=== PATIENT | female | born 1955 | race Caucasian/White ===

== ENCOUNTER → 2016-11-21 | Outpatient (CLI) | payer BC ==
--- NOTE | 2016-11-21 09:23 | BD ---
EXAMINATION TYPE: MG DEXA axial skeleton. DATE OF EXAM: 11/21/2016 7:44 AM COMPARISON: NONE CLINICAL HISTORY: 0.n95, m89.9 post menopausal and disorder of bone Height: 63 Weight: 181 FRAX RISK QUESTIONS: Alcohol (3 or more units per day): no Family History (Parent hip fracture): no Glucocorticoids (More than 3mos): no (Ex: prednisone, prednisolone, methylprednisolone, dexamethasone, and hydrocortisone). History of Fracture in Adulthood: no Secondary Osteoporosis: 1. Type 1 Diabetes: no 2. Hyperthyroidism: no 3. Menopause before 45: no 4. Malnutrition: no 5. Chronic liver disease: no Rheumatoid Arthritis: no Current Tobacco Use: no RISK FACTORS HISTORY OF: Family History of Osteoporosis: no Smoke tobacco: no Drink Alcohol: social Active: yes Diet low in dairy products/other sources of calcium: no Postmenopausal woman: 51 yrs old Lost more than 2 inches in height since high school: no Adrenal Insufficiency: no MEDICATIONS: Additional Medications: multi vitamin, bp meds, Additional History: total knee replacements, bilaterally, rt shoulder replacement, osteoarthritis EXAM MEASUREMENTS: Bone mineral densitometry was performed using the Actimagine System. Bone mineral density as measured about the Lumbar spine is: ----- L1-L4(G/cm2): 1.109 T Score Values are as follows: ----- L1: -0.5 ----- L2: -0.3 ----- L3: -0.9 ----- L4: -0.7 ----- L1-L4: -0.6 Bone mineral density has: IS THE FIRST BONE DENSITY SCAN AT [facility] Bone mineral density about the R hip (g/cm2): 0.928 Bone mineral density about the L hip (g/cm2): 0.996 T Score values are as follows: -----R Neck: -0.8 -----L Neck: -0.3 -----R Intertrochanter: -1.0 -----L Intertrochanter: -1.1 Bone mineral density has: BASELINE STUDY FOR HER AT [facility] FRAX%'S: FOR MAJOR OSTEOPOROTIC FX: 6.9%.......FOR HIP FX: 0.3% PROBABILITY OF FX IN 10 Y RS TIME IMPRESSION: Osteopenia (T Score between -2.5 and -1 as noted by T score values There is slightly increased risk of fracture and the patient may be considered for treatment. Re-Screen 1-2 years. JUST SLIGHTLY FOR LT HIP AT INTERTROCHANTER...ONLY....OTHER [place] NORMAL BONE DENSITY NOTE: T-SCORE=SD OF THE YOUNG ADULT MEAN.
== END | disposition home or self-care (01) ==
LOC: RADBDWWP 07:15
PROVIDERS: ATTEND Family Medicine
DX: M85.80 Other specified disorders of bone density and structure, unspecified site (principal); Z78.0 Asymptomatic menopausal state
CPT/HCPCS: 77080

== ENCOUNTER 2018-01-11 06:57 | Day surgery (SDC) | payer BC ==
[2018-01-08 09:41] VITALS: BMI 32.9
[~2018-01-11 06:57] MED LIST: LACTATED RINGERS 1,000 ML IV SCH
[2018-01-11 07:14] VITALS: RESP 18; TEMP 97.8
[2018-01-11] MEDS ORDERED: LACTATED RINGERS 1,000 ML IV ONE ×2 (07:17)
[2018-01-11] MEDS ORDERED: PROPOFOL 10 MG/ML 20 ML VIAL IV ONE (07:30)
--- NOTE | 2018-01-11 07:37 | P.GSHP ---
History of Present Illness H&P Date: 01/11/18 Chief Complaint: Colon cancer screening Patient here today for screening colonoscopy. Last colonoscopy 4 years ago. No bowel related complaints. Previous history of diverticulosis. Past Medical History Past Medical History: Diabetes Mellitus, Deep Vein Thrombosis (DVT), Hypertension, Renal Disease Additional Past Medical History / Comment(s): diet controlled-used to make medication for, stage 3 kidney disease-new dx-will being specialist soon, frequent headaches stephanie. @[facility], hx. DVT in leg after knee replacement several yrs. ago History of Any Multi-Drug Resistant Organisms: None Reported Past Surgical History: Cholecystectomy, Hernia Repair, Joint Replacement, Tubal Ligation Additional Past Surgical History / Comment(s): harry knees replaced, right shoulder replaced, left shoulder surg., cataract surg., colonoscopy Past Anesthesia/Blood Transfusion Reactions: No Reported Reaction Smoking Status: Never smoker - Past Family History Father Family Medical History: Cancer Medications and Allergies Home Medications Medication Instructions Recorded Confirmed Type Cholecalciferol [Vitamin D3] 1,000 unit PO DAILY 01/08/18 01/08/18 History Citalopram Hydrobromide [CeleXA] 40 mg PO DAILY 01/08/18 01/08/18 History Cyanocobalamin [Vitamin B-12] 500 mcg PO DAILY 01/08/18 01/08/18 History Enalapril [Vasotec] 5 mg PO DAILY 01/08/18 01/08/18 History Ferrous Sulfate [Feosol] 325 mg PO DAILY 01/08/18 01/08/18 History Multivit with Calcium,Iron,Min 1 each PO DAILY 01/08/18 01/08/18 History [Women's Multivitamin] Cidra-3 Fatty Acids [Cidra-3] 1,000 mg PO DAILY 01/08/18 01/08/18 History Topiramate [Topamax] 50 mg PO HS 01/08/18 01/08/18 History buPROPion HCL [Wellbutrin SR] 150 mg PO BID 01/08/18 01/08/18 History cloNIDine HCL [Catapres] 0.1 mg PO HS 01/08/18 01/08/18 History Allergies Allergy/AdvReac Type Severity Reaction Status Date / Time nickel AdvReac Rash/Hives Verified 01/08/18 09:34 Surgical - Exam Vital Signs Temp Pulse Resp BP Pulse Ox 97.8 F 64 18 142/78 96 01/11/18 07:12 01/11/18 07:12 01/11/18 07:12 01/11/18 07:12 01/11/18 07:12 Physical exam: General: Well-developed, well-nourished HEENT: Normocephalic, sclerae nonicteric Abdomen: Nontender, nondistended Extremities: No edema Neuro: Alert and oriented Assessment and Plan (1) Colon cancer screening Narrative/Plan: Will proceed with colonoscopy at this time. Current Visit: Yes Status: Acute Code(s): Z12.11 - ENCOUNTER FOR SCREENING FOR MALIGNANT NEOPLASM OF COLON SNOMED Code(s): 002904274
--- NOTE | 2018-01-11 07:49 | P.PCN ---
Date of Procedure: 01/11/18 Procedure(s) Performed: PREOPERATIVE DIAGNOSIS: Screening POSTOPERATIVE DIAGNOSIS: Diverticulosis PROCEDURE: Colonoscopy ANESTHESIA: MAC SURGEON: Erik Fowler M.D. SPECIMENS: None ENDOSCOPIC PROCEDURE: The patient was placed on the endoscopy table in the left decubitus position. The Olympus colonoscope was inserted into the anus and passed under direct visualization to the base of the cecum. The appendiceal orifice was visualized. From that point the scope was slowly withdrawn inspecting all surfaces carefully. There were no neoplastic inflammatory or polypoid lesions throughout the cecum, ascending, transverse, descending, sigmoid and rectum. There was moderate diverticulosis noted in the left colon. Digital rectal examination was normal. The patient was taken to the recovery room in stable condition per anesthesia guidelines. RECOMMENDATIONS: Increase fiber. Follow-up colonoscopy 10 years.
[2018-01-11 08:26] VITALS: BP 147/85; PULSE 53
== END 2018-01-11 08:38 | disposition home or self-care (01) ==
LOC: ORWHC2ENDO 06:57
PROVIDERS: ATTEND Surgery
DX: Z12.11 Encounter for screening for malignant neoplasm of colon (principal); K57.30 Diverticulosis of large intestine without perforation or abscess without bleeding; I12.9 Hypertensive chronic kidney disease with stage 1 through stage 4 chronic kidney disease, or unspecified chronic kidney disease; E11.22 Type 2 diabetes mellitus with diabetic chronic kidney disease; N18.3 Chronic kidney disease, stage 3 (moderate); M26.629 Arthralgia of temporomandibular joint, unspecified side; R51 Headache; H25.0 Age-related incipient cataract; K21.9 Gastro-esophageal reflux disease without esophagitis; F32.9 Major depressive disorder, single episode, unspecified; Z78.0 Asymptomatic menopausal state; Z86.718 Personal history of other venous thrombosis and embolism; Z98.51 Tubal ligation status; Z96.653 Presence of artificial knee joint, bilateral; Z79.2 Long term (current) use of antibiotics; Z79.82 Long term (current) use of aspirin; Z79.899 Other long term (current) drug therapy; Z88.5 Allergy status to narcotic agent; Z88.8 Allergy status to other drugs, medicaments and biological substances; Z91.048 Other nonmedicinal substance allergy status
CPT/HCPCS: J2704; G0121

== ENCOUNTER → 2018-01-29 | Outpatient (CLI) | payer BC ==
--- NOTE | 2018-02-01 14:30 | MM ---
Reason for exam: screening (asymptomatic). Last mammogram was performed 1 year and 3 months ago. History: Patient is postmenopausal. Physical Findings: A clinical breast exam by your physician is recommended on an annual basis and results should be correlated with mammographic findings. MG Screening Mammo w CAD Bilateral CC and MLO view(s) were taken. Prior study comparison: October 29, 2016, bilateral MG screening mammo w CAD. June 15, 2015, bilateral MG screening mammo w CAD. There are scattered fibroglandular densities. No suspicious abnormality. No significant changes when compared with prior studies. ASSESSMENT: Negative, BI-RAD 1 RECOMMENDATION: Routine screening mammogram of both breasts in 1 year.
== END | disposition home or self-care (01) ==
LOC: RADMAMWWP 08:28
PROVIDERS: ATTEND Family Medicine
DX: Z12.31 Encounter for screening mammogram for malignant neoplasm of breast (principal)
CPT/HCPCS: 77067

== ENCOUNTER → 2020-12-05 | Outpatient (CLI) | payer OTHER ==
--- NOTE | 2020-12-05 15:16 | BD ---
EXAMINATION TYPE: Axial Bone Density DATE OF EXAM: 12/05/2020 COMPARISON: 11.21.2016 CLINICAL HISTORY: 65 YR OLD FEMALE.....ICD-10 CODE: Z78.0 POST MENOPAUSAL Height: 63 Weight: 171 FRAX RISK QUESTIONS: NOTHING TO NOTE HERE RISK FACTORS HISTORY OF: Postmenopausal woman: YES, AT ABOUT 49 YRS OLD Hyperparathyroidism: NO Adrenal Insufficiency: NO MEDICATIONS: Additional Medications: BP MEDS, REFLUX MEDS, MULTIVITAMIN Additional History: BILAT TOTAL SHOULDER REPLACEMENTS, BILAT TOTAL KNEE REPLACEMENTS, EXAM MEASUREMENTS: Bone mineral densitometry was performed using the [employer] System. Bone mineral density as measured about the Lumbar spine is: ----- L1-L4(G/cm2): 1.201 T Score Values are as follows: ----- L1: 0.2 ----- L2: 0.0 ----- L3: 0.2 ----- L4: 0.1 ----- L1-L4: 0.2 Bone mineral density has: Increased 8.3% since study of: 11.21.2016 Bone mineral density about the R hip (g/cm2): 0.915 Bone mineral density about the L hip (g/cm2): 0.876 T Score values are as follows: -----R Neck: -1.4 -----L Neck: -1.1 -----R Total: -0.7 -----L Total: -1.0 Bone mineral density has: Decreased -4.9% since study of: 11.21.2016 FRAX%s: THERE IS A 8.6% CHANCE FOR A MAJOR OSTEOPOROTIC FX AND A 0.9% FOR HIP.....PROBABILITY F OR FX IN 10 YRS TIME IMPRESSION: Osteopenia (T Score between -2.5 and -1). There is slightly increased risk of fracture and the patient may be considered for treatment. Re-Screen 2-5 years. NOTE: T-SCORE=SD OF THE YOUNG ADULT MEAN.
--- NOTE | 2020-12-10 08:49 | MM ---
Reason for exam: screening (asymptomatic). Last mammogram was performed 2 years and 10 months ago. History: Patient is postmenopausal. Physical Findings: A clinical breast exam by your physician is recommended on an annual basis and results should be correlated with mammographic findings. MG Screening Mammo w CAD Bilateral CC and MLO view(s) were taken. Prior study comparison: January 29, 2018, bilateral MG screening mammo w CAD. October 29, 2016, bilateral MG screening mammo w CAD. There are scattered fibroglandular densities. No significant changes when compared with prior studies. ASSESSMENT: Benign, BI-RAD 2 RECOMMENDATION: Routine screening mammogram of both breasts in 1 year.
== END | disposition home or self-care (01) ==
LOC: RADMAMWWP 07:12
PROVIDERS: ATTEND Family Medicine
DX: Z12.31 Encounter for screening mammogram for malignant neoplasm of breast (principal); M85.80 Other specified disorders of bone density and structure, unspecified site; Z78.0 Asymptomatic menopausal state
CPT/HCPCS: 77067; 77080

== ENCOUNTER → 2021-09-16 | Outpatient (CLI) | payer OTHER | END | disposition home or self-care (01) | LOC: PAT 13:02 | PROVIDERS: ATTEND Urology | DX: Z01.812 Encounter for preprocedural laboratory examination (principal); M43.12 Spondylolisthesis, cervical region | CPT/HCPCS: 86850; 86900; 86901; 87070 ==

== ENCOUNTER 2021-09-24 06:49 | Inpatient (IN) | payer OTHER ==
[2021-09-23 09:33] VITALS: BMI 26.6
--- NOTE | 2021-09-23 15:45 | P.HPOR ---
History of Present Illness H&P Date: 09/16/21 Chief Complaint: neck pain, gait instability Date of :[birth year] R14 Allergies: Age: 65 year Height: 5'5" Weight: 167 lbs BMI: 27.79 kg/m2 Occupation: Retired VAS: 5 CHIEF COMPLAINT: Cervical pain HISTORY: Xrays brought xrays from outside facility which were reviewed Trauma or injury No Work-Related No Pain description dull, aching, sharp. Location posterior Activity Modification yes Hand Dominance right TREATMENTS COMPLETED: 6 weeks of PT completed? Yes How many sessions? >10 Did it help? No Physician directed home exercise completed? yes Medications yes List: Medrol, motrin, mikayla, flexeril Alternative interventions Chiropractic?: No Brace: No Injections Yes How many? 2 Did they help? No RFA: No SUBJECTIVE: Today Ms. Marcelino presents to the office for follow up on her cervical spine. She comes in for her pre-operative appointment. At this time she states that her symptoms have not changed since the time of the last appointment and she is ready to proceed with surgery. HPI: The patient last presented to the office on 09/05/2021 for her cervical pain. At that time we had several conversations in the recent past about her neck and her cervical spondylotic myelopathy. She has decided on surgical intervention. Her symptoms have not gotten better with any conservative treatments over the past year and she continues to have UE weakness, difficulty with holding things, fine motor skills and states that she is noting she is off balance quite a bit more as of late. She stated no injury or recent trauma. She stated she was ready for surgery. The patients' past social, medical, family, surgical history, as well as review of systems, have been reviewed. Please refer to the Neurosurgery History and Physical form that has been scanned in to our electronic medical record system. Review of Systems 14 points review of systems completed and as stated in HPI, all other systems reviewed are negative. Past Medical History Past Medical History: Diabetes Mellitus, Deep Vein Thrombosis (DVT), Hypertension, Renal Disease Additional Past Medical History / Comment(s): diet controlled diabetes. stage 3 kidney disease. frequent headaches stephanie. @[facility]. tardive dyskinesia History of Any Multi-Drug Resistant Organisms: None Reported Past Surgical History: Cholecystectomy, Hernia Repair, Joint Replacement, Tubal Ligation Additional Past Surgical History / Comment(s): harry knees replaced. right shoulder replaced. left shoulder surg. harry. cataract removal Past Anesthesia/Blood Transfusion Reactions: Previous Problems w/ Anesthesia Additional Past Anesthesia/Blood Transfusion Reaction / Comment(s): AFTER PT'S KNEE REPLACEMENT AT [facility], SHE HAD POST OP BRONCHOSPASMS AND STRIDOR Past Psychological History: ADD/ADHD, Anxiety, Depression Smoking Status: Never smoker Past Alcohol Use History: Occasional Past Drug Use History: None Reported - Past Family History Father Family Medical History: Cancer Brother(s) Additional Family Medical History / Comment(s): ANEURYSM Medications and Allergies Home Medications Medication Instructions Recorded Confirmed Type Citalopram Hydrobromide [CeleXA] 40 mg PO DAILY 01/08/18 09/23/21 History Ferrous Sulfate [Feosol] 325 mg PO DAILY 01/08/18 09/23/21 History Topiramate [Topamax] 50 mg PO DAILY 01/08/18 09/23/21 History buPROPion HCL [Wellbutrin SR] 150 mg PO BID 01/08/18 09/23/21 History cloNIDine HCL [Catapres] 0.1 mg PO HS 01/08/18 09/23/21 History ALPRAZolam [Xanax] 0.5 mg PO HS PRN 09/23/21 09/23/21 History Aspirin 81 mg PO DAILY 09/23/21 09/23/21 History DULoxetine HCL [Cymbalta] 30 mg PO BID 09/23/21 09/23/21 History Gabapentin [Neurontin] 100 mg PO TID 09/23/21 09/23/21 History Methylphenidate HCl 20 mg PO TID 09/23/21 09/23/21 History Verapamil HCl [Verapamil Sr] 120 mg PO DAILY 09/23/21 09/23/21 History clonazePAM 1 mg PO HS PRN 09/23/21 09/23/21 History tiZANidine HCL 2 mg PO HS PRN 09/23/21 09/23/21 History Allergies Allergy/AdvReac Type Severity Reaction Status Date / Time cobalt Allergy Rash/Hives Verified 09/23/21 08:31 hydromorphone Allergy Unknown Verified 09/23/21 09:08 nickel Allergy Rash/Hives Verified 09/23/21 08:31 Physical Examination Osteopathic Statement: *. No significant issues noted on an osteopathic structural exam other than those noted in the History and Physical/Consult. PHYSICAL EXAMINATION: General: Awake, alert, appropriate for age, in no acute distress. HEENT: No unusual neck masses around region of lateral neck triangle, thyroid, supraclavicular groove Heart: Regular rate and rhythm, normal S1, S2 and no murmur/gallop. Lungs: Clear to auscultation bilaterally with no use of accessory muscles. Extremities: Skin warm and dry without acute lesions, coloration, temperature, skin intact, no tenderness or erythema Integument: Hairy patches: Absent Dorsal skin dimples: Absent Cafe au lait spots: Absent Surgical incisions: No Palpation: Please see Pain drawing on Intake sheet for further detail. Midline spinal tenderness: Yes CT junction E6 Paralumbar tenderness: No E6 Parathoracic tenderness: No E6 Buttocks tenderness: No E6 Special findings: No POSTURAL and MUSCULO-SKELETAL EVALUATION: Coronal Balance: NEUTRAL Recumbent testing: Patient is able to lay flat on back Sagittal Balance: POSITIVE Shoulder Profile: LEVEL Pelvic Girdle: LEVEL Neck ROM: PAINFUL Lumbar ROM: UNRESTRICTED Shoulder ROM: Symmetrical Hip ROM: Symmetrical Knee ROM: Symmetrical Hands: Normal appearance, symmetrical Feet: Normal appearance, Symmetrical VASCULAR STATUS : LEFT RIGHT Wrist Pulses INTACT INTACT Pedal Pulses (Dors. pedis & post.tibialis) INTACT INTACT Color NORMAL NORMAL Edema Absent Absent NEUROLOGIC EXAMINATION: Mental Status:Awake and alert, fully oriented, with normal attention, concentration and memory, and fluent, appropriate speech. Cranial Nerves: I: Olfactory not tested. II: Visual acuity normal, no visual field deficit noted with confrontation. III,IV: Normal pupillary reflexes & intact extraocular movements without nystagmus. V,: Intact symmetrical facial sensation. VII: Intact symmetrical facial motor movement VIII: Hearing intact. IX,X: Intact gag, swallow, & normal voice. XI: Sternocleidomastoid, trapezius function intact. XII: Tongue midline with normal movements. L'hermitte's Sign: Negative / absent Spurling'Sign: POS BL Suri-Tinel sign - Carpal region: Absent bilaterally. Straight Leg Raising: Absent bilaterally. Crossed straight leg raise: negative O8 MOTOR EXAM (0-5/5, N/T) STRENGTH RIGHT LEFT Shoulder Abd (not part of the DONATO score) 5 5 Elbow Flexors 4+ 4+ Elbow Extensor 4+ 5 Wrist Dorsiflexors 5 4+ Finger Abductor 4+ 4+ Outreach Worker 4+ 4+ Hip Flexor (Not part of DONATO Motor score) 5 5 Knee Flexor 5 5 Knee Extensor 5 5 Ankle dorsiflexor 5 5 Ankle plantarflexion 5 5 Extensor hallucis 5 5 REFLEXES(0-4/2, NT) RIGHT LEFT Upper Extremities 3 3 Lower Extremities 1 1 Pathological Reflexes RIGHT LEFT Doss's Present Present Clonus Absent # of beats: 2 Babinski Absent Absent # Indicates mechanical impairment Muscle appearance: Symmetrical, some intrinsic atrophy b/l hands Sensory system (0-4, N/T) Test type RU PHO[place] RL LL Joint-Position 2 2 2 2 Vibration 2 2 2 2 Pain & LT sense 2 2 2 2 Dermatomal Deficit: C4-5 C5-6 None None Gait and Functional Evaluation: Ambulatory aids: Cane Romberg's test: Intact bilaterally Toe heel walk / heel-toe walk intact while maintaining satisfactory balance? No Squatting/straightening w/o assistance to a min of 60 degree knee flexion? No Single leg stance: Trendelenburg sign negative bilaterally Hand and finger dexterity intact bilaterally? No Disdiadochokinesis examination negative bilaterally? No Results XRay taken on 08/12/21 of Cervical Spine: this demonstrates spondylosis from C3 to C6 which is moderate to severe in nature. There is facet arthrosis as well as disc degeneration and disc desiccation. There is a spondylolisthesis grade 1 at C3-C4 which is unstable on flexion-extension films. Occipital cervical C1 2 joints appear stable. No other fracture or dislocation is noted the remainder of the subaxial cervical spine is relatively stable. Outside MRI 05/10/21: Of the cervical spine demonstrates severe cervical spondylosis from C3-7 with Grade I anteriorlisthesis of C3-4 with C4-5 and C5-6 severe stenosis. At these levels there is only 6.4 and 4.6 mm of SAC respectively due to disc herniation, facet hypertrophy, ligamental hypertrophy and disc degeneration. At C4-5 and C5-6 these are pincer type lesions with anterior and posterior components to stenosis. There is grade I spondylolisthesis noted at C7-T1 as well which contributes to the patients somewhat hyperlordotic compensation for the high T1 angle she has. No fracture seen. C0-1 and C1-2 appear stable. - Labs Labs: Microbiology - Last 24 Hours (Table) 09/16/21 13:52 Nasal Screen MRSA/MSSA - Final Nasal Swab Assessment and Plan Assessment: 1. Cervical Spondylotic Myelopathy 2.C3-7 spondylosis 3. 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 B/L UE weakness 5. Gait instability 6. Mechanical Neck pain Plan: 1. Two part same day procedure Part I: C3-C7 ACDF and Part II: C2-T2 decompression and fusion Spine Surgery Risk Review Leidy Marcelino is a patient presenting for evaluation of cervical pain. It was my pleasure to have seen and examined Ms. Marcelino. In our visit today we have had a chance to go over subjective complaints, physical examination findings and treatments including the natural course history without intervention and various interventional options. The patients i maging demonstrates severe cervical spondylosis from C3-7 with Grade I anterolisthesis of C3-4 with C4-5 and C5-6 severe stenosis. On physical exam, Ms. Marcelino demonstrates cervical spondylotic myelopathy. I have explained to the patient that as their condition progresses it will cause further neurological deficits and eventual paralysis. Based on the patients imaging, physical exam, and the rapid progression and disabling nature of their symptoms, at this time I recommend surgery in the form or a: Two part same day procedure Part I: C3-C7 ACDF and Part II: C2-T2 decompression and fusion . I discussed the risk and benefits of this procedure at length with Ms. Marcelino. The patient agreed to considered pursuing the procedure abovementioned. Prior to surgery, she should follow up with her PCP (Cardio, ID, IM etc) for clearance. Questions were invited and answered, and the patient wishes to proceed as outlined below. Currently, I am recommendin.Two part same day procedure Part I: C3-C7 ACDF and Part II: C2-T2 decompression and fusion. 2.Review of surgical risks and benefits as well as an educational packet on the proposed surgical procedure. Risks: All surgical procedures come with inherent risks, including those related to positioning, anesthesia, intraoperative findings, and postoperative complicati ons. It is important to understand that surgery does not come with any guarantee of a successful outcome as complications and adverse events are always possible. The patient was given a handout in office today discussing the surgical procedure and risks associated with the intervention, both of which were discussed with the patient. These risks include but are not limited to the following: * Experiencing same, different or even worse symptoms in back, neck, arms, or legs compared to before surgery. Requiring further surgery or other forms of treatment presently or at some time in the future at same or other levels of the intended spine surgery. On an extreme but fortunately relatively rare basis severe complication such as blindness, stroke, heart attack, temporary and/or permanent nerve injury, paralysis, coma, or may occur, sometimes without known explanation. Surgical complications may include but are not limited to risk of infection, fluid accumulation in the surgical dissection site, including a seroma or hematoma, that requires additional surgery, wound drainage, bleeding, new numbness or weakness, vision changes/loss, spinal fluid leakage, non-healing and/or infected incision, headaches, difficulty or inability to swallow, hoarseness, hemopneumothorax, pneumothorax, impotence, retrograde ejaculation, vaginal dryness; injury to nerves, spinal cord, blood vessels, lymphatics or other vital organs (i.e., bowel injury, injury to the great vessels); heterotopic bone formation; complications related to the hardware such as screws, rods, cages including misplaced hardware, device failure, instrumentation at the wrong spine level, hardware fracture/breakage, or hardware loosening; vertebral failure of the spinal column above or below the newly placed hardware; retained surgical instrumentations or devices and the need for further surgery. * Medical risks of the planned spine surgery include but are not limited to generalized Infections to the whole body or local areas outside of the surgical site (sepsis), heart attack, bleeding, anaphylaxis, meningitis, seizure, epilepsy, hearing loss, burn beck, laceration of the head or other areas of the body, bruising, hypersensitivity of the skin, bladder over distension; allergic reaction; shoulder injury related to positioning; fat, blood and air clots to other areas of the body like heart, lungs, brain; failure of internal organs such as lungs, kidneys, liver and excessive bleeding. If blood transfusions are necessary, note that transfusions may cause intolerance reactions such as anaphylaxis or other complex reactions. Despite best efforts, the results of spine surgery might not heal in terms of bone, soft tissues such as skin, fascia, ligaments, and joints. Additionally, in order to achieve best possible results, spine surgery may be carried out beyond the initially planned levels and involve decompression, fusion including insertion of hardware at levels other than the original intended area of surgical interest change some portions of the procedure in order to ensure the best possible outcomes. With spine surgery and spinal fusion, there are different off label uses of instrumentation (devices, implants and hardware) as well as biological substances (bone morphogenic proteins, demineralized bone matrix) as well as using extra bone from allograft sources (i.e. cadaver bone) or autograft (iliac crest bone, ribs, or the spine itself). The patient has been given information about these practices and their inherent risks and benefits. [facility] is an educational center that serves as a training facility for neurosurgical and orthopedic spine residents and fellows. Residents are physicians who are completing their surgical intensive training following medical school. They assist in the operating room with direct supervision of the attending surgeons. [place] are surgeons who have completed their training and eligible for board certification. They have opted for an elective year of more specialized training in their field. They assist in the operating room under the supervision of the attending surgeons. Physician assistants are medically trained surgical providers who function in the outpatient, inpatient, and operating room setting under the direct supervision of the attending surgeon. [facility] has multiple operating rooms with single and overlapping rooms running daily. They currently function under the required guidelines as produced by the [facility] Finance Committee with regards to the overlapping rooms and will continue to comply with changes to this policy as they occur. The requirements include and are complied with as follows: (1) the critical portions of the overlapping rooms will not occur at the same time, (2) the attending physician will be physically present during the critical portions of the procedure and immediately available during the entire case, and (3) a back-up attending is designated should the primary attending not be immediately available. The patient has had a chance to review all the listed information, has been given print outs detailing this information, and has had all his/her questions answered to their satisfaction. It was my pleasure to have seen and examined Ms. Marcelino. In our visit today we have had a chance to go over my understanding of our patient's current condition, the natural course history without intervention and various interventional options. Questions were invited and answered, and the patient wishes to proceed as outlined above. I have seen and examined the patient for 25 minutes and we have spent more than 50% of the time in repeat and detailed counseling about the patient's condition, its natural course history with out and as much as can be predicted with surgery and re-review of various surgical treatment options. In conclusion, Leidy requested we proceed with the above suggested surgery and are willing to accept risks and limitations of the suggested surgery as nature of the disease process and our best attempts at treatment for the condition. Thank you again for allowing us to be part of your patient's care. Please don't hesitate to contact me if you have any further questions. Signed and authenticated by: [employer] P:\\\\ppart\\\\[id number]\\\\[id number].PNG \\d Miguel [facility] [address], [address] [address]
[~2021-09-24 06:49] MED LIST changes: +ACETAMINOPHEN TAB 500 MG TAB PO PRN; +GABAPENTIN 300 MG CAP PO PRN; -LACTATED RINGERS 1,000 ML IV SCH; +MIDAZOLAM 2 MG/2 ML VIAL IV PRN; +ONDANSETRON 4 MG/2 ML VIAL IVP PRN; +TRANEXAMIC ACID 1,000 MG in SODIUM CHLORIDE 0.9% 100 ML IVPB ONE
[2021-09-24] MEDS ORDERED: fentaNYL (PF) 50 MCG/ML 2 ML AMP IV PRN (07:00)
[2021-09-24] MEDS ORDERED: MIDAZOLAM 2 MG/2 ML VIAL IVP ONE (07:13)
[2021-09-24 07:19] LABS: Glucose,Whole Blood 68 mg/dL (75-99)
[2021-09-24] MEDS: LACTATED RINGERS 1,000 ML IV SCH (07:25)
[2021-09-24 07:32] LABS: Basophils # (A) 0.1 k/uL (0-0.2); Basophils % (A) 1 %; Eosinophils # (A) 0.5 k/uL (0-0.7); Eosinophils % (A) 7 %; HCT 40.7 % (34.0-46.0); HGB 13.4 gm/dL (11.4-16.0); Lymphocytes % (A) 27 %; MCH 33.4 pg (25.0-35.0); MCHC 32.9 g/dL (31.0-37.0); MCV 101.5 fL (80.0-100.0); Mean Platelet Volume 7.3; Monocytes # (A) 0.4 k/uL (0-1.0); Monocytes % (A) 6 %; Neutrophils # (A) 4.2 k/uL (1.3-7.7); Neutrophils % (A) 58 %; Platelet Count 182 k/uL (150-450); RBC 4.01 m/uL (3.80-5.40); RDW 12.6 % (11.5-15.5); WBC 7.2 k/uL (3.8-10.6)
--- NOTE | 2021-09-24 07:42 | P.PN ---
Progress Note - Text Progress Note Date: 09/24/21 Pt s/e this am. She is ready for procedure. We discussed risks and benefits again. She understands and is comforable with them. She denies any new sx or changes. We will plan on Two step procedure today. She agreed. Consent is confurme.d PT NPO. Abx ordered. Art line and central line going in per anesthesia.
[2021-09-24 07:51] LABS: Calcium 9.1 mg/dL (8.4-10.2); Potassium 4.1 mmol/L (3.5-5.1); Total Bilirubin 0.5 mg/dL (0.2-1.3); Total Protein 6.5 g/dL (6.3-8.2)
[2021-09-24] MEDS ORDERED: fentaNYL (PF) 50 MCG/ML 2 ML AMP IVP ONE ×2 (07:56→08:05)
[2021-09-24] MEDS ORDERED: NEOSTIGMINE 1 MG/ML 10 ML VIAL ONE (08:15)
[2021-09-24] MEDS ORDERED: SODIUM CHLORIDE 0.9% 100 ML BAG ONE (08:15)
[2021-09-24] MEDS ORDERED: SUCCINYLCHOLINE CHLORIDE 100 MG/5 ML SYR IV ONE (08:15)
[2021-09-24] MEDS ORDERED: HEPARIN SODIUM,PORCINE 10,000 UNIT/ML 1 ML VIAL ONE (08:15)
[2021-09-24] MEDS ORDERED: MIDAZOLAM 2 MG/2 ML VIAL ONE (08:15)
[2021-09-24] MEDS ORDERED: ePHEDrine 50 MG/ML 1 ML AMP ONE (08:15)
[2021-09-24] MEDS ORDERED: ROCURONIUM 10 MG/ML (5 ML VIAL) IV ONE (08:15)
[2021-09-24] MEDS ORDERED: fentaNYL (PF) 50 MCG/ML 2 ML AMP ONE (08:15)
[2021-09-24] MEDS ORDERED: PHENYLEPHRINE-0.9% NACL SYG 1,000 MCG/10 ML SYRINGE ONE (08:15)
[2021-09-24] MEDS ORDERED: WATER FOR INJECTION, STERILE 10 ML VIAL IV ONE (08:15)
[2021-09-24] MEDS ORDERED: SODIUM CHLORIDE 0.9% IRRIG 1,000 ML BTL IRRIGATION ONE (08:15)
[2021-09-24] MEDS ORDERED: PROPOFOL 10 MG/ML 20 ML VIAL IV ONE (08:15)
[2021-09-24] MEDS ORDERED: GLYCOPYRROLATE 0.2 MG/ML 2 ML VIAL ONE (08:15)
[2021-09-24] MEDS ORDERED: KETAMINE 10 MG/ML 20 ML VIAL ONE (08:15)
[2021-09-24] MEDS ORDERED: TRANEXAMIC ACID 1,000 MG/10 ML VIAL ONE (08:15)
[2021-09-24] MEDS ORDERED: LIDOCAINE 1% INJ 10MG/ML (20 ML MDV) ONE (08:15)
[2021-09-24] MEDS ORDERED: LACTATED RINGERS 1,000 ML IV ONE ×3 (08:19→13:06)
--- NOTE | 2021-09-24 08:25 | XR ---
EXAMINATION TYPE: XR chest 1V confirm line [facility] DATE OF EXAM: 09/24/2021 COMPARISON: NONE HISTORY: Status post central venous catheter placement TECHNIQUE: Single frontal view of the chest is obtained. FINDINGS: There is a left jugular central venous catheter, distal tip is overlying the right atrium. Lung volumes are low and the patient is rotated. There is no evident pneumothorax or pleural effusio n. Interstitium is prominent as is the heart size. Aorta is dense. Bone mineralization is reduced. Pa tient is post right shoulder arthroplasty, there are overlying artifacts. IMPRESSION: No evident complication status post central venous catheter placement. Expiratory exam.
[2021-09-24] MEDS ORDERED: LIDOCAINE 0.5%-EPI 1:200,000 50 ML VIAL SQ ONE ×2 (09:03)
[2021-09-24] MEDS ORDERED: TRANEXAMIC ACID 1,000 MG in SODIUM CHLORIDE 0.9% 100 ML IVPB ONE (09:18)
[2021-09-24] MEDS ORDERED: THROMBIN (BOVINE) 5,000 UNIT VIAL TOPICAL ONE ×2 (09:30)
[2021-09-24] MEDS ORDERED: GELATIN SPONGE,ABSORB (SMALL) 1 EACH SPONGE TOPICAL ONE (09:30)
[2021-09-24 11:30] LABS: Glucose,Whole Blood 109 mg/dL (75-99)
[2021-09-24] MEDS ORDERED: ceFAZolin 3,000 MG in SODIUM CHLORIDE 0.9% IRRIGATIO 3,000 ML IRRIGATION ONE ×2 (12:56→13:11)
[2021-09-24 15:26] LABS: Glucose,Whole Blood 132 mg/dL (75-99)
[2021-09-24] MEDS ORDERED: VANCOMYCIN 1,000 MG VIAL MISCELLANE ONE (15:27)
--- NOTE | 2021-09-24 16:07 | FL ---
Fluoroscopy HISTORY: Pain 136 seconds fluoroscopy time supplied to the referring clinician. 20 intraoperative C-arm images doc ument the procedure. See dictated report from orthopedic surgery.
[2021-09-24] MEDS ORDERED: HYDROcodone/APAP 5-325MG 1 EACH TAB PO PRN (16:55)
[2021-09-24] MEDS ORDERED: HYDROmorphone 1 MG/ML 1 ML SYRINGE IVP PRN (16:55)
[2021-09-24] MEDS ORDERED: ONDANSETRON 4 MG/2 ML VIAL IVP PRN (16:55)
[2021-09-24] MEDS ORDERED: SENNOSIDES-DOCUSATE SODIUM 1 EACH TAB PO PRN (16:55)
[2021-09-24] MEDS ORDERED: CYCLOBENZAPRINE 5 MG TAB PO PRN (16:55)
[2021-09-24] MEDS ORDERED: VANCOMYCIN IV PER PHARMACY 1 EACH MISC MISCELLANE PRN (17:00)
[2021-09-24] MEDS ORDERED: DEXAMETHASONE SOD PHOSPHATE 4 MG/ML 1 ML VIAL IVP PRN (17:00)
[2021-09-24] MEDS ORDERED: propofoL 100 ML IV ONE (17:03)
[2021-09-24] MEDS ORDERED: RX INFO: IV CONTRAST WAS GIVEN 1 EACH MISC MISCELLANE PRN (17:07)
[2021-09-24 17:16] LABS: Glucose,Whole Blood 127 mg/dL (75-99)
--- NOTE | 2021-09-24 17:18 | P.PN ---
Progress Note - Text Progress Note Date: 09/24/21 Brief Post op: Pre Op Dx: Cervical spondylotic myelopathy Post Op Dx: Same Procedure: Anterior C3-7 ACDF; Posterior C2-T2 decompression and fusion Surgeon: Yenifer Assist: Savanna Anesthesia: GETA EBL: 500 cc Fluids: 2500 cc Implants: Andrew Complications: None Disposition: Stable to ICU Post op Plan: Admit to ICU Non contrasted CT of CT spine when extubated Maintain and record drains Maintain MAPs 80s Titrate pain to VS GI/DVT ppx Hold anticoag until tomorrow night 24 hrs post op C collar at all times
[2021-09-24 17:33] LABS: ABG Base Excess -6.2 mmol/L; ABG HCO3 20 mmol/L (21-25); ABG PCO2 39 mmHg (35-45); ABG PH 7.32 (7.35-7.45); ABG PO2 263 mmHg (83-108); ABG TCO2 21 mmol/L (19-24)
[2021-09-24] MEDS ORDERED: NOREPINEPHRIN 4 MG-0.9% NS PMX 4 MG/250 ML ML IV ONE (17:59)
--- NOTE | 2021-09-24 18:11 | P.ANPRN ---
Procedure Note - Anesthesia - Invasive Line Left Central Line Time Out Performed: Yes ([id number]) Date of Procedure: 09/24/21 Time of Procedure: 07:31 Location of Patient: PreOp Preparation: Sterile Prep, Sterile Dressing Ultrasound Used: Yes Purpose - Visualization and Identification of Vasculature: Yes Needle Guage: 18g angio Image Stored and Saved: Yes Narrative: Central line placement per sterile protocol utilized. Sterile protocol +local +angio +cvp +jwire +uneventful dilation and introduction left IJ TLC
[2021-09-24 18:25] LABS: Allen Test Performed? no
[2021-09-24] MEDS ORDERED: NOREPINEPHRINE 4 MG in SODIUM CHLORIDE 0.9% 250 ML IV SCH (18:30)
--- NOTE | 2021-09-24 18:32 | XR ---
EXAMINATION TYPE: XR chest 1V confirm line [facility] DATE OF EXAM: 09/24/2021 COMPARISON: Today HISTORY: Check tube placement TECHNIQUE: Single view FINDINGS: There is nasogastric tube in the stomach. There is endotracheal tube 2 cm from the ayesha. There is multilevel cervical spine fusion surgery. There is some blunting of the left costophrenic an gle. There is left jugular catheter with tip in the right atrium. IMPRESSION: Tubing in fairly good position. No heart failure. There is mild pleural reaction and atel ectasis left lung base increased compared to exam this morning.
--- NOTE | 2021-09-24 18:37 | P.CNPUL ---
History of Present Illness Consult date: 09/24/21 Chief complaint: Ventilator management post C-spine surgerysg History of present illness: 65-year-old female patient with known history of cervical spondylitic myelopathy and severe stenosis at level of C3 through C7 in addition to spondylosis and the patient was having upper extremity weakness and gait instability. The patient underwent an extensive neck surgery where the patient underwent a Part I: C3-C7 ACDF and Part II: C2-T2 decompression and fusion. The surgery lasted for a total of 8 hours. Following that, the patient was kept intubated and both into the intensive care unit. She was not extubated due to concern of spasm that has occurred in her vocal cords post extubation with previous surgeries. Currently she is on Decadron. She is on Dilaudid for pain control. She is sedated with propofol which is running at 30 mg/kg per minute. She remains on a mechanical ventilator. She is on assist control mode at the rate of 16, tidal volume of 350, rate of 16, FiO2 of 50% with a PEEP of 5. The blood. This was done on 100% FiO2 showed a pH of 7.32 with a pCO2 of 39 and pO2 of 263. Based on that, the FiO2 was dropped down to 50%. Chest x-ray shows adequate positioning of the ET tube. Some atelectatic changes in lung bases. Heart racing in the cervical spine. The patient is adequately sedated. She is arousable. Motor function cannot be assessed at this point in time. She is hemodynamically stable. Upon the request of the surgeon, the mean arterial pressure will be kept above 80 and for that reason norepinephrine infusion is being utilized to keep a map of above 80. The patient currently is producing adequate amount of urine output. She is hemodynamically stable. No Elvis arrhythmias. Cardiac rhythm is sinus. No other significant events since arrival to the intensive care unit. The patient has 2 ROSE drains anterior and the posterior neck and output is serosanguineous and being monitored. Review of Systems ROS unobtainable: due to endotracheal tube Past Medical History Past Medical History: Diabetes Mellitus, Deep Vein Thrombosis (DVT), Hypertension, Renal Disease Additional Past Medical History / Comment(s): diet controlled diabetes. stage 3 kidney disease. frequent headaches stephanie. @[facility]. tardive dyskinesia History of Any Multi-Drug Resistant Organisms: None Reported Past Surgical History: Cholecystectomy, Hernia Repair, Joint Replacement, Tubal Ligation Additional Past Surgical History / Comment(s): harry knees replaced. right shoulder replaced. left shoulder surg. harry. cataract removal Past Anesthesia/Blood Transfusion Reactions: Previous Problems w/ Anesthesia Additional Past Anesthesia/Blood Transfusion Reaction / Comment(s): AFTER PT'S KNEE REPLACEMENT AT [facility], SHE HAD POST OP BRONCHOSPASMS AND STRIDOR Past Psychological History: ADD/ADHD, Anxiety, Depression Smoking Status: Never smoker Past Alcohol Use History: Occasional Past Drug Use History: None Reported - Past Family History Father Family Medical History: Cancer Brother(s) Additional Family Medical History / Comment(s): ANEURYSM Medications and Allergies Home Medications Medication Instructions Recorded Confirmed Type Citalopram Hydrobromide [CeleXA] 40 mg PO DAILY 01/08/18 09/23/21 History Ferrous Sulfate [Feosol] 325 mg PO DAILY 01/08/18 09/23/21 History Topiramate [Topamax] 50 mg PO DAILY 01/08/18 09/23/21 History buPROPion HCL [Wellbutrin SR] 150 mg PO BID 01/08/18 09/23/21 History cloNIDine HCL [Catapres] 0.1 mg PO HS 01/08/18 09/23/21 History ALPRAZolam [Xanax] 0.5 mg PO HS PRN 09/23/21 09/23/21 History Aspirin 81 mg PO DAILY 09/23/21 09/23/21 History DULoxetine HCL [Cymbalta] 30 mg PO BID 09/23/21 09/23/21 History Gabapentin [Neurontin] 100 mg PO TID 09/23/21 09/23/21 History Methylphenidate HCl 20 mg PO TID 09/23/21 09/23/21 History Verapamil HCl [Verapamil Sr] 120 mg PO DAILY 09/23/21 09/23/21 History clonazePAM 1 mg PO HS PRN 09/23/21 09/23/21 History tiZANidine HCL 2 mg PO HS PRN 09/23/21 09/23/21 History Allergies Allergy/AdvReac Type Severity Reaction Status Date / Time cobalt Allergy Rash/Hives Verified 09/24/21 06:59 hydromorphone Allergy Unknown Verified 09/24/21 06:59 nickel Allergy Rash/Hives Verified 09/24/21 06:59 Physical Exam Vitals: Vital Signs Temp Pulse Pulse Resp BP BP Pulse Ox 09/24/21 17:20 96.2 F L 50 L 13 125/70 100 09/24/21 17:10 100 09/24/21 08:09 51 L 14 94/52 96 09/24/21 07:07 97.6 F 55 L 16 120/63 96 Intake and Output 09/24/21 09/24/21 09/24/21 06:59 14:59 22:59 Intake Total 3201 50 Output Total 800 Balance 3201 -750 Intake: IV 3201 50 Output: Urine 300 Estimated Blood Loss 500 Other: Weight 81.5 kg ABP, PAP, CO, CI - Last 8 Hours Arterial Blood Pressure 107/66 Gen. appearance the patient is calm comfortable likely distress, intubated on a mechanical ventilator. The patient is wearing a hard neck collar Head exam was generally normal. There was no scleral icterus or corneal arcus. Mucous membranes were moist. neck is stabilized by a hard neck collar. The patient ROSE drains placed anteriorly and posteriorly and output this bloody/serosanguineous. Lungs were clear to auscultation and percussion, and with normal diaphragmatic excursion. No wheezes or rales were noted. Cardiac exam revealed the PMI to be normally situated and sized. The rhythm was regular and no extrasystoles were noted during several minutes of auscultation. The first and second heart sounds were normal and physiologic splitting of the second heart sound was noted. There were no murmurs, rubs, clicks, or gallops. Abdominal exam revealed normal bowel sounds. The abdomen was soft, non-tender, and without masses, organomegaly, or appreciable enlargement of the abdominal aorta. Examination of the extremities revealed easily palpable radial, femoral and pedal pulses. There was no cyanosis, clubbing or edema. Examination of the skin revealed no evidence of significant rashes, suspicious appearing nevi or other concerning lesions. neurologically patient is sedated and the motor function cannot be assessed at this point time. Reflexes symmetrical bilaterally. Results - Laboratory Findings CBC and BMP: 09/24/21 07:19 09/24/21 07:19 ABG ABG pH 7.32 (7.35-7.45) L 09/24/21 17:28 ABG pCO2 39 mmHg (35-45) 09/24/21 17:28 ABG pO2 263 mmHg (83-108) H 09/24/21 17:28 ABG O2 Saturation 100.0 % (94-97) H 09/24/21 17:28 Abnormal lab findings: Abnormal Labs 09/24/21 09/24/21 09/24/21 07:18 07:19 07:19 MCV 101.5 H ABG pH ABG pO2 ABG HCO3 ABG O2 Saturation Chloride 109 H Carbon Dioxide 21 L BUN 28 H Creatinine 1.26 H Glucose 70 L POC Glucose (mg/dL) 68 L AST 43 H ALT 43 H Alkaline Phosphatase 161 H 09/24/21 09/24/21 09/24/21 11:29 15:23 17:13 MCV ABG pH ABG pO2 ABG HCO3 ABG O2 Saturation Chloride Carbon Dioxide BUN Creatinine Glucose POC Glucose (mg/dL) 109 H 132 H 127 H AST ALT Alkaline Phosphatase 09/24/21 17:28 MCV ABG pH 7.32 L ABG pO2 263 H ABG HCO3 20 L ABG O2 Saturation 100.0 H Chloride Carbon Dioxide BUN Creatinine Glucose POC Glucose (mg/dL) AST ALT Alkaline Phosphatase - Diagnostic Findings Chest x-ray: image reviewed Assessment and Plan Plan: 1 cervical spondylolisthetic myelopathy in addition to severe cervical spine stenosis and spondylosis and the patient underwent Part I: C3-C7 ACDF and Part II: C2-T2 decompression and fusion and currently the patient is postop day #1. 2 acute hypoxic respiratory failure currently intubated on a mechanical ventilat or. The patient was kept and orotracheal tube because of concerns of swelling and post exhibition bronchospasm or vocal cord spasm. As such, we opted to keep her on a mechanical ventilator for another 12 hours and extubated in the morning and the patient will be receiving Decadron accordingly 3 gait instability secondary to above 4 mechanical neck pain 5 diabetes mellitus, diet-controlled do not take any form of anti-diabetic medications 6 chronic stage III kidney disease 7 previous history of DVT 8 osteoarthritis Plan Continue ventilator support and the necessity ventilator changes were done Chest x-ray was noted Blood gas was noted Continue IV fluids with lactated Ringer increased the rate up to 75 mL's an hour continue Decadron Monitor blood sugars and use insulin per sliding scale coverage Propofol for sedation overnight currently on 30 mics respiratory gram per minute Dilaudid for pain control CAT scan of the C-spine postextubation. States extubation first thing in the morning and this will largely depend on her progress overnight. Monitor the output from the ROSE drains We'll continue to follow
[2021-09-24] MEDS: ACETAMINOPHEN TAB 325 MG TAB PO SCH (18:51)
[2021-09-24] MEDS: DEXAMETHASONE SOD PHOSPHATE 4 MG/ML 1 ML VIAL IVP SCH (18:54)
[2021-09-24] MEDS: SODIUM CHLORIDE 0.9% 1,000 ML IV SCH (18:56)
[2021-09-25 01:06] LABS: Glucose,Whole Blood 131 mg/dL (75-99)
[2021-09-25] MEDS: INSULIN ASPART (NovoLOG) 100 UNIT/ML VIAL SQ SCH ×4 (01:09→20:58)
[2021-09-25] MEDS: DEXAMETHASONE SOD PHOSPHATE 4 MG/ML 1 ML VIAL IVP SCH ×5 (01:11→23:11)
[2021-09-25] MEDS: ACETAMINOPHEN TAB 325 MG TAB PO SCH ×5 (01:12→23:10)
[2021-09-25] MEDS: HYDROmorphone 0.5 MG/0.5 ML SYRINGE IVP PRN ×2 (02:39→10:11)
[2021-09-25] MEDS: SODIUM CHLORIDE 0.9% 1,000 ML IV SCH ×3 (02:41→15:55)
[2021-09-25 05:01] LABS: Basophils % (A) 0 %; Eosinophils % (A) 0 %; HCT 36.2 % (34.0-46.0); HGB 11.6 gm/dL (11.4-16.0); Lymphocytes # (A) 0.5 k/uL (1.0-4.8); Lymphocytes % (A) 4 %; MCH 33.1 pg (25.0-35.0); MCHC 32.2 g/dL (31.0-37.0); MCV 102.7 fL (80.0-100.0); Macrocytosis Slight; Mean Platelet Volume 7.2; Monocytes # (A) 0.3 k/uL (0-1.0); Monocytes % (A) 3 %; Neutrophils # (A) 9.5 k/uL (1.3-7.7); Neutrophils % (A) 92 %; Platelet Count 148 k/uL (150-450); RBC 3.52 m/uL (3.80-5.40); RDW 12.6 % (11.5-15.5); WBC 10.3 k/uL (3.8-10.6)
[2021-09-25 05:10] LABS: African American GFR (CKD) >90 (>60 ml/min/1.73 sqM); Anion Gap 4 mmol/L; Blood Urea Nitrogen 17 mg/dL (7-17); Carbon Dioxide 22 mmol/L (22-30); Chloride 110 mmol/L (98-107); Glucose 163 mg/dL (74-99); Non-African American GFR(CKD) 79 (>60 ml/min/1.73 sqM); Potassium 4.3 mmol/L (3.5-5.1); Sodium 136 mmol/L (137-145)
[2021-09-25] MEDS ORDERED: VANCOMYCIN 1,500 MG in SODIUM CHLORIDE 0.9% 250 ML IVPB SCH (06:00)
[2021-09-25] MEDS: LACTATED RINGERS 1,000 ML IV SCH (07:05)
[2021-09-25 07:08] LABS: Glucose,Whole Blood 151 mg/dL (75-99)
--- NOTE | 2021-09-25 07:50 | P.PN ---
Subjective Progress Note Date: 09/25/21 Pt s/e. She is still vented and sedates. Nsg at bedside. She did well overnight. Moving all 4 ext per their report. She had some increased sedation this AM due to agitation, but respiratory was at bedside and they are going to attempt to wean to extubate today. No other issues. BP and MAPs in 80s. Objective - Vital Signs Vital signs: Vital Signs Temp 96.6 F L 09/25/21 04:00 Pulse 68 09/25/21 07:00 Resp 16 09/25/21 07:00 BP 158/75 09/25/21 07:00 Pulse Ox 99 09/25/21 07:00 Intake & Output 09/24/21 09/25/21 09/25/21 18:59 06:59 18:59 Intake Total 3551 1900.000 150 Output Total 860 790 150 Balance 2691 1110.000 0 Weight 84.6 kg Intake: IV 3551 1800 150 Sodium Chloride 0.9% 1, 300 1800 150 000 ml @ 150 mls/hr IV . Q6H40M YEHUDA Rx#:[id number] Intake, IV Titration 100.000 Amount propofoL 1,000 mg In 100.000 Empty Bag 1 bag @ Titrate IV .Q0M YEHUDA Rx#: [id number] Output: Urine 360 790 150 Estimated Blood Loss 500 Other: Voiding Method Indwelling Catheter ABP, PAP, CO, CI - Last Documented Arterial Blood Pressure 147/76 - Exam Pt vented sedates. No following commands. Spontaneously and purposely moves arms and legs. VSS at this time. - Labs CBC & Chem 7: 09/25/21 04:40 09/25/21 04:40 Labs: Abnormal Lab Results - Last 24 Hours (Table) 09/24/21 09/24/21 09/24/21 Range/Units 07:19 11:29 15:23 RBC (3.80-5.40) m/uL MCV (80.0-100.0) fL Plt Count (150-450) k/uL Neutrophils # (1.3-7.7) k/uL Lymphocytes # (1.0-4.8) k/uL ABG pH (7.35-7.45) ABG pO2 (83-108) mmHg ABG HCO3 (21-25) mmol/L ABG O2 Saturation (94-97) % Sodium (137-145) mmol/L Chloride 109 H (98-107) mmol/L Carbon Dioxide 21 L (22-30) mmol/L BUN 28 H (7-17) mg/dL Creatinine 1.26 H (0.52-1.04) mg/dL Glucose 70 L (74-99) mg/dL POC Glucose (mg/dL) 109 H 132 H (75-99) mg/dL Calcium (8.4-10.2) mg/dL AST 43 H (14-36) U/L ALT 43 H (4-34) U/L Alkaline Phosphatase 161 H (38-126) U/L 09/24/21 09/24/21 09/25/21 Range/Units 17:13 17:28 01:05 RBC (3.80-5.40) m/uL MCV (80.0-100.0) fL Plt Count (150-450) k/uL Neutrophils # (1.3-7.7) k/uL Lymphocytes # (1.0-4.8) k/uL ABG pH 7.32 L (7.35-7.45) ABG pO2 263 H (83-108) mmHg ABG HCO3 20 L (21-25) mmol/L ABG O2 Saturation 100.0 H (94-97) % Sodium (137-145) mmol/L Chloride (98-107) mmol/L Carbon Dioxide (22-30) mmol/L BUN (7-17) mg/dL Creatinine (0.52-1.04) mg/dL Glucose (74-99) mg/dL POC Glucose (mg/dL) 127 H 131 H (75-99) mg/dL Calcium (8.4-10.2) mg/dL AST (14-36) U/L ALT (4-34) U/L Alkaline Phosphatase (38-126) U/L 09/25/21 09/25/21 09/25/21 Range/Units 04:40 04:40 07:06 RBC 3.52 L (3.80-5.40) m/uL MCV 102.7 H (80.0-100.0) fL Plt Count 148 L (150-450) k/uL Neutrophils # 9.5 H (1.3-7.7) k/uL Lymphocytes # 0.5 L (1.0-4.8) k/uL ABG pH (7.35-7.45) ABG pO2 (83-108) mmHg ABG HCO3 (21-25) mmol/L ABG O2 Saturation (94-97) % Sodium 136 L (137-145) mmol/L Chloride 110 H (98-107) mmol/L Carbon Dioxide (22-30) mmol/L BUN (7-17) mg/dL Creatinine (0.52-1.04) mg/dL Glucose 163 H (74-99) mg/dL POC Glucose (mg/dL) 151 H (75-99) mg/dL Calcium 8.0 L (8.4-10.2) mg/dL AST (14-36) U/L ALT (4-34) U/L Alkaline Phosphatase (38-126) U/L Assessment and Plan Assessment: POD 1 C3-7 ACDF with Posterior C2-T2 decompression and fusion 1. Cervical Spondylotic Myelopathy 2.C3-7 spondylosis 3. 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 B/L UE weakness 5. Gait instability 6. Mechanical Neck pain Plan: -Appreciate consultant internship and team management. -Wean today to extubate per ICU mgt -Activity: Ambulate QID, OOB all meals, up and about, limit lifting bending twisting to less than 5 lbs. Use walker or cane if needed for stability. -Daily PT/OT, increase ambulation strength and balance. -Hard Cervical collar at all times -Pain control: Adequate at this time -Meds: reviewed -GI ppx: senna, Miralax -DC tony when up and about, bedside commode if needed -DVT PPX: OK to restart Heparin tonight -Hygiene: Shower today. Maintain dressing clean and dry. Meticulous cleaning after BMs away from incision site -Drains: Maintain for now. Record output -Encourage IS 10x/hr -Dispo: Pending
[2021-09-25 08:08] LABS: ABG HCO3 21 mmol/L (21-25); ABG Oxygen Saturation 99.8 % (94-97); ABG PCO2 41 mmHg (35-45); ABG PH 7.32 (7.35-7.45); ABG PO2 148 mmHg (83-108); ABG TCO2 22 mmol/L (19-24)
[2021-09-25] MEDS: HYDROcodone/APAP 10-325MG 1 EACH TAB PO PRN ×3 (08:10→20:58)
[2021-09-25 08:12] LABS: Allen Test Performed? no
--- NOTE | 2021-09-25 08:45 | P.PN ---
Subjective Progress Note Date: 09/25/21 65-year-old female patient with known history of cervical spondylitic myelopathy and severe stenosis at level of C3 through C7 in addition to spondylosis and the patient was having upper extremity weakness and gait instability. The patient underwent an extensive neck surgery where the patient underwent a Part I: C3-C7 ACDF and Part II: C2-T2 decompression and fusion. The surgery lasted for a total of 8 hours. Following that, the patient was kept intubated and both into the intensive care unit. She was not extubated due to concern of spasm that has occurred in her vocal cords post extubation with previous surgeries. Currently she is on Decadron. She is on Dilaudid for pain control. She is sedated with propofol which is running at 30 mg/kg per minute. She remains on a mechanical ventilator. She is on assist control mode at the rate of 16, tidal volume of 350, rate of 16, FiO2 of 50% with a PEEP of 5. The blood. This was done on 100% FiO2 showed a pH of 7.32 with a pCO2 of 39 and pO2 of 263. Based on that, the FiO2 was dropped down to 50%. Chest x-ray shows adequate positioning of the ET tube. Some atelectatic changes in lung bases. Heart racing in the cervical spine. The patient is adequately sedated. She is arousable. Motor function cannot be assessed at this point in time. She is hemodynamically stable. Upon the request of the surgeon, the mean arterial pressure will be kept above 80 and for that reason norepinephrine infusion is being utilized to keep a map of above 80. The patient currently is producing adequate amount of urine output. She is hemodynamically stable. No Elvis arrhythmias. Cardiac rhythm is sinus. No other significant events since arrival to the intensive care unit. The patient has 2 ROSE drains anterior and the posterior neck and output is serosanguineous and being monitored. On today's evaluation of 09/25/2021, the patient is awake. Propofol was reduced down to 40 mcg/kg per minute and the patient will be weaned off further from propofol. She remains on a mechanical ventilator. Chest x-ray from today shows adequate positioning of the orotracheal tube. Some atelectatic changes in the lung bases especially on the left. Otherwise the lung volumes are small and there is hardware involving the C-spine. The patient is on a mechanical ventilator on assist control mode at the rate of 16 with a tidal volume of 350 FiO2 of 50% with a PEEP of 5. The chest x-ray from today was noted. Blood gas showed a pH of 7.42 with a pCO2 of 41 and pO2 of 148 and this was on FiO2 of 50%. The patient has 2 ROSE drains anterior and posterior cervical wound area and output has been in the order of 25 for the anterior and 0 mL for the posterior. Hemoglobin is stable at 11.6. The patient is withdrawing and lower extremities to painful stimulation. She is adequate. IV fluids running in the form of normal saline at the rate of 150 mL an hour. She is on Dilaudid for pain control. The patient has compression devices to lower extremities for DVT prophylaxis. If okay with the surgeon, the patient will be started on subcu hep kelle for DVT prophylaxis. Objective - Vital Signs Vital signs: Vital Signs Temp 96.6 F L 09/25/21 04:00 Pulse 73 09/25/21 08:00 Resp 20 09/25/21 08:00 BP 162/95 09/25/21 08:00 Pulse Ox 99 09/25/21 08:00 Intake & Output 09/24/21 09/25/21 09/25/21 18:59 06:59 18:59 Intake Total 3551 1900.000 408.458 Output Total 860 790 355 Balance 2691 1110.000 53.458 Weight 84.6 kg Intake: IV 3551 1800 300 Sodium Chloride 0.9% 1, 300 1800 300 000 ml @ 150 mls/hr IV . Q6H40M YEHUDA Rx#:[id number] Intake, IV Titration 100.000 108.458 Amount propofoL 1,000 mg In 100.000 108.458 Empty Bag 1 bag @ Titrate IV .Q0M YEHUDA Rx#: [id number] Output: Drainage 25 Right Anterior Neck 25 Urine 360 790 330 Estimated Blood Loss 500 Other: Voiding Method Indwelling Catheter ABP, PAP, CO, CI - Last Documented Arterial Blood Pressure 175/102 - Exam Gen. appearance the patient is calm comfortable likely distress, intubated on a mechanical ventilator. The patient is wearing a hard neck collar Head exam was generally normal. There was no scleral icterus or corneal arcus. Mucous membranes were moist. neck is stabilized by a hard neck collar. The patient ROSE drains placed anteriorly and posteriorly and output this bloody/serosanguineous. Lungs were clear to auscultation and percussion, and with normal diaphragmatic excursion. No wheezes or rales were noted. Cardiac exam revealed the PMI to be normally situated and sized. The rhythm was regular and no extrasystoles were noted during several minutes of auscultation. The first and second heart sounds were normal and physiologic splitting of the second heart sound was noted. There were no murmurs, rubs, clicks, or gallops. Abdominal exam revealed normal bowel sounds. The abdomen was soft, non-tender, and without masses, organomegaly, or appreciable enlargement of the abdominal aorta. Examination of the extremities revealed easily palpable radial, femoral and pedal pulses. There was no cyanosis, clubbing or edema. Examination of the skin revealed no evidence of significant rashes, suspicious appearing nevi or other concerning lesions. neurologically patient is sedated and the motor function cannot be assessed at this point time. Reflexes symmetrical bilaterally.( - Labs CBC & Chem 7: 09/25/21 04:40 09/25/21 04:40 Labs: Abnormal Lab Results - Last 24 Hours (Table) 09/24/21 09/24/21 09/24/21 Range/Units 11:29 15:23 17:13 RBC (3.80-5.40) m/uL MCV (80.0-100.0) fL Plt Count (150-450) k/uL Neutrophils # (1.3-7.7) k/uL Lymphocytes # (1.0-4.8) k/uL ABG pH (7.35-7.45) ABG pO2 (83-108) mmHg ABG HCO3 (21-25) mmol/L ABG O2 Saturation (94-97) % Sodium (137-145) mmol/L Chloride (98-107) mmol/L Glucose (74-99) mg/dL POC Glucose (mg/dL) 109 H 132 H 127 H (75-99) mg/dL Calcium (8.4-10.2) mg/dL 09/24/21 09/25/21 09/25/21 Range/Units 17:28 01:05 04:40 RBC 3.52 L (3.80-5.40) m/uL MCV 102.7 H (80.0-100.0) fL Plt Count 148 L (150-450) k/uL Neutrophils # 9.5 H (1.3-7.7) k/uL Lymphocytes # 0.5 L (1.0-4.8) k/uL ABG pH 7.32 L (7.35-7.45) ABG pO2 263 H (83-108) mmHg ABG HCO3 20 L (21-25) mmol/L ABG O2 Saturation 100.0 H (94-97) % Sodium (137-145) mmol/L Chloride (98-107) mmol/L Glucose (74-99) mg/dL POC Glucose (mg/dL) 131 H (75-99) mg/dL Calcium (8.4-10.2) mg/dL 09/25/21 09/25/21 09/25/21 Range/Units 04:40 07:06 08:05 RBC (3.80-5.40) m/uL MCV (80.0-100.0) fL Plt Count (150-450) k/uL Neutrophils # (1.3-7.7) k/uL Lymphocytes # (1.0-4.8) k/uL ABG pH 7.32 L (7.35-7.45) ABG pO2 148 H (83-108) mmHg ABG HCO3 (21-25) mmol/L ABG O2 Saturation 99.8 H (94-97) % Sodium 136 L (137-145) mmol/L Chloride 110 H (98-107) mmol/L Glucose 163 H (74-99) mg/dL POC Glucose (mg/dL) 151 H (75-99) mg/dL Calcium 8.0 L (8.4-10.2) mg/dL Assessment and Plan Plan: 1 cervical spondylolisthetic myelopathy in addition to severe cervical spine stenosis and spondylosis and the patient underwent Part I: C3-C7 ACDF and Part II: C2-T2 decompression and fusion and currently the patient is postop day #2. The patient remains intubated on mechanical ventilator. The patient has adequate pain control and the patient is hemodynamically stable at this point in time. She is on Dilaudid for pain control. 2 acute hypoxic respiratory failure currently intubated on a mechanical ventila tor. The patient was kept and orotracheal tube because of concerns of swelling and post exhibition bronchospasm or vocal cord spasm. Patient remains on a mechanical ventilator. Chest x-ray and blood gases were noted. We'll proceed with further weaning. 3 gait instability secondary to above 4 mechanical neck pain 5 diabetes mellitus, diet-controlled do not take any form of anti-diabetic medi cations 6 chronic stage III kidney disease 7 previous history of DVT 8 osteoarthritis Plan Continue ventilator support Stop propofol Check weaning parameters Assessment and is to wean Possible extubation today Provide the patient an incentive spirometer postextubation Chest x-ray was noted Blood gas was noted Continue IV fluids with NSS increased the rate up to 75 mL's an hour continue Decadron Monitor blood sugars and use insulin per sliding scale coverage Dilaudid for pain control CAT scan of the C-spine postextubation. Monitor the output from the ROSE drains We'll continue to follow CC management that was done and more than 30 minutes
--- NOTE | 2021-09-25 09:29 | XR ---
EXAMINATION TYPE: XR chest 1V portable DATE OF EXAM: 09/25/2021 COMPARISON: 09/24/2021 HISTORY: Tube placement TECHNIQUE: Single frontal view of the chest is obtained. FINDINGS: Tracheostomy tube and NG tube stable. Bilateral lower lobe infiltrate and small effusion g reater on the left. Heart is enlarged and there is no pneumothorax. Postsurgical change left shoulder and cervical spine. Stable suggestive. Surgical clips in the right upper quadrant. Hypertrophic and degenerative change of the spine. IMPRESSION: 1. ET and tracheostomy tube stable. 2. Bilateral infiltrate and small effusion greater on the left. Mild venous congestion not excluded.
[2021-09-25 11:31] LABS: Glucose,Whole Blood 134 mg/dL (75-99)
--- NOTE | 2021-09-25 12:38 | CT ---
EXAMINATION TYPE: CT CervThoracic spine wo con DATE OF EXAM: 09/25/2021 COMPARISON: MRI cervical spine 05/10/2021 HISTORY: post-op CT DLP: 1357.6 mGycm Automated exposure control for dose reduction was used. Helical imaging through the cervical thoracic spine. FINDINGS: Lack of contrast could compromise sensitivity of the exam. Posterior cervical fusion change noted C2-T2, right-sided screw at T2 breaches the anterior cortex mi nimally as does the screw right greater than left at T1. There is metallic artifact due to patient's hardware. Intervertebral spacing blocks are present at C3-4, C4-5, C5-6 and C6-7. There is near-anato iván alignment, minimal anterolisthesis grade 1 C7-T1. Posterior screw at C2 on the right breaches the cortex medially into the spinal canal. Posterior bilateral laminectomies at C3, C4, C5. There is an anterior drain in place coursing across the midline. Lucency is present posterior to the spinal canal at the site of the laminectomies likely due to postop state. Posterior screw at C5 on the right encr oaches towards the neural foramen thought likely to breach the cortex, axial image 39, sagittal image 27, posterior screw at C5 on the left, in close proximity to the foramen on the right posteriorly, a xial image 36. Posterior screw and C6 encroaches medially at the level of the facet on the left, axia l image #[address] breach the cortex. Multilevel facet arthropathy change, foraminal encroachment. Ivette cency within the soft tissues anterior neck also likely postoperative. Basilar atelectatic changes are present bilaterally. There are bronchograms on the right, correlate t o exclude pneumonia. Hiatal hernia present, postop change present at the gastroesophageal junction. S urgical clips present consistent with postcholecystectomy change. Inflammatory change present in the maxillary sinuses, sphenoid sinus, significant arthropathy noted in the temporal mandibular joint on the left with remodeling. IMPRESSION: ORTHOPEDIC FOLLOW-UP DESCRIBED. ADDITIONAL FINDINGS ABOVE.
--- NOTE | 2021-09-25 13:00 | P.PN ---
Progress Note - Text Progress Note Date: 09/25/21 Pt s/e. She has been extubated. Nsg at bedside states she is moving everything appropriately. ROSE and Hemovac putting out well. She just received 0.5 of dilaudid for pain and has been somwhat sedated after so we will change her pain meds to reflect her tolerances. We will continue to monitor her in ICU and when she is stable for transfer per the ICU she is OK to go per Ortho. Would prefer a stepdown or med surg floor. No other issues. VSS at this time. CT reviewed. Hardware in position. Anterior grafts in position. Minor medial breach of R C2 screw noted, no significant encroachment identified. This kept C2 away from VA which was high riding in this area. Other VF encroachments felt to be insignificant at subaxial levels due to large decompression anteriorly, placement of screws and minor breaches. T1-2 screws safe. Alignment restored. Pts bone was extremely soft and osteoporotic and screw placements were a result of this in order to get adequate fixation for fusion. We will continue to monitor and follow. She is doing well otherwise.
--- NOTE | 2021-09-25 14:48 | P.CONS ---
History of Present Illness - Reason for Consult Consult date: 09/25/21 Medical management - History of Present Illness HISTORY OF PRESENT ILLNESS This is a 65-year-old female patient of Dr. Penaloza with past medical history of diabetes mellitus type 2, DVT, hypertension, chronic kidney disease stage III. Patient has been brought into Hospital under care of Dr. 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 The patient underwent an extensive neck surgery with anterior C3- C7 ACDF and posterior C2-T2 decompression and fusion. The surgery lasted for a total of 8 hours. Patient was kept intubated and transferred into the intensive care unit following procedure. She was not extubated due to concern of spasm that has occurred in her vocal cords post extubation with previous surgeries. She was successfully extubated this morning just prior to our arrival. Patient was also medicated prior to extubation and is seen today sitting up in the ICU bed with hard c-collar in place. She is minimally able to answer questions. Patient is scheduled for CAT scan of the cervical spine today. She does have [address], what appears to be in the anterior one of the posterior. Patient denies any significant neck pain, denies abdominal pain. Goodson catheter is in place. Goodson catheter draining clear melanie urine. Chest x-ray reveals to be in fairly good position. No heart failure. Mild pleural reaction and a telectasis left lung base increased compared to exam this morning. Blood work reveals WBC 10.3, hemoglobin 11.6, platelet 148. Sodium 136, potassium 4.3, chloride 110, CO2 22, BUN 17 creatinine 0.79. Blood sugars are running between 131-151. REVIEW OF SYSTEMS Constitutional: No fever, no chills, no night sweats. No weight change. Noted weakness, noted fatigue noted lethargy. Noted No daytime sleepiness. EENT: No headache. No blurred vision or double vision, no loss of vision. No loss of Hearing, no ringing in the ears, no dizziness. No nasal drainage or con gestion. No epistaxis. No sore throat. Lungs: No shortness of breath, cough, no sputum production. No wheezing. Cardiovascular: No chest pain, no lower extremity edema. No palpitations. No paroxysmal nocturnal dyspnea. No orthopnea. No lightheadedness or dizziness. No syncopal episodes. Abdominal: No abdominal pain. No nausea, vomiting. No diarrhea. No constipation. No bloody or tarry stools. No loss of appetite. Genitourinary: No dysuria, increased frequency, urgency. No urinary retention. Musculoskeletal: No myalgias. No muscle weakness, no gait dysfunction, no frequent falls. No back pain. No neck pain. Integumentary: No wounds, no lesions. No rash or pruritus. No unusual bruising. No change in hair or nails. Neurologic: No aphasia. No facial droop. No change in mentation. No head injury. No headache. No paralysis. No paresthesia. Psychiatric: No depression. No anxiety. No mood swings. Endocrine: No abnormal blood sugars. No weight change. SOCIAL HISTORY Patient is a lifelong nonsmoker, rare alcohol use, no marijuana or illicit drug use. PHYSICAL EXAMINATION Gen: This is a 65-year-old female. She is resting in the ICU bed, sitting upright and appears to be in no acute distress. She is slow to respond and answering only with yes and no. HEENT: Head is atraumatic, normocephalic. Pupils equal, round. Sclerae is anicteric. Oral mucous membranes are somewhat dry. NECK: Supple. No JVD. No lymphadenopathy. No thyromegaly. Hard c-collar in place. ROSE drain in place to the anterior and one to the posterior surgical sites both with serosanguineous drainage. LUNGS: Clear to auscultation. No wheezes or rhonchi. No intercostal retractions. HEART: Regular rate and rhythm. No murmur. ABDOMEN: Soft. Bowel sounds are present. No masses. No tenderness. Goodson catheter draining clear melanie urine. EXTREMITIES: No pedal edema. No calf tenderness. Dorsalis pedis +2 bilaterally. NEUROLOGICAL: Patient is awake, alert and oriented x3. Cranial nerves 2 through 12 are grossly intact. ASSESSMENT AND PLAN 1. Cervical spondylitic myelopathy and severe stenosis and spondylosis C3 through C7 with upper extremity weakness and gait instability s/p anterior C3-C7 ACDF and posterior C2-T2 decompression and fusion. Patient is postop day #1. Continue pain management per orthopedics, DVT prophylaxis to be started, patient is scheduled for CAT scan of the cervical spine today. Incentive spirometry treatment reduce incidence of atelectasis and hospital-acquired pneumonia 2. Acute hypoxic respiratory failure requiring extended intubation. A mechanical ventilation due to concerns for swelling in bronchospasm her vocal cord spasm. Patient has been successfully extubated. Continue oxygen therapy, management per pulmonary medicine director sales training.. 3. Chronic upper extremity weakness and gait instability secondary to cervical stenosis and spondylosis. Patient will require PT and OT and possible subacute rehab. 4. Diabetes mellitus type 2. 5. History of DVT. 6. Hypertension. 7. Chronic kidney disease stage III. 8. Thrombocytopenia of unclear etiology. Monitor. 9. Generalized osteoarthritis. 10. DVT prophylaxis. Patient started on heparin subcu. 11. GI prophylaxis. Protonix. DISCHARGE PLAN To be determined. Consults with PT and OT. Impression and plan of care have been directed as dictated by the signing physician. Lizzy Sands nurse practitioner acting as scribe for signing physician. Past Medical History Past Medical History: Diabetes Mellitus, Deep Vein Thrombosis (DVT), Hypertension, Renal Disease Additional Past Medical History / Comment(s): diet controlled diabetes. stage 3 kidney disease. frequent headaches stephanie. @[facility]. tardive dyskinesia History of Any Multi-Drug Resistant Organisms: None Reported Past Surgical History: Cholecystectomy, Hernia Repair, Joint Replacement, Tubal Ligation Additional Past Surgical History / Comment(s): harry knees replaced. right shoulder replaced. left shoulder surg. harry. cataract removal Past Anesthesia/Blood Transfusion Reactions: Previous Problems w/ Anesthesia Additional Past Anesthesia/Blood Transfusion Reaction / Comm: AFTER PT'S KNEE REPLACEMENT AT [facility], SHE HAD POST OP BRONCHOSPASMS AND STRIDOR Past Psychological History: ADD/ADHD, Anxiety, Depression Smoking Status: Never smoker Past Alcohol Use History: Occasional Past Drug Use History: None Reported - Past Family History Father Family Medical History: Cancer Brother(s) Additional Family Medical History / Comment(s): ANEURYSM Medications and Allergies Home Medications Medication Instructions Recorded Confirmed Type Citalopram Hydrobromide [CeleXA] 40 mg PO DAILY 01/08/18 09/23/21 History Ferrous Sulfate [Feosol] 325 mg PO DAILY 01/08/18 09/23/21 History Topiramate [Topamax] 50 mg PO DAILY 01/08/18 09/23/21 History buPROPion HCL [Wellbutrin SR] 150 mg PO BID 01/08/18 09/23/21 History cloNIDine HCL [Catapres] 0.1 mg PO HS 01/08/18 09/23/21 History ALPRAZolam [Xanax] 0.5 mg PO HS PRN 09/23/21 09/23/21 History Aspirin 81 mg PO DAILY 09/23/21 09/23/21 History DULoxetine HCL [Cymbalta] 30 mg PO BID 09/23/21 09/23/21 History Gabapentin [Neurontin] 100 mg PO TID 09/23/21 09/23/21 History Methylphenidate HCl 20 mg PO TID 09/23/21 09/23/21 History Verapamil HCl [Verapamil Sr] 120 mg PO DAILY 09/23/21 09/23/21 History clonazePAM 1 mg PO HS PRN 09/23/21 09/23/21 History tiZANidine HCL 2 mg PO HS PRN 09/23/21 09/23/21 History Allergies Allergy/AdvReac Type Severity Reaction Status Date / Time cobalt Allergy Rash/Hives Verified 09/24/21 06:59 hydromorphone Allergy Unknown Verified 09/24/21 06:59 nickel Allergy Rash/Hives Verified 09/24/21 06:59 Physical Exam Vitals: Vital Signs Temp Pulse Pulse Resp BP Pulse Ox 09/25/21 10:00 80 21 173/92 98 09/25/21 09:00 73 15 176/100 94 L 09/25/21 08:00 73 20 162/95 99 09/25/21 07:00 68 16 158/75 99 09/25/21 06:30 69 18 153/80 09/25/21 06:00 69 16 155/86 99 09/25/21 05:30 70 16 169/87 09/25/21 05:00 69 16 155/84 98 09/25/21 04:30 68 16 161/85 09/25/21 04:00 96.6 F L 69 51 L 15 166/84 09/25/21 03:30 69 16 164/85 09/25/21 03:00 73 16 170/91 09/25/21 02:30 68 16 170/86 99 09/25/21 02:00 69 21 169/88 09/25/21 01:30 70 17 167/88 09/25/21 01:00 70 21 164/90 100 09/25/21 00:30 67 19 166/88 09/25/21 00:00 96.6 F L 66 51 L 10 L 161/86 09/24/21 23:30 62 15 157/82 09/24/21 23:00 62 16 161/86 09/24/21 22:30 61 19 152/89 98 09/24/21 22:18 60 17 152/89 98 09/24/21 22:00 60 18 150/78 100 09/24/21 21:30 58 L 16 137/72 100 09/24/21 21:00 57 L 15 149/86 99 09/24/21 20:30 56 L 22 142/80 100 09/24/21 20:00 97.8 F 55 L 10 L 135/79 09/24/21 19:30 52 L 15 127/64 09/24/21 19:00 52 L 20 115/66 97 09/24/21 18:30 51 L 21 125/66 99 09/24/21 18:00 48 L 10 L 101/57 97 09/24/21 17:30 50 L 16 126/65 100 09/24/21 17:20 96.2 F L 50 L 13 125/70 100 09/24/21 17:10 100 Intake and Output 09/24/21 09/25/21 09/25/21 22:59 06:59 14:59 Intake Total 833.754 7688.36 558.458 Output Total 960 690 495 Balance 35.640 564.36 63.458 Intake: IV 950 1200 450 Sodium Chloride 0.9% 1, 900 1200 450 000 ml @ 75 mls/hr IV . [id number] YEHUDA Rx#:[id number] Intake, IV Titration 45.640 54.36 108.458 Amount propofoL 1,000 mg In 45.640 54.36 108.458 Empty Bag 1 bag @ Titrate IV .Q0M YEHUDA Rx#: [id number] Output: Drainage 25 Right Anterior Neck 25 Urine 460 690 470 Estimated Blood Loss 500 Other: Voiding Method Indwelling Catheter Indwelling Catheter Indwelling Catheter Weight 84.6 kg ABP, PAP, CO, CI - Last 8 Hours Arterial Blood Pressure 175/102 Arterial Blood Pressure 147/76 Arterial Blood Pressure 148/81 Arterial Blood Pressure 143/82 Arterial Blood Pressure 139/89 Arterial Blood Pressure 154/84 Arterial Blood Pressure 72/66 Arterial Blood Pressure 74/67 Arterial Blood Pressure 76/69 Results CBC & Chem 7: 09/25/21 04:40 09/25/21 04:40 Labs: Abnormal Lab Results - Last 24 Hours (Table) 09/24/21 09/24/21 09/24/21 Range/Units 11:29 15:23 17:13 RBC (3.80-5.40) m/uL MCV (80.0-100.0) fL Plt Count (150-450) k/uL Neutrophils # (1.3-7.7) k/uL Lymphocytes # (1.0-4.8) k/uL ABG pH (7.35-7.45) ABG pO2 (83-108) mmHg ABG HCO3 (21-25) mmol/L ABG O2 Saturation (94-97) % Sodium (137-145) mmol/L Chloride (98-107) mmol/L Glucose (74-99) mg/dL POC Glucose (mg/dL) 109 H 132 H 127 H (75-99) mg/dL Calcium (8.4-10.2) mg/dL 09/24/21 09/25/21 09/25/21 Range/Units 17:28 01:05 04:40 RBC 3.52 L (3.80-5.40) m/uL MCV 102.7 H (80.0-100.0) fL Plt Count 148 L (150-450) k/uL Neutrophils # 9.5 H (1.3-7.7) k/uL Lymphocytes # 0.5 L (1.0-4.8) k/uL ABG pH 7.32 L (7.35-7.45) ABG pO2 263 H (83-108) mmHg ABG HCO3 20 L (21-25) mmol/L ABG O2 Saturation 100.0 H (94-97) % Sodium (137-145) mmol/L Chloride (98-107) mmol/L Glucose (74-99) mg/dL POC Glucose (mg/dL) 131 H (75-99) mg/dL Calcium (8.4-10.2) mg/dL 09/25/21 09/25/21 09/25/21 Range/Units 04:40 07:06 08:05 RBC (3.80-5.40) m/uL MCV (80.0-100.0) fL Plt Count (150-450) k/uL Neutrophils # (1.3-7.7) k/uL Lymphocytes # (1.0-4.8) k/uL ABG pH 7.32 L (7.35-7.45) ABG pO2 148 H (83-108) mmHg ABG HCO3 (21-25) mmol/L ABG O2 Saturation 99.8 H (94-97) % Sodium 136 L (137-145) mmol/L Chloride 110 H (98-107) mmol/L Glucose 163 H (74-99) mg/dL POC Glucose (mg/dL) 151 H (75-99) mg/dL Calcium 8.0 L (8.4-10.2) mg/dL
[2021-09-25 16:52] LABS: Glucose,Whole Blood 139 mg/dL (75-99)
[2021-09-25 20:47] LABS: Glucose,Whole Blood 134 mg/dL (75-99)
[2021-09-25] MEDS: HEPARIN SODIUM,PORCINE/PF 5,000 UNIT/0.5 ML SYRINGE SQ SCH (23:10)
[2021-09-26] MEDS: MORPHINE SULFATE 4 MG/ML SYRINGE IVP PRN ×3 (02:04→21:03)
[2021-09-26] MEDS: HYDROcodone/APAP 10-325MG 1 EACH TAB PO PRN ×2 (04:39→17:45)
[2021-09-26] MEDS: DEXAMETHASONE SOD PHOSPHATE 4 MG/ML 1 ML VIAL IVP SCH ×3 (05:57→17:46)
[2021-09-26 07:17] LABS: Glucose,Whole Blood 118 mg/dL (75-99)
--- NOTE | 2021-09-26 07:49 | P.PN ---
Subjective Progress Note Date: 09/26/21 Principal diagnosis: Cervical spondylotic Myelopathy Pt s/e this AM on med surg. She was able to TF out of the ICU yesterday w/o issues. She c/o pain today in her neck and that yesterday was "rough". She is otherwise doing OK. She has been up to the bathroom only and has a bedside commode. She sat in chair briefly yesterday. She denies any f/c/sob/cp/n/v/d/GONZALES/vision changes at this time. Objective - Vital Signs Vital signs: Vital Signs Temp 98.4 F 09/26/21 03:50 Pulse 79 09/26/21 03:50 Resp 16 09/25/21 19:20 BP 172/95 09/26/21 03:50 Pulse Ox 99 09/26/21 03:50 Intake & Output 09/25/21 09/26/21 09/26/21 18:59 06:59 18:59 Intake Total 933.458 Output Total 780 1516 Balance 153.458 -1516 Intake: IV 825 Sodium Chloride 0.9% 1, 825 000 ml @ 75 mls/hr IV . [id number] [facility] Rx#:[id number] Intake, IV Titration 108.458 Amount propofoL 1,000 mg In 108.458 Empty Bag 1 bag @ Titrate IV .Q0M YEHUDA Rx#: [id number] Output: Drainage 25 166 Right Anterior Neck 25 10 Right Posterior Neck 156 Urine 755 1250 Post Void Residual 100 Other: Voiding Method Indwelling Catheter # Voids 1 ABP, PAP, CO, CI - Last Documented Arterial Blood Pressure 175/102 - Exam AOX3 NAD VSS 4+/5 b/l UE all major muscle groups. Still somewhat weak from surgery but no focal deficits. 4+/5 b/l LE all major muscle groups. Again, still somewhat weak from procedure but no new or focal deficits. 2/4 DTR all b/l hoffmans still present, although minimally improved SILT C5-T1 and L2-S1 b/l Neg babinski b/l No clonus 2/4 distal pulses all 4 ext CN I-XII grossly intact Incisions CDI. Drains in place. Anterior drain has 20 cc in. Post drain has 45 cc in currently. Mild TTP around the incisions. No flucctuence or fluid collections. Swallowing OK with liquids. Voice still soft and slightly hoarse, but seems to be more from intubation - EENT Eyes: Present: PERRLA - Labs CBC & Chem 7: 09/25/21 04:40 09/25/21 04:40 Labs: Abnormal Lab Results - Last 24 Hours (Table) 09/25/21 09/25/21 09/25/21 Range/Units 08:05 11:30 16:50 ABG pH 7.32 L (7.35-7.45) ABG pO2 148 H (83-108) mmHg ABG O2 Saturation 99.8 H (94-97) % POC Glucose (mg/dL) 134 H 139 H (75-99) mg/dL 09/25/21 09/26/21 Range/Units 20:46 07:16 ABG pH (7.35-7.45) ABG pO2 (83-108) mmHg ABG O2 Saturation (94-97) % POC Glucose (mg/dL) 134 H 118 H (75-99) mg/dL Assessment and Plan Assessment: POD 2 C3-7 ACDF with Posterior C2-T2 decompression and fusion 1. Cervical Spondylotic Myelopathy 2.C3-7 spondylosis 3. 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 B/L UE weakness 5. Gait instability 6. Mechanical Neck pain Plan: -Appreciate quality improvement consultant and team management. -Up and about today -Activity: Ambulate QID, OOB all meals, up and about, limit lifting bending twisting to less than 5 lbs. Use walker or cane if needed for stability. -Daily PT/OT, increase ambulation strength and balance. -Hard Cervical collar at all times -HOB 45 deg -Pain control: Adequate at this time -Meds: reviewed -GI ppx: senna, Miralax -DC tony when up and about, bedside commode if needed -DVT PPX: OK to restart Heparin tonight -Hygiene: Shower today. Maintain dressing clean and dry. Meticulous cleaning after BMs away from incision site -Drains: Maintain for now. Record output -Encourage IS 10x/hr -Consult to home health - Swallow eval today -Dispo: Pending
[2021-09-26] MEDS: GABAPENTIN 100 MG CAP PO SCH ×3 (08:40→21:52)
[2021-09-26] MEDS: ACETAMINOPHEN TAB 325 MG TAB PO SCH ×3 (08:41→17:46)
[2021-09-26] MEDS: PANTOPRAZOLE 40 MG TABLET PO SCH (08:41)
[2021-09-26] MEDS: FERROUS SULFATE 325 MG TAB PO SCH (08:41)
[2021-09-26] MEDS: HEPARIN SODIUM,PORCINE/PF 5,000 UNIT/0.5 ML SYRINGE SQ SCH ×3 (08:42→23:24)
[2021-09-26] MEDS: INSULIN ASPART (NovoLOG) 100 UNIT/ML VIAL SQ SCH ×4 (08:43→21:25)
--- NOTE | 2021-09-26 08:49 | XR ---
EXAMINATION TYPE: XR chest 1V portable DATE OF EXAM: 09/26/2021 COMPARISON: 09/25/2021 HISTORY: Tube placement TECHNIQUE: Single frontal view of the chest is obtained. FINDINGS: Tracheostomy tube and NG tube have been removed. Bilateral lower lobe infiltrate and small effusion greater on the left. Heart is enlarged and there is no pneumothorax. Postsurgical change le ft shoulder and cervical spine. Stable suggestive. Surgical clips in the right upper quadrant. Hypert rophic and degenerative change of the spine. IMPRESSION: 1. Bilateral infiltrate and small effusion have progressed on the right side relative to the prior ex am.
[2021-09-26] MEDS ORDERED: CITALOPRAM HYDROBROMIDE 20 MG TAB PO SCH (09:00)
[2021-09-26] MEDS: buPROPion SR 150 MG TABLET.ER PO SCH ×2 (10:10→21:52)
[2021-09-26] MEDS: DULoxetine HCL 30 MG CAPSULE.DR PO SCH ×2 (10:10→21:52)
[2021-09-26] MEDS: VERAPAMIL SR 120 MG TABLET.ER PO SCH (10:10)
[2021-09-26] MEDS: TOPIRAMATE 25 MG TAB PO SCH (10:10)
[2021-09-26] MEDS: LACTATED RINGERS 1,000 ML IV SCH (10:24)
[2021-09-26] MEDS: SODIUM CHLORIDE 0.9% 1,000 ML IV SCH ×2 (10:24→19:22)
[2021-09-26 11:30] LABS: Glucose,Whole Blood 126 mg/dL (75-99)
--- NOTE | 2021-09-26 12:07 | P.PN ---
Subjective Progress Note Date: 09/26/21 [facility] is covering [facility] (Dr. Burdick, Dr. Penaloza, and Dr. Clark) on 09/26 and 09/27 please contact us on perfect serve with any questions, needs, or concerns. Patient is a 65-year-old female with diet-controlled diabetes mellitus type 2, hypertension, and chronic kidney disease age 2 who presented to the hospital of her cervical C-spine pain and underwent elective anterior cervical spine decompression and fusion of C3 through C7 with posterior decompression and fusion of C2 to T2. She remained intubated after the procedure but was able to be exudative on postoperative day one. Patient seen and examined at bedside. She states that she is having severe neck pain, but the medications to help. She denies any difficulty swallowing or painful swallowing. She denies any nausea, vomiting, diarrhea, or constipation. No bowel movement since this hospital stay. She states she is worried about chewing her food but states that her swallowing is fine. General: non toxic, no distress, appears at stated age Derm: warm, dry Head: atraumatic, normocephalic, symmetric, c-collar in place with drainage tubes in place Eyes: EOMI, no lid lag, anicteric sclera Mouth: no lip lesion, mucus membranes moist Cardiovascular: S1S2 reg, no murmur, positive posterior tibial pulse bilateral, Lungs: CTA bilateral, no rhonchi, no rales , no accessory muscle use Abdominal: soft, nontender to palpation, no guarding, no appreciable organomegaly Ext: no gross muscle atrophy, no edema, no contractures Neuro: CN II-XI grossly intact, no focal neuro deficits Psych: Alert, oriented, appears upset and tearful (her mother recently) Patient is a 65-year-old female status post C3- C7 ACDF and C2-T2 DF - being managed by ortho spine, on decadron DM 2 - diet controlled at home, does not check BS on a regular basis - SSI HTN, elevated - resume verapamil - follow BP CKD III, suspect component of LAYNE - likely due to fluid shift - appears to be back to baseline - follow Cr - Avoid additional nephrotoxic agents. Thrombocytopenia - suspect reactive - follow CBC Osteoarthtisits Hx of DVT Acute post op respiratory failure, resolved. Thank you for allowing us to participate in the care of this pleasant patient. Do not hesitate to contact us with questions. Someone can be reached from the [facility] hospitalist group all hours of the day at [phone] or via perfect serve. Objective - Vital Signs Vital signs: Vital Signs Temp 98.5 F 09/26/21 08:00 Pulse 78 09/26/21 08:00 Resp 16 09/26/21 08:00 BP 160/88 09/26/21 08:00 Pulse Ox 94 L 09/26/21 08:38 Intake & Output 09/25/21 09/26/21 09/26/21 18:59 06:59 18:59 Intake Total 933.458 Output Total 780 1516 40 Balance 153.458 -1516 -40 Intake: IV 825 Sodium Chloride 0.9% 1, 825 000 ml @ 75 mls/hr IV . [id number] [facility] Rx#:[id number] Intake, IV Titration 108.458 Amount propofoL 1,000 mg In 108.458 Empty Bag 1 bag @ Titrate IV .Q0M [facility] Rx#: [id number] Output: Drainage 25 166 40 Right Anterior Neck 25 10 Right Posterior Neck 156 40 Urine 755 1250 Post Void Residual 100 Other: Voiding Method Indwelling Catheter # Voids 1 ABP, PAP, CO, CI - Last Documented Arterial Blood Pressure 175/102 - Labs CBC & Chem 7: 09/25/21 04:40 09/25/21 04:40 Labs: Abnormal Lab Results - Last 24 Hours (Table) 09/25/21 09/25/21 09/26/21 Range/Units 16:50 20:46 07:16 POC Glucose (mg/dL) 139 H 134 H 118 H (75-99) mg/dL 09/26/21 Range/Units 11:29 POC Glucose (mg/dL) 126 H (75-99) mg/dL
--- NOTE | 2021-09-26 14:00 | P.OP ---
Date of Procedure: 09/24/21 Preoperative Diagnosis: 1. Cervical Spondylotic Myelopathy 2.C3-7 spondylosis 3. 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 B/L UE weakness 5. Gait instability 6. Mechanical Neck pain Postoperative Diagnosis: 1. Cervical Spondylotic Myelopathy 2.C3-7 spondylosis 3. 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 B/L UE weakness 5. Gait instability 6. Mechanical Neck pain Procedure(s) Performed: Part I: 1. Right sided Coffman-Leija exposure 2. C3-4 anterior interbody arthrodesis 3. C4-C5 anterior interbody arthrodesis. 4. C5-C6 anterior interbody arthrodesis. 5. C6-C7 anterior interbody arthrodesis. 6. C3-4 application of intervertebral biomechanical device 7. C4-C5 application of intervertebral biomechanical device 8. C5-C6 application of intervertebral biomechanical device. 9. C6-C7 application of intervertebral biomechanical device. 10. Use of intraoperative microscope. 11. Use of neurophysiologic somatosensory and motor evoked potential monitoring, upper and lower extremities. Part II: 1. C2-T2 posterolateral instrumented fusion 2. C3-7 decompressive laminectomy 3. Segmental instrumentation C2-T2 4. Use of neurophysiologic somatosensory and motor evoked potential monitoring, upper and lower extremities. Implants: [place] Anterior vikos bone cages Styker posterior cervical system Allograft for spine surgery Local bone autograft Anesthesia: ANDRES Surgeon: Miguel Street Sewage Reticulation Drafting Officer #1: Rikki Corrales (Was present and necessary for the entire case) Estimated Blood Loss (ml): 500 IV fluids (ml): 3,000 Urine output (ml): 1,000 Pathology: none sent Condition: stable Disposition: ICU Indications for Procedure: Leidy is a very pleasant 65-year-old female followed by myself in the Orthopa[facility] Spine clinic for symptomatic cervical spine disease. The patient's clinical exam has been consistent with significant cervical neck pain, cervical myelopathy and upper extremity radiculopathy. The patient's neuroradiographic imaging has been consistent with cervical spinal stenosis and degeneration at the above-stated levels She has failed appropriate nonoperative care for significant arm-related symptoms with [id number] upper extremity hand paresthesias and weakness, loss of dexterity, and bilateral shoulder pain. The patient also had some signs of myelopathy both on neuroradiographic imaging and clinical exam. MRI and CT scan have shown significant cord compression C3 through C7 with loss of physiologic lordosis. Unfortunately, at this point in time, the patient's clinical symptoms have fa iled to improve with conservative management including prolonged activity modification, oral anti-inflammatories, oral pain medications, exercise-based therapy, as well as interventional pain measures. I therefore suggested an anterior decompression and fusion C3-C7 followed by a posterior C2-T2 decompression and fusion. Risks and limitations of surgery including swallowing difficulties in about one-third of patients, more rare risk of hoarseness, C5 palsy, and nonunion risk were discussed. Given her persistent smoking status and multilevel surgery, she is at a slightly elevated risk of nonunion, however given her worsening balance issues, dexterity issues and cord compression, a more urgent procedure was indicated to prevent worsening of her symptoms. Medically the patient was cleared for the procedure. Based on the findings above, the patient has elected to proceed with surgery as outlined above and has obtained preoperative medical clearance. Description of Procedure: The patient was seen and examined in the preoperative area. All preoperative protocols were followed. Informed consent was obtained risks and benefits of the procedure were discussed at length. Risks including bleeding infection damage to the surrounding tissue and risk of reoperation were discussed with the patient. Risk of anesthesia up to and including was a discussed with the patient. These are outlined in the risk review. They were willing to accept these risks and all of the risks of surgery. The patient was given a weight- based dose of antibiotics in the form of 2 g Ancef IVPB. The patient was seen and evaluated by the anesthesia team who deemed them fit for surgery. The site was marked, the patient was willing to proceed with the procedure. The patient was transferred to the operative suite by the Department of anesthesia. They were then drifted off to sleep by the department anesthesia and GETA was performed. The patient tolerated this well. [Goodson catheter was placed by nursing staff, atraumatically]. Once confirmation of lines and ventilation the patient was transferred to a supine flat top reena table. All bony prominences including wrists, elbows, axilla, chest, hips, and thighs, and feet were padded very well. Special attention was paid to the genitalia and these were padded accordingly. SCDs were placed on bilateral lower extremities and were connected. Arms were well padded and placed Tucked at her side. GW tongs were placed 1 cm superior to EAM. Shoulder roll and neck rolls placed. 10 lbs of traction applied to the GW system. Once in position, again we confirmed good ventilation capabilities and that lines were running appropriately. The patient's Anterior cervical spine was then exposed. 1010s were placed outlining the incision site. Standard alcohol was used to clean the incision site and allowed to dry. C-arm was used to biomark the patient and confirm level for incision which was marked with a skin marker. Operative briefing was performed with all teams and everyone in agreement to proceed. The patient was then prepped and draped in a normal sterile fashion. Timeout was then performed and all parties were in agreement with the procedure to be performed. I then performed, as discussed with the patient, a left sided anterior exposure along the anterior margin of the sternocleidomastoid muscle. This was about a 4 fingerbreadth-long incision. I identified the platysma and split it longitudinally. The superficial layer of the middle cervical fascia was identified and carefully dissected and then the deep layer of it. The omohyoid was mobilized and could be retracted. The deep cervical fascia was then released over the palpable osteophytes at C4-5, C5-6 and C6-7 and reflected left and right with wiggins elevators off the uncovertebral joints. Nice exposure left and right with release of the anterior soft tissues of the longus colli was achieved. A radiopaque marker was placed to confirm the appropriate surgical level. Under C-arm guidance, I verified levels. At this point, a self-retaining cervical retractor was placed, the endotracheal cuff pressure was lowered to reduce compression on the RLN and the intraoperative microscope was brought in for anterior decompression. I then removed the anterior osteophytes at C3-4, C4-5 and C5-6 and C6-7. I also used a smaller ENT rongeur to open the disc spaces, including the uncovertebral joints left and right. Bone from the anterior decompression was saved for use as autograft bone fusion material. Under lateral C-arm guidance and then placed 12 mm traction pins of the [place] type into C3 and C4. Gentle distraction of the upper vertebrae was carried out until levels were held in restored lordosis. I then spread out the C4-5 disc after releasing the disc further with straight small curets. With the soft tissue retractors having been replaced and without any undue tension, I performed an anterior discectomy completion to the posterior inferior vertebral body wall using a combination of the high-speed bur, Kerrison punches, spinal curettes, and the microscopic instruments. The discectomy was performed to the level of the posterior longitudinal ligament. Bilateral foraminotomies and resection of the PLL was performed with the Kerrison punches to decompress the spinal cord and the exiting nerve roots. I also performed roshan dissection of the C3 endplate and the posterior superior endplate of C4, as well as the medial edge of the superior uncovertebral joints left and right of C4. I released the posterior longitudinal ligament and had full deering dural sac as a reference for dorsal decompression of left through right. I then turned my attention toward the application of the intervertebral biomechanical device at C3-C4. The trial cages were inserted to identify the best fit. The appropriate-sized intervertebral cage was then selected, in this case a 8mm lordotic interbody implant, packed with autograft and allograft and then inserted into the interspace using gentle impaction. A set of motor evoked potentials was run showing no change from baseline. Excess bone graft was then gently impacted into the anterior exposed gutters at C3-C4 to complete the anterior interbody arthrodesis at this level. Next, I turned my attention to the C4-5 Level. [place] pin was removed from C3 and bone wax placed in its void. Meticulous hemostasis performed with floseal as well at C3-4. Under lateral C-arm guidance, I then placed 12 mm traction pins of the [place] type into C5. Gentle distraction of the vertebrae was carried out until we had restored lordosis. I then spread out the C4-5 disc after releasing the disc further with straight small curets. With the soft tissue retractors having been replaced and without any undue tension, I performed an anterior discectomy completion to the posterior inferior vertebral body wall using a combination of the high-speed b ur, Kerrison punches, spinal curettes, and the microscopic instruments. The discectomy was performed to the level of the posterior longitudinal ligament. Bilateral foraminotomies and resection of the PLL was performed with the Kerrison punches to decompress the spinal cord and the exiting nerve roots. I also performed roshan dissection of the C4 endplate and the posterior superior endplate of C5, as well as the medial edge of the superior uncovertebral joints left and right of C5. I released the posterior longitudinal ligament and had full deering dural sac as a reference for dorsal decompression of left through right. I then turned my attention toward the application of the intervertebral biomechanical device at C4-C5. The trial cages were inserted to identify the best fit. The appropriate-sized intervertebral cage was then selected, in this case a 7mm lordotic interbody implant, packed with autograft and allograft and then inserted into the interspace using gentle impaction. A set of motor evoked potentials was run showing no change from baseline. Excess bone graft was then gently impacted into the anterior exposed gutters at C4-C5 to complete the anterior interbody arthrodesis at this level. Next, I performed the anterior discectomy at C5-C6. Under lateral C-arm guidance, I removed self-retaining [place] distractor followed by the [place] pin from the C4 body, sealed the pin site with bone wax and then placed 12 mm traction pin of the [place] type into the C6 body. Gentle distraction of the vertebrae was carried out until we had restored lordosis. Then using a combination of the high-speed bur, Kerrison punches, spinal curettes, and the microscopic instruments, an anterior discectomy was performed to the level of the posterior longitudinal ligament. Bilateral foraminotomies and resection of the PLL was performed with the Kerrison punches to decompress the spinal cord and the exiting nerve roots. I then turned my attention toward the application of the intervertebral biomechanical device at C5-C6. The trial cages were inserted to identify the best fit. The appropriate-sized intervertebral cage was then selected, in this case a 8 mm lordotic interbody implant, packed with autograft and allograft and then inserted into the interspace using gentle impaction. A set of motor evoked potentials was run showing no change from baseline. Excess bone graft was then gently impacted into the anterior exposed gutters at C5-C6 to complete the anterior interbody arthrodesis at this level. Next, I performed the anterior discectomy at C6-C7. Under lateral C-arm guidance, I removed self-retaining [place] distractor followed by the [place] pin from the C5 body, sealed the pin site with bone wax and then placed 12 mm traction pin of the [place] type into the C7 body. Gentle distraction of the vertebrae was carried out until we had restored lordosis. Then using a combination of the high-speed bur, Kerrison punches, spinal curettes, and the microscopic instruments, an anterior discectomy was performed to the level of the posterior longitudinal ligament. Bilateral foraminotomies and resection of the PLL was performed with the Kerrison punches to decompress the spinal cord and the exiting nerve roots. I then turned my attention toward the application of the intervertebral biomechanical device at C6-C7. The trial cages were inserted to identify the best fit. The appropriate-sized intervertebral cage was then selected, in this case a 8 mm lordotic interbody implant, packed with autograft and allograft and then inserted into the interspace using gentle impaction. A set of motor evoked potentials was run showing no change from baseline. Excess bone graft was then gently impacted into the anterior exposed gutters at C6-C7 to complete the anterior interbody arthrodesis at this level. Nice purchase was obtained. All traction was removed, including pin traction of [place] and external traction weight. A very nice stable fixation was obtained. Biplanar imaging revealed satisfactory alignment and implant placement. There were no electrodiagnostic changes. A final set of motor evoked potentials were run and no change from baseline was noted. The wound was then copiously irrigated and final hemostasis was achieved using FloSeal hemostatic agent and the bipolar device. At this point, the anterior cervical retractor was removed and the wound was found to have good hemostasis present. I then performed final thorough irrigation and review of the surgical site and found no internal organ injuries. I then closed the incision in layers with a deep drain. I used 2-0 Vicryl for platysma, 3-0 Vicryl for subcutaneous, and 4-0 Monocryl for skin. The skin was then dressed with Exofin and a sterile bandage. Suction canister was applied to the drain. The drain was sewn in to avoid accidental translocation. Drain dressing was applied. One final set of motor evoked potentials were run and no change from baseline was noted. A hard cervical collar was then applied. At the conclusion of this stage of the operation, all sponge, needle, and instrument counts were deemed to be correct. The patient was then transferred to her hospital bed for bed exchange consultant. A nance head control clerk was placed on her and her GWs removed. Pin sites were clear. The spine top was placed on the Trios table. We then carefully transferred her prone to the [employer] spine table and secured her head to the milian and it was locked inplace and was tested and stable. We then confirmed lines were running, pressures were good and that she could be ventilated appropriately. We then again tucked her arms at her side with padding and secured her to the table with tape and a safety strap. Her head was then positioned using lateral C arm to a position for good correction and lordosis. This was locked in place. We then taped the shoulders down to the table to allow for visualization. We then performed hair removal posteriorly for field preparation. We then cleaned with alcohol the area and outlined surgical field with 1000 drapes. We then used Yuko to bio saad our incision and the levels. A set of motor evoked potentials was obtained and there was no change on the flip. Once in position and confirmed, we prepped and draped her posterior CT spine in the normal sterile fashion. Time out was again performed and all parties in agreement for the second stage of the procedure. She was redosed with abx and TXA infusion started. Using a posterior midline approach, we now performed a diligent posterior exposure of C2-T2 with sharp dissection, electrocautery dissections, periosteal elevators and self-retaining retractors and bipolar cauterizations. Level verification was carried out. We decorticated all facet joints. We released the atlantoaxial membrane Under lateral coaxial C-arm guidance, we now placed C2 pedicle screws in the technique of Magerl using a medial goalpost along the pedicle wall and drilling upwards and inwards in 2 mm intervals. Interval probing was carried out and we were able to place on the left a 20 mm x 3.5 mm screws with excellent purchase. Carried out on the right we were able to place a 16 mm x 3.5 mm screw due to pt anatomy and proximity of the [place] in this area. We obtained good purchace here as well and MEP ran after showed no changes. C3, C4, C5, C6 were filled with 10 and 12 mm lateral mass screws in the technique of Magerl. Again, interval probing was carried out. We then turned our attention to T1 and 2. We resected the transverse processes and AP and lateral C-arm guidance drilling inwards and slightly downwards. We were able to cannulate with blunt probing and Lenke probe into the vertebral bodies. Screws in sizes of 5.0 x 30 mm were placed. The patient had no electrodiagnostic changes throughout this. We now resected the spinous processes, lower half of C2, all the way through T1. We also resected the interspinous ligaments down to the ligamentum flavum. The facet joints had been aggressively decorticated. Under maintenance of traction we elevated the head into a physiologic cervicothoracic position to restore lordosis. This was well tolerated by the patient and confirmed on C-arm and electrodiagnostically with no deterioration. We now proceeded with molding 2 cervicothoracic rods of appropriate size, anterior cervical lordosis and gentle thoracic kyphosis. These were molded into the cervical spine first, secured there with top loading nuts and then secured under avoidance of any form of undue manipulation or compression or distraction, all the way down to the thoracic 2. Again, there were no electrodiagnostic changes. We were very pleased with the realignment achieved. Torque wrench lockdown was carried out. Under continuous irrigation, with a size matched bone catching a sucker filter system, we now proceeded with hollowing out the lower end of C2 and cutting along the trough of the lamina to lateral mass junction, C3, C4, C5, C6, C7 and T1, and doing a transverse cut through T1. We then carefully released level by level, the ligamentum flavum at each level and then under avoidance of any traction gently lifted off the lamina. There was no dural tear. There was no CSF leak. We witnessed the reexpansion of the dural sac very nicely. Local hemostatic agents were applied. Cold saline was applied. MEP were run and were stable. We were very pleased with the decompression. One crosslinks were placed, to protect the dural sac posteriorly from any ingrowth, overgrowth of scar and to provide mechanical construct stiffness. Final decortication was carried out. Local morselized bone graft had been collected throughout the case and had been morcellized and was now packed in the posterolateral gutter of C2 down to T2 along with allograft. Two grams of vancomycin powder were placed. Local hemostatic agents were placed. There was no undue bleeding. Deep drain placed. With final hemostasis verified, we now closed in layers with #1 vicryl for muscle and facia, 0 vicryl for deep subq tissu We then closed the subcutaneous in layers with 2-0 Vicryl and we closed the skin with kerline. Suction canisters applied to the drain. The drains were sewn in to avoid accidental translocation. Suction canisters were applied and drain patches were applied. Silver impregnated dressing was applied to the skin. The patient was transferred back to their hospital bed atraumatically. [Drain continued to hold suction and were in good position]. Patient was then awakened and extubated by the department of anesthesia having tolerated the procedure very well with no complications. They were transferred to the postoperative care unit in stable condition.
[2021-09-26] MEDS ORDERED: ALBUTEROL NEBULIZED 2.5 MG/3 ML INHALATION PRN (14:30)
[2021-09-26] MEDS ORDERED: DEXAMETHASONE SOD PHOSPHATE 4 MG/ML 1 ML VIAL IVP STA (14:31)
--- NOTE | 2021-09-26 15:17 | P.PN ---
Subjective Progress Note Date: 09/26/21 65-year-old female patient with known history of cervical spondylitic myelopathy and severe stenosis at level of C3 through C7 in addition to spondylosis and the patient was having upper extremity weakness and gait instability. The patient underwent an extensive neck surgery where the patient underwent a Part I: C3-C7 ACDF and Part II: C2-T2 decompression and fusion. The surgery lasted for a total of 8 hours. Following that, the patient was kept intubated and both into the intensive care unit. She was not extubated due to concern of spasm that has occurred in her vocal cords post extubation with previous surgeries. Currently she is on Decadron. She is on Dilaudid for pain control. She is sedated with propofol which is running at 30 mg/kg per minute. She remains on a mechanical ventilator. She is on assist control mode at the rate of 16, tidal volume of 350, rate of 16, FiO2 of 50% with a PEEP of 5. The blood. This was done on 100% FiO2 showed a pH of 7.32 with a pCO2 of 39 and pO2 of 263. Based on that, the FiO2 was dropped down to 50%. Chest x-ray shows adequate positioning of the ET tube. Some atelectatic changes in lung bases. Heart racing in the cervical spine. The patient is adequately sedated. She is arousable. Motor function cannot be assessed at this point in time. She is hemodynamically stable. Upon the request of the surgeon, the mean arterial pressure will be kept above 80 and for that reason norepinephrine infusion is being utilized to keep a map of above 80. The patient currently is producing adequate amount of urine output. She is hemodynamically stable. No Elvis arrhythmias. Cardiac rhythm is sinus. No other significant events since arrival to the intensive care unit. The patient has 2 ROSE drains anterior and the posterior neck and output is serosanguineous and being monitored. On today's evaluation of 09/25/2021, the patient is awake. Propofol was reduced down to 40 mcg/kg per minute and the patient will be weaned off further from propofol. She remains on a mechanical ventilator. Chest x-ray from today shows adequate positioning of the orotracheal tube. Some atelectatic changes in the lung bases especially on the left. Otherwise the lung volumes are small and there is hardware involving the C-spine. The patient is on a mechanical ventilator on assist control mode at the rate of 16 with a tidal volume of 350 FiO2 of 50% with a PEEP of 5. The chest x-ray from today was noted. Blood gas showed a pH of 7.42 with a pCO2 of 41 and pO2 of 148 and this was on FiO2 of 50%. The patient has 2 ROSE drains anterior and posterior cervical wound area and output has been in the order of 25 for the anterior and 0 mL for the posterior. Hemoglobin is stable at 11.6. The patient is withdrawing and lower extremities to painful stimulation. She is adequate. IV fluids running in the form of normal saline at the rate of 150 mL an hour. She is on Dilaudid for pain control. The patient has compression devices to lower extremities for DVT prophylaxis. If okay with the surgeon, the patient will be started on subcu hep kelle for DVT prophylaxis. On today's evaluation of 09/26/2021, the patient is being seen for a follow-up. She is still having some neck pain at the surgical site. ROSE drains are in place. No issues with breathing. No stridor. No difficulties with swallowing. No reported nausea vomiting or abdominal pain. She is doing well for the most part. She was transferred out of the intensive care unit. She had encountered and episodes of increased wheeze which is probably related to bronchospasm r ather than laryngospasm. She was given additional dose of Decadron 2 mg IV and she. She is also on albuterol nebulized treatments 4 times a day and when necessary. The patient continues to wear the hard collar. No reported aspiration. She is still having some limited congested cough. She is using incentive spirometer. Monitor blood work today, the sugars of 126 and no new labs are available. Chest x-ray from this morning was completed at 8:45 AM and the patient has some bibasilar bilateral infiltrates and small effusions that has progressed slightly more on the right compared to the prior examination. The CAT scan of the cervical and thoracic spine was also completed and it showed postsurgical changes. Her cardiac rhythm remains sinus. She was started on anticoagulation with heparin subcu for DVT prophylaxis 5000 units every 8 hours. She is also taking morphine for pain control and she is on Flexeril. Objective - Vital Signs Vital signs: Vital Signs Temp 98 F 09/26/21 14:00 Pulse 88 09/26/21 14:44 Resp 18 09/26/21 14:44 BP 154/85 09/26/21 14:00 Pulse Ox 99 09/26/21 14:00 Intake & Output 09/25/21 09/26/21 09/26/21 18:59 06:59 18:59 Intake Total 933.458 110 Output Total 780 1516 40 Balance 153.458 -1516 70 Intake: IV 825 Sodium Chloride 0.9% 1, 825 000 ml @ 75 mls/hr IV . [id number] [facility] Rx#:[id number] Intake, IV Titration 108.458 Amount propofoL 1,000 mg In 108.458 Empty Bag 1 bag @ Titrate IV .Q0M [facility] Rx#: [id number] Oral 110 Output: Drainage 25 166 40 Right Anterior Neck 25 10 Right Posterior Neck 156 40 Urine 755 1250 Post Void Residual 100 Other: Voiding Method Indwelling Catheter # Voids 1 ABP, PAP, CO, CI - Last Documented Arterial Blood Pressure 175/102 - Exam Gen. appearance the patient is calm comfortable likely distress, intubated on a mechanical ventilator. The patient is wearing a hard neck collar Head exam was generally normal. There was no scleral icterus or corneal arcus. Mucous membranes were moist. neck is stabilized by a hard neck collar. The patient ROSE drains placed anteriorly and posteriorly and output this bloody/serosanguineous. Lungs were clear to auscultation and percussion, and with normal diaphragmatic excursion. No wheezes or rales were noted. Cardiac exam revealed the PMI to be normally situated and sized. The rhythm was regular and no extrasystoles were noted during several minutes of auscultation. The first and second heart sounds were normal and physiologic splitting of the second heart sound was noted. There were no murmurs, rubs, clicks, or gallops. Abdominal exam revealed normal bowel sounds. The abdomen was soft, non-tender, and without masses, organomegaly, or appreciable enlargement of the abdominal aorta. Examination of the extremities revealed easily palpable radial, femoral and pedal pulses. There was no cyanosis, clubbing or edema. Examination of the skin revealed no evidence of significant rashes, suspicious appearing nevi or other concerning lesions. neurologically patient is sedated and the motor function cannot be assessed at this point time. Reflexes symmetrical bilaterally.( - Labs CBC & Chem 7: 09/25/21 04:40 09/25/21 04:40 Labs: Abnormal Lab Results - Last 24 Hours (Table) 09/25/21 09/25/21 09/26/21 Range/Units 16:50 20:46 07:16 POC Glucose (mg/dL) 139 H 134 H 118 H (75-99) mg/dL 09/26/21 Range/Units 11:29 POC Glucose (mg/dL) 126 H (75-99) mg/dL Assessment and Plan Plan: 1 cervical spondylolisthetic myelopathy in addition to severe cervical spine stenosis and spondylosis and the patient underwent Part I: C3-C7 ACDF and Part II: C2-T2 decompression and fusion and currently the patient is postop day #3. The patient remains intubated on mechanical ventilator. The patient has adequate pain control and the patient is hemodynamically stable at this point in time. She is on Dilaudid for pain control. 2 acute hypoxic respiratory failure and the patient has been extubated. The patient did well post extubation. No stridor. Nevertheless, today she did have a bout of bronchospasm for which was given breathing treatments and she was also given a dose of Decadron additional dose. She is currently at Decadron 2 mg IV every 8 hours. She is stable. Chest x-ray showing some small effusions and atelectatic changes in lung bases bilaterally. The patient continues using incentive spirometer. She remains on IV fluids at 75 mL's an hour. 3 gait instability secondary to above 4 mechanical neck pain 5 diabetes mellitus, diet-controlled do not take any form of anti-diabetic medications 6 chronic stage III kidney disease 7 previous history of DVT 8 osteoarthritis Plan Encouraged use of incentive spirometer Change albuterol to scheduled 4 times a day [id number] Continue IV fluids with NSS increased the rate up to 75 mL's an hour continue Decadron Monitor blood sugars and use insulin per sliding scale coverage Dilaudid for pain control CAT scan of the C-spine was noted and shows post surgical changes Monitor the output from the ROSE drains We'll continue to follow
[2021-09-26] MEDS: ALBUTEROL NEBULIZED 2.5 MG/3 ML INHALATION SCH ×2 (15:25→20:44)
[2021-09-26 16:56] LABS: Glucose,Whole Blood 117 mg/dL (75-99)
[2021-09-26] MEDS: CYCLOBENZAPRINE 10 MG TAB PO PRN (19:19)
[2021-09-26 21:18] LABS: Glucose,Whole Blood 129 mg/dL (75-99)
[2021-09-27] MEDS: ACETAMINOPHEN TAB 325 MG TAB PO SCH ×4 (00:55→15:14)
[2021-09-27] MEDS: DEXAMETHASONE SOD PHOSPHATE 4 MG/ML 1 ML VIAL IVP SCH ×4 (00:56→21:22)
[2021-09-27] MEDS: HYDROcodone/APAP 10-325MG 1 EACH TAB PO PRN ×3 (03:52→18:15)
[2021-09-27] MEDS: LACTATED RINGERS 1,000 ML IV SCH (05:11)
[2021-09-27] MEDS: MORPHINE SULFATE 4 MG/ML SYRINGE IVP PRN ×2 (07:11→11:58)
[2021-09-27 07:27] LABS: Glucose,Whole Blood 117 mg/dL (75-99)
[2021-09-27] MEDS: INSULIN ASPART (NovoLOG) 100 UNIT/ML VIAL SQ SCH ×4 (07:30→21:26)
[2021-09-27] MEDS: SODIUM CHLORIDE 0.9% 1,000 ML IV SCH ×2 (08:22→21:29)
[2021-09-27] MEDS: PANTOPRAZOLE 40 MG TABLET PO SCH (08:32)
[2021-09-27] MEDS: VERAPAMIL SR 120 MG TABLET.ER PO SCH (08:32)
[2021-09-27] MEDS: DULoxetine HCL 30 MG CAPSULE.DR PO SCH ×2 (08:32→21:22)
[2021-09-27] MEDS: buPROPion SR 150 MG TABLET.ER PO SCH ×2 (08:32→21:22)
[2021-09-27] MEDS: HEPARIN SODIUM,PORCINE/PF 5,000 UNIT/0.5 ML SYRINGE SQ SCH ×2 (08:32→14:11)
[2021-09-27] MEDS: GABAPENTIN 100 MG CAP PO SCH ×3 (08:32→21:22)
[2021-09-27] MEDS: FERROUS SULFATE 325 MG TAB PO SCH (08:32)
[2021-09-27] MEDS: TOPIRAMATE 25 MG TAB PO SCH (08:33)
[2021-09-27] MEDS ORDERED: polyethylene glycoL 3350 17 GM POWD.PACK PO STA (09:01)
[2021-09-27] MEDS: ALBUTEROL NEBULIZED 2.5 MG/3 ML INHALATION SCH ×4 (09:28→20:34)
--- NOTE | 2021-09-27 09:43 | P.PN ---
Subjective Progress Note Date: 09/27/21 Principal diagnosis: 1. Cervical Spondylotic Myelopathy 2.C3-7 spondylosis 3. 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 B/L UE weakness 5. Gait instability 6. Mechanical Neck pain Patient seen at bedside this morning resting comfortably lying semirecumbent in bed with hard c-collar on. Patient says she did get up yesterday the collodion chair at bedside. She says she has felt a little wobbly when she has gotten up. Patient also mentions she has not had a bowel movement yet and is concerned about that. She says she has had a little bit to eat. Patient still has generalized neck pain. Patient denies chest pain, fever, shortness of breath, nausea, vomiting, change in vision, loss of bowel/bladder control. Objective - Vital Signs Vital signs: Vital Signs Temp 98.3 F 09/27/21 08:00 Pulse 74 09/27/21 08:00 Resp 20 09/27/21 08:00 BP 168/90 09/27/21 08:00 Pulse Ox 97 09/27/21 08:00 Intake & Output 09/26/21 09/27/21 09/27/21 18:59 06:59 18:59 Intake Total 346 335 Output Total 40 2000 125 Balance 306 -1665 -125 Intake: IV 75 Sodium Chloride 0.9% 1, 75 000 ml @ 75 mls/hr IV . [id number] [facility] Rx#:[id number] Oral 346 240 Blood Product 20 Output: Drainage 40 125 Right Anterior Neck 20 Right Posterior Neck 40 105 Urine 2000 Other: Voiding Method Bedside Commode # Voids 1 1 ABP, PAP, CO, CI - Last Documented Arterial Blood Pressure 175/102 - Exam Mild tenderness to palpation around the incision. No fluctuance/purulence. Anterior cervical drain was removed with minimal serosanguineous drainage. Anterior cervical dressing was changed. Incision is clean, dry, intact and healing well. Posterior cervical dressing and drain have been left in place at this time. 4+/5 bilateral upper and lower extremities in all major motor groups. Patient is still weak and bilateral upper extremities. Negative negative Homans bilaterally; negative clonus bilaterally; Pulses are intact, bilaterally, 2+ bilateral upper extremities. Sensation is symmetric, intact bilaterally in upper and lower extremities - Labs CBC & Chem 7: 09/25/21 04:40 09/25/21 04:40 Labs: Abnormal Lab Results - Last 24 Hours (Table) 09/26/21 09/26/21 09/26/21 Range/Units 11:29 16:55 21:16 POC Glucose (mg/dL) 126 H 117 H 129 H (75-99) mg/dL 09/27/21 Range/Units 07:25 POC Glucose (mg/dL) 117 H (75-99) mg/dL Assessment and Plan Assessment: POD 3 C3-7 ACDF with Posterior C2-T2 decompression and fusion 1. Cervical Spondylotic Myelopathy 2.C3-7 spondylosis 3. 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 B/L UE weakness 5. Gait instability 6. Mechanical Neck pain Plan: 1. Cervical Spondylotic Myelopathy; C3-7 spondylosis; Severe stenosis C3-7; B/L UE weakness; Gait instability; Mechanical Neck pain - surgery performed 09/24/2021 - C3-7 ACDF with Posterior C2-T2 decompression and fusion. Patient stable at bedside this morning. Anterior cervical drain was removed. There is minimal serosanguineous drainage. Incision is clean, dry, intact. Negative for any fluctuance, purulence. We will keep posterior cervical drain in place at this time. I did talk with Dr. Morrison about patient medications and she has adjusted GI meds to Senna BID and Polyethylene glycol. We will continue to follow patient while in hospital. 2. Appreciate medical management; appreciate pulmonary management 3. DVT ppx - Heparin 4. GI ppx - Senna; Polyethylene glycol 5. Encourage incentive spirometer use 6. Pain management - Bryan, Tess, flexeril 7. Discharge planning - pending Time with Patient: Less than 30
--- NOTE | 2021-09-27 10:04 | P.PN ---
Subjective Progress Note Date: 09/27/21 Principal diagnosis: neck pain [facility] is covering [facility] (Dr. Burdick, Dr. Penaloza, and Dr. Clark) on 09/26 and 09/27 please contact us on perfect serve with any questions, needs, or concerns. Patient is a 65-year-old female with diet-controlled diabetes mellitus type 2, hypertension, and chronic kidney disease age 2 who presented to the hospital of her cervical C-spine pain and underwent elective anterior cervical spine decompression and fusion of C3 through C7 with posterior decompression and fusion of C2 to T2. She remained intubated after the procedure but was able to be exudative on postoperative day one. She developed some stridor on 09/26 and was given an extradose of decadron and started on bronchodilators. Patient seen and examined at bedside. Pain is the same as yesterday. Still no bowel movement. Still with a low appetite. No chest pain or shortness of breath. No more wheezing. Feels as though her vocal cord spasm has resolved. General: non toxic, no distress, appears at stated age Derm: warm, dry Head: atraumatic, normocephalic, symmetric, c-collar in place with drainage tubes in place Eyes: EOMI, no lid lag, anicteric sclera Mouth: no lip lesion, mucus membranes dry Cardiovascular: S1S2 reg, no murmur, positive posterior tibial pulse bilateral, Lungs: Decreased breath sounds bilateral bilateral, no rhonchi, no rales , no accessory muscle use Abdominal: soft, nontender to palpation, no guarding, no appreciable organomegaly Ext: no gross muscle atrophy, no edema, no contractures Neuro: CN II-XI grossly intact, no focal neuro deficits Psych: Alert, oriented, affect Patient is a 65-year-old female status post C3- C7 ACDF and C2-T2 DF - being managed by ortho spine, on decadron DM 2 - diet controlled at home, does not check BS on a regular basis -Blood sugars well controlled - SSI HTN, elevated -Anticipate component of pain. -Continue with verapamil. Initiate additional blood pressure medication if BP remains elevated throughout the day. - follow BP Constipation -Changed Senna and is scheduled -MiraLAX 1 now CKD III, suspect component of LAYNE - likely due to fluid shift - appears to be back to baseline - follow Cr - Avoid additional nephrotoxic agents. Thrombocytopenia - suspect reactive - follow CBC Osteoarthtisits Hx of DVT Acute post op respiratory failure, resolved. A.m. labs pending at the time of this note will be reviewed. Thank you for allowing us to participate in the care of this pleasant patient. Do not hesitate to contact us with questions. Someone can be reached from the [facility] hospitalist group all hours of the day at [phone] or via perfect serve. Objective - Vital Signs Vital signs: Vital Signs Temp 98.3 F 09/27/21 08:00 Pulse 95 09/27/21 09:41 Resp 20 09/27/21 08:00 BP 168/90 09/27/21 08:00 Pulse Ox 94 L 09/27/21 09:30 Intake & Output 09/26/21 09/27/21 09/27/21 18:59 06:59 18:59 Intake Total 346 335 Output Total 40 2000 125 Balance 306 -1665 -125 Intake: IV 75 Sodium Chloride 0.9% 1, 75 000 ml @ 75 mls/hr IV . [id number] [facility] Rx#:[id number] Oral 346 240 Blood Product 20 Output: Drainage 40 125 Right Anterior Neck 20 Right Posterior Neck 40 105 Urine 2000 Other: Voiding Method Bedside Commode # Voids 1 1 ABP, PAP, CO, CI - Last Documented Arterial Blood Pressure 175/102 - Labs CBC & Chem 7: 09/25/21 04:40 09/25/21 04:40 Labs: Abnormal Lab Results - Last 24 Hours (Table) 09/26/21 09/26/21 09/26/21 Range/Units 11:29 16:55 21:16 POC Glucose (mg/dL) 126 H 117 H 129 H (75-99) mg/dL 09/27/21 Range/Units 07:25 POC Glucose (mg/dL) 117 H (75-99) mg/dL
[2021-09-27 10:42] LABS: Basophils # (A) 0 X 10*3/uL (0.00-0.10); Basophils % (A) 0 %; Eosinophils # (A) 0 X 10*3/uL (0.04-0.35); Eosinophils % (A) 0 %; HCT 31.9 % (37.2-46.3); HGB 10.3 g/dL (12.0-15.0); Lymphocytes # (A) 0.93 X 10*3/uL (0.90-5.00); Lymphocytes % (A) 8.7 %; MCH 32.1 pg (27.0-32.0); MCHC 32.3 g/dL (32.0-37.0); MCV 99.4 fL (80.0-97.0); Mean Platelet Volume 9.9 fL (9.5-12.2); Monocytes # (A) 0.78 X 10*3/uL (0.20-1.00); Monocytes % (A) 7.3 %; Neutrophils # (A) 8.91 X 10*3/uL (1.80-7.70); Neutrophils % (A) 83.5 %; Platelet Count 157 X 10*3/uL (140-440); RBC 3.21 X 10*6/uL (4.10-5.20); RDW 13.3 % (11.5-14.5); WBC 10.67 X 10*3/uL (4.50-10.00)
[2021-09-27] MEDS: SENNOSIDES-DOCUSATE SODIUM 1 EACH TAB PO SCH (10:46)
[2021-09-27] MEDS: CYCLOBENZAPRINE 10 MG TAB PO PRN (10:48)
[2021-09-27 11:18] LABS: African American GFR (CKD) 97.8 (60.0-200.0); Anion Gap 9.5 mmol/L (4.00-12.00); BUN/Creat Ratio 23.24 Ratio (12.00-20.00); Blood Urea Nitrogen 17.2 mg/dL (9.0-27.0); Calcium 8.1 mg/dL (8.7-10.3); Carbon Dioxide 22.5 mmol/L (21.6-31.8); Non-African American GFR(CKD) 84.4 (60.0-200.0)
[2021-09-27 11:21] LABS: Glucose,Whole Blood 120 mg/dL (75-99)
--- NOTE | 2021-09-27 12:03 | CDI ---
Documentation Clarification Form Date: 09/27/2021 10:53:14 AM From: Keesha King RN, CCDS Admit Date: 09/24/2021 06:49:00 AM Patient Name: Leidy Marcelino Visit Number: [id number] Discharge Date: ATTENTION: The Clinical Documentation Specialists (CDI) and [facility] Coding Staff appreciate your assistance in clarifying documentation. Please respond to the clarification below the line at the bottom and electronically sign. The CDI & [facility] Coding staff will review the response and follow-up if needed. Please note: Queries are made part of the Legal Health Record. If you have any questions, please contact the author of this message via ITS. Dr. Claudine George Acute hypoxic respiratory failure intubated on a mechanical ventilator.is documented 09/24/21 and subsequent progress notes, and patient had C3-C7 ACDF and Part II C2-T1 Decompress ion and fusion on . Additional clarification is requested regarding the relationship, if any, that exists between the diagnosis and the procedure. Patients Admitting Diagnosis: Cervical Spondylotic Myelopathy Post-Operative Diagnosis: Same Procedure performed: C3-7 ACDF with Posterior C2-T2 decompression and fusion History/Risk Factors: Neck pain Gait instability, cervical spondiylotic myelopathy, Diabetes Mellitus, Hypertension, Clinical Indicators: 65-year-old present on 09/24/21 for elective procedure for cervical pain. She had C3-C7 ACDF and Part II C2-T1 Decompress ion and fusion. Post procedure she was mechanical ventilation. 09/24 Pulmonary consult: Acute hypoxic respiratory. The patient was kept on orotracheal tube because of concerns of swelling and post exhibition bronchospasm or vocal cord spasm. keep on mechanical ventilator for another 12 hours. She was extubated 09/25 at 09:41 (vent time: 09/24 17:20 extubate 09/25 @ 09:41 <24 hrs) Treatment: ICU Monitoring Mechanical ventilation monitoring per pulmonary Monitor O2 Sat's, blood gas per protocol/orders Decadron 2 MG IVP Q 6 HRS ( 09/24-09/27) 09/27 2MG Q 8 HRS What relationship, if any, exists between the diagnosis of acute hypoxic respiratory failure and the procedure? [ ] Acute hypoxic respiratory failure is a complication of surgical procedure [ ] Acute hypoxic respiratory failure is an expected outcome of the surgical procedure [ ] Acute hypoxic respiratory failure is related to patients co-morbid condition(s) of [insert co-morbid ds] & not a complication of the procedure [ ] Acute hypoxic respiratory failure has been ruled out [ x ] Other please specify drug induced [ ] Unable to determine (Template Last Revised: January 2021) MTDD
--- NOTE | 2021-09-27 14:09 | P.PN ---
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 The patient underwent an extensive neck surgery where the patient underwent a Part I: C3-C7 ACDF and Part II: C2-T2 decompression and fusion. The surgery lasted for a total of 8 hours. Following that, the patient was kept intubated and both into the intensive care unit. She was not extubated due to concern of spasm that has occurred in her vocal cords post extubation with previous surgeries. Currently she is on Decadron. She is on Dilaudid for pain control. She is sedated with propofol which is running at 30 mg/kg per minute. She remains on a mechanical ventilator. She is on assist control mode at the rate of 16, tidal volume of 350, rate of 16, FiO2 of 50% with a PEEP of 5. The blood. This was done on 100% FiO2 showed a pH of 7.32 with a pCO2 of 39 and pO2 of 263. Based on that, the FiO2 was dropped down to 50%. Chest x-ray shows adequate positioning of the ET tube. Some atelectatic changes in lung bases. Heart racing in the cervical spine. The patient is adequately sedated. She is arousable. Motor function cannot be assessed at this point in time. She is hemodynamically stable. Upon the request of the surgeon, the mean arterial pressure will be kept above 80 and for that reason norepinephrine infusion is being utilized to keep a map of above 80. The patient currently is producing adequate amount of urine output. She is hemodynamically stable. No Elvis arrhythmias. Cardiac rhythm is sinus. No other significant events since arrival to the intensive care unit. The patient has 2 ROSE drains anterior and the posterior neck and output is serosanguineous and being monitored. On today's evaluation of 09/25/2021, the patient is awake. Propofol was reduced down to 40 mcg/kg per minute and the patient will be weaned off further from propofol. She remains on a mechanical ventilator. Chest x-ray from today shows adequate positioning of the orotracheal tube. Some atelectatic changes in the lung bases especially on the left. Otherwise the lung volumes are small and there is hardware involving the C-spine. The patient is on a mechanical ventilator on assist control mode at the rate of 16 with a tidal volume of 350 FiO2 of 50% with a PEEP of 5. The chest x-ray from today was noted. Blood gas showed a pH of 7.42 with a pCO2 of 41 and pO2 of 148 and this was on FiO2 of 50%. The patient has 2 ROSE drains anterior and posterior cervical wound area and output has been in the order of 25 for the anterior and 0 mL for the posterior. Hemoglobin is stable at 11.6. The patient is withdrawing and lower extremities to painful stimulation. She is adequate. IV fluids running in the form of normal saline at the rate of 150 mL an hour. She is on Dilaudid for pain control. The patient has compression devices to lower extremities for DVT prophylaxis. If okay with the surgeon, the patient will be started on subcu hep kelle for DVT prophylaxis. On today's evaluation of 09/26/2021, the patient is being seen for a follow-up. She is still having some neck pain at the surgical site. ROSE drains are in place. No issues with breathing. No stridor. No difficulties with swallowing. No reported nausea vomiting or abdominal pain. She is doing well for the most part. She was transferred out of the intensive care unit. She had encountered and episodes of increased wheeze which is probably related to bronchospasm r ather than laryngospasm. She was given additional dose of Decadron 2 mg IV and she. She is also on albuterol nebulized treatments 4 times a day and when necessary. The patient continues to wear the hard collar. No reported aspiration. She is still having some limited congested cough. She is using incentive spirometer. Monitor blood work today, the sugars of 126 and no new labs are available. Chest x-ray from this morning was completed at 8:45 AM and the patient has some bibasilar bilateral infiltrates and small effusions that has progressed slightly more on the right compared to the prior examination. The CAT scan of the cervical and thoracic spine was also completed and it showed postsurgical changes. Her cardiac rhythm remains sinus. She was started on anticoagulation with heparin subcu for DVT prophylaxis 5000 units every 8 hours. She is also taking morphine for pain control and she is on Flexeril. 09/27/2021, the patient is doing well. The patient will specific complaints. Pain is under good control for now. She is still awaiting the hard collar. Drains are still in place. She is currently on 2 L of oxygen by nasal cannula. I found the bronchospastic and wheezy yesterday and I put her on prednisone about treatments around the clock and today she is getting better. No stridor. No wheezing. She is able to swallow appropriately. Her pain is under good co ntrol. Blood sugars are well controlled for now. Her appetite is improving. She was able to sit up on a chair today. She is taking MiraLAX for chronic constipation. She has chronic stasis the and surprisingly her renal function improved and the creatinine is down to 0.7. Hemoglobin is at 10.3 with a white cell count of 10.6. Flexeril the patient is taking for muscle relaxation. She is also on Decadron 2 mg IV every 8 hours. She is on NovoLog for sliding scale coverage. [place] for pain control. She is also on heparin subcu for daily prophylaxis. Objective - Vital Signs Vital signs: Vital Signs Temp 98.3 F 09/27/21 08:00 Pulse 96 09/27/21 12:44 Resp 20 09/27/21 08:00 BP 168/90 09/27/21 08:00 Pulse Ox 94 L 09/27/21 09:30 Intake & Output 09/26/21 09/27/21 09/27/21 18:59 06:59 18:59 Intake Total 346 335 Output Total 40 2000 125 Balance 306 1665 -125 Intake: IV 75 Sodium Chloride 0.9% 1, 75 000 ml @ 75 mls/hr IV . [id number] [facility] Rx#:[id number] Oral 346 240 Blood Product 20 Output: Drainage 40 125 Right Anterior Neck 20 Right Posterior Neck 40 105 Urine 2000 Other: Voiding Method Bedside Commode # Voids 1 1 ABP, PAP, CO, CI - Last Documented Arterial Blood Pressure 175/102 - Exam Gen. appearance the patient is calm comfortable likely distress, intubated on a mechanical ventilator. The patient is wearing a hard neck collar Head exam was generally normal. There was no scleral icterus or corneal arcus. Mucous membranes were moist. neck is stabilized by a hard neck collar. The patient ROSE drains placed anteriorly and posteriorly and output this bloody/serosanguineous. Lungs were clear to auscultation and percussion, and with normal diaphragmatic excursion. No wheezes or rales were noted. Cardiac exam revealed the PMI to be normally situated and sized. The rhythm was regular and no extrasystoles were noted during several minutes of auscultation. The first and second heart sounds were normal and physiologic splitting of the second heart sound was noted. There were no murmurs, rubs, clicks, or gallops. Abdominal exam revealed normal bowel sounds. The abdomen was soft, non-tender, and without masses, organomegaly, or appreciable enlargement of the abdominal aorta. Examination of the extremities revealed easily palpable radial, femoral and pedal pulses. There was no cyanosis, clubbing or edema. Examination of the skin revealed no evidence of significant rashes, suspicious appearing nevi or other concerning lesions. neurologically patient is sedated and the motor function cannot be assessed at this point time. Reflexes symmetrical bilaterally.( - Labs CBC & Chem 7: 09/27/21 07:36 09/27/21 07:36 Labs: Abnormal Lab Results - Last 24 Hours (Table) 09/26/21 09/26/21 09/27/21 Range/Units 16:55 21:16 07:25 WBC (4.50-10.00) X 10*3/uL RBC (4.10-5.20) X 10*6/uL Hgb (12.0-15.0) g/dL Hct (37.2-46.3) % MCV (80.0-97.0) fL MCH (27.0-32.0) pg Immature Gran # (0.00-0.04) X 10*3/uL Neutrophils # (1.80-7.70) X 10*3/uL Eosinophils # (0.04-0.35) X 10*3/uL BUN/Creatinine Ratio (12.00-20.00) Ratio Glucose (70-110) mg/dL POC Glucose (mg/dL) 117 H 129 H 117 H (75-99) mg/dL Calcium (8.7-10.3) mg/dL 09/27/21 09/27/21 09/27/21 Range/Units 07:36 07:36 11:20 WBC 10.67 H (4.50-10.00) X 10*3/uL RBC 3.21 L (4.10-5.20) X 10*6/uL Hgb 10.3 L (12.0-15.0) g/dL Hct 31.9 L (37.2-46.3) % MCV 99.4 H (80.0-97.0) fL MCH 32.1 H (27.0-32.0) pg Immature Gran # 0.05 H (0.00-0.04) X 10*3/uL Neutrophils # 8.91 H (1.80-7.70) X 10*3/uL Eosinophils # 0 L (0.04-0.35) X 10*3/uL BUN/Creatinine Ratio 23.24 H (12.00-20.00) Ratio Glucose 122 H (70-110) mg/dL POC Glucose (mg/dL) 120 H (75-99) mg/dL Calcium 8.1 L (8.7-10.3) mg/dL Assessment and Plan Plan: 1 cervical spondylolisthetic myelopathy in addition to severe cervical spine stenosis and spondylosis and the patient underwent Part I: C3-C7 ACDF and Part II: C2-T2 decompression and fusion and currently the patient is postop day #4. The patient remains intubated on mechanical ventilator. The patient has adequate pain control and the patient is hemodynamically stable at this point in time. She is on Dilaudid for pain control. ROSE drains are in place. Patient is wearing a hard neck collar. Nevertheless, she is calm and comfortable and her pain is under good control and she was able to sit up on a chair today. 2 acute hypoxic respiratory failure and the patient has been extubated. The patient did well post extubation. No stridor. Nevertheless, today she did have a bout of bronchospasm for which was given breathing treatments and she was also given a dose of Decadron additional dose. She is currently at Decadron 2 mg IV every 8 hours. She is stable. Chest x-ray showing some small effusions and atelectatic changes in lung bases bilaterally. on today's evaluation, her lungs are clear the patient is not showing any signs of bronchospasm or wheezing 3 gait instability secondary to above 4 mechanical neck pain 5 diabetes mellitus, diet-controlled do not take any form of anti-diabetic medications 6 chronic stage III kidney disease 7 previous history of DVT 8 osteoarthritis Plan Encouraged use of incentive spirometer Change albuterol to scheduled 4 times a day [id number], This will be continued over the next 24-48 hours Continue IV fluids with NSS increased the rate up to 75 mL's an hour continue Decadron Monitor blood sugars and use insulin per sliding scale coverage Dilaudid for pain control CAT scan of the C-spine was noted and shows post surgical changes Monitor the output from the ROSE drains overall pulmonary status is stable. The patient was transferred out of the intensive care unit. Pain is under adequate control. Continue physical therapy. Discharge planning is in progress. Management of the ROSE drain per surgery. Pulmonary critical care services we'll sign off
[2021-09-27 16:34] LABS: Glucose,Whole Blood 109 mg/dL (75-99)
[2021-09-27 20:40] LABS: Glucose,Whole Blood 134 mg/dL (75-99)
[2021-09-28] MEDS: HEPARIN SODIUM,PORCINE/PF 5,000 UNIT/0.5 ML SYRINGE SQ SCH ×4 (00:14→23:27)
[2021-09-28] MEDS: HYDROcodone/APAP 10-325MG 1 EACH TAB PO PRN ×4 (00:21→21:37)
[2021-09-28] MEDS: CYCLOBENZAPRINE 10 MG TAB PO PRN ×2 (00:21→18:12)
[2021-09-28] MEDS: ACETAMINOPHEN TAB 325 MG TAB PO SCH ×5 (01:01→23:26)
[2021-09-28] MEDS: DEXAMETHASONE SOD PHOSPHATE 4 MG/ML 1 ML VIAL IVP SCH ×3 (05:13→21:37)
[2021-09-28 07:01] LABS: Glucose,Whole Blood 109 mg/dL (75-99)
--- NOTE | 2021-09-28 08:29 | P.PN ---
Subjective Progress Note Date: 09/28/21 Principal diagnosis: 1. Cervical Spondylotic Myelopathy 2.C3-7 spondylosis 3. 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 B/L UE weakness 5. Gait instability 6. Mechanical Neck pain Patient seen at bedside this morning resting comfortably lying semirecumbent in bed with hard c-collar on. Patient says she did get up yesterday with physical therapy and walked around the room using her walker and to the bathroom. Patient says she is doing better this morning and feels that she is trending in the right direction. Patient states she is still having a burning sensation in the back of her neck. Patient still has not had a bowel movement yet. However, patient says she has been passing gas since yesterday. Patient still has generalized neck pain. Patient denies chest pain, fever, shortness of breath, nausea, vomiting, change in vision, loss of bowel/bladder control. Objective - Vital Signs Vital signs: Vital Signs Temp 98 F 09/28/21 07:52 Pulse 77 09/28/21 07:52 Resp 16 09/28/21 07:52 BP 186/101 09/28/21 07:52 Pulse Ox 94 L 09/28/21 07:52 Intake & Output 09/27/21 09/28/21 09/28/21 18:59 06:59 18:59 Output Total 1075 70 Balance -1075 -70 Output: Drainage 175 70 Right Anterior Neck 20 Right Posterior Neck 155 70 Urine 900 Other: # Voids 2 ABP, PAP, CO, CI - Last Documented Arterial Blood Pressure 175/102 - Exam Mild tenderness to palpation around the incision. No fluctuance/purulence. Incision is clean, dry, intact and healing well. Posterior cervical dressing and drain have been left in place at this time. 70 ml output in posterior drain from midnight to 7 am this morning. Plan to remove posterior drain tomorrow. 4+/5 bilateral upper and lower extremities in all major motor groups. Patient is still weak in bilateral upper extremities. Negative negative Homans bilaterally; negative clonus bilaterally; Pulses are intact, bilaterally, 2+ bilateral upper extremities. Sensation is symmetric, intact bilaterally in upper and lower extremities - Labs CBC & Chem 7: 09/27/21 07:36 09/27/21 07:36 Labs: Abnormal Lab Results - Last 24 Hours (Table) 09/27/21 09/27/21 09/27/21 Range/Units 07:36 07:36 11:20 WBC 10.67 H (4.50-10.00) X 10*3/uL RBC 3.21 L (4.10-5.20) X 10*6/uL Hgb 10.3 L (12.0-15.0) g/dL Hct 31.9 L (37.2-46.3) % MCV 99.4 H (80.0-97.0) fL MCH 32.1 H (27.0-32.0) pg Immature Gran # 0.05 H (0.00-0.04) X 10*3/uL Neutrophils # 8.91 H (1.80-7.70) X 10*3/uL Eosinophils # 0 L (0.04-0.35) X 10*3/uL BUN/Creatinine Ratio 23.24 H (12.00-20.00) Ratio Glucose 122 H (70-110) mg/dL POC Glucose (mg/dL) 120 H (75-99) mg/dL Calcium 8.1 L (8.7-10.3) mg/dL 09/27/21 09/27/21 09/28/21 Range/Units 16:33 20:39 07:00 WBC (4.50-10.00) X 10*3/uL RBC (4.10-5.20) X 10*6/uL Hgb (12.0-15.0) g/dL Hct (37.2-46.3) % MCV (80.0-97.0) fL MCH (27.0-32.0) pg Immature Gran # (0.00-0.04) X 10*3/uL Neutrophils # (1.80-7.70) X 10*3/uL Eosinophils # (0.04-0.35) X 10*3/uL BUN/Creatinine Ratio (12.00-20.00) Ratio Glucose (70-110) mg/dL POC Glucose (mg/dL) 109 H 134 H 109 H (75-99) mg/dL Calcium (8.7-10.3) mg/dL Assessment and Plan Assessment: POD 4 C3-7 ACDF with Posterior C2-T2 decompression and fusion 1. Cervical Spondylotic Myelopathy 2.C3-7 spondylosis 3. 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 B/L UE weakness 5. Gait instability 6. Mechanical Neck pain Plan: 1. Cervical Spondylotic Myelopathy; C3-7 spondylosis; Severe stenosis C3-7; B/L UE weakness; Gait instability; Mechanical Neck pain - surgery performed 09/24/2021 - C3-7 ACDF with Posterior C2-T2 decompression and fusion. Patient stable at bedside this morning. Posterior drain output 70 ml from midnight to 7 am this morning. We will keep posterior cervical drain in place at this time. Plan to remove tomorrow. We will continue to follow patient while in hospital. 2. Appreciate medical management; appreciate pulmonary management 3. DVT ppx - Heparin 4. GI ppx - Senna; Polyethylene glycol 5. Encourage incentive spirometer use 6. Pain management - Marion, Tess, flexeril 7. Discharge planning - plan discharge home on Thursday. Time with Patient: Less than 30
[2021-09-28] MEDS: INSULIN ASPART (NovoLOG) 100 UNIT/ML VIAL SQ SCH ×4 (08:32→23:25)
[2021-09-28] MEDS: ALBUTEROL NEBULIZED 2.5 MG/3 ML INHALATION SCH ×4 (08:36→19:52)
[2021-09-28] MEDS: buPROPion SR 150 MG TABLET.ER PO SCH ×2 (09:18→21:37)
[2021-09-28] MEDS: GABAPENTIN 100 MG CAP PO SCH ×3 (09:18→21:37)
[2021-09-28] MEDS: DULoxetine HCL 30 MG CAPSULE.DR PO SCH ×2 (09:18→21:37)
[2021-09-28] MEDS: SENNOSIDES-DOCUSATE SODIUM 1 EACH TAB PO SCH (09:18)
[2021-09-28] MEDS: PANTOPRAZOLE 40 MG TABLET PO SCH (09:18)
[2021-09-28] MEDS: VERAPAMIL SR 120 MG TABLET.ER PO SCH (09:18)
[2021-09-28] MEDS: FERROUS SULFATE 325 MG TAB PO SCH (09:18)
[2021-09-28] MEDS: TOPIRAMATE 25 MG TAB PO SCH (09:19)
[2021-09-28 09:54] LABS: HCT 33.3 % (34.0-46.0); HGB 10.9 gm/dL (11.4-16.0); MCH 33.4 pg (25.0-35.0); MCHC 32.6 g/dL (31.0-37.0); MCV 102.6 fL (80.0-100.0); Macrocytosis Slight; Mean Platelet Volume 7.2; Platelet Count 171 k/uL (150-450); RBC 3.25 m/uL (3.80-5.40); RDW 12.8 % (11.5-15.5); WBC 8.1 k/uL (3.8-10.6)
[2021-09-28 10:01] LABS: African American GFR (CKD) >90 (>60 ml/min/1.73 sqM); Anion Gap 4 mmol/L; Blood Urea Nitrogen 17 mg/dL (7-17); Calcium 8.2 mg/dL (8.4-10.2); Carbon Dioxide 24 mmol/L (22-30); Chloride 108 mmol/L (98-107); Glucose 111 mg/dL (74-99); Non-African American GFR(CKD) 89 (>60 ml/min/1.73 sqM); Sodium 136 mmol/L (137-145)
[2021-09-28] MEDS: LACTATED RINGERS 1,000 ML IV SCH (11:08)
--- NOTE | 2021-09-28 12:38 | P.PN ---
Subjective Progress Note Date: 09/28/21 HISTORY OF PRESENT ILLNESS This is a 65-year-old female patient of Dr. Penaloza with past medical history of diabetes mellitus type 2, DVT, hypertension, chronic kidney disease stage III. Patient has been brought into Hospital under care of Dr. 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 The patient underwent an extensive neck surgery with anterior C3- C7 ACDF and posterior C2-T2 decompression and fusion. The surgery lasted for a total of 8 hours. Patient was kept intubated and transferred into the intensive care unit following procedure. She was not extubated due to concern of spasm that has occurred in her vocal cords post extubation with previous surgeries. She was successfully extubated this morning just prior to our arrival. Patient was also medicated prior to extubation and is seen today sitting up in the ICU bed with hard c-collar in place. She is minimally able to answer questions. Patient is scheduled for CAT scan of the cervical spine today. She does have [address], what appears to be in the anterior one of the posterior. Patient denies any significant neck pain, denies abdominal pain. Goodson catheter is in place. Goodson catheter draining clear melanie urine. Chest x-ray reveals to be in fairly good position. No heart failure. Mild pleural reaction and atelectasis left lung base increased compared to exam this morning. Blood work reveals WBC 10.3, hemoglobin 11.6, platelet 148. Sodium 136, potassium 4.3, chloride 110, CO2 22, BUN 17 creatinine 0.79. Blood sugars are running between 131-151. 09/28: Patient was up to the bathroom and his drain removed without any difficulties utilizing walker. Patient was examined in the room lying in bed. She states that her pain is well managed. No complaints of chest pain difficulty breathing nausea or vomiting. REVIEW OF SYSTEMS Constitutional: No fever, no chills, no night sweats. No weight change. Noted weakness, noted fatigue noted lethargy. Noted No daytime sleepiness. EENT: No headache. No blurred vision or double vision, no loss of vision. No loss of Hearing, no ringing in the ears, no dizziness. No nasal drainage or congestion. No epistaxis. No sore throat. Lungs: No shortness of breath, cough, no sputum production. No wheezing. Cardiovascular: No chest pain, no lower extremity edema. No palpitations. No paroxysmal nocturnal dyspnea. No orthopnea. No lightheadedness or dizziness. No syncopal episodes. Abdominal: No abdominal pain. No nausea, vomiting. No diarrhea. No c onstipation. No bloody or tarry stools. No loss of appetite. Genitourinary: No dysuria, increased frequency, urgency. No urinary retention. Musculoskeletal: No myalgias. No muscle weakness, no gait dysfunction, no frequent falls. No back pain. No neck pain. Integumentary: No wounds, no lesions. No rash or pruritus. No unusual bruising. No change in hair or nails. Neurologic: No aphasia. No facial droop. No change in mentation. No head injury. No headache. No paralysis. No paresthesia. Psychiatric: No depression. No anxiety. No mood swings. Endocrine: No abnormal blood sugars. No weight change. PHYSICAL EXAMINATION Gen: This is a 65-year-old female. She is resting in the ICU bed, sitting upright and appears to be in no acute distress. She is slow to respond and answering only with yes and no. HEENT: Head is atraumatic, normocephalic. Pupils equal, round. Sclerae is anicteric. Oral mucous membranes are somewhat dry. NECK: Supple. No JVD. No lymphadenopathy. No thyromegaly. Hard c-collar in place. ROSE drain in place to the anterior and one to the posterior surgical sites both with serosanguineous drainage. LUNGS: Clear to auscultation. No wheezes or rhonchi. No intercostal retractions. HEART: Regular rate and rhythm. No murmur. ABDOMEN: Soft. Bowel sounds are present. No masses. No tenderness. Goodson catheter draining clear melanie urine. EXTREMITIES: No pedal edema. No calf tenderness. Dorsalis pedis +2 bilaterally. NEUROLOGICAL: Patient is awake, alert and oriented x3. Cranial nerves 2 through 12 are grossly intact. ASSESSMENT AND PLAN 1. Cervical spondylitic myelopathy and severe stenosis and spondylosis C3 through C7 with upper extremity weakness and gait instability s/p anterior C3-C7 ACDF and posterior C2-T2 decompression and fusion. Patient is postop day #1. Continue pain management per orthopedics, DVT prophylaxis to be started, patient is scheduled for CAT scan of the cervical spine today. Incentive spirometry treatment reduce incidence of atelectasis and hospital-acquired pneumonia 2. Acute hypoxic respiratory failure requiring extended intubation. A mechanical ventilation due to concerns for swelling in bronchospasm her vocal cord spasm. Patient has been successfully extubated. Continue oxygen therapy, management per pulmonary medicine senior staff psychologist.. 3. Chronic upper extremity weakness and gait instability secondary to cervical stenosis and spondylosis. Patient will require PT and OT and possible subacute rehab. 4. Diabetes mellitus type 2. 5. History of DVT. 6. Hypertension. 7. Chronic kidney disease stage III. 8. Thrombocytopenia of unclear etiology. Monitor. 9. Generalized osteoarthritis. 10. DVT prophylaxis. Patient started on heparin subcu. 11. GI prophylaxis. Protonix. DISCHARGE PLAN To be determined. Consults with PT and OT. Impression and plan of care have been directed as dictated by the signing physician. Flaca Montemayor nurse practitioner acting as scribe for signing physician. Objective - Vital Signs Vital signs: Vital Signs Temp 98 F 09/28/21 07:52 Pulse 75 09/28/21 10:57 Resp 16 09/28/21 07:52 BP 172/81 09/28/21 10:57 Pulse Ox 94 L 09/28/21 07:52 Intake & Output 09/27/21 09/28/21 09/28/21 18:59 06:59 18:59 Output Total 1075 70 30 Balance -1075 -70 -30 Output: Drainage 175 70 30 Right Anterior Neck 20 Right Posterior Neck 155 70 30 Urine 900 Other: Voiding Method Toilet # Voids 2 ABP, PAP, CO, CI - Last Documented Arterial Blood Pressure 175/102 - Labs CBC & Chem 7: 09/28/21 09:25 09/28/21 09:25 Labs: Abnormal Lab Results - Last 24 Hours (Table) 09/27/21 09/27/21 09/28/21 Range/Units 16:33 20:39 07:00 RBC (3.80-5.40) m/uL Hgb (11.4-16.0) gm/dL Hct (34.0-46.0) % MCV (80.0-100.0) fL Sodium (137-145) mmol/L Chloride (98-107) mmol/L Glucose (74-99) mg/dL POC Glucose (mg/dL) 109 H 134 H 109 H (75-99) mg/dL Calcium (8.4-10.2) mg/dL 09/28/21 09/28/21 Range/Units 09:25 09:25 RBC 3.25 L (3.80-5.40) m/uL Hgb 10.9 L (11.4-16.0) gm/dL Hct 33.3 L (34.0-46.0) % MCV 102.6 H (80.0-100.0) fL Sodium 136 L (137-145) mmol/L Chloride 108 H (98-107) mmol/L Glucose 111 H (74-99) mg/dL POC Glucose (mg/dL) (75-99) mg/dL Calcium 8.2 L (8.4-10.2) mg/dL
[2021-09-28] MEDS: SODIUM CHLORIDE 0.9% 1,000 ML IV SCH (16:02)
[2021-09-28 16:54] LABS: Glucose,Whole Blood 138 mg/dL (75-99)
[2021-09-28 21:32] LABS: Glucose,Whole Blood 113 mg/dL (75-99)
[2021-09-29] MEDS: MORPHINE SULFATE 4 MG/ML SYRINGE IVP PRN (01:22)
[2021-09-29] MEDS: SODIUM CHLORIDE 0.9% 1,000 ML IV SCH ×2 (01:23→17:02)
[2021-09-29] MEDS: HYDROcodone/APAP 10-325MG 1 EACH TAB PO PRN ×3 (05:27→17:02)
[2021-09-29] MEDS: ACETAMINOPHEN TAB 325 MG TAB PO SCH ×3 (05:27→16:58)
[2021-09-29] MEDS: DEXAMETHASONE SOD PHOSPHATE 4 MG/ML 1 ML VIAL IVP SCH ×3 (05:28→20:45)
[2021-09-29 06:46] LABS: Glucose,Whole Blood 114 mg/dL (75-99)
[2021-09-29] MEDS: ALBUTEROL NEBULIZED 2.5 MG/3 ML INHALATION SCH (07:16)
[2021-09-29] MEDS: INSULIN ASPART (NovoLOG) 100 UNIT/ML VIAL SQ SCH ×3 (07:27→16:57)
[2021-09-29] MEDS: LACTATED RINGERS 1,000 ML IV SCH (07:27)
[2021-09-29] MEDS: PANTOPRAZOLE 40 MG TABLET PO SCH (07:46)
[2021-09-29] MEDS: FERROUS SULFATE 325 MG TAB PO SCH (07:46)
[2021-09-29] MEDS: HEPARIN SODIUM,PORCINE/PF 5,000 UNIT/0.5 ML SYRINGE SQ SCH ×2 (07:46→14:31)
[2021-09-29] MEDS: VERAPAMIL SR 120 MG TABLET.ER PO SCH (07:47)
[2021-09-29] MEDS: DULoxetine HCL 30 MG CAPSULE.DR PO SCH ×2 (07:47→20:46)
[2021-09-29] MEDS: buPROPion SR 150 MG TABLET.ER PO SCH ×2 (07:47→20:46)
[2021-09-29] MEDS: GABAPENTIN 100 MG CAP PO SCH ×3 (07:47→20:46)
[2021-09-29] MEDS: SENNOSIDES-DOCUSATE SODIUM 1 EACH TAB PO SCH (07:47)
[2021-09-29] MEDS: TOPIRAMATE 25 MG TAB PO SCH (07:47)
--- NOTE | 2021-09-29 09:18 | P.PN ---
Subjective Progress Note Date: 09/29/21 Principal diagnosis: 1. Cervical Spondylotic Myelopathy 2.C3-7 spondylosis 3. 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 B/L UE weakness 5. Gait instability 6. Mechanical Neck pain Patient was seen at bedside this morning resting comfortably sitting up in chair with c-collar in place. Patient says she did get up yesterday with physical therapy and walked around the room using her walker into the bathroom. Patient says her pain is under much better control and she is looking forward to going home. Patient says she is still not had a bowel movement, however, patient says she is passing gas. Patient denies chest pain, fever, shortness of breath, nausea, vomiting, change in vision, loss of bowel/bladder control. Objective - Vital Signs Vital signs: Vital Signs Temp 97.8 F 09/29/21 07:44 Pulse 66 09/29/21 07:44 Resp 20 09/29/21 07:44 BP 178/89 09/29/21 07:44 Pulse Ox 94 L 09/29/21 07:44 Intake & Output 09/28/21 09/29/21 09/29/21 18:59 06:59 18:59 Intake Total 900 Output Total 60 60 Balance 840 -60 Intake: IV 900 Sodium Chloride 0.9% 1, 900 000 ml @ 75 mls/hr IV . [id number] Rx#:[id number] Output: Drainage 60 60 Right Posterior Neck 60 60 Other: Voiding Method Toilet Toilet # Voids 1 3 # Bowel Movements 1 1 ABP, PAP, CO, CI - Last Documented Arterial Blood Pressure 175/102 - Exam Mild tenderness to palpation around the incision. No fluctuance/purulence. Incision is clean, dry, intact and healing well. Posterior cervical dressing and drain have been removed. 4 x 4 and Tegaderm were placed over incision where the drain was placed. opti-Foam dressing was placed over the posterior cervical neck. Incision is clean, dry, intact. Sutures are well in place and kerline are well aligned. 4+/5 bilateral upper and lower extremities in all major motor groups. Patient is still weak in bilateral upper extremities. Negative negative Homans bilaterally; negative clonus bilaterally; Pulses are intact, bilaterally, 2+ bilateral upper extremities. Sensation is symmetric, intact bilaterally in upper and lower extremities - Labs CBC & Chem 7: 09/28/21 09:25 09/28/21 09:25 Labs: Abnormal Lab Results - Last 24 Hours (Table) 09/28/21 09/28/21 09/28/21 Range/Units 09:25 09:25 16:52 RBC 3.25 L (3.80-5.40) m/uL Hgb 10.9 L (11.4-16.0) gm/dL Hct 33.3 L (34.0-46.0) % MCV 102.6 H (80.0-100.0) fL Sodium 136 L (137-145) mmol/L Chloride 108 H (98-107) mmol/L Glucose 111 H (74-99) mg/dL POC Glucose (mg/dL) 138 H (75-99) mg/dL Calcium 8.2 L (8.4-10.2) mg/dL 09/28/21 09/29/21 Range/Units 21:30 06:44 RBC (3.80-5.40) m/uL Hgb (11.4-16.0) gm/dL Hct (34.0-46.0) % MCV (80.0-100.0) fL Sodium (137-145) mmol/L Chloride (98-107) mmol/L Glucose (74-99) mg/dL POC Glucose (mg/dL) 113 H 114 H (75-99) mg/dL Calcium (8.4-10.2) mg/dL Assessment and Plan Assessment: POD 5 C3-7 ACDF with Posterior C2-T2 decompression and fusion 1. Cervical Spondylotic Myelopathy 2.C3-7 spondylosis 3. 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 B/L UE weakness 5. Gait instability 6. Mechanical Neck pain Plan: 1. Cervical Spondylotic Myelopathy; C3-7 spondylosis; Severe stenosis C3-7; B/L UE weakness; Gait instability; Mechanical Neck pain - surgery performed 09/24/2021 - C3-7 ACDF with Posterior C2-T2 decompression and fusion. Patient stable at bedside this morning. Posterior ROSE drain and dressing were removed. New opti-foam dressing was placed over incision. We will continue to follow patient while in hospital. 2. Appreciate medical management; appreciate pulmonary management 3. DVT ppx - Heparin 4. GI ppx - Senna; Polyethylene glycol 5. Encourage incentive spirometer use 6. Pain management - [place], Tess, flexeril 7. PT/OT - weightbearing as tolerated with walker for assistance. C-collar on at all times 8. Discharge planning - plan discharge home tomorrow. Time with Patient: Less than 30
[2021-09-29 11:38] LABS: Basophils # (A) 0.01 X 10*3/uL (0.00-0.10); Basophils % (A) 0.1 %; Eosinophils # (A) 0.01 X 10*3/uL (0.04-0.35); Eosinophils % (A) 0.1 %; HCT 32.1 % (37.2-46.3); HGB 10.5 g/dL (12.0-15.0); Lymphocytes # (A) 1.11 X 10*3/uL (0.90-5.00); Lymphocytes % (A) 13.2 %; MCH 31.7 pg (27.0-32.0); MCHC 32.7 g/dL (32.0-37.0); Mean Platelet Volume 9.7 fL (9.5-12.2); Monocytes # (A) 0.47 X 10*3/uL (0.20-1.00); Monocytes % (A) 5.6 %; Neutrophils # (A) 6.65 X 10*3/uL (1.80-7.70); Neutrophils % (A) 79.1 %; Platelet Count 200 X 10*3/uL (140-440); RBC 3.31 X 10*6/uL (4.10-5.20); RDW 13.1 % (11.5-14.5); WBC 8.41 X 10*3/uL (4.50-10.00)
--- NOTE | 2021-09-29 11:40 | P.PN ---
Subjective Progress Note Date: 09/29/21 HISTORY OF PRESENT ILLNESS This is a 65-year-old female patient of Dr. Penaloza with past medical history of diabetes mellitus type 2, DVT, hypertension, chronic kidney disease stage III. Patient has been brought into Hospital under care of Dr. 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 The patient underwent an extensive neck surgery with anterior C3- C7 ACDF and posterior C2-T2 decompression and fusion. The surgery lasted for a total of 8 hours. Patient was kept intubated and transferred into the intensive care unit following procedure. She was not extubated due to concern of spasm that has occurred in her vocal cords post extubation with previous surgeries. She was successfully extubated this morning just prior to our arrival. Patient was also medicated prior to extubation and is seen today sitting up in the ICU bed with hard c-collar in place. She is minimally able to answer questions. Patient is scheduled for CAT scan of the cervical spine today. She does have [address], what appears to be in the anterior one of the posterior. Patient denies any significant neck pain, denies abdominal pain. Goodson catheter is in place. Goodson catheter draining clear melanie urine. Chest x-ray reveals to be in fairly good position. No heart failure. Mild pleural reaction and atelectasis left lung base increased compared to exam this morning. Blood work reveals WBC 10.3, hemoglobin 11.6, platelet 148. Sodium 136, potassium 4.3, chloride 110, CO2 22, BUN 17 creatinine 0.79. Blood sugars are running between 131-151. 09/28: Patient was up to the bathroom and his drain removed without any difficulties utilizing walker. Patient was examined in the room lying in bed. She states that her pain is well managed. No complaints of chest pain difficulty breathing nausea or vomiting. 09/29: Patient is found sitting up in a chair after ambulating down the rea with physical therapy. Patient states that her pain is much improved since her drains have been removed this morning. Patient denies any nausea or vomiting difficulty breathing or chest pain. She remains afebrile, heart rate 66, respirations 20, blood pressure 178/89, pulse ox 94% on room air. Patient states that she is more likely to go home tomorrow. She does have help at home. REVIEW OF SYSTEMS Constitutional: No fever, no chills, no night sweats. No weight change. Noted weakness, noted fatigue noted lethargy. Noted No daytime sleepiness. EENT: No headache. No blurred vision or double vision, no loss of vision. No loss of Hearing, no ringing in the ears, no dizziness. No nasal drainage or congestion. No epistaxis. No sore throat. Lungs: No shortness of breath, cough, no sputum production. No wheezing. Cardiovascular: No chest pain, no lower extremity edema. No palpitations. No paroxysmal nocturnal dyspnea. No orthopnea. No lightheadedness or dizziness. No syncopal episodes. Abdominal: No abdominal pain. No nausea, vomiting. No diarrhea. No constipation. No bloody or tarry stools. No loss of appetite. Genitourinary: No dysuria, increased frequency, urgency. No urinary retention. Musculoskeletal: No myalgias. No muscle weakness, no gait dysfunction, no frequent falls. No back pain. No neck pain. Integumentary: No wounds, no lesions. No rash or pruritus. No unusual bruising. No change in hair or nails. Neurologic: No aphasia. No facial droop. No change in mentation. No head injury. No headache. No paralysis. No paresthesia. Psychiatric: No depression. No anxiety. No mood swings. Endocrine: No abnormal blood sugars. No weight change. PHYSICAL EXAMINATION Gen: This is a 65-year-old female. She is resting in the ICU bed, sitting upright and appears to be in no acute distress. She is slow to respond and answering only with yes and no. HEENT: Head is atraumatic, normocephalic. Pupils equal, round. Sclerae is anic teric. Oral mucous membranes are somewhat dry. NECK: Supple. No JVD. No lymphadenopathy. No thyromegaly. Hard c-collar in place. ORSE drain in place to the anterior and one to the posterior surgical sites both with serosanguineous drainage. LUNGS: Clear to auscultation. No wheezes or rhonchi. No intercostal retractions. HEART: Regular rate and rhythm. No murmur. ABDOMEN: Soft. Bowel sounds are present. No masses. No tenderness. Goodson catheter draining clear melanie urine. EXTREMITIES: No pedal edema. No calf tenderness. Dorsalis pedis +2 bilaterally. NEUROLOGICAL: Patient is awake, alert and oriented x3. Cranial nerves 2 through 12 are grossly intact. ASSESSMENT AND PLAN 1. Cervical spondylitic myelopathy and severe stenosis and spondylosis C3 through C7 with upper extremity weakness and gait instability s/p anterior C3-C7 ACDF and posterior C2-T2 decompression and fusion. Patient is postop day #5. Continue pain management per orthopedics, DVT prophylaxis to be started, patient is scheduled for CAT scan of the cervical spine today. Incentive spirometry treatment reduce incidence of atelectasis and hospital-acquired pneumonia 2. Acute hypoxic respiratory failure requiring extended intubation. A mechanical ventilation due to concerns for swelling in bronchospasm her vocal cord spasm. Patient has been successfully extubated. 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 3. Chronic upper extremity weakness and gait instability secondary to cervical stenosis and spondylosis. Patient will require PT and OT and possible subacute rehab. 4. Diabetes mellitus type 2. 5. History of DVT. 6. Hypertension. 7. Chronic kidney disease stage III. 8. Thrombocytopenia of unclear etiology. Monitor. 9. Generalized osteoarthritis. 10. DVT prophylaxis. Patient started on heparin subcu. 11. GI prophylaxis. Protonix. DISCHARGE PLAN Home with home care. Consults with PT and OT. Impression and plan of care have been directed as dictated by the signing physician. Flaca Montemayor nurse practitioner acting as scribe for signing physician. Objective - Vital Signs Vital signs: Vital Signs Temp 97.8 F 09/29/21 07:44 Pulse 66 09/29/21 07:44 Resp 20 09/29/21 07:44 BP 178/89 09/29/21 07:44 Pulse Ox 95 09/29/21 10:32 Intake & Output 09/28/21 09/29/21 09/29/21 18:59 06:59 18:59 Intake Total 900 Output Total 60 60 Balance 840 -60 Intake: IV 900 Sodium Chloride 0.9% 1, 900 000 ml @ 75 mls/hr IV . [id number] Rx#:[id number] Output: Drainage 60 60 Right Posterior Neck 60 60 Other: Voiding Method Toilet Toilet # Voids 1 3 1 # Bowel Movements 1 1 ABP, PAP, CO, CI - Last Documented Arterial Blood Pressure 175/102 - Labs CBC & Chem 7: 09/29/21 08:10 09/28/21 09:25 Labs: Abnormal Lab Results - Last 24 Hours (Table) 09/28/21 09/28/21 09/29/21 Range/Units 16:52 21:30 06:44 RBC (4.10-5.20) X 10*6/uL Hgb (12.0-15.0) g/dL Hct (37.2-46.3) % Immature Gran # (0.00-0.04) X 10*3/uL Eosinophils # (0.04-0.35) X 10*3/uL POC Glucose (mg/dL) 138 H 113 H 114 H (75-99) mg/dL 09/29/21 Range/Units 08:10 RBC 3.31 L (4.10-5.20) X 10*6/uL Hgb 10.5 L (12.0-15.0) g/dL Hct 32.1 L (37.2-46.3) % Immature Gran # 0.16 H (0.00-0.04) X 10*3/uL Eosinophils # 0.01 L (0.04-0.35) X 10*3/uL POC Glucose (mg/dL) (75-99) mg/dL
[2021-09-29 11:49] LABS: Glucose,Whole Blood 108 mg/dL (75-99)
[2021-09-29 12:05] LABS: African American GFR (CKD) 104.6 (60.0-200.0); Anion Gap 11.2 mmol/L (4.00-12.00); BUN/Creat Ratio 19.86 Ratio (12.00-20.00); Blood Urea Nitrogen 13.9 mg/dL (9.0-27.0); Calcium 8.3 mg/dL (8.7-10.3); Carbon Dioxide 22.8 mmol/L (21.6-31.8); Non-African American GFR(CKD) 90.3 (60.0-200.0); Potassium 3.8 mmol/L (3.5-5.5)
[2021-09-29 16:47] LABS: Glucose,Whole Blood 95 mg/dL (75-99)
[2021-09-29 21:08] LABS: Glucose,Whole Blood 126 mg/dL (75-99)
[2021-09-30] MEDS ORDERED: HEPARIN SODIUM,PORCINE/PF 5,000 UNIT/0.5 ML SYRINGE SQ ONE (00:16)
[2021-09-30] MEDS ORDERED: HYDROcodone/APAP 10-325MG 1 EACH TAB ONE (00:16)
[2021-09-30] MEDS ORDERED: ACETAMINOPHEN TAB 325 MG TAB ONE (00:16)
[2021-09-30] MEDS: INSULIN ASPART (NovoLOG) 100 UNIT/ML VIAL SQ SCH ×3 (00:44→11:54)
[2021-09-30] MEDS: HEPARIN SODIUM,PORCINE/PF 5,000 UNIT/0.5 ML SYRINGE SQ SCH ×2 (06:01→09:35)
[2021-09-30] MEDS: ACETAMINOPHEN TAB 325 MG TAB PO SCH ×3 (06:02→09:33)
[2021-09-30] MEDS: HYDROcodone/APAP 10-325MG 1 EACH TAB PO PRN ×2 (06:14→11:56)
[2021-09-30] MEDS: DEXAMETHASONE SOD PHOSPHATE 4 MG/ML 1 ML VIAL IVP SCH (06:15)
[2021-09-30] MEDS: SODIUM CHLORIDE 0.9% 1,000 ML IV SCH (07:18)
[2021-09-30] MEDS: LACTATED RINGERS 1,000 ML IV SCH (07:18)
[2021-09-30 07:51] LABS: Glucose,Whole Blood 105 mg/dL (75-99)
[2021-09-30 08:28] VITALS: BP 192/100; PULSE 74; RESP 18; TEMP 98.5
[2021-09-30] MEDS: buPROPion SR 150 MG TABLET.ER PO SCH (09:33)
[2021-09-30] MEDS: PANTOPRAZOLE 40 MG TABLET PO SCH (09:33)
[2021-09-30] MEDS: DULoxetine HCL 30 MG CAPSULE.DR PO SCH (09:33)
[2021-09-30] MEDS: CYCLOBENZAPRINE 10 MG TAB PO PRN (09:33)
[2021-09-30] MEDS: TOPIRAMATE 25 MG TAB PO SCH (09:33)
[2021-09-30] MEDS: VERAPAMIL SR 120 MG TABLET.ER PO SCH (09:34)
[2021-09-30] MEDS: SENNOSIDES-DOCUSATE SODIUM 1 EACH TAB PO SCH (09:40)
[2021-09-30] MEDS: FERROUS SULFATE 325 MG TAB PO SCH (09:41)
[2021-09-30] MEDS: GABAPENTIN 100 MG CAP PO SCH (09:41)
--- NOTE | 2021-09-30 09:51 | P.PN ---
Subjective Progress Note Date: 09/30/21 Principal diagnosis: 1. Cervical Spondylotic Myelopathy 2.C3-7 spondylosis 3. 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 B/L UE weakness 5. Gait instability 6. Mechanical Neck pain Patient was seen at bedside this morning resting comfortably sitting up in chair with c-collar in place. Patient says she did get up yesterday with physical therapy and walked around the room and into the hallway using her walker and into the bathroom. Patient says her pain is under much better control and she is looking forward to going home. Patient says she has still not had a bowel movement, however, patient says she is passing gas. Patient denies chest pain, fever, shortness of breath, nausea, vomiting, change in vision, loss of bowel/bladder control. Objective - Vital Signs Vital signs: Vital Signs Temp 98.5 F 09/30/21 08:00 Pulse 74 09/30/21 08:00 Resp 18 09/30/21 08:00 BP 192/100 09/30/21 08:00 Pulse Ox 95 09/30/21 08:00 Intake & Output 09/29/21 09/30/21 09/30/21 18:59 06:59 18:59 Intake Total 900 Balance 900 Intake: IV 900 Sodium Chloride 0.9% 1, 900 000 ml @ 75 mls/hr IV . [id number] [facility] Rx#:[id number] Other: Voiding Method Toilet # Voids 1 6 # Bowel Movements 1 ABP, PAP, CO, CI - Last Documented Arterial Blood Pressure 175/102 - Exam Mild tenderness to palpation around the incision. No fluctuance/purulence. Incision is clean, dry, intact and healing well. Sutures are well in place and kerline are well aligned. 4+/5 bilateral upper and lower extremities in all major motor groups. Patient is still weak in bilateral upper extremities. Negative negative Homans bilaterally; negative clonus bilaterally; Pulses are intact, bilaterally, 2+ bilateral upper extremities. Sensation is symmetric, intact bilaterally in upper and lower extremities - Labs CBC & Chem 7: 09/29/21 08:10 09/29/21 08:10 Labs: Abnormal Lab Results - Last 24 Hours (Table) 09/29/21 09/29/21 09/29/21 Range/Units 08:10 08:10 11:45 RBC 3.31 L (4.10-5.20) X 10*6/uL Hgb 10.5 L (12.0-15.0) g/dL Hct 32.1 L (37.2-46.3) % Immature Gran # 0.16 H (0.00-0.04) X 10*3/uL Eosinophils # 0.01 L (0.04-0.35) X 10*3/uL Glucose 126 H (70-110) mg/dL POC Glucose (mg/dL) 108 H (75-99) mg/dL Calcium 8.3 L (8.7-10.3) mg/dL 09/29/21 09/30/21 Range/Units 21:06 07:50 RBC (4.10-5.20) X 10*6/uL Hgb (12.0-15.0) g/dL Hct (37.2-46.3) % Immature Gran # (0.00-0.04) X 10*3/uL Eosinophils # (0.04-0.35) X 10*3/uL Glucose (70-110) mg/dL POC Glucose (mg/dL) 126 H 105 H (75-99) mg/dL Calcium (8.7-10.3) mg/dL Assessment and Plan Assessment: POD 6 C3-7 ACDF with Posterior C2-T2 decompression and fusion 1. Cervical Spondylotic Myelopathy 2.C3-7 spondylosis 3. 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 B/L UE weakness 5. Gait instability 6. Mechanical Neck pain Plan: 1. Cervical Spondylotic Myelopathy; C3-7 spondylosis; Severe stenosis C3-7; B/L UE weakness; Gait instability; Mechanical Neck pain - surgery performed 09/24/2021 - C3-7 ACDF with Posterior C2-T2 decompression and fusion. Patient stable at bedside this morning. Discharge home today. 2. Appreciate medical management; appreciate pulmonary management 3. DVT ppx - Heparin 4. GI ppx - Senna 5. Encourage incentive spirometer use 6. Pain management - [place], Tess, flexeril 7. PT/OT - weightbearing as tolerated with walker for assistance. C-collar on at all times 8. Discharge planning - discharge home today Time with Patient: Less than 30
--- NOTE | 2021-09-30 10:03 | P.DS ---
Providers Date of admission: 09/24/21 06:49 Expected date of discharge: 09/30/21 Attending physician: Miguel Street DO Consults: 09/24/21 17:02 Consult Physician Routine Consulting Provider: Tasneem Penaloza Consult Reason/Comments: Medical Management s/p C3-C7 ACDF & C2-T2 Decompression and Fusion Do you want consulting provider notified?: Yes 09/24/21 21:10 Consult Physician Routine Consulting Provider: Claudine George Consult Reason/Comments: Mechanical Ventilator management and ICU Admit Do you want consulting provider notified?: Already Contacted Primary care physician: Tasneem Penaloza [facility] Course: Date of admission: 09/24/2021 Date of discharge: 09/30/2021 Admission diagnosis: 1. Cervical Spondylotic Myelopathy 2.C3-7 spondylosis 3. 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 B/L UE weakness 5. Gait instability 6. Mechanical Neck pain Discharge diagnosis: Same Attending physician: Dr. Street Surgical procedures: Part I: 1. Right sided Coffman-Leija exposure 2. C3-4 anterior interbody arthrodesis 3. C4-C5 anterior interbody arthrodesis. 4. C5-C6 anterior interbody arthrodesis. 5. C6-C7 anterior interbody arthrodesis. 6. C3-4 application of intervertebral biomechanical device 7. C4-C5 application of intervertebral biomechanical device 8. C5-C6 application of intervertebral biomechanical device. 9. C6-C7 application of intervertebral biomechanical device. 10. Use of intraoperative microscope. 11. Use of neurophysiologic somatosensory and motor evoked potential monitoring, upper and lower extremities. Part II: 1. C2-T2 posterolateral instrumented fusion 2. C3-7 decompressive laminectomy 3. Segmental instrumentation C2-T2 4. Use of neurophysiologic somatosensory and motor evoked potential monitoring, upper and lower extremities. Brief history: Patient is a 65-year-old female with a history of cervical spondylotic myelopathy; C3-C7 spondylosis; severe stenosis C3-7; D/L upper extremity weakness; gait instability; mechanical neck pain. At this point patient has failed conservative treatment measures and has opted to proceed with a elective surgical procedure as noted above. Hospital course: Details of patient's surgery can be found in operative report. Patient tolerated the procedure well and was subsequently transported to orthopedic floor. Patient's orthopeidc and medical care was provided daily. Patient had daily laboratory tests performed for evaluation of overall blood counts. Patient had daily physical therapy to include strengthening range of motion as well as education with walker ambulation. Patient was treated with heparin for their postoperative DVT prophylaxis during their inpatient stay. Patient was noted to have a relatively uneventful postoperative course. Patient reported satisfactory pain control with oral pain medications by postoperative day 6. Patient showed satisfactory progress with physical therapy. Patient moved steadily through the program and had no difficulty meeting the goals by postoperative day 6. Given patient's otherwise satisfactory course and having met physical therapy goals, plan is to discharge patient home on postoperative day 6. Discharge condition/disposition: Patient will be discharged home in stable condition. Discharge medications: Instructions are given on resumption of patient's normal daily medications per primary care recommendation, in addition patient will be prescribed [place] 10 mg/325 mg; Duricef; senna; Flexeril; gabapentin. Spine Discharge and Recovery Instructions Medications: See medication list All medication refills should be obtained through your primary care doctor or your clinic spine surgeon. Please discuss prescription refills at your follow up appointment. Do not call the hospital for medication refills. Dressing: Leave your dressing in place for a total of 5 days post operatively. Then you may remove your dressing and leave open to air. Keep the area clean and if not able to keep area clean, then cover with sterile gauze and tape. Showering: You may shower 3 days after your procedure allowing soap and water to run over incision. Do not scrub. Do not soak. Blot dry. Follow up: Please confirm a follow up appointment with your surgeon 3 weeks post operatively. Please make an appointment to follow up with your PCP in 1-2 weeks after surgery for evaluation 3 phase, 3-week plan POST OP WEEKS 1-3 1. Lifting/carrying/pushing/pulling limited to less than 5 pounds. 2. Do not sit for longer than 15 minutes at one time. Get up and walk around. Prolonged sitting is NOT advised. If you lay down, see if you can tolerate laying down on you front (belly side) 3. Walk for periods of 15 minutes = 1 mile but no longer; do it multiple times times each day. 4. Ice your low back after activity. POST OP WEEKS 3-6 1. Lifting limited to less than 20 pounds. 2. Do not sit for longer than 30 minutes at a time. Frequently change positions. Use a sit-to stand workstation or take frequent breaks from sitting if you have returned to work. 3. Walk for 30 minutes each day. If possible, do these three or more times a day POST OP WEEKS 6+ At your 6-week appointment we will give you a physical therapy referral to focus on a core stabilization and strengthening program. You should also work on leg & buttock strengthening, hamstring & quadriceps stretching, and continue a low impact aerobic activity program such as swimming, walking, or riding a stationary bicycle. During the initial 6 weeks after your surgery, you are at the highest risk of re-injuring your spine. You should generally avoid BLTs (bending, lifting and twisting combination motions) and follow the above guidelines to reduce the chance of reinjury. You can anticipate post op appointments in our office at approximately 3 weeks and 6 weeks after your surgery. INCISION CARE: If your incision is not draining you do NOT need to cover it with a dressing. Keep your incision clean, dry and intact. In most cases, we apply skin glue, kerline or sutures to the incision at the time of surgery. This will be like a crust or have the appearance of a scab and will fall off in time on its own. The stitches or kerline need to be removed at 3 weeks post op appointment. You may begin to shower 3 days after surgery (this allows the glue to ferreira well). However, please avoid scrubbing the incision site or peeling off any of the skin glue. This will ensure optimal healing of your incision. Also, during this time avoid soaking the incision area in water - this includes swimming pools, hot tubs or baths. No ointments, lotions or oils on the incision until your surgeon allows. Leave kerline, sutures or glue in place. Neurological dysfunction that comes on suddenly can also be a sign of a stroke. Below some common symptoms of a stroke are listed: B - balance difficulty such as sudden onset walking or leaning to one side - NEW E - eye problem such as sudden double vision or trouble seeing on one side - NEW F - Facial weakness or numbness on one side - NEW A - Arm or leg weakness or numbness on one side - NEW S - Slurred speech or difficulty with word finding - NEW T - Time is BRAIN! Call 911 as soon as you recognize these symptoms Diet: Consume a regular diet rich in vegetables and lean protein such as chicken or fish. You should consume in a ratio of approximately 20% fats|40% carbohydrates|40%protein. Vegetables, sweet potatoes, brown rice or quinoa are examples of good carbohydrates. Chips, white bread, cookies and sweets/sugar are examples of bad carbohydrates. Limit your bad carbs, go wild with good carbs. "Life's Simple 7" Guidelines as per [place] [employer] These will help you reclaim your life after surgery and stranding machine operator helper in your recovery, keeping in mind your restrictions. (1) Get Active. Physical activity can help people lose weight, control high blood pressure and cholesterol, feel emotionally better, and sleep better. (2) Control Cholesterol. Avoid a diet high in saturated fat, trans fat, & cholesterol. Limit whole milk & cream, ice cream, butter, egg yolks, processed meats (like sausage and hot dogs), and fatty meats. Choose healthy foods that are low in saturated fat, trans fat and cholesterol which include: Fruits and vegetables, fiber rich grain products (like whole grain pasta and brown rice), lean meat such as chicken, fish, nuts, seeds, and legumes. (3) Eat Better. Eat small portions. Shop at the grocery with a list and do not stray from it. Tips for a healthy diet include: Limit sodium intake to less than 1500mg daily, avoid prepackaged, processed, and fast foods, choose a diet rich in fruits, vegetables, and whole grain, high fiber foods, and limit saturated & cholesterol in your diet. (4) Manage Blood Pressure. If you have high blood pressure, you should have a cuff at home so that you can check your blood pressure regularly. Be sure you have a good cuff. An arm one is generally better than a wrist one. Bring the cuff to a doctor's appointment to validate that the measurements that your cuff are taking are accurate. Take your blood pressure twice daily when you are sitting down and relaxing. Record the numbers in a log and bring this log with you to your doctors' appointments. (5) Lose Weight if your BMI is above 25. A healthy BMI is between 19-25. To calculate Your BMI, you may use a Standard BMI Calculator on the NIH BMI website: <www.nhlbi.nih.gov/guidelines/obesity/BMI/bmicalc.htm>. Weigh oneself daily. If you are overweight, set a goal to lose weight. A pound a week loss if needed is a good target. (6) Reduce Blood Sugar. Limit foods and liquids with "added sugars." (Added sugars include sucrose, fructose, glucose, maltose, dextrose, high fructose corn syrup, corn syrup, concentrated fruit juice and honey). (7) Stop Smoking. If you smoke, quitting smoking is one of the best things that you can do for your health. Smoking increases your risk of heart attack, stroke, and peripheral vascular disease, which is a build-up of plaque in your arteries. Please discard all the cigarettes and lighters in your house. Have a plan for what you will do when you have the urge to smoke. Direct and second- hand smoke shortens your life as well as the lives of your family, friends and others around you. For your health and the health of those around you, please consider quitting! Proper Bending Body Mechanics: Maintain a wide stance with one foot slightly in front of the other. Keep your back straight. Bend utilizing the strength in your hips and knees. Do not bend at the waist. Maintain the lifted object at your waist-level close to your body. Avoid lifting weight that causes immediately pain or pain anywhere in the body afterwards. Smoking/Nicotine If there was ever one thing that you could do to increase your overall health, decrease your risk of cardiovascular problems by about 39% the second you make the choice, it is to STOP SMOKING. Your body's most instant gratification is the second you stop smoking. We have all heard the studies, read the articles but it is true, smoking is extremely bad for your overall health, and moreover it is detrimental to your bone health. Nicotine, IN ANY FORM, kills bone cells, prevents your body from healing fractures, and significantly prolongs healing after surgery. In spine surgery specifically, it increases your risk of not healing your bones to create a fusion and increases your risk of having a revision surgery due to this up to 60%. I know it is hard. I know it feels impossible. But there are ways. Take control of your life. We are here to help you through it. And when you are ready, ask us and we can direct you to help if you desire. Use the START Plan to Quit Smoking (please visit the HelpguOddcast.org website listed below for more information): S = Set a quit date. Choose a date within the next 2 weeks, so you have enough time to prepare without losing your motivation to quit. If you mainly smoke at work, quit on the weekend, so you have a few days to adjust to the change. T = Tell family, friends, and co-workers that you plan to quit. Let your friends and family in on your plan to quit smoking and tell them you need their support and encouragement to stop. Look for a quit kieran who wants to stop smoking as well. You can help each other get through the rough times. A = Anticipate and plan for the challenges you'll face while quitting. Most people who begin smoking again do so within the first 3 months. You can help yourself make it through by preparing ahead for common challenges, such as nicotine withdrawal and cigarette cravings. R = Remove cigarettes and other tobacco products from your home, car, and work. Throw away all your cigarettes (no emergency pack!), lighters, ashtrays, and matches. Wash your clothes and freshen up anything that smells like smoke. Shampoo your car, clean your drapes and carpet, and steam your furniture. T = Talk to your doctor about getting help to quit. Your doctor can prescribe medication to help with withdrawal and suggest other alternatives. If you can't see a doctor, you can get many products over the counter at your local pharmacy or grocery store, including the nicotine patch, nicotine lozenges, and nicotine gum. Resources for Quitting Smoking: <https:/ /www.[place].gov/documents/[place] [facility]/Quit_Tobacco_Resources_for_patients_313480_7.pd f> Supplementation: Take recommended dosages of Vitamin D and Calcium to help fortify your bones and help them to heal. See your health maintenance packet for dosages and recommended levels. DVT/VTE prophylaxis: You will be given compression stockings from the hospital. Wear these daily for the first two weeks after surgery. You may take them off at night. You may be prescribed a medication to help thin your blood. Take this as directed. If you are not prescribed this medication, early and frequent ambulation has been shown to be the best prophylaxis to deep vein thrombosis and sequelae related to this event. Assessment: 1. Cervical Spondylotic Myelopathy 2.C3-7 spondylosis 3. 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 B/L UE weakness 5. Gait instability 6. Mechanical Neck pain Procedures: Part I: 1. Right sided Coffman-Leija exposure 2. C3-4 anterior interbody arthrodesis 3. C4-C5 anterior interbody arthrodesis. 4. C5-C6 anterior interbody arthrodesis. 5. C6-C7 anterior interbody arthrodesis. 6. C3-4 application of intervertebral biomechanical device 7. C4-C5 application of intervertebral biomechanical device 8. C5-C6 application of intervertebral biomechanical device. 9. C6-C7 application of intervertebral biomechanical device. 10. Use of intraoperative microscope. 11. Use of neurophysiologic somatosensory and motor evoked potential monitoring, upper and lower extremities. Part II: 1. C2-T2 posterolateral instrumented fusion 2. C3-7 decompressive laminectomy 3. Segmental instrumentation C2-T2 4. Use of neurophysiologic somatosensory and motor evoked potential monitoring, upper and lower extremities. Patient Condition at Discharge: Good Plan - Discharge Summary Discharge Rx Participant: Yes New Discharge Prescriptions: New HYDROcodone/APAP 10-325MG [[place] 10-325] 1 tab PO Q6HR PRN #28 tab PRN Reason: Pain Sennosides/Docusate Sodium [Senna Plus 8.6-50 mg Softgel] 1 each PO DAILY #20 capsule cefaDROXiL [Duricef] 1 gm PO DAILY #5 tablet Cyclobenzaprine [Flexeril] 5 mg PO TID #21 tablet Gabapentin 300 mg PO TID #30 cap No Action Topiramate [Topamax] 50 mg PO DAILY Ferrous Sulfate [Feosol] 325 mg PO DAILY cloNIDine HCL [Catapres] 0.1 mg PO HS buPROPion HCL [Wellbutrin SR] 150 mg PO BID Gabapentin [Neurontin] 100 mg PO TID Aspirin 81 mg PO DAILY Methylphenidate HCl 20 mg PO TID DULoxetine HCL [Cymbalta] 30 mg PO BID Verapamil HCl [Verapamil Sr] 120 mg PO DAILY tiZANidine HCL 2 mg PO HS PRN PRN Reason: Muscle Spasm clonazePAM 1 mg PO HS PRN PRN Reason: Insomnia ALPRAZolam [Xanax] 0.5 mg PO HS PRN PRN Reason: Anxiety Discharge Medication List Ferrous Sulfate [Feosol] 325 mg PO DAILY 01/08/18 [History] Topiramate [Topamax] 50 mg PO DAILY 01/08/18 [History] buPROPion HCL [Wellbutrin SR] 150 mg PO BID 01/08/18 [History] cloNIDine HCL [Catapres] 0.1 mg PO HS 01/08/18 [History] ALPRAZolam [Xanax] 0.5 mg PO HS PRN 09/23/21 [History] Aspirin 81 mg PO DAILY 09/23/21 [History] DULoxetine HCL [Cymbalta] 30 mg PO BID 09/23/21 [History] Gabapentin [Neurontin] 100 mg PO TID 09/23/21 [History] Methylphenidate HCl 20 mg PO TID 09/23/21 [History] Verapamil HCl [Verapamil Sr] 120 mg PO DAILY 09/23/21 [History] clonazePAM 1 mg PO HS PRN 09/23/21 [History] tiZANidine HCL 2 mg PO HS PRN 09/23/21 [History] Cyclobenzaprine [Flexeril] 5 mg PO TID #21 tablet 09/30/21 [Rx] Gabapentin 300 mg PO TID #30 cap 09/30/21 [Rx] HYDROcodone/APAP 10-325MG [[place] 10-325] 1 tab PO Q6HR PRN #28 tab 09/30/21 [Rx] Sennosides/Docusate Sodium [Senna Plus 8.6-50 mg Softgel] 1 each PO DAILY #20 capsule 09/30/21 [Rx] cefaDROXiL [Duricef] 1 gm PO DAILY #5 tablet 09/30/21 [Rx] Follow up Appointment(s)/Referral(s): [facility], [NON-STAFF] - ([facility] will call you to schedule your home care nursing and physical therapy visits. ) Miguel Street DO [Doctor of Osteopathic Medicine] - 1 Week Activity/Diet/Wound Care/Special Instructions: Spine Discharge and Recovery Instructions Date of Surgery: 09/24/2021 Diagnosis: 1. Cervical Spondylotic Myelopathy 2.C3-7 spondylosis 3. 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 B/L UE weakness 5. Gait instability 6. Mechanical Neck pain Procedure: Part I: 1. Right sided Coffman-Leija exposure 2. C3-4 anterior interbody arthrodesis 3. C4-C5 anterior interbody arthrodesis. 4. C5-C6 anterior interbody arthrodesis. 5. C6-C7 anterior interbody arthrodesis. 6. C3-4 application of intervertebral biomechanical device 7. C4-C5 application of intervertebral biomechanical device 8. C5-C6 application of intervertebral biomechanical device. 9. C6-C7 application of intervertebral biomechanical device. 10. Use of intraoperative microscope. 11. Use of neurophysiologic somatosensory and motor evoked potential monitoring, upper and lower extremities. Part II: 1. C2-T2 posterolateral instrumented fusion 2. C3-7 decompressive laminectomy 3. Segmental instrumentation C2-T2 4. Use of neurophysiologic somatosensory and motor evoked potential monitoring, upper and lower extremities. Medications: See medication list All medication refills should be obtained through your primary care doctor or your clinic spine surgeon. Please discuss prescription refills at your follow up appointment. Do not call the hospital for medication refills. Dressing: Leave your dressing in place for a total of 5 days post operatively. Then you may remove your dressing and leave open to air. Keep the area clean and if not able to keep area clean, then cover with sterile gauze and tape. Showering: You may shower 3 days after your procedure allowing soap and water to run over incision. Do not scrub. Do not soak. Blot dry. Follow up: Please confirm a follow up appointment with your surgeon 3 weeks post operatively. Please make an appointment to follow up with your PCP in 1-2 weeks after surgery for evaluation 3 phase, 3-week plan POST OP WEEKS 1-3 1. Lifting/carrying/pushing/pulling limited to less than 5 pounds. 2. Do not sit for longer than 15 minutes at one time. Get up and walk around. Prolonged sitting is NOT advised. If you lay down, see if you can tolerate laying down on you front (belly side) 3. Walk for periods of 15 minutes = 1 mile but no longer; do it multiple times times each day. 4. Ice your low back after activity. POST OP WEEKS 3-6 1. Lifting limited to less than 20 pounds. 2. Do not sit for longer than 30 minutes at a time. Frequently change positions. Use a sit-to stand workstation or take frequent breaks from sitting if you have returned to work. 3. Walk for 30 minutes each day. If possible, do these three or more times a day POST OP WEEKS 6+ At your 6-week appointment we will give you a physical therapy referral to focus on a core stabilization and strengthening program. You should also work on leg & buttock strengthening, hamstring & quadriceps stretching, and continue a low impact aerobic activity program such as swimming, walking, or riding a stationary bicycle. During the initial 6 weeks after your surgery, you are at the highest risk of re-injuring your spine. You should generally avoid BLTs (bending, lifting and twisting combination motions) and follow the above guidelines to reduce the chance of reinjury. You can anticipate post op appointments in our office at approximately 3 weeks and 6 weeks after your surgery. INCISION CARE: If your incision is not draining you do NOT need to cover it with a dressing. Keep your incision clean, dry and intact. In most cases, we apply skin glue, kerline or sutures to the incision at the time of surgery. This will be like a crust or have the appearance of a scab and will fall off in time on its own. The stitches or kerline need to be removed at 3 weeks post op appointment. You may begin to shower 3 days after surgery (this allows the glue to ferreira well). However, please avoid scrubbing the incision site or peeling off any of the skin glue. This will ensure optimal healing of your incision. Also, during this time avoid soaking the incision area in water - this includes swimming pools, hot tubs or baths. No ointments, lotions or oils on the incision until your surgeon allows. Leave kerline, sutures or glue in place. Neurological dysfunction that comes on suddenly can also be a sign of a stroke. Below some common symptoms of a stroke are listed: B - balance difficulty such as sudden onset walking or leaning to one side - NEW E - eye problem such as sudden double vision or trouble seeing on one side - NEW F - Facial weakness or numbness on one side - NEW A - Arm or leg weakness or numbness on one side - NEW S - Slurred speech or difficulty with word finding - NEW T - Time is BRAIN! Call 911 as soon as you recognize these symptoms Diet: Consume a regular diet rich in vegetables and lean protein such as chicken or fish. You should consume in a ratio of approximately 20% fats|40% carbohydrates|40%protein. Vegetables, sweet potatoes, brown rice or quinoa are examples of good carbohydrates. Chips, white bread, cookies and sweets/sugar are examples of bad carbohydrates. Limit your bad carbs, go wild with good carbs. "Life's Simple 7" Guidelines as per [place] [employer] These will help you reclaim your life after surgery and stranding machine operator helper in your recovery, keeping in mind your restrictions. (1) Get Active. Physical activity can help people lose weight, control high blood pressure and cholesterol, feel emotionally better, and sleep better. (2) Control Cholesterol. Avoid a diet high in saturated fat, trans fat, & cholesterol. Limit whole milk & cream, ice cream, butter, egg yolks, processed meats (like sausage and hot dogs), and fatty meats. Choose healthy foods that are low in saturated fat, trans fat and cholesterol which include: Fruits and vegetables, fiber rich grain products (like whole grain pasta and brown rice), lean meat such as chicken, fish, nuts, seeds, and legumes. (3) Eat Better. Eat small portions. Shop at the grocery with a list and do not stray from it. Tips for a healthy diet include: Limit sodium intake to less than 1500mg daily, avoid prepackaged, processed, and fast foods, choose a diet rich in fruits, vegetables, and whole grain, high fiber foods, and limit saturated & cholesterol in your diet. (4) Manage Blood Pressure. If you have high blood pressure, you should have a cuff at home so that you can check your blood pressure regularly. Be sure you have a good cuff. An arm one is generally better than a wrist one. Bring the cuff to a doctor's appointment to validate that the measurements that your cuff are taking are accurate. Take your blood pressure twice daily when you are sitting down and relaxing. Record the numbers in a log and bring this log with you to your doctors' appointments. (5) Lose Weight if your BMI is above 25. A healthy BMI is between 19-25. To calculate Your BMI, you may use a Standard BMI Calculator on the NIH BMI website: <www.nhlbi.nih.gov/guidelines/obesity/BMI/bmicalc.htm>. Weigh oneself daily. If you are overweight, set a goal to lose weight. A pound a week loss if needed is a good target. (6) Reduce Blood Sugar. Limit foods and liquids with "added sugars." (Added sugars include sucrose, fructose, glucose, maltose, dextrose, high fructose corn syrup, corn syrup, concentrated fruit juice and honey). (7) Stop Smoking. If you smoke, quitting smoking is one of the best things that you can do for your health. Smoking increases your risk of heart attack, stroke, and peripheral vascular disease, which is a build-up of plaque in your arteries. Please discard all the cigarettes and lighters in your house. Have a plan for what you will do when you have the urge to smoke. Direct and second- hand smoke shortens your life as well as the lives of your family, friends and others around you. For your health and the health of those around you, please consider quitting! Proper Bending Body Mechanics: Maintain a wide stance with one foot slightly in front of the other. Keep your back straight. Bend utilizing the strength in your hips and knees. Do not bend at the waist. Maintain the lifted object at your waist-level close to your body. Avoid lifting weight that causes immediately pain or pain anywhere in the body afterwards. Smoking/Nicotine If there was ever one thing that you could do to increase your overall health, decrease your risk of cardiovascular problems by about 39% the second you make the choice, it is to STOP SMOKING. Your body's most instant gratification is the second you stop smoking. We have all heard the studies, read the articles but it is true, smoking is extremely bad for your overall health, and moreover it is detrimental to your bone health. Nicotine, IN ANY FORM, kills bone cells, prevents your body from healing fractures, and significantly prolongs healing after surgery. In spine surgery specifically, it increases your risk of not healing your bones to create a fusion and increases your risk of having a revision surgery due to this up to 60%. I know it is hard. I know it feels impossible. But there are ways. Take control of your life. We are here to help you through it. And when you are ready, ask us and we can direct you to help if you desire. Use the START Plan to Quit Smoking (please visit the Helpguide.org website listed below for more information): S = Set a quit date. Choose a date within the next 2 weeks, so you have enough time to prepare without losing your motivation to quit. If you mainly smoke at work, quit on the weekend, so you have a few days to adjust to the change. T = Tell family, friends, and co-workers that you plan to quit. Let your friends and family in on your plan to quit smoking and tell them you need their support and encouragement to stop. Look for a quit kieran who wants to stop smoking as well. You can help each other get through the rough times. A = Anticipate and plan for the challenges you'll face while quitting. Most people who begin smoking again do so within the first 3 months. You can help yourself make it through by preparing ahead for common challenges, such as nicotine withdrawal and cigarette cravings. R = Remove cigarettes and other tobacco products from your home, car, and work. Throw away all your cigarettes (no emergency pack!), lighters, ashtrays, and matches. Wash your clothes and freshen up anything that smells like smoke. Shampoo your car, clean your drapes and carpet, and steam your furniture. T = Talk to your doctor about getting help to quit. Your doctor can prescribe medication to help with withdrawal and suggest other alternatives. If you can't see a doctor, you can get many products over the counter at your local pharmacy or grocery store, including the nicotine patch, nicotine lozenges, and nicotine gum. Resources for Quitting Smoking: <https://www.[place].gov/documents/[place] [facility]/Quit_Tobacco_Resources_for_patients_313 480_7.pdf> Supplementation: Take recommended dosages of Vitamin D and Calcium to help fortify your bones and help them to heal. See your health maintenance packet for dosages and recommended levels. DVT/VTE prophylaxis: You will be given compression stockings from the hospital. Wear these daily for the first two weeks after surgery. You may take them off at night. You may be prescribed a medication to help thin your blood. Take this as directed. If you are not prescribed this medication, early and frequent ambulation has been shown to be the best prophylaxis to deep vein thrombosis and sequelae related to this event. Discharge Disposition: HOME SELF-CARE
[2021-09-30 11:40] LABS: Glucose,Whole Blood 102 mg/dL (75-99)
--- NOTE | 2021-09-30 15:36 | P.PN ---
Subjective Progress Note Date: 09/30/21 HISTORY OF PRESENT ILLNESS This is a 65-year-old female patient of Dr. Penaloza with past medical history of diabetes mellitus type 2, DVT, hypertension, chronic kidney disease stage III. Patient has been brought into Hospital under care of Dr. 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 The patient underwent an extensive neck surgery with anterior C3- C7 ACDF and posterior C2-T2 decompression and fusion. The surgery lasted for a total of 8 hours. Patient was kept intubated and transferred into the intensive care unit following procedure. She was not extubated due to concern of spasm that has occurred in her vocal cords post extubation with previous surgeries. She was successfully extubated this morning just prior to our arrival. Patient was also medicated prior to extubation and is seen today sitting up in the ICU b ed with hard c-collar in place. She is minimally able to answer questions. Patient is scheduled for CAT scan of the cervical spine today. She does have [address], what appears to be in the anterior one of the posterior. Patient denies any significant neck pain, denies abdominal pain. Goodson catheter is in place. Goodson catheter draining clear melanie urine. Chest x-ray reveals to be in fairly good position. No heart failure. Mild pleural reaction and atelectasis left lung base increased compared to exam this morning. Blood work reveals WBC 10.3, hemoglobin 11.6, platelet 148. Sodium 136, potassium 4.3, chloride 110, CO2 22, BUN 17 creatinine 0.79. Blood sugars are running between 131-151. 09/28: Patient was up to the bathroom and his drain removed without any difficulties utilizing walker. Patient was examined in the room lying in bed. She states that her pain is well managed. No complaints of chest pain difficulty breathing nausea or vomiting. 09/29: Patient is found sitting up in a chair after ambulating down the rea with physical therapy. Patient states that her pain is much improved since her drains have been removed this morning. Patient denies any nausea or vomiting difficulty breathing or chest pain. She remains afebrile, heart rate 66, respirations 20, blood pressure 178/89, pulse ox 94% on room air. Patient states that she is more likely to go home tomorrow. She does have help at home. 09/30: A is seen today ambulating in the hallway with physical therapy. Patient states her balance is better today, neck pain is controlled and much better. She is utilizing incentive spirometry. Orthopedics is planning for discharge home today. Medication reconciliation completed. REVIEW OF SYSTEMS Constitutional: No fever, no chills, no night sweats. No weight change. Noted weakness, noted fatigue noted lethargy. Noted No daytime sleepiness. EENT: No headache. No epistaxis. No sore throat. Lungs: No shortness of breath, cough, no sputum production. No wheezing. Cardiovascular: No chest pain, no lower extremity edema. No palpitations. No paroxysmal nocturnal dyspnea. No orthopnea. No lightheadedness or dizziness. No syncopal episodes. Abdominal: No abdominal pain. No nausea, vomiting. No diarrhea. No constipation. No bloody or tarry stools. No loss of appetite. Genitourinary: No dysuria, increased frequency, urgency. No urinary retention. Musculoskeletal: No myalgias. No muscle weakness, no gait dysfunction, no frequent falls. No back pain. No neck pain. Integumentary: No wounds, no lesions. No rash or pruritus. No unusual bruising. No change in hair or nails. Neurologic: No aphasia. No facial droop. No change in mentation. No head injury. No headache. No paralysis. No paresthesia. Psychiatric: No depression. No anxiety. No mood swings. Endocrine: No abnormal blood sugars. PHYSICAL EXAMINATION Gen: This is a 65-year-old female. She is resting in the ICU bed, sitting upright and appears to be in no acute distress. She is slow to respond and answering only with yes and no. HEENT: Head is atraumatic, normocephalic. Pupils equal, round. Sclerae is anicteric. Oral mucous membranes are somewhat dry. NECK: Supple. No JVD. No lymphadenopathy. No thyromegaly. Hard c-collar in place. ROSE drain in place to the anterior and one to the posterior surgical sites both with serosanguineous drainage. LUNGS: Clear to auscultation. No wheezes or rhonchi. No intercostal retractions. HEART: Regular rate and rhythm. No murmur. ABDOMEN: Soft. Bowel sounds are present. No masses. No tenderness. Goodson catheter draining clear melanie urine. EXTREMITIES: No pedal edema. No calf tenderness. Dorsalis pedis +2 bilaterally. NEUROLOGICAL: Patient is awake, alert and oriented x3. Cranial nerves 2 through 12 are grossly intact. ASSESSMENT AND PLAN 1. Cervical spondylitic myelopathy and severe stenosis and spondylosis C3 through C7 with upper extremity weakness and gait instability s/p anterior C3-C7 ACDF and posterior C2-T2 decompression and fusion. Patient is postop day #6. Continue pain management per orthopedics, DVT prophylaxis to be started, continue Incentive spirometry treatment reduce incidence of atelectasis and hospital-acquired pneumonia 2. Acute hypoxic respiratory failure requiring extended intubation. A mechanical ventilation due to concerns for swelling in bronchospasm her vocal co rd spasm. Patient has been successfully extubated. She was not requiring oxygen therapy. 3. Chronic upper extremity weakness and gait instability secondary to cervical stenosis and spondylosis. Patient will require PT and OT and possible subacute rehab. 4. Diabetes mellitus type 2. 5. History of DVT. 6. Hypertension. 7. Chronic kidney disease stage III. 8. Thrombocytopenia of unclear etiology. Monitor. 9. Generalized osteoarthritis. 10. DVT prophylaxis. Patient started on heparin subcu. 11. GI prophylaxis. Protonix. DISCHARGE PLAN Home with [facility]. Impression and plan of care have been directed as dictated by the signing physician. Lizzy Sands nurse practitioner acting as scribe for signing physician. Objective - Vital Signs Vital signs: Vital Signs Temp 98.5 F 09/30/21 08:00 Pulse 74 09/30/21 08:00 Resp 18 09/30/21 08:00 BP 192/100 09/30/21 08:00 Pulse Ox 95 09/30/21 08:00 Intake & Output 09/29/21 09/30/21 09/30/21 18:59 06:59 18:59 Intake Total 900 Balance 900 Intake: IV 900 Sodium Chloride 0.9% 1, 900 000 ml @ 75 mls/hr IV . [id number] YEHUDA Rx#:[id number] Other: Voiding Method Toilet # Voids 1 6 # Bowel Movements 1 ABP, PAP, CO, CI - Last Documented Arterial Blood Pressure 175/102 - Labs CBC & Chem 7: 09/29/21 08:10 09/29/21 08:10 Labs: Abnormal Lab Results - Last 24 Hours (Table) 09/29/21 09/29/21 09/29/21 Range/Units 08:10 08:10 11:45 RBC 3.31 L (4.10-5.20) X 10*6/uL Hgb 10.5 L (12.0-15.0) g/dL Hct 32.1 L (37.2-46.3) % Immature Gran # 0.16 H (0.00-0.04) X 10*3/uL Eosinophils # 0.01 L (0.04-0.35) X 10*3/uL Glucose 126 H (70-110) mg/dL POC Glucose (mg/dL) 108 H (75-99) mg/dL Calcium 8.3 L (8.7-10.3) mg/dL 09/29/21 09/30/21 Range/Units 21:06 07:50 RBC (4.10-5.20) X 10*6/uL Hgb (12.0-15.0) g/dL Hct (37.2-46.3) % Immature Gran # (0.00-0.04) X 10*3/uL Eosinophils # (0.04-0.35) X 10*3/uL Glucose (70-110) mg/dL POC Glucose (mg/dL) 126 H 105 H (75-99) mg/dL Calcium (8.7-10.3) mg/dL
== END 2021-09-30 12:42 | disposition home or self-care (01) | DRG 453 ==
LOC: 2ORMAIN 06:49 → 2SICU 16:58 → 4SSUR 09-25 17:53
PROVIDERS: ADMIT Orthopaedic Surgery; ATTEND Orthopaedic Surgery
PROC: 0RG60K1 Fusion of Thoracic Vertebral Joint with Nonautologous Tissue Substitute, Posterior Approach, Posterior Column, Open Approach (ICD-10-PCS; principal; 2021-09-24 07:30)
PROC: 0RG2070 Fusion of 2 or more Cervical Vertebral Joints with Autologous Tissue Substitute, Anterior Approach, Anterior Column, Open Approach (ICD-10-PCS; principal; 2021-09-24 07:30)
PROC: 0RG20K1 Fusion of 2 or more Cervical Vertebral Joints with Nonautologous Tissue Substitute, Posterior Approach, Posterior Column, Open Approach (ICD-10-PCS; principal; 2021-09-24 07:30)
PROC: 0RB30ZZ Excision of Cervical Vertebral Disc, Open Approach (ICD-10-PCS; principal; 2021-09-24 07:30)
PROC: 5A1935Z Respiratory Ventilation, Less than 24 Consecutive Hours (ICD-10-PCS; principal; 2021-09-24 07:30)
PROC: 0RG20A0 Fusion of 2 or more Cervical Vertebral Joints with Interbody Fusion Device, Anterior Approach, Anterior Column, Open Approach (ICD-10-PCS; principal; 2021-09-24 07:30)
PROC: 01N10ZZ Release Cervical Nerve, Open Approach (ICD-10-PCS; principal; 2021-09-24 07:30)
PROC: 4A11X4G Monitoring of Peripheral Nervous Electrical Activity, Intraoperative, External Approach (ICD-10-PCS; principal; 2021-09-24 07:30)
PROC: 0BH18EZ Insertion of Endotracheal Airway into Trachea, Via Natural or Artificial Opening Endoscopic (ICD-10-PCS; principal; 2021-09-24 07:30)
PROC: 0RG4071 Fusion of Cervicothoracic Vertebral Joint with Autologous Tissue Substitute, Posterior Approach, Posterior Column, Open Approach (ICD-10-PCS; principal; 2021-09-24 07:30)
PROC: 0RH108Z Insertion of Spacer into Cervical Vertebral Joint, Open Approach (ICD-10-PCS; principal; 2021-09-24 07:30)
PROC: 00NW0ZZ Release Cervical Spinal Cord, Open Approach (ICD-10-PCS; principal; 2021-09-24 07:30)
DX: M50.01 Cervical disc disorder with myelopathy, high cervical region (principal); J96.01 Acute respiratory failure with hypoxia; M47.12 Other spondylosis with myelopathy, cervical region; J98.11 Atelectasis; Z20.822 Contact with and (suspected) exposure to COVID-19; M48.02 Spinal stenosis, cervical region; D69.6 Thrombocytopenia, unspecified; E11.22 Type 2 diabetes mellitus with diabetic chronic kidney disease; F32.9 Major depressive disorder, single episode, unspecified; F41.9 Anxiety disorder, unspecified; F90.9 Attention-deficit hyperactivity disorder, unspecified type; I12.9 Hypertensive chronic kidney disease with stage 1 through stage 4 chronic kidney disease, or unspecified chronic kidney disease; M15.9 Polyosteoarthritis, unspecified; M43.12 Spondylolisthesis, cervical region; M25.78 Osteophyte, vertebrae; Z96.659 Presence of unspecified artificial knee joint; Z96.611 Presence of right artificial shoulder joint; Z86.718 Personal history of other venous thrombosis and embolism; Z79.899 Other long term (current) drug therapy; Z79.82 Long term (current) use of aspirin; Y95 Nosocomial condition; N18.30 Chronic kidney disease, stage 3 unspecified; M81.0 Age-related osteoporosis without current pathological fracture; M54.10 Radiculopathy, site unspecified; J98.01 Acute bronchospasm; K59.09 Other constipation
CPT/HCPCS: 71045; 72020; 72125; 72128; 80048; 80053; 82805; 85025; 85027; 86850; 86891; 86900; 86901; 87070; 87635; 94002; 94003; 94640; 94760

== ENCOUNTER 2021-11-11 20:23 | Inpatient (IN) | payer OTHER, MEDICARE ==
[2021-11-11] MEDS ORDERED: ALBUTEROL HFA INHALER INHALATION PRN (20:29)
--- NOTE | 2021-11-11 21:03 | XR ---
EXAMINATION TYPE: XR chest 1V portable DATE OF EXAM: 11/11/2021 8:58 PM COMPARISON: Radiograph 09/26/2021 CLINICAL INDICATION:Female, 65 years old with history of Suspected COVID-19 pneumonia; TECHNIQUE: Frontal view of the chest. FINDINGS: Lungs/Pleura: Scattered hazy opacities are seen throughout the lungs. There are low lung volume is pr esent. Scattered lucencies are seen within the upper lungs. No evidence of pneumothorax or pleural ef fusion. Pulmonary vascularity: Unremarkable. Heart/mediastinum: Cardiomediastinal silhouette is unremarkable. Musculoskeletal: No acute osseous pathology.Reverse shoulder arthroplasty changes as well as fixation hardware in the lower cervical spine. IMPRESSION: Multifocal pneumonia superimposed on COPD changes.
[2021-11-11] MEDS: ACETAMINOPHEN TAB 325 MG TAB PO PRN (21:34)
[2021-11-11] MEDS: DEXAMETHASONE SOD PHOSPHATE 10 MG/ML 1 ML VIAL IVP SCH (21:34)
[2021-11-11 22:08] LABS: Basophils % (A) 0 %; Eosinophils % (A) 0 %; HGB 11.9 gm/dL (11.4-16.0); Lymphocytes # (A) 0.4 k/uL (1.0-4.8); Lymphocytes % (A) 6 %; MCHC 31.4 g/dL (31.0-37.0); MCV 101.9 fL (80.0-100.0); Macrocytosis Slight; Mean Platelet Volume 7.3; Monocytes # (A) 0.2 k/uL (0-1.0); Monocytes % (A) 3 %; Neutrophils # (A) 7.1 k/uL (1.3-7.7); Neutrophils % (A) 91 %; Platelet Count 258 k/uL (150-450); RBC 3.73 m/uL (3.80-5.40); RDW 13.3 % (11.5-15.5); WBC 7.8 k/uL (3.8-10.6)
[2021-11-11 22:28] LABS: ALT 24 U/L (4-34); AST 54 U/L (14-36); African American GFR (CKD) >90 (>60 ml/min/1.73 sqM); Alkaline Phosphatase 238 U/L (38-126); Anion Gap 8 mmol/L; Blood Urea Nitrogen 11 mg/dL (7-17); Calcium 8.4 mg/dL (8.4-10.2); Carbon Dioxide 24 mmol/L (22-30); Chloride 100 mmol/L (98-107); Glucose 155 mg/dL (74-99); LDH 1126 U/L (313-618); Magnesium 1.7 mg/dL (1.6-2.3); Non-African American GFR(CKD) >90 (>60 ml/min/1.73 sqM); Sodium 132 mmol/L (137-145); Total Bilirubin 0.8 mg/dL (0.2-1.3); Total Protein 5.9 g/dL (6.3-8.2)
[2021-11-11 22:39] LABS: C Reactive Protein 15.4 mg/dL (<1.0)
[2021-11-11 22:47] LABS: Potassium 5.4 mmol/L (3.5-5.1)
[2021-11-11 22:51] LABS: INR 0.9 (<1.2); Prothrombin Time 10.2 sec (9.0-12.0)
[2021-11-11 23:00] LABS: Partial Thromboplastin Time 19.1 sec (22.0-30.0)
--- NOTE | 2021-11-11 23:42 | CT ---
EXAMINATION TYPE: CT chest angio for PE DATE OF EXAM: 11/11/2021 COMPARISON: None HISTORY: elevated d-dimer CT DLP: 270.1 mGycm Automated exposure control for dose reduction was used. CONTRAST: Performed with IV Contrast, patient injected with 50 mL of Isovue 370. There are Three-D postprocessed images. There is extensive coarse interstitial and airspace infiltrates throughout both lungs. There is no pl eural effusion. Heart is top normal in size. There is elevated right diaphragm with right basilar ate lectasis. There is no mediastinal adenopathy. Thoracic aorta is intact. There is no aneurysm or dissection. The re is normal contrast opacification of the pulmonary arteries. There are no filling defects. There ar e right bronchial lymph nodes up to 1.5 cm. There is some narrowing of the left and right mainstem br onchi. The segmental bronchi are also relatively small. Thoracic spine shows degenerative spur formation. There is posterior fusion surgery in the lower cerv ical spine and upper thoracic spine. There is metal artifact. IMPRESSION: No evidence of pulmonary embolism. Extensive bilateral pulmonary infiltrates and atelectasis. Elevated right diaphragm could relate to s ome diaphragm paralysis. Narrowing of the central bronchi could relate to some chondromalacia.
[2021-11-11] MEDS ORDERED: IPRATROPIUM-ALBUTEROL 3 ML NEB INHALATION STA (23:43)
[2021-11-11] MEDS ORDERED: ENOXAPARIN 40 MG/0.4 ML SYRINGE SQ STA (23:47)
[2021-11-11] MEDS ORDERED: NALOXONE 0.4 MG/ML 1 ML VIAL IV PRN (23:47)
[2021-11-11] MEDS ORDERED: ALBUTEROL NEBULIZED 2.5 MG/3 ML INHALATION PRN (23:50)
[2021-11-12] MEDS ORDERED: AZITHROMYCIN 500 MG in SODIUM CHLORIDE 0.9% 250 ML IVPB SCH ×2
[2021-11-12] MEDS ORDERED: ALBUTEROL HFA INHALER INHALATION SCH
[2021-11-12] MEDS: IPRATROPIUM-ALBUTEROL 3 ML NEB INHALATION SCH ×6 (00:03→20:43)
--- NOTE | 2021-11-12 00:37 | ED ---
General Adult HPI - General Chief complaint: Shortness of Breath Stated complaint: ABHINAV Time Seen by Provider: 11/11/21 20:29 Source: patient, EMS, RN notes reviewed, old records reviewed Mode of arrival: EMS - History of Present Illness Initial comments: Patient is a 65-year-old female who presents emergency Department in respiratory distress. She was found by EMS to be hypoxic at home following 5 days of upper respiratory symptoms. Earlier this month she did have cervical spine surgery. She states she was vaccinated for COVID-19. She also has a history of CK D, diabetes, DVTs, hypertension. She states that for the last 5 days she has been having upper respiratory symptoms as well as worsening shortness of breath. When EMS arrived, they found her saturating at 70%'s. They immediately placed her on CPAP. Work of breathing as well as hypoxia improved during the prolonged transport to the hospital for further evaluation. She currently denies any chest pain, abdominal pain, nausea, vomiting. Endorses shortness of breath. Does have a history of COPD. Room air oxygen upon arrival was 83%. She is saturating well on nonrebreather during my evaluation. No other acute complaints at this time. She has no known sick contacts. - Related Data Home Medications Medication Instructions Recorded Confirmed Ferrous Sulfate [Iron (65 MG 325 mg PO DAILY 01/08/18 11/11/21 Elemental)] Topiramate [Topamax] 25 mg PO BID 01/08/18 11/11/21 buPROPion HCL [Wellbutrin SR] 150 mg PO BID 01/08/18 11/11/21 Aspirin 81 mg PO DAILY 09/23/21 11/11/21 DULoxetine HCL [Cymbalta] 30 mg PO BID 09/23/21 11/11/21 Methylphenidate HCl 20 mg PO BID 09/23/21 11/11/21 Albuterol Nebulized [Ventolin 2.5 mg INHALATION RT-QID PRN 11/11/21 11/11/21 Nebulized] Alpha Crs 1 cap PO DAILY 11/11/21 11/11/21 Cefuroxime [Ceftin] 250 mg PO BID 11/11/21 11/11/21 Citalopram Hydrobromide [CeleXA] 40 mg PO DAILY 11/11/21 11/11/21 Copaiba 1 cap PO DAILY@1200 11/11/21 11/11/21 Cyclobenzaprine [Flexeril] 10 mg PO BID 11/11/21 11/11/21 Deep Blue Polyphenol Blend 1 cap PO BID@0900,1200 11/11/21 11/11/21 Esomeprazole Magnesium [NexIUM] 20 mg PO DAILY 11/11/21 11/11/21 Fluticasone Nasal [place] [Flonase 1 - 2 spray EA NOSTRIL DAILY PRN 11/11/21 11/11/21 Nasal [place]] HYDROcodone/APAP 10-325MG [[place] 1 tab PO Q4H PRN 11/11/21 11/11/21 10-325] Microplex Vmz 1 cap PO DAILY 11/11/21 11/11/21 Sandro Max 1 cap PO BID@0900,1200 PRN 11/11/21 11/11/21 Mouthkote Solution Aerosol/[place] 2 spray PO Q4H PRN 11/11/21 11/11/21 Pb Assist 1 cap PO TID 11/11/21 11/11/21 Pilocarpine [Salagen] 5 - 10 mg PO TID 11/11/21 11/11/21 Terrazyme 1 cap PO HS 11/11/21 11/11/21 Verapamil HCl [Verapamil ER] 120 mg PO DAILY 11/11/21 11/11/21 Vitamin D And K With Sea-Iodine 1 tab PO DAILY 11/11/21 11/11/21 Xeo Adriel 1 cap PO DAILY 11/11/21 11/11/21 clonazePAM [KlonoPIN] 0.5 mg PO HS 11/11/21 11/11/21 guaiFENesin-DM 600/30MG [Mucinex 1 tab PO BID 11/11/21 11/11/21 Dm] predniSONE [Deltasone] See Taper PO DIRECTED 11/11/21 11/11/21 Allergies Allergy/AdvReac Type Severity Reaction Status Date / Time cobalt Allergy Rash/Hives Verified 11/11/21 23:16 hydromorphone Allergy Unknown Verified 11/11/21 23:16 nickel Allergy Rash/Hives Verified 11/11/21 23:16 Review of Systems ROS Statement: Those systems with pertinent positive or pertinent negative responses have been documented in the HPI. Review of Systems: CONST: Denies fever EYES: Denies blurry vision ENT: Endorses nasal congestion C/V: Denies Chest pain RESP: Endorses shortness of breath GI: Denies abdominal pain : Denies dysuria SKIN: Denies rash. MSK: Denies joint pain. NEURO: Denies headache ROS Other: All systems not noted in ROS Statement are negative. Past Medical History Past Medical History: Diabetes Mellitus, Deep Vein Thrombosis (DVT), Hypertension, Renal Disease Additional Past Medical History / Comment(s): diet controlled diabetes. stage 3 kidney disease. frequent headaches stephanie. @[facility]. tardive dyskinesia History of Any Multi-Drug Resistant Organisms: None Reported Past Surgical History: Cholecystectomy, Hernia Repair, Joint Replacement, Tubal Ligation Additional Past Surgical History / Comment(s): harry knees replaced. right shoulder replaced. left shoulder surg. harry. cataract removal Past Anesthesia/Blood Transfusion Reactions: Previous Problems w/ Anesthesia Additional Past Anesthesia/Blood Transfusion Reaction / Comment(s): AFTER PT'S KNEE REPLACEMENT AT [facility], SHE HAD POST OP BRONCHOSPASMS AND STRIDOR Past Psychological History: ADD/ADHD, Anxiety, Depression Smoking Status: Never smoker Past Alcohol Use History: Occasional Past Drug Use History: None Reported - Past Family History Father Family Medical History: Cancer Brother(s) Additional Family Medical History / Comment(s): ANEURYSM General Exam - General Exam Comments Initial Comments: General: Appears in mild respiratory distress. HEAD: Normal with no signs of head trauma. EYES: PERRLA, EOMI, conjunctiva normal, no discharge. ENT: Hearing grossly intact, normal oropharynx. RESPIRATORY: Expiratory wheezing bilaterally. Mild increased work of breathing. Patient is hypoxic on room air but saturating well on nasal cannula. C/V: Regular rate and rhythm. S1 and S2 auscultated, no edema, peripheral pulses 2+ and intact throughout ABD: Abd is soft, nontender, nondistended EXT: Normal range of motion, no obvious deformity SKIN: No rashes or lesions observed on exposed skin. NEURO: Alert and oriented 4. No focal sensory strength deficits. Course Vital Signs 11/11/21 11/11/21 11/11/21 20:25 20:37 20:38 Temperature 98.6 F Pulse Rate 90 Respiratory 24 22 18 Rate Blood Pressure 155/92 O2 Sat by Pulse 97 94 L Oximetry 11/11/21 11/12/21 11/12/21 21:32 00:05 00:14 Temperature Pulse Rate 91 109 H 109 H Respiratory 22 Rate Blood Pressure 157/91 O2 Sat by Pulse 97 Oximetry Medical Decision Making - Medical Decision Making Based on the patient's presentation and physical exam, I'm concerned for acute respiratory or cardiac issues causing. Patient's current symptoms. This includes infectious etiology such as COVID-19 and pneumonia, COPD exacerbation, ACS, possible pulmonary embolism. Therefore we will obtain a cardiopulmonary workup including d-dimer, troponin, EKG, chest x-ray, infectious swamps. She was in agreement with this plan. She will be started on IV Decadron twice a day as well as breathing treatments when necessary. Respiratory therapy we'll atte mpt to wean the patient off of the CPAP to nasal cannula. Patient was in agreement this plan. EKG showed no signs of acute ischemia. Chest x-ray revealed bilateral pulmonary infiltrates suspicious for pneumonia. Laboratory studies were remarkable for elevated d-dimer at 3.57, a hemolyzed potassium, repeat is pending. Patient has an elevated LDH as well as alk phos. CRP is elevated. Troponin is negative. Patient is negative for Covid, flu. On reevaluation, patient is resting comfortably on nasal cannula. I discussed the results of laboratory studies with her. I would like to obtain a CT angiogram to possibility of pulmonary embolism. She was in agreement this plan. CT PE revealed no evidence of acute PE. There are extensive bilateral pulmonary infiltrates. There is also an elevated right diaphragm. On reevaluation, patient remains stable. I discussed that it would like to admitted to the hospital. We will continue COPD treatment with IV steroids as well as breathing treatments, but at on Rocephin as well as azithromycin daily for her pneumonia that is multifocal at this point. She is negative for Covid. We will consult pulmonology as well as ID to evaluate the patient. She was in agreement this plan. I spoke with the admitting team under Dr. Burdick who accepted the patient. Patient was admitted to a telemetry bed in serious condition. - Lab Data Result diagrams: 11/11/21 21:32 11/11/21 21:32 Lab Results 11/11/21 11/11/21 11/11/21 Range/Units 21:32 21:32 21:32 WBC 7.8 (3.8-10.6) k/uL RBC 3.73 L (3.80-5.40) m/uL Hgb 11.9 (11.4-16.0) gm/dL Hct 38.0 (34.0-46.0) % MCV 101.9 H (80.0-100.0) fL MCH 32.0 (25.0-35.0) pg MCHC 31.4 (31.0-37.0) g/dL RDW 13.3 (11.5-15.5) % Plt Count 258 (150-450) k/uL MPV 7.3 Neutrophils % 91 % Lymphocytes % 6 % Monocytes % 3 % Eosinophils % 0 % Basophils % 0 % Neutrophils # 7.1 (1.3-7.7) k/uL Lymphocytes # 0.4 L (1.0-4.8) k/uL Monocytes # 0.2 (0-1.0) k/uL Eosinophils # 0.0 (0-0.7) k/uL Basophils # 0.0 (0-0.2) k/uL Macrocytosis Slight PT 10.2 (9.0-12.0) sec INR 0.9 (<1.2) APTT 19.1 L (22.0-30.0) sec D-Dimer 3.57 H (<0.60) mg/L FEU Sodium 132 L (137-145) mmol/L Potassium 5.4 H (3.5-5.1) mmol/L Chloride 100 (98-107) mmol/L Carbon Dioxide 24 (22-30) mmol/L Anion Gap 8 mmol/L BUN 11 (7-17) mg/dL Creatinine 0.65 (0.52-1.04) mg/dL Est GFR (CKD-EPI)AfAm >90 (>60 ml/min/1.73 sqM) Est GFR (CKD-EPI)NonAf >90 (>60 ml/min/1.73 sqM) Glucose 155 H (74-99) mg/dL Plasma Lactic Acid Kurtis (0.7-2.0) mmol/L Calcium 8.4 (8.4-10.2) mg/dL Magnesium 1.7 (1.6-2.3) mg/dL Total Bilirubin 0.8 (0.2-1.3) mg/dL AST 54 H (14-36) U/L ALT 24 (4-34) U/L Alkaline Phosphatase 238 H (38-126) U/L Lactate Dehydrogenase 1126 H (313-618) U/L Troponin I (0.000-0.034) ng/mL C-Reactive Protein 15.4 H (<1.0) mg/dL Total Protein 5.9 L (6.3-8.2) g/dL Albumin 3.0 L (3.5-5.0) g/dL Coronavirus (PCR) (Not Detectd) Influenza Type A RNA (Not Detectd) Influenza Type B (PCR) (Not Detectd) 11/11/21 11/11/21 11/11/21 Range/Units 21:32 21:32 21:32 WBC (3.8-10.6) k/uL RBC (3.80-5.40) m/uL Hgb (11.4-16.0) gm/dL Hct (34.0-46.0) % MCV (80.0-100.0) fL MCH (25.0-35.0) pg MCHC (31.0-37.0) g/dL RDW (11.5-15.5) % Plt Count (150-450) k/uL MPV Neutrophils % % Lymphocytes % % Monocytes % % Eosinophils % % Basophils % % Neutrophils # (1.3-7.7) k/uL Lymphocytes # (1.0-4.8) k/uL Monocytes # (0-1.0) k/uL Eosinophils # (0-0.7) k/uL Basophils # (0-0.2) k/uL Macrocytosis PT (9.0-12.0) sec INR (<1.2) APTT (22.0-30.0) sec D-Dimer (<0.60) mg/L FEU Sodium (137-145) mmol/L Potassium (3.5-5.1) mmol/L Chloride (98-107) mmol/L Carbon Dioxide (22-30) mmol/L Anion Gap mmol/L BUN (7-17) mg/dL Creatinine (0.52-1.04) mg/dL Est GFR (CKD-EPI)AfAm (>60 ml/min/1.73 sqM) Est GFR (CKD-EPI)NonAf (>60 ml/min/1.73 sqM) Glucose (74-99) mg/dL Plasma Lactic Acid Kurtis 0.9 (0.7-2.0) mmol/L Calcium (8.4-10.2) mg/dL Magnesium (1.6-2.3) mg/dL Total Bilirubin (0.2-1.3) mg/dL AST (14-36) U/L ALT (4-34) U/L Alkaline Phosphatase (38-126) U/L Lactate Dehydrogenase (313-618) U/L Troponin I <0.012 (0.000-0.034) ng/mL C-Reactive Protein (<1.0) mg/dL Total Protein (6.3-8.2) g/dL Albumin (3.5-5.0) g/dL Coronavirus (PCR) (Not Detectd) Influenza Type A RNA Not Detected (Not Detectd) Influenza Type B (PCR) Not Detected (Not Detectd) 11/11/21 Range/Units 21:32 WBC (3.8-10.6) k/uL RBC (3.80-5.40) m/uL Hgb (11.4-16.0) gm/dL Hct (34.0-46.0) % MCV (80.0-100.0) fL MCH (25.0-35.0) pg MCHC (31.0-37.0) g/dL RDW (11.5-15.5) % Plt Count (150-450) k/uL MPV Neutrophils % % Lymphocytes % % Monocytes % % Eosinophils % % Basophils % % Neutrophils # (1.3-7.7) k/uL Lymphocytes # (1.0-4.8) k/uL Monocytes # (0-1.0) k/uL Eosinophils # (0-0.7) k/uL Basophils # (0-0.2) k/uL Macrocytosis PT (9.0-12.0) sec INR (<1.2) APTT (22.0-30.0) sec D-Dimer (<0.60) mg/L FEU Sodium (137-145) mmol/L Potassium (3.5-5.1) mmol/L Chloride (98-107) mmol/L Carbon Dioxide (22-30) mmol/L Anion Gap mmol/L BUN (7-17) mg/dL Creatinine (0.52-1.04) mg/dL Est GFR (CKD-EPI)AfAm (>60 ml/min/1.73 sqM) Est GFR (CKD-EPI)NonAf (>60 ml/min/1.73 sqM) Glucose (74-99) mg/dL Plasma Lactic Acid Kurtis (0.7-2.0) mmol/L Calcium (8.4-10.2) mg/dL Magnesium (1.6-2.3) mg/dL Total Bilirubin (0.2-1.3) mg/dL AST (14-36) U/L ALT (4-34) U/L Alkaline Phosphatase (38-126) U/L Lactate Dehydrogenase (313-618) U/L Troponin I (0.000-0.034) ng/mL C-Reactive Protein (<1.0) mg/dL Total Protein (6.3-8.2) g/dL Albumin (3.5-5.0) g/dL Coronavirus (PCR) Not Detected (Not Detectd) Influenza Type A RNA (Not Detectd) Influenza Type B (PCR) (Not Detectd) - EKG Data -: EKG Interpreted by Me EKG Comments: 12-lead Electrocardiogram Interpretation Note EKG was reviewed and interpreted by myself. 12-lead ECG performed at 2150 is interpreted by me as revealing normal sinus rhythm at a rate of 99 beats per minute. Left axis deviation. HI interval is 162 ms, QRS durations of Kathy 2 milliseconds, QTc is 485 ms.. There is an isolated T-wave inversion in lead III, however no other signs of acute ischemia and no change in T waves or signs of ST segment elevations.. R wave progression across the precordium was delayed. By my interpretation this EKG is non-diagnostic for acute ischemia. Disposition Clinical Impression: COPD exacerbation, Acute respiratory failure with hypoxia, Community acquired pneumonia, Elevated d-dimer Disposition: ADMITTED IP TO THIS HOSP Condition: Serious Referrals: Tasneem Penaloza MD [Primary Care Provider] - 1-2 days
[2021-11-12 08:04] LABS: Basophils % (A) 0 %; Eosinophils % (A) 0 %; HCT 37.1 % (34.0-46.0); HGB 11.7 gm/dL (11.4-16.0); Hypochromasia Moderate; Lymphocytes # (A) 1.1 k/uL (1.0-4.8); Lymphocytes % (A) 17 %; MCH 32.7 pg (25.0-35.0); MCHC 31.5 g/dL (31.0-37.0); MCV 103.8 fL (80.0-100.0); Macrocytosis Slight; Mean Platelet Volume 7.4; Monocytes # (A) 0.2 k/uL (0-1.0); Monocytes % (A) 4 %; Neutrophils % (A) 78 %; Platelet Count 278 k/uL (150-450); RBC 3.58 m/uL (3.80-5.40); RDW 13.2 % (11.5-15.5); WBC 6.3 k/uL (3.8-10.6)
[2021-11-12 08:32] LABS: African American GFR (CKD) >90 (>60 ml/min/1.73 sqM); Anion Gap 6 mmol/L; Blood Urea Nitrogen 8 mg/dL (7-17); Calcium 8.5 mg/dL (8.4-10.2); Carbon Dioxide 27 mmol/L (22-30); Chloride 103 mmol/L (98-107); Glucose 168 mg/dL (74-99); Non-African American GFR(CKD) >90 (>60 ml/min/1.73 sqM); Potassium 4.5 mmol/L (3.5-5.1); Sodium 136 mmol/L (137-145)
[2021-11-12] MEDS: CYCLOBENZAPRINE 10 MG TAB PO SCH ×2 (09:20→20:52)
[2021-11-12] MEDS: CITALOPRAM HYDROBROMIDE 20 MG TAB PO SCH (09:20)
[2021-11-12] MEDS: PANTOPRAZOLE 40 MG TABLET PO SCH (09:20)
[2021-11-12] MEDS: ASPIRIN 81 MG PO SCH (09:20)
[2021-11-12] MEDS: FERROUS SULFATE 325 MG TAB PO SCH (09:20)
[2021-11-12] MEDS: DEXAMETHASONE SOD PHOSPHATE 10 MG/ML 1 ML VIAL IVP SCH (09:20)
[2021-11-12] MEDS: VERAPAMIL SR 120 MG TABLET.ER PO SCH (09:21)
[2021-11-12] MEDS: TOPIRAMATE 25 MG TAB PO SCH ×2 (09:21→20:52)
[2021-11-12] MEDS: buPROPion SR 150 MG TABLET.ER PO SCH ×2 (09:21→20:52)
[2021-11-12] MEDS: DULoxetine HCL 30 MG CAPSULE.DR PO SCH ×2 (09:21→20:52)
[2021-11-12] MEDS ORDERED: IPRATROPIUM-ALBUTEROL 3 ML NEB INHALATION PRN (12:22)
[2021-11-12] MEDS ORDERED: FUROSEMIDE 10 MG/ML 4 ML VIAL IV STA (12:24)
[2021-11-12] MEDS: methylPREDNISolone SOD SUCCI 125 MG/2 ML VIAL IV SCH ×2 (12:30→18:08)
[2021-11-12] MEDS: PIPERACILLIN-TAZOBACTAM 3.375 GM in SODIUM CHLORIDE 0.9% 100 ML IVPB SCH (16:13)
--- NOTE | 2021-11-12 16:15 | P.CNPUL ---
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 Patient required overnight ventilatory support following her surgery, however was successfully weaned and extubated, did quite well and was eventually discharged home. On 11/11/2021 she presented to the emergency department in respiratory distress. When EMS arrived she was found to be extremely hypoxic, and she reports five-day history of upper respiratory symptoms. Patient is not vaccinated against COVID-19. She has severe coughing spells, but no fever, some phlegm production. No hemoptysis. No chest pain. Her pulse ox was 70% when the EMS arrived, she was immediately placed on CPAP. She denied any nausea or vomiting, no abdominal pain. She tested negative for COVID-19. Chest x-ray showed bilateral pulmonary infiltrates suspicious for pneumonia, d-dimer was elevated at 3.57, and for that reason CT angiogram was completed showing no evidence of pulmonary embolism but did show extensive bilateral pulmonary infiltrates and atelectasis, elevated right hemidiaphragm could relate to some diaphragm paralysis. White blood cell count was 7.8, hemoglobin was 11.9, INR is 0.9, sodium was 132, potassium is 5.4, chloride is 100, CO2 is 24, BUN is 11, creatinine 0.65, ferritin level was 523, AST was 54, ALT was 24, alkaline phosphatase was 238, LDH is 1126, troponin was less than 0.012, CRP was 15.4, proBNP was 300 call pro-calcitonin level was negative at 0.10, patient was also tested for influenza A and B was found to be negative. At the time of my evaluation patient is on high flow oxygen at 9 L with a pulse ox of 93-98%, breathing fairly comfortably, but her breath sounds are very diminished, patient has poor inspiratory effort. And patient has sudden onset of coughing spells, she denies history of aspiration, however she reports previous history of GERD and reflux for which she had been on Nexium with some improvement. Currently she is on Decadron 5 mg twice daily, we will switch the antibiotic coverage to Zosyn for possibility of aspiration related pneumonia, we will add breathing treatments with DuoNeb, with the patient one-time dose of Lasix, and switch Decadron to IV Solu-Medrol. Review of Systems All systems: negative Constitutional: Denies chills, Denies fever Eyes: denies blurred vision, denies pain Ears, nose, mouth and throat: Denies headache, Denies sore throat Cardiovascular: Denies chest pain, Denies shortness of breath Respiratory: Reports dyspnea, Reports wheezing, Denies cough Gastrointestinal: Denies abdominal pain, Denies diarrhea, Denies nausea, Denies vomiting Genitourinary: Denies dysuria, Denies hematuria Musculoskeletal: Denies myalgias Integumentary: Denies pruritus, Denies rash Neurological: Denies numbness, Denies weakness Psychiatric: Denies anxiety, Denies depression Endocrine: Denies fatigue, Denies weight change Past Medical History Past Medical History: Diabetes Mellitus, Deep Vein Thrombosis (DVT), Hypertension, Renal Disease Additional Past Medical History / Comment(s): diet controlled diabetes. stage 3 kidney disease. frequent headaches stephanie. @[facility]. tardive dyskinesia History of Any Multi-Drug Resistant Organisms: None Reported Past Surgical History: Cholecystectomy, Hernia Repair, Joint Replacement, Tubal Ligation Additional Past Surgical History / Comment(s): harry knees replaced. right shoulder replaced. left shoulder surg. harry. cataract removal Past Anesthesia/Blood Transfusion Reactions: Previous Problems w/ Anesthesia Additional Past Anesthesia/Blood Transfusion Reaction / Comment(s): AFTER PT'S KNEE REPLACEMENT AT [facility], SHE HAD POST OP BRONCHOSPASMS AND STRIDOR Past Psychological History: ADD/ADHD, Anxiety, Depression Smoking Status: Never smoker Past Alcohol Use History: Occasional Past Drug Use History: None Reported - Past Family History Father Family Medical History: Cancer Brother(s) Additional Family Medical History / Comment(s): ANEURYSM Medications and Allergies Home Medications Medication Instructions Recorded Confirmed Type Ferrous Sulfate [Iron (65 MG 325 mg PO DAILY 01/08/18 11/11/21 History Elemental)] Topiramate [Topamax] 25 mg PO BID 01/08/18 11/11/21 History buPROPion HCL [Wellbutrin SR] 150 mg PO BID 01/08/18 11/11/21 History Aspirin 81 mg PO DAILY 09/23/21 11/11/21 History DULoxetine HCL [Cymbalta] 30 mg PO BID 09/23/21 11/11/21 History Methylphenidate HCl 20 mg PO BID 09/23/21 11/11/21 History Albuterol Nebulized [Ventolin 2.5 mg INHALATION RT-QID PRN 11/11/21 11/11/21 History Nebulized] Alpha Crs 1 cap PO DAILY 11/11/21 11/11/21 History Cefuroxime [Ceftin] 250 mg PO BID 11/11/21 11/11/21 History Citalopram Hydrobromide [CeleXA] 40 mg PO DAILY 11/11/21 11/11/21 History Copaiba 1 cap PO DAILY@1200 11/11/21 11/11/21 History Cyclobenzaprine [Flexeril] 10 mg PO BID 11/11/21 11/11/21 History Deep Blue Polyphenol Blend 1 cap PO BID@0900,1200 11/11/21 11/11/21 History Esomeprazole Magnesium [NexIUM] 20 mg PO DAILY 11/11/21 11/11/21 History Fluticasone Nasal [place] [Flonase 1 - 2 spray EA NOSTRIL DAILY PRN 11/11/21 11/11/21 History Nasal [place]] HYDROcodone/APAP 10-325MG [[place] 1 tab PO Q4H PRN 11/11/21 11/11/21 History 10-325] Microplex Vmz 1 cap PO DAILY 11/11/21 11/11/21 History Sandro Max 1 cap PO BID@0900,1200 PRN 11/11/21 11/11/21 History Mouthkote Solution Aerosol/[place] 2 spray PO Q4H PRN 11/11/21 11/11/21 History Pb Assist 1 cap PO TID 11/11/21 11/11/21 History Pilocarpine [[place]] 5 - 10 mg PO TID 11/11/21 11/11/21 History Terrazyme 1 cap PO HS 11/11/21 11/11/21 History Verapamil HCl [Verapamil ER] 120 mg PO DAILY 11/11/21 11/11/21 History Vitamin D And K With Sea-Iodine 1 tab PO DAILY 11/11/21 11/11/21 History Xeo Adriel 1 cap PO DAILY 11/11/21 11/11/21 History clonazePAM [KlonoPIN] 0.5 mg PO HS 11/11/21 11/11/21 History guaiFENesin-DM 600/30MG [Mucinex 1 tab PO BID 11/11/21 11/11/21 History Dm] predniSONE [Deltasone] See Taper PO DIRECTED 11/11/21 11/11/21 History Allergies Allergy/AdvReac Type Severity Reaction Status Date / Time cobalt Allergy Rash/Hives Verified 11/11/21 23:16 hydromorphone Allergy Unknown Verified 11/11/21 23:16 nickel Allergy Rash/Hives Verified 11/11/21 23:16 Physical Exam Vitals: Vital Signs Temp Pulse Pulse Resp BP BP Pulse Ox 11/12/21 14:00 98.4 F 102 H 26 H 143/84 93 L 11/12/21 12:44 93 11/12/21 12:36 93 11/12/21 11:16 98 11/12/21 09:43 102 H 11/12/21 09:15 101 H 20 11/12/21 08:00 97.8 F 101 H 20 126/80 93 L 11/12/21 05:20 91 134/78 11/12/21 02:16 98.2 F 110 H 27 H 173/97 95 11/12/21 01:19 97 11/12/21 00:58 104 H 18 133/79 99 11/12/21 00:14 109 H 11/12/21 00:05 109 H 11/11/21 23:00 78 18 97 11/11/21 22:00 84 18 97 11/11/21 21:32 91 22 157/91 97 11/11/21 20:38 18 94 L 11/11/21 20:37 22 11/11/21 20:25 98.6 F 90 24 155/92 97 Intake and Output 11/12/21 11/12/21 11/12/21 06:59 14:59 22:59 Intake Total 100 Output Total 250 Balance -150 Intake: Oral 100 Output: Urine 250 Other: # Voids 1 1 # Bowel Movements 0 Weight 77.111 kg GENERAL EXAM: Alert, very pleasant, 65-year-old white female, on 9 L of oxygen with a pulse ox of 90-93%, with frequent episodes of coughing spells and desaturation and dyspnea HEAD: Normocephalic/atraumatic. EYES: Normal reaction of pupils, equal size. Conjunctiva pink, sclera white. NOSE: Clear with pink turbinates. THROAT: No erythema or exudates. NECK: No masses, no JVD, no thyroid enlargement, no adenopathy. CHEST: No chest wall deformity. Symmetrical expansion. LUNGS: Equal air entry with diminished breath sounds bilaterally with crackles at the right base CVS: Regular rate and rhythm, normal S1 and S2, no gallops, no murmurs, no rubs ABDOMEN: Soft, nontender. No hepatosplenomegaly, normal bowel sounds, no guarding or rigidity. EXTREMITIES: No clubbing, no edema, no cyanosis, 2+ pulses and upper and lower extremities. MUSCULOSKELETAL: Muscle strength and tone normal. SPINE: No scoliosis or deformity SKIN: No rashes CENTRAL NERVOUS SYSTEM: Alert and oriented -3. No focal deficits, tone is normal in all 4 extremities. PSYCHIATRIC: Alert and oriented -3. Appropriate affect. Intact judgment and insight. Results - Laboratory Findings CBC and BMP: 11/12/21 06:22 11/12/21 06:22 PT/INR, D-dimer PT 10.2 sec (9.0-12.0) 11/11/21 21:32 INR 0.9 (<1.2) 11/11/21 21:32 D-Dimer 3.57 mg/L FEU (<0.60) H 11/11/21 21:32 Abnormal lab findings: Abnormal Labs 11/11/21 11/11/21 11/11/21 21:32 21:32 21:32 RBC 3.73 L MCV 101.9 H Lymphocytes # 0.4 L APTT 19.1 L D-Dimer 3.57 H Sodium 132 L Potassium 5.4 H Glucose 155 H Ferritin 523.0 H AST 54 H Alkaline Phosphatase 238 H Lactate Dehydrogenase 1126 H C-Reactive Protein 15.4 H Total Protein 5.9 L Albumin 3.0 L Procalcitonin 11/11/21 11/12/21 11/12/21 21:32 06:22 06:22 RBC 3.58 L MCV 103.8 H Lymphocytes # APTT D-Dimer Sodium 136 L Potassium Glucose 168 H Ferritin AST Alkaline Phosphatase Lactate Dehydrogenase C-Reactive Protein Total Protein Albumin Procalcitonin 0.10 H - Diagnostic Findings Chest x-ray: report reviewed, image reviewed CT scan - chest: report reviewed, image reviewed Assessment and Plan Plan: Assessment: #1. Acute hypoxic respiratory failure related to acute multifocal pneumonia, rule out possibility of aspiration. COVID-19 PCR was negative, influenza A and B were negative. #2. Hypoventilation, low lung volumes, patient would benefit from BiPAP support at bedtime #3. Elevated d-dimer, CT angiogram of the chest showed no evidence of pulmonary embolism #4. Previous history of GERD/reflux #5. Stage III chronic kidney disease #6. Diabetes mellitus type 2 #7. Hypertension #8. Previous history of DVT #9. 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 Osteoarthritis Plan: Switch IV steroids to IV Solumedrol 60 mf q 6h Switch IV antibiotic to IV Zosyn Bipap support at bedtime 12/6, 35% at bedtime and as needed during the day Patient is hypoventilating Gave one time dose of Lasix Obtain speech evaluation Continue nebulized bronchodilators I performed a history & physical examination of the patient and discussed their management with my nurse practitioner, Eliza Leary. I reviewed the nurse practitioner's note and agree with the documented findings and plan of care. Lung sounds are positive for diminished breath sounds throughout the lung rodríguez. The findings and the impression was discussed with the patient. I attest to the documentation by the nurse practitioner. Time with Patient: Greater than 30
--- NOTE | 2021-11-12 16:35 | P.HPIM ---
History of Present Illness H&P Date: 11/12/21 65 years old female with past medical history of type 2 diabetes, DVT, hypertension, stage III chronic kidney disease, tardive dyskinesia and dyspnea, history of recent cervical stenosis repair status post decompressionand fusion on 09/23 and was discharged home without any complications. Patient comes back on 10/12 with increased shortness of breath that has been happening for the past 7 days. Patient also endorses cough increased body aches, runny nose and change in taste or smell. She is under exudative for COVID-19. Patient was brought in by EMS and was noted to have 70% oxygenation and pulse ox. Patient denies any aspiration event. In the ED patient was noted to have bilateral pulmonary infiltrates suspicious for pneumonia on chest x-ray. D-dimer was elevated for the CT angiogram was done that was negative for pulmonary embolism but did show extensive bilateral pulmonary infiltrate and atelectasis. Labs reviewed patient is a WBC of 7.8 hemoglobin 11.9 INR 0.9 sodium 132 potassium 5.4 chloride 100 CO2 24th UN 11 creatinine 0.54. Liver enzymes elevated with AST 54 ALT 24 alkaline phosphatase at 238 LDH 1126 CRP 15 proBNP 300 for calcitonin 0.1 heart influenza A and B was negative. COVID PCR negative. Patient was initiated on Zosyn for possible aspiration. DuoNeb initiated. Solu-Medrol urine showed 60 IV every 6. Swallow evaluation ordered with barium swallow ordered. ROS Constitutional: Denies chills, Denies fever, Denies lethargy, Denies malaise, Denies poor appetite, Denies weakness, Denies weight loss Eyes: denies decreased vision, denies diplopia, denies discharge, denies pain Ears: deny: decreased hearing Ears, nose, mouth and throat: Denies dental pain, Denies headache, Denies nasal discharge, Denies nose pain Cardiovascular: Denies chest pain, Denies decreased exercise tolerance, Denies edema, Denies high blood pressure, Denies irregular heart beat, Denies palpitations, Denies paroxysmal nocturnal dyspnea, Denies rapid heart beat, Denies shortness of breath Respiratory: Denies congestion, Denies cough, Denies cough with sputum, Denies dyspnea, Denies home oxygen, Denies wheezing Gastrointestinal: Denies abdominal pain, Denies change in bowel habits, Denies coffee ground emesis, Denies early satiety, Denies excessive gas, Denies heartburn, Denies hematemesis, Denies hematochezia, Denies loss of appetite, Denies nausea, Denies vomiting Genitourinary: Denies dysuria, Denies flank pain, Denies kidney stones, Denies menorrhagia, Denies urgency, Denies urinary frequency Musculoskeletal: Denies gait dysfunction, Denies limitation of motion, Denies morning stiffness, Denies muscle cramps Integumentary: Denies rash, Denies wounds, Denies brittle nails, Denies change in hair/nails, Denies darkening of skin Neurological: Denies balance difficulties, Denies change in speech, Denies double vision, Denies gait dysfunction, Denies loss of vision, Denies motor disturbance, Denies numbness, Denies paralysis, Denies paresthesias, Denies seizures Psychiatric: Denies anxiety, Denies depression Endocrine: Denies excessive sweating, Denies excessive thirst, Denies high blood sugars, Denies palpitations Hematologic/Lymphatic: Denies easy bruising, Denies lymphadenopathy SOCIAL HISTORY Patient is a lifelong nonsmoker, rare alcohol use, no marijuana or illicit drug use. Family history Father with a history of cancer, unknown Mother no significant medical history No other significant family history Physical exam - Constitutional General appearance: cooperative, no acute distress, thin appears comfortable at rest - EENT Eyes: anicteric sclerae, PERRLA, normal appearance ENT: hearing grossly normal - Neck Neck: no lymphadenopathy, normal ROM, incision healed at the back - Respiratory Respiratory: bilateral: Decreased air entry with crackles at the bases no w heezing - Cardiovascular Rhythm: regular Heart sounds: normal: S1, S2 Abnormal Heart Sounds: no systolic murmur, no diastolic murmur, no rub, no S3 Gallop, no S4 Gallop, no click, no other - Gastrointestinal General gastrointestinal: normal bowel sounds, soft nontender - Integumentary Integumentary: no rash - Neurologic Neurologic: CNII-XII intact no sensory or motor deficits - Musculoskeletal Musculoskeletal: gait normal, strength equal bilaterally - Psychiatric Psychiatric: A&O x's 3, appropriate affect Assessment and plan Acute hypoxic respiratory failure on 13 L high flow oxygen likely secondary to aspiration influenza negative - DuoNeb as needed for shortness of breath -Solu-Medrol 60 IV every 6 -Mucinex 1200 mg by mouth twice a day -Sputum culture -Rule out aspiration. 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 - able to ambulate without any difficulty at home Diabetes mellitus type 2. - Insulin sliding scale History of DVT - Stable -CT negative for PE Hypertension - On verapamil 120 mg by mouth daily Chronic kidney disease stage III. -Avoid nephrotoxic agent creatinine stable Thrombocytopenia of unclear etiology. - Monitor. Generalized osteoarthritis. DVT prophylaxis. -Patient started on heparin subcu. GI prophylaxis. -Protonix. Disposition need 1-2 inpatient nights for stabilization Past Medical History Past Medical History: Diabetes Mellitus, Deep Vein Thrombosis (DVT), Hypertension, Renal Disease Additional Past Medical History / Comment(s): diet controlled diabetes. stage 3 kidney disease. frequent headaches stephanie. @[facility]. tardive dyskinesia History of Any Multi-Drug Resistant Organisms: None Reported Past Surgical History: Cholecystectomy, Hernia Repair, Joint Replacement, Tubal Ligation Additional Past Surgical History / Comment(s): harry knees replaced. right shoulder replaced. left shoulder surg. harry. cataract removal Past Anesthesia/Blood Transfusion Reactions: Previous Problems w/ Anesthesia Additional Past Anesthesia/Blood Transfusion Reaction / Comment(s): AFTER PT'S KNEE REPLACEMENT AT [facility], SHE HAD POST OP BRONCHOSPASMS AND STRIDOR Past Psychological History: ADD/ADHD, Anxiety, Depression Smoking Status: Never smoker Past Alcohol Use History: Occasional Past Drug Use History: None Reported - Past Family History Father Family Medical History: Cancer Brother(s) Additional Family Medical History / Comment(s): ANEURYSM Medications and Allergies Home Medications Medication Instructions Recorded Confirmed Type Ferrous Sulfate [Iron (65 MG 325 mg PO DAILY 01/08/18 11/11/21 History Elemental)] Topiramate [Topamax] 25 mg PO BID 01/08/18 11/11/21 History buPROPion HCL [Wellbutrin SR] 150 mg PO BID 01/08/18 11/11/21 History Aspirin 81 mg PO DAILY 09/23/21 11/11/21 History DULoxetine HCL [Cymbalta] 30 mg PO BID 09/23/21 11/11/21 History Methylphenidate HCl 20 mg PO BID 09/23/21 11/11/21 History Albuterol Nebulized [Ventolin 2.5 mg INHALATION RT-QID PRN 11/11/21 11/11/21 History Nebulized] Alpha Crs 1 cap PO DAILY 11/11/21 11/11/21 History Cefuroxime [Ceftin] 250 mg PO BID 11/11/21 11/11/21 History Citalopram Hydrobromide [CeleXA] 40 mg PO DAILY 11/11/21 11/11/21 History Copaiba 1 cap PO DAILY@1200 11/11/21 11/11/21 History Cyclobenzaprine [Flexeril] 10 mg PO BID 11/11/21 11/11/21 History Deep Blue Polyphenol Blend 1 cap PO BID@0900,1200 11/11/21 11/11/21 History Esomeprazole Magnesium [NexIUM] 20 mg PO DAILY 11/11/21 11/11/21 History Fluticasone Nasal [place] [Flonase 1 - 2 spray EA NOSTRIL DAILY PRN 11/11/21 11/11/21 History Nasal [place]] HYDROcodone/APAP 10-325MG [[place] 1 tab PO Q4H PRN 11/11/21 11/11/21 History 10-325] Microplex Vmz 1 cap PO DAILY 11/11/21 11/11/21 History Sandro Max 1 cap PO BID@0900,1200 PRN 11/11/21 11/11/21 History Mouthkote Solution Aerosol/[place] 2 spray PO Q4H PRN 11/11/21 11/11/21 History Pb Assist 1 cap PO TID 11/11/21 11/11/21 History Pilocarpine [Salagen] 5 - 10 mg PO TID 11/11/21 11/11/21 History Terrazyme 1 cap PO HS 11/11/21 11/11/21 History Verapamil HCl [Verapamil ER] 120 mg PO DAILY 11/11/21 11/11/21 History Vitamin D And K With Sea-Iodine 1 tab PO DAILY 11/11/21 11/11/21 History Xeo Adriel 1 cap PO DAILY 11/11/21 11/11/21 History clonazePAM [KlonoPIN] 0.5 mg PO HS 11/11/21 11/11/21 History guaiFENesin-DM 600/30MG [Mucinex 1 tab PO BID 11/11/21 11/11/21 History Dm] predniSONE [Deltasone] See Taper PO DIRECTED 11/11/21 11/11/21 History Allergies Allergy/AdvReac Type Severity Reaction Status Date / Time cobalt Allergy Rash/Hives Verified 11/11/21 23:16 hydromorphone Allergy Unknown Verified 11/11/21 23:16 nickel Allergy Rash/Hives Verified 11/11/21 23:16 Physical Exam Vitals: Vital Signs Temp Pulse Pulse Resp BP BP Pulse Ox 11/12/21 16:19 93 11/12/21 16:06 93 11/12/21 14:00 98.4 F 102 H 26 H 143/84 93 L 11/12/21 12:44 93 11/12/21 12:36 93 11/12/21 11:16 98 11/12/21 09:43 102 H 11/12/21 09:15 101 H 20 11/12/21 08:00 97.8 F 101 H 20 126/80 93 L 11/12/21 05:20 91 134/78 11/12/21 02:16 98.2 F 110 H 27 H 173/97 95 11/12/21 01:19 97 11/12/21 00:58 104 H 18 133/79 99 11/12/21 00:14 109 H 11/12/21 00:05 109 H 11/11/21 23:00 78 18 97 11/11/21 22:00 84 18 97 11/11/21 21:32 91 22 157/91 97 11/11/21 20:38 18 94 L 11/11/21 20:37 22 11/11/21 20:25 98.6 F 90 24 155/92 97 Intake and Output 11/12/21 11/12/21 11/12/21 06:59 14:59 22:59 Intake Total 100 Output Total 250 400 Balance -150 -400 Intake: Oral 100 Output: Urine 250 400 Other: # Voids 1 1 # Bowel Movements 0 Weight 77.111 kg Results CBC & Chem 7: 11/12/21 06:22 11/12/21 06:22 Labs: Abnormal Lab Results - Last 24 Hours (Table) 11/11/21 11/11/21 11/11/21 Range/Units 21:32 21:32 21:32 RBC 3.73 L (3.80-5.40) m/uL MCV 101.9 H (80.0-100.0) fL Lymphocytes # 0.4 L (1.0-4.8) k/uL APTT 19.1 L (22.0-30.0) sec D-Dimer 3.57 H (<0.60) mg/L FEU Sodium 132 L (137-145) mmol/L Potassium 5.4 H (3.5-5.1) mmol/L Glucose 155 H (74-99) mg/dL Ferritin 523.0 H (10.0-291.0) ng/mL AST 54 H (14-36) U/L Alkaline Phosphatase 238 H (38-126) U/L Lactate Dehydrogenase 1126 H (313-618) U/L C-Reactive Protein 15.4 H (<1.0) mg/dL Total Protein 5.9 L (6.3-8.2) g/dL Albumin 3.0 L (3.5-5.0) g/dL Procalcitonin (0.02-0.09) ng/mL 11/11/21 11/12/21 11/12/21 Range/Units 21:32 06:22 06:22 RBC 3.58 L (3.80-5.40) m/uL MCV 103.8 H (80.0-100.0) fL Lymphocytes # (1.0-4.8) k/uL APTT (22.0-30.0) sec D-Dimer (<0.60) mg/L FEU Sodium 136 L (137-145) mmol/L Potassium (3.5-5.1) mmol/L Glucose 168 H (74-99) mg/dL Ferritin (10.0-291.0) ng/mL AST (14-36) U/L Alkaline Phosphatase (38-126) U/L Lactate Dehydrogenase (313-618) U/L C-Reactive Protein (<1.0) mg/dL Total Protein (6.3-8.2) g/dL Albumin (3.5-5.0) g/dL Procalcitonin 0.10 H (0.02-0.09) ng/mL Thrombosis Risk Factor Assmnt - Choose All That Apply Any of the Below Risk Factors Present?: No Other Risk Factors: No Other congenital or acquired thrombophilia - If yes, enter type in comment: No Thrombosis Risk Factor Assessment Level: Very Low Risk
[2021-11-12] MEDS ORDERED: ACETAMINOPHEN TAB 325 MG TAB PO PRN (16:36)
[2021-11-12] MEDS ORDERED: ONDANSETRON 4 MG/2 ML VIAL IVP PRN (16:36)
[2021-11-12] MEDS: HEPARIN SODIUM,PORCINE/PF 5,000 UNIT/0.5 ML SYRINGE SQ SCH (20:52)
[2021-11-12] MEDS: clonazePAM 0.5 MG TAB PO SCH (20:52)
[2021-11-12] MEDS: guaiFENesin 600 MG TABLET.ER PO SCH (20:53)
[2021-11-13] MEDS: IPRATROPIUM-ALBUTEROL 3 ML NEB INHALATION SCH ×5 (00:20→16:40)
--- NOTE | 2021-11-13 00:21 | P.CONS ---
History of Present Illness - Reason for Consult Consult date: 11/12/21 [place] Requesting physician: Lesa Burdick - Chief Complaint shortness of breath x 5 days - History of Present Illness History of present illness : Patient is a 65-year-old female presenting to the ER last night for evaluation of increasing shortness of breath and this patient apparently started getting sick about 5 days and did have mostly URI symptoms initially however the patient subsequent started having increasing shortness of breath patient also have a cough which is moderate intensity not bringing up any sputum patient was noticed to be hypoxic on arrival to the ER and is with O2 sats of 70% patient was placed on a CPAP and has been brought to the hospital on arrival to the ER patient was afebrile and no fever has been recorded subsequently O2 sats of 97% on supplemental oxygen. Her normal white count with lymphopenia D-dimer was elevated creatinine was normal liver exams are elevated with 0.10 patient did have a covid PCR which was nondetected influenza PCR was negative patient did have a chest x-ray multifocal pneumonia seen on reports on COPD changes patient also have a CT angiogram of the chest extensive bilateral pulmonary treated and atelectasis patient has been admitted to hospital infectious disease was consulted for further management Review of system: CONSTITUTIONAL: Positive for weakness along with chills but no fever. EYES: No complaint. ENT: As per history of present illness. RESPIRATORY: As per history of present illness. CARDIOVASCULAR: No complaint. GENITOURINARY: No complaint. GASTROINTESTINAL: No complaint. MUSCULOSKELETAL: No complaint. INTEGUMENTARY: No complaint. PSYCHOLOGIC: No complaint. ENDOCRINE: No complaint. NEUROLOGIC: No complaint. Past medical history : Reviewed, documented below Past surgical history : Reviewed, documented below Social history: Reviewed, documented below Medications: Reviewed, as documented below EXAMINATION: Vital sigans= Reviewed and documented below GENERAL DESCRIPTION: Elderly female lying in bed, no distress. No tachypnea or accessory muscle of respiration use. HEENT: Shows Pallor , no scleral icterus. Oral mucous membrane is dry. NECK: Trachea central, no thyromegaly. LUNGS: Unlabored breathing. Decrease intensity of breath sounds. No wheeze or crackle. HEART: S1, S2, regular rate and rhythm. ABDOMEN: Soft, no tenderness , guarding or rigidity EXTREMITIES: No edema of feet. SKIN: No rash, no masses palpable. NEUROLOGICAL: The patient is awake, alert, oriented x3, mood and affect normal. LABS AND RADIOLOGY: Reviewed results see below Assessment : Patient presented to hospital with acute respiratory failure and this patient did have significant hypoxemia with evidence of extensive multifocal infiltrate high clinical suspicious for a viral etiology, Covid testing has been negative and the patient is vaccinated influenza was negative we need to check for RSV, clinical suspicion is low for bacterial pneumonia with the normal procalcitonin Plan: 1-we will check RSV PCR 2-we will check SARS-CoV-2 antibodies 3-continue the current empiric antibiotic therapy while waiting for the work-up to be completed We will follow on clinical condition and cultures to further adjust medication if needed Thank you for this consultation we will follow the patient along with you Past Medical History Past Medical History: Diabetes Mellitus, Deep Vein Thrombosis (DVT), Hypertension, Renal Disease Additional Past Medical History / Comment(s): diet controlled diabetes. stage 3 kidney disease. frequent headaches stephanie. @[facility]. tardive dyskinesia History of Any Multi-Drug Resistant Organisms: None Reported Past Surgical History: Cholecystectomy, Hernia Repair, Joint Replacement, Tubal Ligation Additional Past Surgical History / Comment(s): harry knees replaced. right shoulder replaced. left shoulder surg. harry. cataract removal Past Anesthesia/Blood Transfusion Reactions: Previous Problems w/ Anesthesia Additional Past Anesthesia/Blood Transfusion Reaction / Comm: AFTER PT'S KNEE REPLACEMENT AT [facility], SHE HAD POST OP BRONCHOSPASMS AND STRIDOR Past Psychological History: ADD/ADHD, Anxiety, Depression Smoking Status: Never smoker Past Alcohol Use History: Occasional Past Drug Use History: None Reported - Past Family History Father Family Medical History: Cancer Brother(s) Additional Family Medical History / Comment(s): ANEURYSM Medications and Allergies Home Medications Medication Instructions Recorded Confirmed Type Ferrous Sulfate [Iron (65 MG 325 mg PO DAILY 01/08/18 11/11/21 History Elemental)] Topiramate [Topamax] 25 mg PO BID 01/08/18 11/11/21 History buPROPion HCL [Wellbutrin SR] 150 mg PO BID 01/08/18 11/11/21 History Aspirin 81 mg PO DAILY 09/23/21 11/11/21 History DULoxetine HCL [Cymbalta] 30 mg PO BID 09/23/21 11/11/21 History Methylphenidate HCl 20 mg PO BID 09/23/21 11/11/21 History Albuterol Nebulized [Ventolin 2.5 mg INHALATION RT-QID PRN 11/11/21 11/11/21 History Nebulized] Alpha Crs 1 cap PO DAILY 11/11/21 11/11/21 History Cefuroxime [Ceftin] 250 mg PO BID 11/11/21 11/11/21 History Citalopram Hydrobromide [CeleXA] 40 mg PO DAILY 11/11/21 11/11/21 History Copaiba 1 cap PO DAILY@1200 11/11/21 11/11/21 History Cyclobenzaprine [Flexeril] 10 mg PO BID 11/11/21 11/11/21 History Deep Blue Polyphenol Blend 1 cap PO BID@0900,1200 11/11/21 11/11/21 History Esomeprazole Magnesium [NexIUM] 20 mg PO DAILY 11/11/21 11/11/21 History Fluticasone Nasal [place] [Flonase 1 - 2 spray EA NOSTRIL DAILY PRN 11/11/21 11/11/21 History Nasal [place]] HYDROcodone/APAP 10-325MG [[place] 1 tab PO Q4H PRN 11/11/21 11/11/21 History 10-325] Microplex Vmz 1 cap PO DAILY 11/11/21 11/11/21 History Sandro Max 1 cap PO BID@0900,1200 PRN 11/11/21 11/11/21 History Mouthkote Solution Aerosol/[place] 2 spray PO Q4H PRN 11/11/21 11/11/21 History Pb Assist 1 cap PO TID 11/11/21 11/11/21 History Pilocarpine [Salagen] 5 - 10 mg PO TID 11/11/21 11/11/21 History Terrazyme 1 cap PO HS 11/11/21 11/11/21 History Verapamil HCl [Verapamil ER] 120 mg PO DAILY 11/11/21 11/11/21 History Vitamin D And K With Sea-Iodine 1 tab PO DAILY 11/11/21 11/11/21 History Xeo Adriel 1 cap PO DAILY 11/11/21 11/11/21 History clonazePAM [KlonoPIN] 0.5 mg PO HS 11/11/21 11/11/21 History guaiFENesin-DM 600/30MG [Mucinex 1 tab PO BID 11/11/21 11/11/21 History Dm] predniSONE [Deltasone] See Taper PO DIRECTED 11/11/21 11/11/21 History Allergies Allergy/AdvReac Type Severity Reaction Status Date / Time cobalt Allergy Rash/Hives Verified 11/11/21 23:16 hydromorphone Allergy Unknown Verified 11/11/21 23:16 nickel Allergy Rash/Hives Verified 11/11/21 23:16 Physical Exam Vitals: Vital Signs Temp Pulse Pulse Resp BP BP Pulse Ox 11/12/21 11:16 98 11/12/21 09:43 102 H 11/12/21 09:15 101 H 20 11/12/21 08:00 97.8 F 101 H 20 126/80 93 L 11/12/21 05:20 91 134/78 11/12/21 02:16 98.2 F 110 H 27 H 173/97 95 11/12/21 01:19 97 11/12/21 00:58 104 H 18 133/79 99 11/12/21 00:14 109 H 11/12/21 00:05 109 H 11/11/21 23:00 78 18 97 11/11/21 22:00 84 18 97 11/11/21 21:32 91 22 157/91 97 11/11/21 20:38 18 94 L 11/11/21 20:37 22 11/11/21 20:25 98.6 F 90 24 155/92 97 Intake and Output 11/11/21 11/12/21 11/12/21 22:59 06:59 14:59 Intake Total 100 Output Total 250 Balance -150 Intake: Oral 100 Output: Urine 250 Other: # Voids 1 1 # Bowel Movements 0 Weight 77.111 kg 77.111 kg Results CBC & Chem 7: 11/12/21 06:22 11/12/21 06:22 Labs: Abnormal Lab Results - Last 24 Hours (Table) 11/11/21 11/11/21 11/11/21 Range/Units 21:32 21:32 21:32 RBC 3.73 L (3.80-5.40) m/uL MCV 101.9 H (80.0-100.0) fL Lymphocytes # 0.4 L (1.0-4.8) k/uL APTT 19.1 L (22.0-30.0) sec D-Dimer 3.57 H (<0.60) mg/L FEU Sodium 132 L (137-145) mmol/L Potassium 5.4 H (3.5-5.1) mmol/L Glucose 155 H (74-99) mg/dL Ferritin 523.0 H (10.0-291.0) ng/mL AST 54 H (14-36) U/L Alkaline Phosphatase 238 H (38-126) U/L Lactate Dehydrogenase 1126 H (313-618) U/L C-Reactive Protein 15.4 H (<1.0) mg/dL Total Protein 5.9 L (6.3-8.2) g/dL Albumin 3.0 L (3.5-5.0) g/dL Procalcitonin (0.02-0.09) ng/mL 11/11/21 11/12/21 11/12/21 Range/Units 21:32 06:22 06:22 RBC 3.58 L (3.80-5.40) m/uL MCV 103.8 H (80.0-100.0) fL Lymphocytes # (1.0-4.8) k/uL APTT (22.0-30.0) sec D-Dimer (<0.60) mg/L FEU Sodium 136 L (137-145) mmol/L Potassium (3.5-5.1) mmol/L Glucose 168 H (74-99) mg/dL Ferritin (10.0-291.0) ng/mL AST (14-36) U/L Alkaline Phosphatase (38-126) U/L Lactate Dehydrogenase (313-618) U/L C-Reactive Protein (<1.0) mg/dL Total Protein (6.3-8.2) g/dL Albumin (3.5-5.0) g/dL Procalcitonin 0.10 H (0.02-0.09) ng/mL
[2021-11-13] MEDS: methylPREDNISolone SOD SUCCI 125 MG/2 ML VIAL IV SCH ×5 (00:51→23:14)
[2021-11-13] MEDS: PIPERACILLIN-TAZOBACTAM 3.375 GM in SODIUM CHLORIDE 0.9% 100 ML IVPB SCH ×3 (00:51→16:25)
[2021-11-13] MEDS: ASPIRIN 81 MG PO SCH (07:45)
[2021-11-13] MEDS: PANTOPRAZOLE 40 MG TABLET PO SCH (07:45)
[2021-11-13] MEDS: HEPARIN SODIUM,PORCINE/PF 5,000 UNIT/0.5 ML SYRINGE SQ SCH ×2 (07:46→23:05)
[2021-11-13] MEDS: guaiFENesin 600 MG TABLET.ER PO SCH ×2 (07:46→23:05)
[2021-11-13] MEDS: FERROUS SULFATE 325 MG TAB PO SCH (07:46)
[2021-11-13] MEDS: CYCLOBENZAPRINE 10 MG TAB PO SCH ×2 (07:46→23:06)
[2021-11-13] MEDS: buPROPion SR 150 MG TABLET.ER PO SCH ×2 (07:46→23:05)
[2021-11-13] MEDS: CITALOPRAM HYDROBROMIDE 20 MG TAB PO SCH (07:46)
[2021-11-13] MEDS: TOPIRAMATE 25 MG TAB PO SCH ×2 (07:47→23:06)
[2021-11-13] MEDS: DULoxetine HCL 30 MG CAPSULE.DR PO SCH ×2 (07:47→23:05)
[2021-11-13] MEDS: VERAPAMIL SR 120 MG TABLET.ER PO SCH (07:47)
--- NOTE | 2021-11-13 13:03 | P.PN ---
Subjective Progress Note Date: 11/13/21 This is a 65-year-old female patient with past medical history of hypertension, diabetes mellitus type 2, previous history of DVT, stage III chronic kidney disease, nonsmoker, and no chronic lung disease, who we saw in consultation on 09/24/2021 after cervical spine decompression and fusion for cervical spondylolisthetic myelopathy. Patient required overnight ventilatory support following her surgery, however was successfully weaned and extubated, did quite well and was eventually discharged home. On 11/11/2021 she presented to the emergency department in respiratory distress. When EMS arrived she was found to be extremely hypoxic, and she reports five-day history of upper respiratory symptoms. Patient is not vaccinated against COVID-19. She has severe coughing spells, but no fever, some phlegm production. No hemoptysis. No chest pain. Her pulse ox was 70% when the EMS arrived, she was immediately placed on CPAP. She denied any nausea or vomiting, no abdominal pain. She tested negative for COVID-19. Chest x-ray showed bilateral pulmonary infiltrates suspicious for pneumonia, d-dimer was elevated at 3.57, and for that reason CT angiogram was completed showing no evidence of pulmonary embolism but did show extensive bilateral pulmonary infiltrates and atelectasis, elevated right hemidiaphragm could relate to some diaphragm paralysis. White blood cell count was 7.8, hemoglobin was 11.9, INR is 0.9, sodium was 132, potassium is 5.4, chloride is 100, CO2 is 24, BUN is 11, creatinine 0.65, ferritin level was 523, AST was 54, ALT was 24, alkaline phosphatase was 238, LDH is 1126, troponin was less than 0.012, CRP was 15.4, proBNP was 300 call pro-calcitonin level was negative at 0.10, patient was also tested for influenza A and B was found to be negative. At the time of my evaluation patient is on high flow oxygen at 9 L with a pulse ox of 93-98%, breathing fairly comfortably, but her breath sounds are very diminished, patient has poor inspiratory effort. And patient has sudden onset of coughing spells, she denies history of aspiration, however she reports previ ous history of GERD and reflux for which she had been on Nexium with some improvement. Currently she is on Decadron 5 mg twice daily, we will switch the antibiotic coverage to Zosyn for possibility of aspiration related pneumonia, we will add breathing treatments with DuoNeb, with the patient one-time dose of Lasix, and switch Decadron to IV Solu-Medrol. The patient is seen today 11/13/2021 in follow-up on the regular medical floor. She is awake and alert in no acute distress. Maintaining good O2 saturations in the 90s on 6 L high flow nasal cannula. She did utilize CPAP throughout the ni ght on pressure support of 6 cm of water and FiO2 of 35%. Blood cultures reveal no growth. Second pro-calcitonin 0.10. RSV by PCR is positive. Legionella antigen results pending. Ragsdale virus antibodies pending. She is continued on DuoNeb inhalations, IV Solu-Medrol, Zosyn. Objective - Vital Signs Vital signs: Vital Signs Temp 97.8 F 11/13/21 07:31 Pulse 96 11/13/21 09:10 Resp 16 11/13/21 07:31 BP 145/74 11/13/21 07:31 Pulse Ox 95 11/13/21 07:31 Intake & Output 11/12/21 11/13/21 11/13/21 18:59 06:59 18:59 Output Total 400 Balance -400 Output: Urine 400 Other: # Voids 1 2 - Exam GENERAL EXAM: Alert, very pleasant, 65-year-old female patient, on 6 L of oxygen, with frequent episodes of coughing spells and desaturation and dyspnea HEAD: Normocephalic/atraumatic. EYES: Normal reaction of pupils, equal size. Conjunctiva pink, sclera white. NOSE: Clear with pink turbinates. THROAT: No erythema or exudates. NECK: No masses, no JVD, no thyroid enlargement, no adenopathy. CHEST: No chest wall deformity. Symmetrical expansion. LUNGS: Equal air entry with diminished breath sounds bilaterally with crackles at the right base CVS: Regular rate and rhythm, normal S1 and S2, no gallops, no murmurs, no rubs ABDOMEN: Soft, nontender. No hepatosplenomegaly, normal bowel sounds, no guarding or rigidity. EXTREMITIES: No clubbing, no edema, no cyanosis, 2+ pulses and upper and lower extremities. MUSCULOSKELETAL: Muscle strength and tone normal. SPINE: No scoliosis or deformity SKIN: No rashes CENTRAL NERVOUS SYSTEM: No focal deficits, tone is normal in all 4 extremities. PSYCHIATRIC: Alert and oriented -3. Appropriate affect. Intact judgment and insight. - Labs CBC & Chem 7: 11/12/21 06:22 11/12/21 06:22 Labs: Abnormal Lab Results - Last 24 Hours (Table) 11/13/21 11/13/21 Range/Units 06:53 11:45 Procalcitonin 0.10 H (0.02-0.09) ng/mL RSV (PCR) Positive H (Negative) Microbiology - Last 24 Hours (Table) 11/11/21 21:26 Blood Culture - Preliminary Blood No Growth after 24 hours 11/11/21 21:10 Blood Culture - Preliminary Blood No Growth after 24 hours Assessment and Plan Assessment: 1 Acute hypoxic respiratory failure related to acute multifocal pneumonia, rule out possibility of aspiration. COVID-19 PCR was negative, influenza A and B were negative. RSV positive. Ragsdale virus antibodies pending. Legionella antigen pending. 2 Hypoventilation, low lung volumes, patient would benefit from BiPAP support at bedtime 3 Elevated d-dimer, CT angiogram of the chest showed no evidence of pulmonary embolism 4 Previous history of GERD/reflux 5 Stage III chronic kidney disease 6 Diabetes mellitus type 2 7 Hypertension 8 Previous history of DVT 9 Recent C3 through C7 anterior interbody arthrodesis and C2 through T2 decompression and fusion surgery for cervical spondylitic myelopathy and severe stenosis and spondylosis 10 Osteoarthritis Plan: The patient was seen and evaluated Currently stable and on 6 L RSV positive for continued on IV Solu-Medrol Legionella and Ragsdale virus antibodies pending Continued on bronchodilators and Zosyn Encourage increased use the incentive spirometer Titrate down the FiO2 as tolerated Increase her activity as tolerated We will continue to follow I, the cosigning physician, performed a history & physical examination of the patient. Lungs sounds with bilateral scattered rhonchi. Maintaining good O2 saturations in the 90s on 6 L high flow nasal cannula. I discussed the assessment and plan of care with my nurse practitioner, Manjula Estrada. I attest to the above note as dictated by her.
--- NOTE | 2021-11-13 15:58 | P.PN ---
Subjective Progress Note Date: 11/13/21 65 years old female with past medical history of type 2 diabetes, DVT, hypertension, stage III chronic kidney disease, tardive dyskinesia and dyspnea, history of recent cervical stenosis repair status post decompressionand fusion on 09/23 and was discharged home without any complications. Patient comes back on 10/12 with increased shortness of breath that has been happening for the past 7 days. Patient also endorses cough increased body aches, runny nose and change in taste or smell. She is under exudative for COVID-19. Patient was brought in by EMS and was noted to have 70% oxygenation and pulse ox. Patient denies any aspiration event. In the ED patient was noted to have bilateral pulmonary infiltrates suspicious for pneumonia on chest x-ray. D-dimer was elevated for the CT angiogram was done that was negative for pulmonary embolism but did show extensive bilateral pulmonary infiltrate and atelectasis. Labs reviewed patient is a WBC of 7.8 hemoglobin 11.9 INR 0.9 sodium 132 potassium 5.4 chloride 100 CO2 24th UN 11 creatinine 0.54. Liver enzymes elevated with AST 54 ALT 24 alkaline phosphatase at 238 LDH 1126 CRP 15 proBNP 300 for calcitonin 0.1 heart influenza A and B was negative. COVID PCR negative. Patient was initiated on Zosyn for possible aspiration. DuoNeb initiated. Solu-Medrol urine showed 60 IV every 6. Swallow evaluation ordered with barium swallow ordered. 11/13 patient examined at bedside patient is currently on 6 L high flow afebrile pulse 87 respiratory rate 16. COVID negative influenza negative RSV positive. Legionella antigens pending continue DuoNeb, IV Solu-Medrol and Zosyn. May discontinue Zosyn in the next 2448 hrs. repeat pro-calcitonin. Pulmonary recommendations pending ROS Constitutional: Denies chills, Denies fever, Denies lethargy, Denies malaise, Denies poor appetite, Denies weakness, Denies weight loss Eyes: denies decreased vision, denies diplopia, denies discharge, denies pain Ears: deny: decreased hearing Ears, nose, mouth and throat: Denies dental pain, Denies headache, Denies nasal discharge, Denies nose pain Cardiovascular: Denies chest pain, Denies decreased exercise tolerance, Denies edema, Denies high blood pressure, Denies irregular heart beat, Denies palpitations, Denies paroxysmal nocturnal dyspnea, Denies rapid heart beat, Denies shortness of breath Respiratory: Denies congestion, Denies cough, Denies cough with sputum, Denies dyspnea, Denies home oxygen, Denies wheezing Gastrointestinal: Denies abdominal pain, Denies change in bowel habits, Denies coffee ground emesis, Denies early satiety, Denies excessive gas, Denies heartburn, Denies hematemesis, Denies hematochezia, Denies loss of appetite, Denies nausea, Denies vomiting Genitourinary: Denies dysuria, Denies flank pain, Denies kidney stones, Denies menorrhagia, Denies urgency, Denies urinary frequency Musculoskeletal: Denies gait dysfunction, Denies limitation of motion, Denies morning stiffness, Denies muscle cramps Integumentary: Denies rash, Denies wounds, Denies brittle nails, Denies change in hair/nails, Denies darkening of skin Neurological: Denies balance difficulties, Denies change in speech, Denies double vision, Denies gait dysfunction, Denies loss of vision, Denies motor disturbance, Denies numbness, Denies paralysis, Denies paresthesias, Denies seizures Psychiatric: Denies anxiety, Denies depression Endocrine: Denies excessive sweating, Denies excessive thirst, Denies high blood sugars, Denies palpitations Hematologic/Lymphatic: Denies easy bruising, Denies lymphadenopathy Physical exam - Constitutional General appearance: cooperative, no acute distress, thin appears comfortable at rest - EENT Eyes: anicteric sclerae, PERRLA, normal appearance ENT: hearing grossly normal - Neck Neck: no lymphadenopathy, normal ROM, incision healed at the back - Respiratory Respiratory: bilateral: Decreased air entry with crackles at the bases no wheezing - Cardiovascular Rhythm: regular Heart sounds: normal: S1, S2 Abnormal Heart Sounds: no systolic murmur, no diastolic murmur, no rub, no S3 Gallop, no S4 Gallop, no click, no other - Gastrointestinal General gastrointestinal: normal bowel sounds, soft nontender - Integumentary Integumentary: no rash - Neurologic Neurologic: CNII-XII intact no sensory or motor deficits - Musculoskeletal Musculoskeletal: gait normal, strength equal bilaterally - Psychiatric Psychiatric: A&O x's 3, appropriate affect Assessment and plan Acute hypoxic respiratory failure on 13 L high flow oxygen likely secondary to RSV with possible aspiration - DuoNeb as needed for shortness of breath -Solu-Medrol 60 IV every 6 -Mucinex 1200 mg by mouth twice a day -Sputum culture -Rule out aspiration. 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 - able to ambulate without any difficulty at home Diabetes mellitus type 2. - Insulin sliding scale History of DVT - Stable -CT negative for PE Hypertension - On verapamil 120 mg by mouth daily Chronic kidney disease stage III. -Avoid nephrotoxic agent creatinine stable Thrombocytopenia of unclear etiology. - Monitor. Generalized osteoarthritis. DVT prophylaxis. -Patient started on heparin subcu. GI prophylaxis. -Protonix. Objective - Vital Signs Vital signs: Vital Signs Temp 98.1 F 11/13/21 14:00 Pulse 87 11/13/21 14:00 Resp 16 11/13/21 14:00 BP 113/73 11/13/21 14:00 Pulse Ox 97 11/13/21 14:00 Intake & Output 11/12/21 11/13/21 11/13/21 18:59 06:59 18:59 Intake Total 100 Output Total 400 Balance -400 100 Intake: Oral 100 Output: Urine 400 Other: # Voids 1 2 - Labs CBC & Chem 7: 11/12/21 06:22 11/12/21 06:22 Labs: Abnormal Lab Results - Last 24 Hours (Table) 11/13/21 11/13/21 Range/Units 06:53 11:45 Procalcitonin 0.10 H (0.02-0.09) ng/mL RSV (PCR) Positive H (Negative) Microbiology - Last 24 Hours (Table) 11/11/21 21:26 Blood Culture - Preliminary Blood No Growth after 24 hours 11/11/21 21:10 Blood Culture - Preliminary Blood No Growth after 24 hours
[2021-11-13] MEDS ORDERED: ALBUTEROL HFA INHALER INHALATION PRN (16:58)
[2021-11-13] MEDS ORDERED: LORazepam 2 MG/ML INJ IV STA (19:17)
[2021-11-13] MEDS ORDERED: BENZONATATE 100 MG CAP PO PRN (19:20)
[2021-11-13] MEDS ORDERED: ALBUTEROL NEBULIZED 2.5 MG/3 ML INHALATION PRN (19:21)
--- NOTE | 2021-11-13 19:29 | P.EN ---
A team called on this patient for increase work of breathing patient admitted with hypoxic respiratory failure and viral pneumonia secondary to RSV patient vitals oxygen sat 95% on supplemental oxygen , tachycardia 124 , blood pressure systolic 124 patient looks anxious , tachypnic , following commands , alert lungs , decrease breath sounds throughout , with expiratory rhonchi no leg edema bilaterally labs reviewed assessment acute respiratory distress secondary to bronchospasm secondary to viral pneumonia with RSV plan breathing treatment one time dose of ativan IV and then will reassess continue to follow up closely contiinue management on current medical floor family at bedside and notified
[2021-11-13] MEDS ORDERED: ALBUTEROL HFA INHALER INHALATION SCH (20:00)
[2021-11-13] MEDS: ALBUTEROL NEBULIZED 2.5 MG/3 ML INHALATION SCH (21:11)
[2021-11-13] MEDS: clonazePAM 0.5 MG TAB PO SCH (23:05)
[2021-11-13] MEDS: PILOCARPINE 5 MG TAB PO SCH (23:08)
--- NOTE | 2021-11-13 23:36 | P.PN ---
Progress Note - Text Progress Note Date: 11/13/21 REASON FOR FOLLOWUP: Pneumonia INTERVAL HISTORY: The patient is afebrile. The patient is breathing comfortably. The patient is slightly lethargic And is unable to provide any history no vomiting no diarrhea or any other changes the nursing staff PHYSICAL EXAMINATION: Blood pressure is 151/81 with a pulse of 50, temperature 98.5. General description is a elderly female lying in bed in no distress. Respiratory system: Unlabored breathing. Clear to auscultation anteriorly. Heart S1, S2. R egular rate and rhythm. Abdomen soft, mildly tender. No guarding or rigidity. LABS: RSV PCR is positive DIAGNOSTIC IMPRESSION AND PLAN: Patient presented to the hospital with Acute respiratory failure secondary to RSV pneumonia, patient would not have elevated pro calcitonin Endocrine clinic suspicious look for secondary bacterial pneumonia antibiotic and basically discontinued Continue with the current supportive treatment
[2021-11-14] MEDS: PIPERACILLIN-TAZOBACTAM 3.375 GM in SODIUM CHLORIDE 0.9% 100 ML IVPB SCH ×3 (01:29→17:07)
[2021-11-14] MEDS: ALBUTEROL NEBULIZED 2.5 MG/3 ML INHALATION SCH ×6 (04:37→21:32)
[2021-11-14 05:17] LABS: Glucose,Whole Blood 174 mg/dL (75-99)
[2021-11-14] MEDS: methylPREDNISolone SOD SUCCI 125 MG/2 ML VIAL IV SCH ×3 (06:06→17:07)
--- NOTE | 2021-11-14 07:58 | XR ---
EXAMINATION TYPE: XR chest 1V portable DATE OF EXAM: 11/14/2021 HISTORY: Shortness of breath. COMPARISON: 11/11/2021 TECHNIQUE: Single view of the chest is submitted. FINDINGS: Demonstrated are scattered senescent parenchymal change. Coarse infiltrates persist throughout both lung rodríguez with slight interval improvement suggested. Ivette ng volumes continue to be diminished. The heart is stable. Hilar and mediastinal structures are within normal limits. Degenerative changes are seen of the dorsal spine. IMPRESSION: 1. Coarse infiltrates persist throughout both lung rodríguez with slight interval improvement suggested .
[2021-11-14] MEDS: ASPIRIN 81 MG PO SCH (09:36)
[2021-11-14] MEDS: CITALOPRAM HYDROBROMIDE 20 MG TAB PO SCH (09:36)
[2021-11-14] MEDS: buPROPion SR 150 MG TABLET.ER PO SCH ×2 (09:36→20:06)
[2021-11-14] MEDS: CYCLOBENZAPRINE 10 MG TAB PO SCH ×2 (09:36→20:06)
[2021-11-14] MEDS: guaiFENesin 600 MG TABLET.ER PO SCH ×2 (09:36→20:06)
[2021-11-14] MEDS: FERROUS SULFATE 325 MG TAB PO SCH (09:36)
[2021-11-14] MEDS: PANTOPRAZOLE 40 MG TABLET PO SCH (09:36)
[2021-11-14] MEDS: DULoxetine HCL 30 MG CAPSULE.DR PO SCH ×2 (09:37→20:06)
[2021-11-14] MEDS: PILOCARPINE 5 MG TAB PO SCH ×3 (09:37→20:08)
[2021-11-14] MEDS: VERAPAMIL SR 120 MG TABLET.ER PO SCH (09:37)
[2021-11-14] MEDS: TOPIRAMATE 25 MG TAB PO SCH ×2 (09:37→20:07)
[2021-11-14] MEDS: HEPARIN SODIUM,PORCINE/PF 5,000 UNIT/0.5 ML SYRINGE SQ SCH ×2 (09:38→20:06)
[2021-11-14] MEDS: TIOTROPIUM 2.5 MCG INHALER INHALATION SCH (10:48)
[2021-11-14 11:35] LABS: Glucose,Whole Blood 168 mg/dL (75-99)
--- NOTE | 2021-11-14 13:03 | FL ---
EXAMINATION TYPE: FL sniff test without CXR DATE OF EXAM: 11/14/2021 Comparison: Radiograph 11/14/2021 Clinical History: 65-year-old female positive RSV, right DIAPHRAGM PARALYSIS. Recent cervical fusion. TECHNIQUE: Real-time fluoroscopy during quiet breathing, deep inspiration, and sniff maneuver. Total fluoroscopy time: 35 seconds. Total images: 10. Findings: At baseline, there is asymmetric elevation right hemidiaphragm. Patchy interstitial opacities are see n in both lungs compatible with multifocal or atypical pneumonia. During quiet breathing and deep inspiration, there is some initial hesitancy of the right hemidiaphra gm and toward the latter half of the inspiratory phase, there is either limited or slight paradoxical movement of the right hemidiaphragm. With sniffing maneuver, there is dominga and occipital movement of the right hemidiaphragm noted. 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
[2021-11-14 16:26] LABS: Glucose,Whole Blood 156 mg/dL (75-99)
--- NOTE | 2021-11-14 17:50 | P.PN ---
Subjective Progress Note Date: 11/14/21 This is a 65-year-old female patient with past medical history of hypertension, diabetes mellitus type 2, previous history of DVT, stage III chronic kidney disease, nonsmoker, and no chronic lung disease, who we saw in consultation on 09/24/2021 after cervical spine decompression and fusion for cervical spondylolisthetic myelopathy. Patient required overnight ventilatory support following her surgery, however was successfully weaned and extubated, did quite well and was eventually discharged home. On 11/11/2021 she presented to the emergency department in respiratory distress. When EMS arrived she was found to be extremely hypoxic, and she reports five-day history of upper respiratory symptoms. Patient is not vaccinated against COVID-19. She has severe coughing spells, but no fever, some phlegm production. No hemoptysis. No chest pain. Her pulse ox was 70% when the EMS arrived, she was immediately placed on CPAP. She denied any nausea or vomiting, no abdominal pain. She tested negative for COVID-19. Chest x-ray showed bilateral pulmonary infiltrates suspicious for pneumonia, d-dimer was elevated at 3.57, and for that reason CT angiogram was completed showing no evidence of pulmonary embolism but did show extensive bilateral pulmonary infiltrates and atelectasis, elevated right hemidiaphragm could relate to some diaphragm paralysis. White blood cell count was 7.8, hemoglobin was 11.9, INR is 0.9, sodium was 132, potassium is 5.4, chloride is 100, CO2 is 24, BUN is 11, creatinine 0.65, ferritin level was 523, AST was 54, ALT was 24, alkaline phosphatase was 238, LDH is 1126, troponin was less than 0.012, CRP was 15.4, proBNP was 300 call pro-calcitonin level was negative at 0.10, patient was also tested for influenza A and B was found to be negative. At the time of my evaluation patient is on high flow oxygen at 9 L with a pulse ox of 93-98%, breathing fairly comfortably, but her breath sounds are very diminished, patient has poor inspiratory effort. And patient has sudden onset of coughing spells, she denies history of aspiration, however she reports previ ous history of GERD and reflux for which she had been on Nexium with some improvement. Currently she is on Decadron 5 mg twice daily, we will switch the antibiotic coverage to Zosyn for possibility of aspiration related pneumonia, we will add breathing treatments with DuoNeb, with the patient one-time dose of Lasix, and switch Decadron to IV Solu-Medrol. The patient is seen today 11/13/2021 in follow-up on the regular medical floor. She is awake and alert in no acute distress. Maintaining good O2 saturations in the 90s on 6 L high flow nasal cannula. She did utilize CPAP throughout the ni ght on pressure support of 6 cm of water and FiO2 of 35%. Blood cultures reveal no growth. Second pro-calcitonin 0.10. RSV by PCR is positive. Legionella antigen results pending. Ragsdale virus antibodies pending. She is continued on DuoNeb inhalations, IV Solu-Medrol, Zosyn. The patient is seen today 11/14/2021 in follow-up on the regular medical floor. She is currently sitting up in bed. Awake and alert in no acute distress. She is currently requiring 10 L high flow nasal cannula with O2 saturation in the high 90s. She is alternating with BiPAP at 35% FiO2. He is currently afebrile. Hemodynamically stable. Chest x-ray reveals coarse infiltrates bilaterally with slight improvement. She did undergo a sniff test which was compatible with right hemidiaphragmatic paralysis. Blood glucose 156. Urine legionella antigen was negative. She did test positive for antibodies for COVID-19. She is continued on IV Solu-Medrol, bronchodilators, antibiotics in the form of Zosyn. Objective - Vital Signs Vital signs: Vital Signs Temp 98 F 11/14/21 14:00 Pulse 101 H 11/14/21 14:00 Resp 16 11/14/21 14:00 BP 125/85 11/14/21 14:00 Pulse Ox 99 11/14/21 14:00 Intake & Output 11/13/21 11/14/21 11/14/21 18:59 06:59 18:59 Intake Total 100 472 Balance 100 472 Intake: Oral 100 472 Other: # Voids 1 - Exam GENERAL EXAM: Alert, very pleasant, 65-year-old female patient, on 10 L of oxygen, with frequent episodes of coughing spells and desaturation and dyspnea HEAD: Normocephalic/atraumatic. EYES: Normal reaction of pupils, equal size. Conjunctiva pink, sclera white. NOSE: Clear with pink turbinates. THROAT: No erythema or exudates. NECK: No masses, no JVD, no thyroid enlargement, no adenopathy. CHEST: No chest wall deformity. Symmetrical expansion. LUNGS: Equal air entry with diminished breath sounds bilaterally with crackles at the right base CVS: Regular rate and rhythm, normal S1 and S2, no gallops, no murmurs, no rubs ABDOMEN: Soft, nontender. No hepatosplenomegaly, normal bowel sounds, no guarding or rigidity. EXTREMITIES: No clubbing, no edema, no cyanosis, 2+ pulses and upper and lower extremities. MUSCULOSKELETAL: Muscle strength and tone normal. SPINE: No scoliosis or deformity SKIN: No rashes CENTRAL NERVOUS SYSTEM: No focal deficits, tone is normal in all 4 extremities. PSYCHIATRIC: Alert and oriented -3. Appropriate affect. Intact judgment and insight. - Labs CBC & Chem 7: 11/12/21 06:22 11/12/21 06:22 Labs: Abnormal Lab Results - Last 24 Hours (Table) 11/14/21 11/14/21 11/14/21 Range/Units 05:16 11:34 16:24 POC Glucose (mg/dL) 174 H 168 H 156 H (75-99) mg/dL Microbiology - Last 24 Hours (Table) 11/11/21 21:26 Blood Culture - Preliminary Blood No Growth after 48 hours 11/11/21 21:10 Blood Culture - Preliminary Blood No Growth after 48 hours Assessment and Plan Assessment: 1 Acute hypoxic respiratory failure related to acute multifocal pneumonia, rule out possibility of aspiration. COVID-19 PCR was negative, influenza A and B were negative. RSV positive. Ragsdale virus antibodies positive. Legionella an tigen negative. Follow-up chest x-ray today 11/14/2021 is showing improvement. She is still requiring 10 L high flow nasal cannula alternating with BiPAP. 2 Hypoventilation, low lung volumes, patient would benefit from BiPAP support at bedtime 3 Elevated d-dimer, CT angiogram of the chest showed no evidence of pulmonary embolism 4 Previous history of GERD/reflux 5 Stage III chronic kidney disease 6 Diabetes mellitus type 2 7 Hypertension 8 Previous history of DVT 9 Recent C3 through C7 anterior interbody arthrodesis and C2 through T2 decompression and fusion surgery for cervical spondylitic myelopathy and severe stenosis and spondylosis 10 Osteoarthritis Plan: The patient was seen and evaluated Chest x-ray showing improvement Currently stable and on 10 L Titrate down the FiO2 as tolerated RSV positive, continued on IV Solu-Medrol Legionella antigen testing negative COVID-19 antibodies positive Continued on bronchodilators and Zosyn Encourage increased use the incentive spirometer Increase her activity as tolerated We will continue to follow I, the cosigning physician, performed a history & physical examination of the patient. Lungs sounds with bilateral scattered rhonchi. Maintaining good O2 saturations in the 90s on 10 L high flow nasal cannula. I discussed the assessment and plan of care with my nurse practitioner, Manjula Estrada. I attest to the above note as dictated by her.
--- NOTE | 2021-11-14 18:21 | P.PN ---
Subjective Progress Note Date: 11/14/21 (delayed charting seen at 1120) Principal diagnosis: shortness of breath Patient is a 65-year-old female patient of Dr. Ugarte with diabetes mellitus type 2, prior DVT, hypertension, COPD 3, tardive dyskinesia, recent cervical stenosis with decompression September 2021 who presented with increasing shortness of breath for 7 days. She underwent an extensive evaluation. COVID- 19 PCR was negative, antibodies were positive however patient has been fully vaccinated. RSV came back positive. She did undergo a CT angiogram of the chest due to elevated d-dimer which was negative for pulmonary embolism but demonstrated extensive bilateral infiltrate and atelectasis. She was started on bronchodilators and Solu-Medrol. She underwent a modified barium swallow which demonstrated no signs of aspiration. Pulmonary was consulted and recommended continuing with steroids as well as antibiotics. Patient seen and examined at bedside. She feels much better than yesterday. She continues to have some shortness of breath, cough, and overall fatigue. We discussed how easy it is to become anxious when he feels as though he can't breathe. She stated that trying to slow her breathing with breathing through her neck into her nose out through her mouth did help as well as the Ativan. General: Ill appearing, mild distress, appears older than stated age, temporal and buccal mucosal wasting Derm: warm, dry, thin skin with multiple areas of bruising Head: atraumatic, normocephalic, symmetric Eyes: EOMI, no lid lag, anicteric sclera Mouth: no lip lesion, mucus membranes dry Cardiovascular: S1S2 reg, no murmur, positive posterior tibial pulse bilateral, Lungs: Wheezing right apex and left base , 3 word conversational dyspnea with mild retractions Abdominal: soft, nontender to palpation, no guarding, no appreciable organomegaly Ext: no gross muscle atrophy, no edema, no contractures Neuro: CN II-XI grossly intact, no focal neuro deficits Psych: Alert, oriented, appropriate affect Viral pneumonia secondary to RSV Acute hypoxic respiratory failure Right hemidiaphragmatic paralysis - Continue with albuterol every 4 hours and when necessary, spiriva -Continue with steroids -Continue with Mucinex, Tessalon -Continue with Zosyn per pulm- Pro Oscar low -Pulmonary recommendations appreciated -Likely will need BiPAP at night -Continue with Salagen GERD -PPI Diabetes mellitus type 2 -Not on medications at home -Continue with sliding scale insulin Hypertension, controlled -Continue with verapamil -Follow blood pressures Chronic upper extremity weakness with gait instability Recent cervical decompression with interbody fusion secondary to cervical spondylitic myelopathy and severe spinal stenosis Objective - Vital Signs Vital signs: Vital Signs Temp 98 F 11/14/21 14:00 Pulse 101 H 11/14/21 14:00 Resp 16 11/14/21 14:00 BP 125/85 11/14/21 14:00 Pulse Ox 99 11/14/21 14:00 Intake & Output 11/13/21 11/14/21 11/14/21 18:59 06:59 18:59 Intake Total 100 708 Balance 100 708 Intake: Oral 100 708 Other: # Voids 1 2 - Labs CBC & Chem 7: 11/12/21 06:22 11/12/21 06:22 Labs: Abnormal Lab Results - Last 24 Hours (Table) 11/14/21 11/14/21 11/14/21 Range/Units 05:16 11:34 16:24 POC Glucose (mg/dL) 174 H 168 H 156 H (75-99) mg/dL Microbiology - Last 24 Hours (Table) 11/11/21 21:26 Blood Culture - Preliminary Blood No Growth after 48 hours 11/11/21 21:10 Blood Culture - Preliminary Blood No Growth after 48 hours
--- NOTE | 2021-11-14 19:29 | PN ---
PROGRESS NOTE DATE OF SERVICE: 11/14/2021 REASON FOR FOLLOWUP: Acute RSV pneumonia. INTERVAL HISTORY: The patient is afebrile. The patient is more awake and alert. She is breathing comfortably off the BIPAP. The patient denies any chest pain. No worsening cough or sputum production. No abdominal pain or diarrhea. PHYSICAL EXAMINATION: Blood pressure 125/85 with a pulse of 101, temperature 98. She is 99% on 10 L nasal cannula. General description is an elderly female lying in bed in no distress. Respiratory system: Unlabored breathing. Decreased intensity of breath sounds. No wheeze. Heart S1, S2. Regular rate and rhythm. Abdomen soft, no tenderness. LABS: No new labs have been obtained today. DIAGNOSTIC IMPRESSION AND PLAN: Patient admitted to the hospital with acute respiratory distress secondary to acute RSV pneumonia, clinically not behaving as secondary bacterial pneumonia. Treatment is mostly supportive along with ( ) and monitor clinical course closely. Continue supportive care. MMODL / IJN: [id number] /
[2021-11-14] MEDS: clonazePAM 0.5 MG TAB PO SCH (20:06)
[2021-11-14 20:36] LABS: Glucose,Whole Blood 277 mg/dL (75-99)
[2021-11-14] MEDS: INSULIN ASPART (NovoLOG) 100 UNIT/ML VIAL SQ SCH (22:13)
[2021-11-15] MEDS: methylPREDNISolone SOD SUCCI 125 MG/2 ML VIAL IV SCH ×4 (00:15→16:54)
[2021-11-15] MEDS: PIPERACILLIN-TAZOBACTAM 3.375 GM in SODIUM CHLORIDE 0.9% 100 ML IVPB SCH ×3 (00:16→15:53)
[2021-11-15] MEDS: ALBUTEROL NEBULIZED 2.5 MG/3 ML INHALATION SCH ×6 (01:24→21:51)
[2021-11-15 07:06] LABS: Glucose,Whole Blood 188 mg/dL (75-99)
[2021-11-15] MEDS: HEPARIN SODIUM,PORCINE/PF 5,000 UNIT/0.5 ML SYRINGE SQ SCH ×2 (07:33→22:15)
[2021-11-15] MEDS: INSULIN ASPART (NovoLOG) 100 UNIT/ML VIAL SQ SCH ×4 (07:33→22:16)
[2021-11-15] MEDS: ASPIRIN 81 MG PO SCH (07:33)
[2021-11-15] MEDS: PILOCARPINE 5 MG TAB PO SCH ×3 (07:34→22:15)
[2021-11-15] MEDS: FERROUS SULFATE 325 MG TAB PO SCH (07:34)
[2021-11-15] MEDS: PANTOPRAZOLE 40 MG TABLET PO SCH (07:34)
[2021-11-15] MEDS: CITALOPRAM HYDROBROMIDE 20 MG TAB PO SCH (07:34)
[2021-11-15] MEDS: guaiFENesin 600 MG TABLET.ER PO SCH ×2 (07:34→22:16)
[2021-11-15] MEDS: CYCLOBENZAPRINE 10 MG TAB PO SCH ×2 (07:34→22:15)
[2021-11-15] MEDS: TOPIRAMATE 25 MG TAB PO SCH ×2 (07:35→22:15)
[2021-11-15] MEDS: VERAPAMIL SR 120 MG TABLET.ER PO SCH (07:36)
[2021-11-15] MEDS: buPROPion SR 150 MG TABLET.ER PO SCH ×2 (07:37→22:15)
[2021-11-15 07:57] LABS: HCT 36.6 % (34.0-46.0); HGB 11.6 gm/dL (11.4-16.0); Hypochromasia Slight; MCH 32.7 pg (25.0-35.0); MCHC 31.8 g/dL (31.0-37.0); Macrocytosis Slight; Platelet Count 391 k/uL (150-450); RBC 3.55 m/uL (3.80-5.40); RDW 13.4 % (11.5-15.5); WBC 8.9 k/uL (3.8-10.6)
[2021-11-15 08:15] LABS: African American GFR (CKD) 63 (>60 ml/min/1.73 sqM); Anion Gap 3 mmol/L; Blood Urea Nitrogen 35 mg/dL (7-17); Calcium 8.4 mg/dL (8.4-10.2); Carbon Dioxide 29 mmol/L (22-30); Chloride 107 mmol/L (98-107); Glucose 180 mg/dL (74-99); Magnesium 2.1 mg/dL (1.6-2.3); Non-African American GFR(CKD) 55 (>60 ml/min/1.73 sqM); Potassium 3.9 mmol/L (3.5-5.1); Sodium 139 mmol/L (137-145)
[2021-11-15] MEDS: TIOTROPIUM 2.5 MCG INHALER INHALATION SCH (09:24)
[2021-11-15] MEDS: HYDROcodone/APAP 10-325MG 1 EACH TAB PO PRN (09:29)
[2021-11-15 11:13] LABS: Glucose,Whole Blood 175 mg/dL (75-99)
[2021-11-15] MEDS: DULoxetine HCL 30 MG CAPSULE.DR PO SCH ×2 (12:22→22:16)
--- NOTE | 2021-11-15 15:35 | P.PN ---
Subjective Progress Note Date: 11/15/21 This is a 65-year-old female patient with past medical history of hypertension, diabetes mellitus type 2, previous history of DVT, stage III chronic kidney disease, nonsmoker, and no chronic lung disease, who we saw in consultation on 09/24/2021 after cervical spine decompression and fusion for cervical spondylolisthetic myelopathy. Patient required overnight ventilatory support following her surgery, however was successfully weaned and extubated, did quite well and was eventually discharged home. On 11/11/2021 she presented to the emergency department in respiratory distress. When EMS arrived she was found to be extremely hypoxic, and she reports five-day history of upper respiratory symptoms. Patient is not vaccinated against COVID-19. She has severe coughing spells, but no fever, some phlegm production. No hemoptysis. No chest pain. Her pulse ox was 70% when the EMS arrived, she was immediately placed on CPAP. She denied any nausea or vomiting, no abdominal pain. She tested negative for COVID-19. Chest x-ray showed bilateral pulmonary infiltrates suspicious for pneumonia, d-dimer was elevated at 3.57, and for that reason CT angiogram was completed showing no evidence of pulmonary embolism but did show extensive bilateral pulmonary infiltrates and atelectasis, elevated right hemidiaphragm could relate to some diaphragm paralysis. White blood cell count was 7.8, hemoglobin was 11.9, INR is 0.9, sodium was 132, potassium is 5.4, chloride is 100, CO2 is 24, BUN is 11, creatinine 0.65, ferritin level was 523, AST was 54, ALT was 24, alkaline phosphatase was 238, LDH is 1126, troponin was less than 0.012, CRP was 15.4, proBNP was 300 call pro-calcitonin level was negative at 0.10, patient was also tested for influenza A and B was found to be negative. At the time of my evaluation patient is on high flow oxygen at 9 L with a pulse ox of 93-98%, breathing fairly comfortably, but her breath sounds are very diminished, patient has poor inspiratory effort. And patient has sudden onset of coughing spells, she denies history of aspiration, however she reports previ ous history of GERD and reflux for which she had been on Nexium with some improvement. Currently she is on Decadron 5 mg twice daily, we will switch the antibiotic coverage to Zosyn for possibility of aspiration related pneumonia, we will add breathing treatments with DuoNeb, with the patient one-time dose of Lasix, and switch Decadron to IV Solu-Medrol. The patient is seen today 11/13/2021 in follow-up on the regular medical floor. She is awake and alert in no acute distress. Maintaining good O2 saturations in the 90s on 6 L high flow nasal cannula. She did utilize CPAP throughout the ni ght on pressure support of 6 cm of water and FiO2 of 35%. Blood cultures reveal no growth. Second pro-calcitonin 0.10. RSV by PCR is positive. Legionella antigen results pending. Ragsdale virus antibodies pending. She is continued on DuoNeb inhalations, IV Solu-Medrol, Zosyn. The patient is seen today 11/14/2021 in follow-up on the regular medical floor. She is currently sitting up in bed. Awake and alert in no acute distress. She is currently requiring 10 L high flow nasal cannula with O2 saturation in the high 90s. She is alternating with BiPAP at 35% FiO2. He is currently afebrile. Hemodynamically stable. Chest x-ray reveals coarse infiltrates bilaterally with slight improvement. She did undergo a sniff test which was compatible with right hemidiaphragmatic paralysis. Blood glucose 156. Urine legionella antigen was negative. She did test positive for antibodies for COVID-19. She is continued on IV Solu-Medrol, bronchodilators, antibiotics in the form of Zosyn. The patient is seen today 11/15/2021 in follow-up on the regular medical floor. She is awake and alert in no acute distress. Currently sitting up in bed. States she is feeling better today. She is still requiring 8 L high flow nasal cannula to maintain O2 saturations in the 90s. She is feeling stronger. White count 8.9. Hemoglobin 11.6. Sodium 139. Potassium 3.9. Creatinine 1.06. Glucose 180. She is continued on IV Solu-Medrol, bronchodilators, antibiotics in the form of Zosyn. Heparin for DVT prophylaxis Objective - Vital Signs Vital signs: Vital Signs Temp 98.2 F 11/15/21 14:00 Pulse 90 11/15/21 14:00 Resp 17 11/15/21 14:00 BP 134/84 11/15/21 14:00 Pulse Ox 98 11/15/21 14:00 Intake & Output 11/14/21 11/15/21 11/15/21 18:59 06:59 18:59 Intake Total 708 Balance 708 Intake: Oral 708 Other: # Voids 2 1 - Exam GENERAL EXAM: Alert, very pleasant, 65-year-old female patient, on 8 L of oxygen, resting comfortably in bed. No acute distress. HEAD: Normocephalic/atraumatic. EYES: Normal reaction of pupils, equal size. Conjunctiva pink, sclera white. NOSE: Clear with pink turbinates. THROAT: No erythema or exudates. NECK: No masses, no JVD, no thyroid enlargement, no adenopathy. CHEST: No chest wall deformity. Symmetrical expansion. LUNGS: Equal air entry with diminished breath sounds bilaterally with crackles at the right base CVS: Regular rate and rhythm, normal S1 and S2, no gallops, no murmurs, no rubs ABDOMEN: Soft, nontender. No hepatosplenomegaly, normal bowel sounds, no guarding or rigidity. EXTREMITIES: No clubbing, no edema, no cyanosis, 2+ pulses and upper and lower extremities. MUSCULOSKELETAL: Muscle strength and tone normal. SPINE: No scoliosis or deformity SKIN: No rashes CENTRAL NERVOUS SYSTEM: No focal deficits, tone is normal in all 4 extremities. PSYCHIATRIC: Alert and oriented -3. Appropriate affect. Intact judgment and insight. - Labs CBC & Chem 7: 11/15/21 07:25 11/15/21 07:25 Labs: Abnormal Lab Results - Last 24 Hours (Table) 11/14/21 11/14/21 11/15/21 Range/Units 16:24 20:34 07:05 RBC (3.80-5.40) m/uL MCV (80.0-100.0) fL BUN (7-17) mg/dL Creatinine (0.52-1.04) mg/dL Glucose (74-99) mg/dL POC Glucose (mg/dL) 156 H 277 H 188 H (75-99) mg/dL 11/15/21 11/15/21 11/15/21 Range/Units 07:25 07:25 11:12 RBC 3.55 L (3.80-5.40) m/uL MCV 103.0 H (80.0-100.0) fL BUN 35 H (7-17) mg/dL Creatinine 1.06 H (0.52-1.04) mg/dL Glucose 180 H (74-99) mg/dL POC Glucose (mg/dL) 175 H (75-99) mg/dL Microbiology - Last 24 Hours (Table) 11/11/21 21:26 Blood Culture - Preliminary Blood No Growth after 72 hours 11/11/21 21:10 Blood Culture - Preliminary Blood No Growth after 72 hours Assessment and Plan Assessment: 1 Acute hypoxic respiratory failure related to acute multifocal pneumonia, rule out possibility of aspiration. COVID-19 PCR was negative, influenza A and B were negative. RSV positive. Ragsdale virus antibodies positive. Legionella antigen negative. Follow-up chest x-ray 11/14/2021 is showing improvement. She is still requiring 8 L high flow nasal cannula. 2 Hypoventilation, low lung volumes, patient would benefit from BiPAP support at bedtime 3 Elevated d-dimer, CT angiogram of the chest showed no evidence of pulmonary embolism 4 Previous history of GERD/reflux 5 Stage III chronic kidney disease 6 Diabetes mellitus type 2 7 Hypertension 8 Previous history of DVT 9 Recent C3 through C7 anterior interbody arthrodesis and C2 through T2 decompression and fusion surgery for cervical spondylitic myelopathy and severe stenosis and spondylosis 10 Osteoarthritis Plan: The patient was seen and evaluated Currently stable and on 8 L Titrate down the FiO2 as tolerated Continued on IV Solu-Medrol Continued on bronchodilators and Zosyn Increase her activity as tolerated We will continue to follow I, the cosigning physician, performed a history & physical examination of the patient. Lungs sounds with bilateral scattered rhonchi. Maintaining good O2 saturations in the 90s on 8 L high flow nasal cannula. I discussed the assessment and plan of care with my nurse practitioner, Manjula Estrada. I attest to the above note as dictated by her.
[2021-11-15 16:44] LABS: Glucose,Whole Blood 175 mg/dL (75-99)
--- NOTE | 2021-11-15 19:45 | P.PN ---
Subjective Progress Note Date: 11/15/21 (delayed charting seen at 1430) Principal diagnosis: shortness of breath Patient is a 65-year-old female patient of Dr. Ugarte with diabetes mellitus type 2, prior DVT, hypertension, COPD 3, tardive dyskinesia, recent cervical stenosis with decompression September 2021 who presented with increasing shortness of breath for 7 days. She underwent an extensive evaluation. COVID- 19 PCR was negative, antibodies were positive however patient has been fully vaccinated. RSV came back positive. She did undergo a CT angiogram of the chest due to elevated d-dimer which was negative for pulmonary embolism but demonstrated extensive bilateral infiltrate and atelectasis. She was started on bronchodilators and Solu-Medrol. She underwent a modified barium swallow which demonstrated no signs of aspiration. Pulmonary was consulted and recommended continuing with steroids as well as antibiotics. She underwent a sniff test on 11/14 which confirmed right diaphragmatic paralysis. Patient seen and examined at bedside with son present. Time in room 22 minutes. All questions answered. Feeling stronger every day, breathing is better than yesterday. Still wtih cough, horsesness. No appeitie, feels dry. She is worried to drink too much. We discussed that our goal is to keep her as functional as possible when she is discharged. Likely home with oxygen and will need a few weeks off her job to recover. Needs to increase fluid intake Has outpatient ENT appointment and then plans for speech therapy as directed by Dr. Penaloza General: Ill appearing, mild distress, appears older than stated age, temporal and buccal mucosal wasting Derm: warm, dry, thin skin with multiple areas of bruising Head: atraumatic, normocephalic, symmetric Eyes: EOMI, no lid lag, anicteric sclera Mouth: no lip lesion, mucus membranes dry Cardiovascular: S1S2 reg, no murmur, positive posterior tibial pulse bilateral, Lungs: Decreased bs bilateral bases , 3 word conversational dyspnea, no accessory muscle use Abdominal: soft, nontender to palpation, no guarding, no appreciable o rganomegaly Ext: no gross muscle atrophy, no edema, no contractures Neuro: CN II-XI grossly intact, no focal neuro deficits Psych: Alert, oriented, appropriate affect Assessment/Plan: Viral pneumonia secondary to RSV Acute hypoxic respiratory failure Right hemidiaphragmatic paralysis Vocal cord spasm - Continue with albuterol every 4 hours and when necessary, spiriva -Continue with steroids -Continue with Mucinex, Tessalon -Continue with Zosyn per pulm- Pro Oscar low, D/C in AM after 5 days -Pulmonary recommendations appreciated -Likely will need BiPAP at night--- pulm to follow -Continue with Salagen LAYNE - IVF - encourage oral intake - repeat labs in AM GERD -PPI Diabetes mellitus type 2 -Not on medications at home -Continue with sliding scale insulin Hypertension, controlled -Continue with verapamil -Follow blood pressures Chronic upper extremity weakness with gait instability Recent cervical decompression with interbody fusion secondary 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 Objective - Vital Signs Vital signs: Vital Signs Temp 98.2 F 11/15/21 14:00 Pulse 92 11/15/21 16:32 Resp 17 11/15/21 19:15 BP 134/84 11/15/21 14:00 Pulse Ox 98 11/15/21 14:00 Intake & Output 11/15/21 11/15/21 11/16/21 06:59 18:59 06:59 Other: # Voids 1 - Labs CBC & Chem 7: 11/15/21 07:25 11/15/21 07:25 Labs: Abnormal Lab Results - Last 24 Hours (Table) 11/14/21 11/15/21 11/15/21 Range/Units 20:34 07:05 07:25 RBC 3.55 L (3.80-5.40) m/uL MCV 103.0 H (80.0-100.0) fL BUN (7-17) mg/dL Creatinine (0.52-1.04) mg/dL Glucose (74-99) mg/dL POC Glucose (mg/dL) 277 H 188 H (75-99) mg/dL 11/15/21 11/15/21 11/15/21 Range/Units 07:25 11:12 16:43 RBC (3.80-5.40) m/uL MCV (80.0-100.0) fL BUN 35 H (7-17) mg/dL Creatinine 1.06 H (0.52-1.04) mg/dL Glucose 180 H (74-99) mg/dL POC Glucose (mg/dL) 175 H 175 H (75-99) mg/dL Microbiology - Last 24 Hours (Table) 11/11/21 21:26 Blood Culture - Preliminary Blood No Growth after 72 hours 11/11/21 21:10 Blood Culture - Preliminary Blood No Growth after 72 hours
[2021-11-15 20:10] LABS: Glucose,Whole Blood 190 mg/dL (75-99)
[2021-11-15] MEDS: clonazePAM 0.5 MG TAB PO SCH (22:16)
[2021-11-16] MEDS: ALBUTEROL NEBULIZED 2.5 MG/3 ML INHALATION SCH ×6 (00:11→21:36)
[2021-11-16] MEDS: PIPERACILLIN-TAZOBACTAM 3.375 GM in SODIUM CHLORIDE 0.9% 100 ML IVPB SCH ×3 (00:33→15:52)
[2021-11-16] MEDS: methylPREDNISolone SOD SUCCI 125 MG/2 ML VIAL IV SCH ×5 (00:33→23:36)
--- NOTE | 2021-11-16 00:33 | PN ---
PROGRESS NOTE DATE OF SERVICE: 11/15/2021 REASON FOR FOLLOWUP: Acute RSV infection. INTERVAL HISTORY: The patient is afebrile. The patient is breathing comfortably on nasal cannula oxygen. The patient denies having any chest pain. No cough or sputum production. No abdominal pain, no diarrhea. PHYSICAL EXAMINATION: Blood pressure 132/81, pulse of 80, temperature 98.2. She is 99% on 8 L nasal cannula. General description is an elderly female lying in bed in no distress. Respiratory system: Unlabored breathing, decreased intensity of breath sounds. No wheeze. Heart S1, S2. Regular rate and rhythm. Abdomen soft, no tenderness. LABS: Hemoglobin 11.8, white count 8.9, creatinine 1.06. DIAGNOSTIC IMPRESSION AND PLAN: Patient with acute respiratory failure secondary to acute RSV infection. Treatment is mostly supportive. Clinically not behaving as a secondary bacterial pneumonia with normal blood culture ( ) to discontinue antibiotics and monitor clinical course closely. MMJUSTINEL / JONNYN: [id number] /
[2021-11-16 07:27] LABS: Glucose,Whole Blood 173 mg/dL (75-99)
[2021-11-16] MEDS: SODIUM CHLORIDE 0.9% 1,000 ML IV SCH ×3 (09:02→15:53)
[2021-11-16] MEDS: HEPARIN SODIUM,PORCINE/PF 5,000 UNIT/0.5 ML SYRINGE SQ SCH ×2 (09:03→21:16)
[2021-11-16] MEDS: INSULIN ASPART (NovoLOG) 100 UNIT/ML VIAL SQ SCH ×4 (09:03→21:16)
[2021-11-16] MEDS: FERROUS SULFATE 325 MG TAB PO SCH (09:06)
[2021-11-16] MEDS: CITALOPRAM HYDROBROMIDE 20 MG TAB PO SCH (09:06)
[2021-11-16] MEDS: PANTOPRAZOLE 40 MG TABLET PO SCH (09:06)
[2021-11-16] MEDS: ASPIRIN 81 MG PO SCH (09:06)
[2021-11-16] MEDS: guaiFENesin 600 MG TABLET.ER PO SCH ×2 (09:06→21:17)
[2021-11-16] MEDS: CYCLOBENZAPRINE 10 MG TAB PO SCH ×2 (09:06→21:17)
[2021-11-16] MEDS: VERAPAMIL SR 120 MG TABLET.ER PO SCH (09:07)
[2021-11-16] MEDS: buPROPion SR 150 MG TABLET.ER PO SCH ×2 (09:07→21:17)
[2021-11-16] MEDS: TOPIRAMATE 25 MG TAB PO SCH ×2 (09:07→21:17)
[2021-11-16] MEDS: DULoxetine HCL 30 MG CAPSULE.DR PO SCH ×2 (09:07→21:17)
[2021-11-16] MEDS: PILOCARPINE 5 MG TAB PO SCH ×3 (09:07→21:17)
--- NOTE | 2021-11-16 11:26 | P.PN ---
Subjective Progress Note Date: 11/16/21 Principal diagnosis: CC: shortness of breath Patient is a 65-year-old female patient of Dr. Ugarte with diabetes mellitus type 2, prior DVT, hypertension, COPD 3, tardive dyskinesia, recent cervical stenosis with decompression September 2021 who presented with increasing shortness of breath for 7 days. She underwent an extensive evaluation. COVID- 19 PCR was negative, antibodies were positive however patient has been fully vaccinated. RSV came back positive. She did undergo a CT angiogram of the chest due to elevated d-dimer which was negative for pulmonary embolism but demonstrated extensive bilateral infiltrate and atelectasis. She was started on bronchodilators and Solu-Medrol. She underwent a modified barium swallow which demonstrated no signs of aspiration. Pulmonary was consulted and recommended continuing with steroids as well as antibiotics. She underwent a sniff test on 11/14 which confirmed right diaphragmatic paralysis. Patient currently on BiPAP at night and 8 L high flow nasal cannula during the daytime. 11/16/2021: Patient states that her breathing is improving gradually. She denies any acute complaints. No acute issues overnight. 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 Psych - anxious - Labs CBC & Chem 7: 11/15/21 07:25 11/15/21 07:25 Labs: Abnormal Lab Results - Last 24 Hours (Table) 11/15/21 11/15/21 11/16/21 Range/Units 16:43 20:08 07:25 POC Glucose (mg/dL) 175 H 190 H 173 H (75-99) mg/dL Microbiology - Last 24 Hours (Table) 11/11/21 21:26 Blood Culture - Preliminary Blood No Growth after 96 hours 11/11/21 21:10 Blood Culture - Preliminary Blood No Growth after 96 hours Assessment and Plan Assessment: Viral pneumonia secondary to RSV Acute hypoxic respiratory failure Right hemidiaphragmatic paralysis Vocal cord spasm - Continue with albuterol every 4 hours and when necessary, spiriva -Continue with steroids -Continue with Mucinex, Tessalon -Continue with Zosyn per pulm- Pro Oscar low, D/C today -Pulmonary recommendations appreciated -Likely will need BiPAP at night--- pulm to follow -Patient currently on BiPAP at night and 8 L high flow nasal cannula during the daytime -Patient appears to be gradually improving LAYNE - IVF - encourage oral intake - repeat labs in AM GERD -PPI Diabetes mellitus type 2 -Not on medications at home -Continue with sliding scale insulin Hypertension, controlled -Continue with verapamil -Follow blood pressures Chronic upper extremity weakness with gait instability Recent cervical decompression with interbody fusion secondary 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
[2021-11-16 11:42] LABS: Glucose,Whole Blood 238 mg/dL (75-99)
[2021-11-16] MEDS: TIOTROPIUM 2.5 MCG INHALER INHALATION SCH (12:10)
--- NOTE | 2021-11-16 12:49 | P.PN ---
Subjective Progress Note Date: 11/16/21 This is a 65-year-old female patient with past medical history of hypertension, diabetes mellitus type 2, previous history of DVT, stage III chronic kidney disease, nonsmoker, and no chronic lung disease, who we saw in consultation on 09/24/2021 after cervical spine decompression and fusion for cervical spondylolisthetic myelopathy. Patient required overnight ventilatory support following her surgery, however was successfully weaned and extubated, did quite well and was eventually discharged home. On 11/11/2021 she presented to the emergency department in respiratory distress. When EMS arrived she was found to be extremely hypoxic, and she reports five-day history of upper respiratory symptoms. Patient is not vaccinated against COVID-19. She has severe coughing spells, but no fever, some phlegm production. No hemoptysis. No chest pain. Her pulse ox was 70% when the EMS arrived, she was immediately placed on CPAP. She denied any nausea or vomiting, no abdominal pain. She tested negative for COVID-19. Chest x-ray showed bilateral pulmonary infiltrates suspicious for pneumonia, d-dimer was elevated at 3.57, and for that reason CT angiogram was completed showing no evidence of pulmonary embolism but did show extensive bilateral pulmonary infiltrates and atelectasis, elevated right hemidiaphragm could relate to some diaphragm paralysis. White blood cell count was 7.8, hemoglobin was 11.9, INR is 0.9, sodium was 132, potassium is 5.4, chloride is 100, CO2 is 24, BUN is 11, creatinine 0.65, ferritin level was 523, AST was 54, ALT was 24, alkaline phosphatase was 238, LDH is 1126, troponin was less than 0.012, CRP was 15.4, proBNP was 300 call pro-calcitonin level was negative at 0.10, patient was also tested for influenza A and B was found to be negative. At the time of my evaluation patient is on high flow oxygen at 9 L with a pulse ox of 93-98%, breathing fairly comfortably, but her breath sounds are very diminished, patient has poor inspiratory effort. And patient has sudden onset of coughing spells, she denies history of aspiration, however she reports previ ous history of GERD and reflux for which she had been on Nexium with some improvement. Currently she is on Decadron 5 mg twice daily, we will switch the antibiotic coverage to Zosyn for possibility of aspiration related pneumonia, we will add breathing treatments with DuoNeb, with the patient one-time dose of Lasix, and switch Decadron to IV Solu-Medrol. The patient is seen today 11/13/2021 in follow-up on the regular medical floor. She is awake and alert in no acute distress. Maintaining good O2 saturations in the 90s on 6 L high flow nasal cannula. She did utilize CPAP throughout the ni ght on pressure support of 6 cm of water and FiO2 of 35%. Blood cultures reveal no growth. Second pro-calcitonin 0.10. RSV by PCR is positive. Legionella antigen results pending. Ragsdale virus antibodies pending. She is continued on DuoNeb inhalations, IV Solu-Medrol, Zosyn. The patient is seen today 11/14/2021 in follow-up on the regular medical floor. She is currently sitting up in bed. Awake and alert in no acute distress. She is currently requiring 10 L high flow nasal cannula with O2 saturation in the high 90s. She is alternating with BiPAP at 35% FiO2. He is currently afebrile. Hemodynamically stable. Chest x-ray reveals coarse infiltrates bilaterally with slight improvement. She did undergo a sniff test which was compatible with right hemidiaphragmatic paralysis. Blood glucose 156. Urine legionella antigen was negative. She did test positive for antibodies for COVID-19. She is continued on IV Solu-Medrol, bronchodilators, antibiotics in the form of Zosyn. The patient is seen today 11/15/2021 in follow-up on the regular medical floor. She is awake and alert in no acute distress. Currently sitting up in bed. States she is feeling better today. She is still requiring 8 L high flow nasal cannula to maintain O2 saturations in the 90s. She is feeling stronger. White count 8.9. Hemoglobin 11.6. Sodium 139. Potassium 3.9. Creatinine 1.06. Glucose 180. She is continued on IV Solu-Medrol, bronchodilators, antibiotics in the form of Zosyn. Heparin for DVT prophylaxis The patient seen today 04/16/2022 in follow-up on the regular medical floor. Bettie white is resting comfortably in bed. Awake and alert in no acute distress. Denies any worsening shortness of breath, cough or congestion. She still requiring oxygen at 8 L high flow nasal cannula to maintain O2 saturation in the 90s. She is continued on IV Solu-Medrol, heparin for DVT prophylaxis, Mucinex. She continues on albuterol, Spiriva and Zosyn. Objective - Vital Signs Vital signs: Vital Signs Temp 98.1 F 11/16/21 08:04 Pulse 80 11/16/21 12:22 Resp 18 11/16/21 08:04 BP 157/95 11/16/21 08:04 Pulse Ox 97 11/16/21 08:04 Intake & Output 11/15/21 11/16/21 11/16/21 18:59 06:59 18:59 Other: # Voids 0 - Exam GENERAL EXAM: Alert, very pleasant, 65-year-old female patient, on 8 L of oxygen, resting comfortably in bed. No acute distress. HEAD: Normocephalic/atraumatic. EYES: Normal reaction of pupils, equal size. Conjunctiva pink, sclera white. NOSE: Clear with pink turbinates. THROAT: No erythema or exudates. NECK: No masses, no JVD, no thyroid enlargement, no adenopathy. CHEST: No chest wall deformity. Symmetrical expansion. LUNGS: Equal air entry with diminished breath sounds bilaterally with crackles at the right base CVS: Regular rate and rhythm, normal S1 and S2, no gallops, no murmurs, no rubs ABDOMEN: Soft, nontender. No hepatosplenomegaly, normal bowel sounds, no guarding or rigidity. EXTREMITIES: No clubbing, no edema, no cyanosis, 2+ pulses and upper and lower extremities. MUSCULOSKELETAL: Muscle strength and tone normal. SPINE: No scoliosis or deformity SKIN: No rashes CENTRAL NERVOUS SYSTEM: No focal deficits, tone is normal in all 4 extremities. PSYCHIATRIC: Alert and oriented -3. Appropriate affect. Intact judgment and insight. - Labs CBC & Chem 7: 11/15/21 07:25 11/15/21 07:25 Labs: Abnormal Lab Results - Last 24 Hours (Table) 11/15/21 11/15/21 11/16/21 Range/Units 16:43 20:08 07:25 POC Glucose (mg/dL) 175 H 190 H 173 H (75-99) mg/dL 11/16/21 Range/Units 11:40 POC Glucose (mg/dL) 238 H (75-99) mg/dL Microbiology - Last 24 Hours (Table) 11/11/21 21:26 Blood Culture - Preliminary Blood No Growth after 96 hours 11/11/21 21:10 Blood Culture - Preliminary Blood No Growth after 96 hours Assessment and Plan Assessment: 1 Acute hypoxic respiratory failure related to acute multifocal pneumonia, rule out possibility of aspiration. COVID-19 PCR was negative, influenza A and B were negative. RSV positive. Ragsdale virus antibodies positive. Legionella antigen negative. Follow-up chest x-ray 11/14/2021 is showing improvement. She is still requiring 8 L high flow nasal cannula. 2 Hypoventilation, low lung volumes, patient would benefit from BiPAP support at bedtime 3 Elevated d-dimer, CT angiogram of the chest showed no evidence of pulmonary embolism 4 Previous history of GERD/reflux 5 Stage III chronic kidney disease 6 Diabetes mellitus type 2 7 Hypertension 8 Previous history of DVT 9 Recent C3 through C7 anterior interbody arthrodesis and C2 through T2 decompression and fusion surgery for cervical spondylitic myelopathy and severe stenosis and spondylosis 10 Osteoarthritis Plan: The patient was seen and evaluated Currently stable and on 8 L Titrate down the FiO2 as tolerated Continued on IV Solu-Medrol Continued on bronchodilators and Zosyn Increase her activity as tolerated Follow-up chest x-ray in a.m. We will continue to follow I, the cosigning physician, performed a history & physical examination of the patient. Lungs sounds with bilateral scattered rhonchi. Maintaining good O2 saturations in the 90s on 8 L high flow nasal cannula. I discussed the assessment and plan of care with my nurse practitioner, Manjula Estrada. I attest to the above note as dictated by her.
[2021-11-16 17:19] LABS: Glucose,Whole Blood 231 mg/dL (75-99)
[2021-11-16 20:54] LABS: Glucose,Whole Blood 146 mg/dL (75-99)
--- NOTE | 2021-11-16 21:07 | PN ---
PROGRESS NOTE DATE OF SERVICE: 11/16/2021 REASON FOR FOLLOWUP: Acute RSV infection. INTERVAL HISTORY: The patient is afebrile. The patient is breathing comfortably. She is down to 8 L nasal cannula. The patient denies having any chest pain. No worsening cough or sputum production. No abdominal pain, no diarrhea. PHYSICAL EXAMINATION: Blood pressure 137/80 with a pulse of 91, temperature of 98.4. She is 99% on 8 L nasal cannula. General description is an elderly female lying in bed in no distress. Respiratory system: Unlabored breathing with diminished breath sounds bilaterally, no wheeze. Heart S1, S2. Regular rate and rhythm. Abdomen soft, no tenderness. Extremities: No edema of the feet. LABS: CRP 0.8, procalcitonin 0.06. DIAGNOSTIC IMPRESSION AND PLAN: Patient with acute RSV pneumonia. Treatment is mostly supportive with normal procalcitonin. Clinically not behaving as secondary bacterial pneumonia. Antibiotic has been discontinued. Patient to continue with Solu-Medrol, bronchodilator and respiratory support. Family at the bedside. Questions were answered. MMODL / IJN: [id number] /
[2021-11-16] MEDS: clonazePAM 0.5 MG TAB PO SCH (21:17)
[2021-11-16] MEDS: ACETAMINOPHEN TAB 325 MG TAB PO PRN (21:17)
[2021-11-17] MEDS: ALBUTEROL NEBULIZED 2.5 MG/3 ML INHALATION SCH ×6 (00:52→22:18)
[2021-11-17] MEDS: methylPREDNISolone SOD SUCCI 125 MG/2 ML VIAL IV SCH ×3 (05:57→17:53)
[2021-11-17] MEDS: SODIUM CHLORIDE 0.9% 1,000 ML IV SCH ×2 (05:57→16:17)
[2021-11-17 07:31] LABS: Glucose,Whole Blood 171 mg/dL (75-99)
[2021-11-17] MEDS: TIOTROPIUM 2.5 MCG INHALER INHALATION SCH (08:33)
[2021-11-17] MEDS: ASPIRIN 81 MG PO SCH (08:57)
[2021-11-17] MEDS: FERROUS SULFATE 325 MG TAB PO SCH (08:57)
[2021-11-17] MEDS: guaiFENesin 600 MG TABLET.ER PO SCH ×2 (08:57→22:40)
[2021-11-17] MEDS: CITALOPRAM HYDROBROMIDE 20 MG TAB PO SCH (08:57)
[2021-11-17] MEDS: INSULIN ASPART (NovoLOG) 100 UNIT/ML VIAL SQ SCH ×4 (08:57→22:46)
[2021-11-17] MEDS: CYCLOBENZAPRINE 10 MG TAB PO SCH ×2 (08:57→22:40)
[2021-11-17] MEDS: PANTOPRAZOLE 40 MG TABLET PO SCH (08:57)
[2021-11-17] MEDS: PILOCARPINE 5 MG TAB PO SCH ×3 (08:58→22:39)
[2021-11-17] MEDS: VERAPAMIL SR 120 MG TABLET.ER PO SCH (08:58)
[2021-11-17] MEDS: buPROPion SR 150 MG TABLET.ER PO SCH ×2 (08:58→22:40)
[2021-11-17] MEDS: TOPIRAMATE 25 MG TAB PO SCH ×2 (08:58→22:41)
[2021-11-17] MEDS: DULoxetine HCL 30 MG CAPSULE.DR PO SCH ×2 (08:58→22:39)
[2021-11-17] MEDS: HEPARIN SODIUM,PORCINE/PF 5,000 UNIT/0.5 ML SYRINGE SQ SCH ×2 (08:59→22:40)
--- NOTE | 2021-11-17 09:34 | XR ---
EXAMINATION TYPE: XR chest 1V portable DATE OF EXAM: 11/17/2021 COMPARISON: 11/14/2021 INDICATION: Pneumonia TECHNIQUE: Single frontal view of the chest is obtained. FINDINGS: The heart size is normal. The pulmonary vasculature is normal. Patchy infiltrates into the right base left upper lung field infiltrates are improved. IMPRESSION: 1. Bilateral lung infiltrates. Right lower lobe infiltrate is worsening. There may be some improvemen t of the left upper lung field infiltrate. Continued follow-up is recommended.
[2021-11-17 10:39] LABS: HCT 35.3 % (37.2-46.3); HGB 11.3 g/dL (12.0-15.0); MCH 31.7 pg (27.0-32.0); MCV 98.9 fL (80.0-97.0); Mean Platelet Volume 8.9 fL (9.5-12.2); Platelet Count 368 X 10*3/uL (140-440); RBC 3.57 X 10*6/uL (4.10-5.20); RDW 13.3 % (11.5-14.5); WBC 10.79 X 10*3/uL (4.50-10.00)
[2021-11-17 11:32] LABS: African American GFR (CKD) 74.9 (60.0-200.0); Anion Gap 12.3 mmol/L (10.00-18.00); BUN/Creat Ratio 28.21 Ratio (12.00-20.00); Blood Urea Nitrogen 25.9 mg/dL (9.0-27.0); Calcium 8.2 mg/dL (8.7-10.3); Non-African American GFR(CKD) 64.6 (60.0-200.0); Potassium 3.5 mmol/L (3.5-5.5)
--- NOTE | 2021-11-17 11:34 | P.PN ---
Subjective Progress Note Date: 11/17/21 Principal diagnosis: CC: shortness of breath Patient is a 65-year-old female patient of Dr. Uagrte with diabetes mellitus type 2, prior DVT, hypertension, COPD 3, tardive dyskinesia, recent cervical stenosis with decompression September 2021 who presented with increasing shortness of breath for 7 days. She underwent an extensive evaluation. COVID- 19 PCR was negative, antibodies were positive however patient has been fully vaccinated. RSV came back positive. She did undergo a CT angiogram of the chest due to elevated d-dimer which was negative for pulmonary embolism but demonstrated extensive bilateral infiltrate and atelectasis. She was started on bronchodilators and Solu-Medrol. She underwent a modified barium swallow which demonstrated no signs of aspiration. Pulmonary was consulted and recommended continuing with steroids as well as antibiotics. She underwent a sniff test on 11/14 which confirmed right diaphragmatic paralysis. Patient currently on BiPAP at night and 8 L high flow nasal cannula during the daytime. 11/17/2021: Patient feels as if her breathing is improving gradually. She is currently on 7 L nasal cannula. Objective - Vital Signs Vital signs: Vital Signs Temp 98.1 F 11/17/21 08:00 Pulse 74 11/17/21 08:30 Resp 18 11/17/21 08:30 BP 169/90 11/17/21 08:00 Pulse Ox 94 L 11/17/21 08:30 Intake & Output 11/16/21 11/17/21 11/17/21 18:59 06:59 18:59 Intake Total 700 Balance 700 Intake: IV 700 Piperacillin-Tazobactam 3 100 .375 gm In Sodium Chloride 0.9% 100 ml @ 25 mls/hr IVPB Q8HR YE[facility] Rx# :[id number] Sodium Chloride 0.9% 1, 600 000 ml @ 75 mls/hr IV . [id number] YEHUDA Rx#:[id number] Other: Voiding Method Toilet # Voids 1 - Exam General examination - Alert and Oriented 3 in NAD Heart - + S1S2 no murmurs Lungs - diminished breath sounds bilaterally Abdomen soft NT ND +ve BS Extremities - No edema REFRIGERATOR GLAZIER - Moving all 4 extremities spontaneously Psych - anxious - Labs CBC & Chem 7: 11/17/21 06:41 11/15/21 07:25 Labs: Abnormal Lab Results - Last 24 Hours (Table) 11/16/21 11/16/21 11/16/21 Range/Units 11:40 17:18 20:52 WBC (4.50-10.00) X 10*3/uL RBC (4.10-5.20) X 10*6/uL Hgb (12.0-15.0) g/dL Hct (37.2-46.3) % MCV (80.0-97.0) fL MPV (9.5-12.2) fL POC Glucose (mg/dL) 238 H 231 H 146 H (75-99) mg/dL 11/17/21 11/17/21 Range/Units 06:41 07:30 WBC 10.79 H (4.50-10.00) X 10*3/uL RBC 3.57 L (4.10-5.20) X 10*6/uL Hgb 11.3 L (12.0-15.0) g/dL Hct 35.3 L (37.2-46.3) % MCV 98.9 H (80.0-97.0) fL MPV 8.9 L (9.5-12.2) fL POC Glucose (mg/dL) 171 H (75-99) mg/dL Microbiology - Last 24 Hours (Table) 11/11/21 21:10 Blood Culture - Preliminary Blood No Growth after 120 hours 11/11/21 21:26 Blood Culture - Preliminary Blood No Growth after 120 hours Assessment and Plan Assessment: Viral pneumonia secondary to RSV Acute hypoxic respiratory failure Right hemidiaphragmatic paralysis Vocal cord spasm - Continue with albuterol every 4 hours and when necessary, spiriva -Continue with steroids -Continue with Mucinex, Tessalon -s/p Zosyn -Pulmonary recommendations appreciated -Likely will need BiPAP at night--- pulm to follow -Patient currently on BiPAP at night and 7 L high flow nasal cannula during the daytime -Patient appears to be gradually improving LAYNE - IVF - encourage oral intake - repeat labs in AM GERD -PPI Diabetes mellitus type 2 -Not on medications at home -Continue with sliding scale insulin Hypertension, controlled -Continue with verapamil -Follow blood pressures Chronic upper extremity weakness with gait instability Recent cervical decompression with interbody fusion secondary 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 vs SNF
[2021-11-17 11:38] LABS: Basophils # (M) 0 X 10*3/uL (0.00-0.10); Eosinophils # (M) 0 X 10*3/uL (0.04-0.35); Lymphocytes # (M) 0.32 X 10*3/uL (0.90-5.00); Monocytes # (M) 0.43 X 10*3/uL (0.20-1.00); Neutrophils # (M) 10.03 X 10*3/uL (2.00-8.90); Neutrophils % (M) 93 %
[2021-11-17 12:00] LABS: Glucose,Whole Blood 127 mg/dL (75-99)
--- NOTE | 2021-11-17 14:21 | P.PN ---
Subjective Progress Note Date: 11/17/21 This is a 65-year-old female patient with past medical history of hypertension, diabetes mellitus type 2, previous history of DVT, stage III chronic kidney disease, nonsmoker, and no chronic lung disease, who we saw in consultation on 09/24/2021 after cervical spine decompression and fusion for cervical spondylolisthetic myelopathy. Patient required overnight ventilatory support following her surgery, however was successfully weaned and extubated, did quite well and was eventually discharged home. On 11/11/2021 she presented to the emergency department in respiratory distress. When EMS arrived she was found to be extremely hypoxic, and she reports five-day history of upper respiratory symptoms. Patient is not vaccinated against COVID-19. She has severe coughing spells, but no fever, some phlegm production. No hemoptysis. No chest pain. Her pulse ox was 70% when the EMS arrived, she was immediately placed on CPAP. She denied any nausea or vomiting, no abdominal pain. She tested negative for COVID-19. Chest x-ray showed bilateral pulmonary infiltrates suspicious for pneumonia, d-dimer was elevated at 3.57, and for that reason CT angiogram was completed showing no evidence of pulmonary embolism but did show extensive bilateral pulmonary infiltrates and atelectasis, elevated right hemidiaphragm could relate to some diaphragm paralysis. White blood cell count was 7.8, hemoglobin was 11.9, INR is 0.9, sodium was 132, potassium is 5.4, chloride is 100, CO2 is 24, BUN is 11, creatinine 0.65, ferritin level was 523, AST was 54, ALT was 24, alkaline phosphatase was 238, LDH is 1126, troponin was less than 0.012, CRP was 15.4, proBNP was 300 call pro-calcitonin level was negative at 0.10, patient was also tested for influenza A and B was found to be negative. At the time of my evaluation patient is on high flow oxygen at 9 L with a pulse ox of 93-98%, breathing fairly comfortably, but her breath sounds are very diminished, patient has poor inspiratory effort. And patient has sudden onset of coughing spells, she denies history of aspiration, however she reports previ ous history of GERD and reflux for which she had been on Nexium with some improvement. Currently she is on Decadron 5 mg twice daily, we will switch the antibiotic coverage to Zosyn for possibility of aspiration related pneumonia, we will add breathing treatments with DuoNeb, with the patient one-time dose of Lasix, and switch Decadron to IV Solu-Medrol. The patient is seen today 11/13/2021 in follow-up on the regular medical floor. She is awake and alert in no acute distress. Maintaining good O2 saturations in the 90s on 6 L high flow nasal cannula. She did utilize CPAP throughout the ni ght on pressure support of 6 cm of water and FiO2 of 35%. Blood cultures reveal no growth. Second pro-calcitonin 0.10. RSV by PCR is positive. Legionella antigen results pending. Ragsdale virus antibodies pending. She is continued on DuoNeb inhalations, IV Solu-Medrol, Zosyn. The patient is seen today 11/14/2021 in follow-up on the regular medical floor. She is currently sitting up in bed. Awake and alert in no acute distress. She is currently requiring 10 L high flow nasal cannula with O2 saturation in the high 90s. She is alternating with BiPAP at 35% FiO2. He is currently afebrile. Hemodynamically stable. Chest x-ray reveals coarse infiltrates bilaterally with slight improvement. She did undergo a sniff test which was compatible with right hemidiaphragmatic paralysis. Blood glucose 156. Urine legionella antigen was negative. She did test positive for antibodies for COVID-19. She is continued on IV Solu-Medrol, bronchodilators, antibiotics in the form of Zosyn. The patient is seen today 11/15/2021 in follow-up on the regular medical floor. She is awake and alert in no acute distress. Currently sitting up in bed. States she is feeling better today. She is still requiring 8 L high flow nasal cannula to maintain O2 saturations in the 90s. She is feeling stronger. White count 8.9. Hemoglobin 11.6. Sodium 139. Potassium 3.9. Creatinine 1.06. Glucose 180. She is continued on IV Solu-Medrol, bronchodilators, antibiotics in the form of Zosyn. Heparin for DVT prophylaxis The patient seen today 04/16/2022 in follow-up on the regular medical floor. Bettie white is resting comfortably in bed. Awake and alert in no acute distress. Denies any worsening shortness of breath, cough or congestion. She still requiring oxygen at 8 L high flow nasal cannula to maintain O2 saturation in the 90s. She is continued on IV Solu-Medrol, heparin for DVT prophylaxis, Mucinex. She continues on albuterol, Spiriva and Zosyn. The patient is seen today 11/17/2021 in follow-up on the regular medical floor. She is awake and alert in no acute distress. She is currently requiring 7 L high flow nasal cannula to maintain O2 saturation at 94%. She had been alternating with BiPAP 12/6 and 35% FiO2. Chest x-ray continues to revealed bilateral lung infiltrates. Slightly worse on the right lower lobe. Some improvement in the left upper lobe. White count 10.7. Hemoglobin 11.3. Sodium 143. Potassium 3.5. Creatinine 0.9. Glucose 185. She remains on IV Solu-Medr ol, bronchodilators, Tessalon Perles, Mucinex. Objective - Vital Signs Vital signs: Vital Signs Temp 98.1 F 11/17/21 08:00 Pulse 72 11/17/21 13:09 Resp 16 11/17/21 13:09 BP 169/90 11/17/21 08:00 Pulse Ox 94 L 11/17/21 08:30 Intake & Output 11/16/21 11/17/21 11/17/21 18:59 06:59 18:59 Intake Total 700 Balance 700 Intake: IV 700 Piperacillin-Tazobactam 3 100 .375 gm In Sodium Chloride 0.9% 100 ml @ 25 mls/hr IVPB Q8HR [facility] Rx# :[id number] Sodium Chloride 0.9% 1, 600 000 ml @ 75 mls/hr IV . [id number] YEHUDA Rx#:[id number] Other: Voiding Method Toilet # Voids 1 - Exam GENERAL EXAM: Alert, very pleasant, 65-year-old female patient, on 7 L of oxygen, resting comfortably in bed. No acute distress. HEAD: Normocephalic/atraumatic. EYES: Normal reaction of pupils, equal size. Conjunctiva pink, sclera white. NOSE: Clear with pink turbinates. THROAT: No erythema or exudates. NECK: No masses, no JVD, no thyroid enlargement, no adenopathy. CHEST: No chest wall deformity. Symmetrical expansion. LUNGS: Equal air entry with diminished breath sounds bilaterally with few sca ttered rhonchi, crackles at the bases CVS: Regular rate and rhythm, normal S1 and S2, no gallops, no murmurs, no rubs ABDOMEN: Soft, nontender. No hepatosplenomegaly, normal bowel sounds, no guarding or rigidity. EXTREMITIES: No clubbing, no edema, no cyanosis, 2+ pulses and upper and lower extremities. MUSCULOSKELETAL: Muscle strength and tone normal. SPINE: No scoliosis or deformity SKIN: No rashes CENTRAL NERVOUS SYSTEM: No focal deficits, tone is normal in all 4 extremities. PSYCHIATRIC: Alert and oriented -3. Appropriate affect. Intact judgment and insight. - Labs CBC & Chem 7: 11/17/21 06:41 11/17/21 06:41 Labs: Abnormal Lab Results - Last 24 Hours (Table) 11/16/21 11/16/21 11/17/21 Range/Units 17:18 20:52 06:41 WBC 10.79 H (4.50-10.00) X 10*3/uL RBC 3.57 L (4.10-5.20) X 10*6/uL Hgb 11.3 L (12.0-15.0) g/dL Hct 35.3 L (37.2-46.3) % MCV 98.9 H (80.0-97.0) fL MPV 8.9 L (9.5-12.2) fL Neutrophils # (Manual) 10.03 H (2.00-8.90) X 10*3/uL Lymphocytes # (Manual) 0.32 L (0.90-5.00) X 10*3/uL Eosinophils # (Manual) 0 L (0.04-0.35) X 10*3/uL BUN/Creatinine Ratio (12.00-20.00) Ratio Glucose (70-110) mg/dL POC Glucose (mg/dL) 231 H 146 H (75-99) mg/dL Calcium (8.7-10.3) mg/dL 11/17/21 11/17/21 11/17/21 Range/Units 06:41 07:30 11:59 WBC (4.50-10.00) X 10*3/uL RBC (4.10-5.20) X 10*6/uL Hgb (12.0-15.0) g/dL Hct (37.2-46.3) % MCV (80.0-97.0) fL MPV (9.5-12.2) fL Neutrophils # (Manual) (2.00-8.90) X 10*3/uL Lymphocytes # (Manual) (0.90-5.00) X 10*3/uL Eosinophils # (Manual) (0.04-0.35) X 10*3/uL BUN/Creatinine Ratio 28.21 H (12.00-20.00) Ratio Glucose 185 H (70-110) mg/dL POC Glucose (mg/dL) 171 H 127 H (75-99) mg/dL Calcium 8.2 L (8.7-10.3) mg/dL Microbiology - Last 24 Hours (Table) 11/11/21 21:10 Blood Culture - Preliminary Blood No Growth after 120 hours 11/11/21 21:26 Blood Culture - Preliminary Blood No Growth after 120 hours Assessment and Plan Assessment: 1 Acute hypoxic respiratory failure related to acute multifocal pneumonia, rule out possibility of aspiration. COVID-19 PCR was negative, influenza A and B were negative. RSV positive. Ragsdale virus antibodies positive. Legionella antigen negative. Follow-up chest x-ray 11/17/2021 is showing bilateral lung infiltrates. Right renal lower lobe infiltrate worsening. Left upper lobe infiltrate improving. She remains on Zosyn. She is still requiring 7 L high flow nasal cannula. 2 Hypoventilation, low lung volumes, patient would benefit from BiPAP support at bedtime 3 Elevated d-dimer, CT angiogram of the chest showed no evidence of pulmonary embolism 4 Previous history of GERD/reflux 5 Stage III chronic kidney disease 6 Diabetes mellitus type 2 7 Hypertension 8 Previous history of DVT 9 Recent C3 through C7 anterior interbody arthrodesis and C2 through T2 decompression and fusion surgery for cervical spondylitic myelopathy and severe stenosis and spondylosis 10 Osteoarthritis Plan: The patient was seen and evaluated Chest x-ray and labs reviewed Currently stable and on 7 L Titrate down the FiO2 as tolerated Continued on IV Solu-Medrol, bronchodilators, Zosyn We will continue to follow I, the cosigning physician, performed a history & physical examination of the patient. Lungs sounds with bilateral scattered rhonchi. Maintaining good O2 saturations in the 90s on 7 L high flow nasal cannula. I discussed the assessment and plan of care with my nurse practitioner, Manjula Estrada. I attest to the above note as dictated by her.
[2021-11-17 16:46] LABS: Glucose,Whole Blood 223 mg/dL (75-99)
[2021-11-17 20:32] LABS: Glucose,Whole Blood 217 mg/dL (75-99)
[2021-11-17] MEDS: clonazePAM 0.5 MG TAB PO SCH (22:40)
--- NOTE | 2021-11-17 22:59 | PN ---
PROGRESS NOTE DATE OF SERVICE: 11/17/2021 REASON FOR FOLLOWUP: Acute RSV infection. INTERVAL HISTORY: The patient is afebrile. The patient is breathing comfortably. The patient denies having any chest pain. No worsening cough or sputum production. No abdominal pain or diarrhea. PHYSICAL EXAMINATION: Blood pressure 161/84 with a pulse of 94, temperature 97.7. She is 97% on 7 L nasal cannula. General description is an elderly female up in the bed in no distress. Respiratory system: Unlabored breathing, decreased breath sounds at the base. No wheeze. Heart S1, S2. Regular rate and rhythm. Abdomen soft, no tenderness. LABS: Hemoglobin is 11.3, white count 10.79. Creatinine 0.9. DIAGNOSTIC IMPRESSION AND PLAN: Patient with acute RSV pneumonia, slowly clinically improving. The patient did have normal blood gases to be monitored closely off antibiotic therapy. Continue the current supportive treatment, including steroids, and monitor clinical course closely. NICHOL / JONNYN: [id number] /
[2021-11-18] MEDS: methylPREDNISolone SOD SUCCI 125 MG/2 ML VIAL IV SCH ×3 (00:27→13:55)
[2021-11-18] MEDS: ALBUTEROL NEBULIZED 2.5 MG/3 ML INHALATION SCH ×5 (01:29→21:14)
[2021-11-18] MEDS: SODIUM CHLORIDE 0.9% 1,000 ML IV SCH (06:04)
[2021-11-18 08:12] LABS: Glucose,Whole Blood 186 mg/dL (75-99)
[2021-11-18] MEDS: TIOTROPIUM 2.5 MCG INHALER INHALATION SCH (08:46)
[2021-11-18 09:08] LABS: HCT 37.8 % (37.2-46.3); HGB 11.9 g/dL (12.0-15.0); MCH 31.9 pg (27.0-32.0); MCHC 31.5 g/dL (32.0-37.0); MCV 101.3 fL (80.0-97.0); Mean Platelet Volume 8.9 fL (9.5-12.2); Platelet Count 354 X 10*3/uL (140-440); RBC 3.73 X 10*6/uL (4.10-5.20); RDW 13.4 % (11.5-14.5); WBC 13.42 X 10*3/uL (4.50-10.00)
[2021-11-18 09:44] LABS: African American GFR (CKD) 103.9 (60.0-200.0); Anion Gap 12.7 mmol/L (10.00-18.00); Blood Urea Nitrogen 18.2 mg/dL (9.0-27.0); Carbon Dioxide 20.3 mmol/L (20.0-27.5); Non-African American GFR(CKD) 89.7 (60.0-200.0); Potassium 3.2 mmol/L (3.5-5.5)
[2021-11-18] MEDS: HEPARIN SODIUM,PORCINE/PF 5,000 UNIT/0.5 ML SYRINGE SQ SCH ×2 (10:17→20:56)
[2021-11-18] MEDS: DULoxetine HCL 30 MG CAPSULE.DR PO SCH ×2 (10:18→20:56)
[2021-11-18] MEDS: ASPIRIN 81 MG PO SCH (10:18)
[2021-11-18] MEDS: INSULIN ASPART (NovoLOG) 100 UNIT/ML VIAL SQ SCH ×4 (10:18→20:56)
[2021-11-18] MEDS: PILOCARPINE 5 MG TAB PO SCH ×3 (10:19→20:56)
[2021-11-18] MEDS: PANTOPRAZOLE 40 MG TABLET PO SCH (10:19)
[2021-11-18] MEDS: CITALOPRAM HYDROBROMIDE 20 MG TAB PO SCH (10:19)
[2021-11-18] MEDS: CYCLOBENZAPRINE 10 MG TAB PO SCH ×2 (10:19→20:56)
[2021-11-18] MEDS: guaiFENesin 600 MG TABLET.ER PO SCH ×2 (10:19→20:56)
[2021-11-18] MEDS: VERAPAMIL SR 120 MG TABLET.ER PO SCH (10:19)
[2021-11-18] MEDS: FERROUS SULFATE 325 MG TAB PO SCH (10:19)
[2021-11-18] MEDS: buPROPion SR 150 MG TABLET.ER PO SCH ×2 (10:21→20:56)
[2021-11-18] MEDS: TOPIRAMATE 25 MG TAB PO SCH ×2 (10:21→20:56)
[2021-11-18 11:29] LABS: Glucose,Whole Blood 226 mg/dL (75-99)
[2021-11-18] MEDS ORDERED: POTASSIUM CHLORIDE ER 20 MEQ TAB.ER PO STA (14:13)
--- NOTE | 2021-11-18 14:15 | P.PN ---
Subjective Progress Note Date: 11/18/21 HISTORY OF PRESENT ILLNESS Patient is a 65-year-old female patient of Dr. Ugarte with diabetes mellitus type 2, prior DVT, hypertension, COPD 3, tardive dyskinesia, recent cervical stenosis with decompression September 2021 who presented with increasing shortness of breath for 7 days. She underwent an extensive evaluation. COVID- 19 PCR was negative, antibodies were positive however patient has been fully vaccinated. RSV came back positive. She did undergo a CT angiogram of the chest due to elevated d-dimer which was negative for pulmonary embolism but demonstrated extensive bilateral infiltrate and atelectasis. She was started on bronchodilators and Solu-Medrol. She underwent a modified barium swallow which demonstrated no signs of aspiration. Pulmonary was consulted and recommended continuing with steroids as well as antibiotics. She underwent a sniff test on 11/14 which confirmed right diaphragmatic paralysis. Patient currently on BiPAP at night and 8 L high flow nasal cannula during the daytime. 11/17/2021: Patient feels as if her breathing is improving gradually. She is currently on 7 L nasal cannula. 11/18: Patient remains on 7 L nasal cannula pulse ox 97% afebrile, heart rate 97, respiratory rate 30, blood pressure 167/89. Repeat blood work reveals WBC 13.4, hemoglobin 0.9, platelet count 354. Potassium 3.2 otherwise electrolytes and renal function normal. Blood sugars are running between 186 and 226. Blood culture showing no growth 2 specimens. Covid 19 PCR negative, influenza A and B are negative, RSV positive. Legionella negative. Repeat chest x-ray performed yesterday reveals bilateral lung infiltrates. Right lower lobe infiltrate is worsening. There may be some improvement of the left upper lung field infiltrate. Patient is followed by pulmonary medicine. Patient is followed by pulmonary medicine and infectious disease. Patient states that her breathing status is improved. Potassium will be replaced and Solu-Medrol dec reased to 40 mg every 8 hours. Patient does not have home oxygen therapy. She does live at home with her son plans to return home. Anticipate possible discharge tomorrow. REVIEW OF SYSTEMS Constitutional: No fever, no chills, no night sweats. No weight change. No weakness, fatigue or lethargy. No daytime sleepiness. EENT: No headache. No blurred vision or double vision, no loss of vision. No loss of Hearing, no ringing in the ears, no dizziness. No nasal drainage or congestion. No epistaxis. No sore throat. Lungs: Reports shortness of breath, reports cough, no sputum production. No wheezing. Cardiovascular: No chest pain, no lower extremity edema. No palpitations. No paroxysmal nocturnal dyspnea. No orthopnea. No lightheadedness or dizziness. No syncopal episodes. Abdominal: No abdominal pain. No nausea, vomiting. No diarrhea. No constipation. No bloody or tarry stools. No loss of appetite. Genitourinary: No dysuria, increased frequency, urgency. No urinary retention. Musculoskeletal: No myalgias. No muscle weakness, no gait dysfunction, no frequent falls. No back pain. No neck pain. Integumentary: No wounds, no lesions. No rash or pruritus. No unusual bruising. No change in hair or nails. Neurologic: No aphasia. No facial droop. No change in mentation. No head injury. No headache. No paralysis. No paresthesia. Psychiatric: No depression. No anxiety. No mood swings. Endocrine: No abnormal blood sugars. No weight change. No excessive sweating or thirst. No cold intolerance. PHYSICAL EXAMINATION Gen: This is a 66-year-old female, resting in bed and appears to be comfortable and in no acute distress. Dorsalis pedis +2 bilaterally. HEENT: Head is atraumatic, normocephalic. Pupils equal, round. Sclerae is anicteric. NECK: Supple. No JVD. No lymphadenopathy. No thyromegaly. LUNGS: Diminished breath sounds bilat. No wheezes. No intercostal retractions. HEART: Regular rate and rhythm. No murmur. ABDOMEN: Soft. Bowel sounds are present. No masses. No tenderness. EXTREMITIES: No pedal edema. No calf tenderness. NEUROLOGICAL: Patient is awake, alert and oriented x3. Cranial nerves 2 through 12 are grossly intact. ASSESSMENT AND PLAN 1 Acute hypoxic respiratory failure related to acute multifocal pneumonia, rule out possibility of aspiration, acute RSV pneumonia. And tinea oxygen therapy currently at 7 L nasal cannula, continue Solu-Medecreased to 40 mg every 8 hours, DuoNeb treatments, Mucinex, patient is not currently on antibiotics 2 Hypoventilation, low lung volumes, patient would benefit from BiPAP support at bedtime 3 Elevated d-dimer, CT angiogram of the chest showed no evidence of pulmonary embolism 4 Previous history of GERD/reflux. Continue Protonix 40 mg daily. 5 Stage III chronic kidney disease. Avoid nephrotoxic agents. 6 Diabetes mellitus type 2 uncontrolled with hyperglycemia secondary to steroids. Patient will be started on Levemir 14 units at bedtime, continue NovoLog scale 7 Hypertension. Continue verapamil 120 mg daily. 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 11. DVT prophylaxis. Heparin subcu. 12. COVID-19 testing negative. Patient has been hospitalized during a pandemic. DISCHARGE PLAN Home with [facility], possible home oxygen need for chronic hypoxic respiratory failure. possibly home on Thursday. Impression and plan of care have been directed as dictated by the signing physician. Lizzy Sands nurse practitioner acting as scribe for signing trip mac. Objective - Vital Signs Vital signs: Vital Signs Temp 97.5 F L 11/18/21 07:26 Pulse 97 11/18/21 07:26 Resp 30 H 11/18/21 07:26 BP 167/89 11/18/21 07:26 Pulse Ox 97 11/18/21 07:26 Intake & Output 11/17/21 11/18/21 11/18/21 18:59 06:59 18:59 Other: Voiding Method Toilet Toilet Toilet # Voids 2 3 - Labs CBC & Chem 7: 11/18/21 06:40 11/18/21 06:40 Labs: Abnormal Lab Results - Last 24 Hours (Table) 11/17/21 11/17/21 11/17/21 Range/Units 06:41 06:41 11:59 WBC (4.50-10.00) X 10*3/uL RBC (4.10-5.20) X 10*6/uL Hgb (12.0-15.0) g/dL MCV (80.0-97.0) fL MCHC (32.0-37.0) g/dL MPV (9.5-12.2) fL Neutrophils # (Manual) 10.03 H (2.00-8.90) X 10*3/uL Lymphocytes # (Manual) 0.32 L (0.90-5.00) X 10*3/uL Eosinophils # (Manual) 0 L (0.04-0.35) X 10*3/uL Potassium (3.5-5.5) mmol/L BUN/Creatinine Ratio 28.21 H (12.00-20.00) Ratio Glucose 185 H (70-110) mg/dL POC Glucose (mg/dL) 127 H (75-99) mg/dL Calcium 8.2 L (8.7-10.3) mg/dL 11/17/21 11/17/21 11/18/21 Range/Units 16:45 20:30 06:40 WBC 13.42 H (4.50-10.00) X 10*3/uL RBC 3.73 L (4.10-5.20) X 10*6/uL Hgb 11.9 L (12.0-15.0) g/dL MCV 101.3 H (80.0-97.0) fL MCHC 31.5 L (32.0-37.0) g/dL MPV 8.9 L (9.5-12.2) fL Neutrophils # (Manual) (2.00-8.90) X 10*3/uL Lymphocytes # (Manual) (0.90-5.00) X 10*3/uL Eosinophils # (Manual) (0.04-0.35) X 10*3/uL Potassium (3.5-5.5) mmol/L BUN/Creatinine Ratio (12.00-20.00) Ratio Glucose (70-110) mg/dL POC Glucose (mg/dL) 223 H 217 H (75-99) mg/dL Calcium (8.7-10.3) mg/dL 11/18/21 11/18/21 Range/Units 06:40 08:10 WBC (4.50-10.00) X 10*3/uL RBC (4.10-5.20) X 10*6/uL Hgb (12.0-15.0) g/dL MCV (80.0-97.0) fL MCHC (32.0-37.0) g/dL MPV (9.5-12.2) fL Neutrophils # (Manual) (2.00-8.90) X 10*3/uL Lymphocytes # (Manual) (0.90-5.00) X 10*3/uL Eosinophils # (Manual) (0.04-0.35) X 10*3/uL Potassium 3.2 L (3.5-5.5) mmol/L BUN/Creatinine Ratio 26.00 H (12.00-20.00) Ratio Glucose 159 H (70-110) mg/dL POC Glucose (mg/dL) 186 H (75-99) mg/dL Calcium 8.0 L (8.7-10.3) mg/dL Microbiology - Last 24 Hours (Table) 11/11/21 21:26 Blood Culture - Final Blood No Growth after 144 hours 11/11/21 21:10 Blood Culture - Final Blood No Growth after 144 hours
[2021-11-18 15:26] VITALS: BMI 26.6
[2021-11-18 16:00] LABS: Glucose,Whole Blood 111 mg/dL (75-99)
[2021-11-18] MEDS ORDERED: methylPREDNISolone SOD SUCCI 40 MG/ML 1 ML VIAL IV SCH (16:00)
[2021-11-18] MEDS ORDERED: FUROSEMIDE 10 MG/ML 4 ML VIAL IV STA (16:01)
--- NOTE | 2021-11-18 17:38 | P.PN ---
Subjective Progress Note Date: 11/18/21 Principal diagnosis: Shortness of breath On 11/18/2021 patient seen in follow-up on medical surgical floor. She is resting comfortably, she is currently on 7 L of oxygen pulse ox is 100%, FiO2 has been dropped down to 6 L. Breathing comfortably, she states she feels like she is improving. Her cough has improved, no complaints of chest discomfort, no hemoptysis, she continues on Zosyn IV Solu-Medrol, and nebulized bronchodilators, her pro-calcitonin level was negative, she was found to be positive for RSV. Her COVID-19 antibiotics were also positive and patient isn't nonvaccinated adult suggesting that patient had recent history of COVID 19 pneumonia. Legionella urine antigen was negative. Patient denies any swallowing issues, she passed her swallow evaluation, she has been wearing BiPAP support as needed. All cultures have been negative, procalcitonin level was negative at 0.06. Generally patient appears to be swallowing, with swelling in her upper extremities left arm greater than right related to recent history of IV infiltration, and there is 1+ pitting edema in her bilateral lower extremities. Objective - Vital Signs Vital signs: Vital Signs Temp 97.9 F 11/18/21 14:00 Pulse 82 11/18/21 14:00 Resp 18 11/18/21 14:00 BP 154/94 11/18/21 14:00 Pulse Ox 100 11/18/21 14:00 Intake & Output 11/17/21 11/18/21 11/18/21 18:59 06:59 18:59 Intake Total 4200 Balance 4200 Weight 77.111 kg Intake: Oral 4200 Other: Voiding Method Toilet Toilet Toilet # Voids 2 3 3 - Exam GENERAL EXAM: Alert, very pleasant, 66-year-old white female on 7 L of oxygen the pulse ox 100% comfortable in no apparent distress. HEAD: Normocephalic/atraumatic. EYES: Normal reaction of pupils, equal size. Conjunctiva pink, sclera white. NOSE: Clear with pink turbinates. THROAT: No erythema or exudates. NECK: No masses, no JVD, no thyroid enlargement, no adenopathy. CHEST: No chest wall deformity. Symmetrical expansion. LUNGS: Equal air entry with mesh breath sounds and bilateral crackles CVS: Regular rate and rhythm, normal S1 and S2, no gallops, no murmurs, no rubs ABDOMEN: Soft, nontender. No hepatosplenomegaly, normal bowel sounds, no guarding or rigidity. EXTREMITIES: No clubbing, plus generalized edema left arm greater than right, no cyanosis, 2+ pulses and upper and lower extremities. MUSCULOSKELETAL: Muscle strength and tone normal. SPINE: No scoliosis or deformity SKIN: No rashes CENTRAL NERVOUS SYSTEM: Alert and oriented -3. No focal deficits, tone is normal in all 4 extremities. PSYCHIATRIC: Alert and oriented -3. Appropriate affect. Intact judgment and insight. - Labs CBC & Chem 7: 11/18/21 06:40 11/18/21 06:40 Labs: Abnormal Lab Results - Last 24 Hours (Table) 11/17/21 11/18/21 11/18/21 Range/Units 20:30 06:40 06:40 WBC 13.42 H (4.50-10.00) X 10*3/uL RBC 3.73 L (4.10-5.20) X 10*6/uL Hgb 11.9 L (12.0-15.0) g/dL MCV 101.3 H (80.0-97.0) fL MCHC 31.5 L (32.0-37.0) g/dL MPV 8.9 L (9.5-12.2) fL Potassium 3.2 L (3.5-5.5) mmol/L BUN/Creatinine Ratio 26.00 H (12.00-20.00) Ratio Glucose 159 H (70-110) mg/dL POC Glucose (mg/dL) 217 H (75-99) mg/dL Calcium 8.0 L (8.7-10.3) mg/dL 11/18/21 11/18/21 11/18/21 Range/Units 08:10 11:29 15:59 WBC (4.50-10.00) X 10*3/uL RBC (4.10-5.20) X 10*6/uL Hgb (12.0-15.0) g/dL MCV (80.0-97.0) fL MCHC (32.0-37.0) g/dL MPV (9.5-12.2) fL Potassium (3.5-5.5) mmol/L BUN/Creatinine Ratio (12.00-20.00) Ratio Glucose (70-110) mg/dL POC Glucose (mg/dL) 186 H 226 H 111 H (75-99) mg/dL Calcium (8.7-10.3) mg/dL Microbiology - Last 24 Hours (Table) 11/11/21 21:26 Blood Culture - Final Blood No Growth after 144 hours 11/11/21 21:10 Blood Culture - Final Blood No Growth after 144 hours Assessment and Plan Plan: Assessment: #1. Acute hypoxic respiratory failure related to acute multifocal pneumonia, aspiration has been ruled out,. COVID-19 PCR was negative, influenza A and B were negative. However COVID-19 antibiotic test was positive suggesting recent history of COVID-19 infection. Patient is a non-vaccinated adult. RSV was positive #2. Hypoventilation, low lung volumes, paralyzed right hemidiaphragm, patient has been on intermittent BiPAP support. Patient may eventually need surgical evaluation for possible diaphragmatic plication. She may end up going home on oxygen or positive pressure ventilation device #3. Elevated d-dimer, CT angiogram of the chest showed no evidence of pulmonary embolism #4. Previous history of GERD/reflux #5. Stage III chronic kidney disease #6. Diabetes mellitus type 2 #7. Hypertension #8. Previous history of DVT #9. 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 Osteoarthritis Plan: Breathing is improving Continue weaning FiO2 to maintain O2 sat saturation is at or above 90% We'll switch IV Solu-Medrol to oral prednisone Patient could benefit from a couple doses of IV Lasix, she is really generally swollen We'll continue with inhaled bronchodilators Continue using BiPAP support at bedtime and as needed Patient's son was at the bedside had a lot of questions about patient's breathing and overall condition Patient may end up going home on home oxygen or possibly a BiPAP device After she recovers we'll discuss further options with her in regards to the paralyzed right hemidiaphragm and patient may need surgical evaluation for possible diaphragmatic plication I performed a history & physical examination of the patient and discussed their management with my nurse practitioner, Eliza Leary. I reviewed the nurse practitioner's note and agree with the documented findings and plan of care. Lung sounds are positive for diminished breath sounds throughout the lung rodríguez. The findings and the impression was discussed with the patient. I attest to the documentation by the nurse practitioner. Time with Patient: Less than 30
[2021-11-18 20:43] LABS: Glucose,Whole Blood 170 mg/dL (75-99)
[2021-11-18] MEDS: clonazePAM 0.5 MG TAB PO SCH (20:56)
[2021-11-18] MEDS ORDERED: INSULIN DETEMIR (LEVEMIR) 100 UNIT/ML SYR SQ SCH (21:00)
--- NOTE | 2021-11-18 22:33 | PN ---
PROGRESS NOTE DATE OF SERVICE: 12/15/2021 REASON FOR FOLLOWUP: Covid RSV infection. INTERVAL HISTORY: Patient is afebrile. The patient is breathing comfortably. The patient is on 5 L nasal cannula. Denies any chest pain. No worsening cough or sputum production. No abdominal pain. No diarrhea. PHYSICAL EXAMINATION: Blood pressure 155/95 with a pulse of 92, temperature 98.5. She is 92% on 5 L high flow oxygen. General description is an elderly female up in the bed in no distress. Respiratory system: Unlabored breathing, decreased breath sounds at the base. No wheeze. Heart S1, S2. Regular rate and rhythm. Abdomen soft, no tenderness. LABS: Hemoglobin is 11.8, white count 13.4, creatinine 0.7. DIAGNOSTIC IMPRESSION AND PLAN: Patient with acute RSV pneumonia in this patient slowly clinically improving. Patient to continue with the prednisone, bronchodilator and supportive treatment. No need for antiviral or antibiotics. Continue supportive care. MMODL / IJN: [id number] /
[2021-11-19] MEDS: ALBUTEROL NEBULIZED 2.5 MG/3 ML INHALATION SCH ×6 (03:59→23:36)
[2021-11-19 07:07] LABS: Glucose,Whole Blood 56 mg/dL (75-99)
[2021-11-19 07:21] LABS: Glucose,Whole Blood 51 mg/dL (75-99)
[2021-11-19] MEDS: INSULIN ASPART (NovoLOG) 100 UNIT/ML VIAL SQ SCH ×4 (07:21→21:18)
[2021-11-19 07:46] LABS: Glucose,Whole Blood 78 mg/dL (75-99)
[2021-11-19] MEDS: HEPARIN SODIUM,PORCINE/PF 5,000 UNIT/0.5 ML SYRINGE SQ SCH ×2 (08:33→21:18)
[2021-11-19] MEDS: buPROPion SR 150 MG TABLET.ER PO SCH ×2 (08:34→21:18)
[2021-11-19] MEDS: FERROUS SULFATE 325 MG TAB PO SCH (08:34)
[2021-11-19] MEDS: DULoxetine HCL 30 MG CAPSULE.DR PO SCH ×2 (08:34→21:18)
[2021-11-19] MEDS: ASPIRIN 81 MG PO SCH (08:34)
[2021-11-19] MEDS: PILOCARPINE 5 MG TAB PO SCH ×3 (08:34→21:52)
[2021-11-19] MEDS: FUROSEMIDE 10 MG/ML 4 ML VIAL IV SCH (08:34)
[2021-11-19] MEDS: guaiFENesin 600 MG TABLET.ER PO SCH ×2 (08:34→21:18)
[2021-11-19] MEDS: TOPIRAMATE 25 MG TAB PO SCH ×2 (08:34→21:18)
[2021-11-19] MEDS: CYCLOBENZAPRINE 10 MG TAB PO SCH ×2 (08:34→21:18)
[2021-11-19] MEDS: VERAPAMIL SR 120 MG TABLET.ER PO SCH (08:34)
[2021-11-19] MEDS: predniSONE 20 MG TAB PO SCH (08:35)
[2021-11-19] MEDS: PANTOPRAZOLE 40 MG TABLET PO SCH (08:35)
[2021-11-19] MEDS: CITALOPRAM HYDROBROMIDE 20 MG TAB PO SCH (08:35)
[2021-11-19] MEDS: TIOTROPIUM 2.5 MCG INHALER INHALATION SCH (08:44)
--- NOTE | 2021-11-19 08:51 | XR ---
EXAMINATION TYPE: XR chest 2V DATE OF EXAM: 11/19/2021 COMPARISON: Chest x-ray 11/17/2021 CT chest 11/11/2021 HISTORY: Dyspnea TECHNIQUE: Frontal and lateral views of the chest are obtained. FINDINGS: Postop changes to the cervical thoracic spine, right shoulder are again noted. Lung volume s are low. There is no evident pneumothorax. Right hemidiaphragm is elevated. Probable colonic air no ojsef inferior to the right hemidiaphragm. Cardiac mediastinal silhouette is likely stable, aorta is de nse. Patchy density is present in the bilateral lungs. IMPRESSION: Correlate for atelectasis versus pneumonia, possible diaphragmatic paralysis.
[2021-11-19 11:35] LABS: Glucose,Whole Blood 65 mg/dL (75-99)
--- NOTE | 2021-11-19 13:31 | P.PN ---
Subjective Progress Note Date: 11/19/21 HISTORY OF PRESENT ILLNESS Patient is a 65-year-old female patient of Dr. Ugarte with diabetes mellitus type 2, prior DVT, hypertension, COPD 3, tardive dyskinesia, recent cervical stenosis with decompression September 2021 who presented with increasing shortness of breath for 7 days. She underwent an extensive evaluation. COVID- 19 PCR was negative, antibodies were positive however patient has been fully vaccinated. RSV came back positive. She did undergo a CT angiogram of the chest due to elevated d-dimer which was negative for pulmonary embolism but demonstrated extensive bilateral infiltrate and atelectasis. She was started on bronchodilators and Solu-Medrol. She underwent a modified barium swallow which demonstrated no signs of aspiration. Pulmonary was consulted and recommended continuing with steroids as well as antibiotics. She underwent a sniff test on 11/14 which confirmed right diaphragmatic paralysis. Patient currently on BiPAP at night and 8 L high flow nasal cannula during the daytime. 11/17/2021: Patient feels as if her breathing is improving gradually. She is currently on 7 L nasal cannula. 11/18: Patient remains on 7 L nasal cannula pulse ox 97% afebrile, heart rate 97, respiratory rate 30, blood pressure 167/89. Repeat blood work reveals WBC 13.4, hemoglobin 0.9, platelet count 354. Potassium 3.2 otherwise electrolytes and renal function normal. Blood sugars are running between 186 and 226. Blood culture showing no growth 2 specimens. Covid 19 PCR negative, influenza A and B are negative, RSV positive. Legionella negative. Repeat chest x-ray performed yesterday reveals bilateral lung infiltrates. Right lower lobe infiltrate is worsening. There may be some improvement of the left upper lung field infiltrate. Patient is followed by pulmonary medicine. Patient is followed by pulmonary medicine and infectious disease. Patient states that her breathing status is improved. Potassium will be replaced and Solu-Medrol dec reased to 40 mg every 8 hours. Patient does not have home oxygen therapy. She does live at home with her son plans to return home. Anticipate possible discharge tomorrow. 11/19: Repeat chest x-ray reveals atelectasis versus pneumonia, possible diaphragmatic paralysis. Patient is followed by infectious disease and pulmonary medicine. Dr. Clark spoke with patient's son and he would like patient to be on BiPAP which will be arranged. Patient is continued on prednisone 40 mg daily, Lasix 40 mg IV daily, albuterol nebulizer treatments. She has been afebrile, heart rate 80, blood pressure 144/98, pulse ox 93% on 5 L nasal cannula. Patient had a low blood sugar this morning of 56 breakfast. Levemir will be discontinued and patient continued on NovoLog scale and Solu- Medrol was discontinued. REVIEW OF SYSTEMS Constitutional: No fever, no chills, no night sweats. No weight change. No w eakness, fatigue or lethargy. No daytime sleepiness. EENT: No headache. No blurred vision or double vision, no loss of vision. No loss of Hearing, no ringing in the ears, no dizziness. No nasal drainage or congestion. No epistaxis. No sore throat. Lungs: Reports shortness of breath, reports cough, no sputum production. No wheezing. Cardiovascular: No chest pain, no lower extremity edema. No palpitations. No paroxysmal nocturnal dyspnea. No orthopnea. No lightheadedness or dizziness. No syncopal episodes. Abdominal: No abdominal pain. No nausea, vomiting. No diarrhea. No constipa tion. No bloody or tarry stools. No loss of appetite. Genitourinary: No dysuria, increased frequency, urgency. No urinary retention. Musculoskeletal: No myalgias. No muscle weakness, no gait dysfunction, no frequent falls. No back pain. No neck pain. Integumentary: No wounds, no lesions. No rash or pruritus. No unusual bruising. No change in hair or nails. Neurologic: No aphasia. No facial droop. No change in mentation. No head injury. No headache. No paralysis. No paresthesia. Psychiatric: No depression. No anxiety. No mood swings. Endocrine: Noted abnormal blood sugars. No weight change. No excessive sweating or thirst. No cold intolerance. PHYSICAL EXAMINATION Gen: This is a 66-year-old female, resting in bed and appears to be comfortable and in no acute distress. HEENT: Head is atraumatic, normocephalic. Pupils equal, round. Sclerae is anicteric. NECK: Supple. No JVD. No lymphadenopathy. No thyromegaly. LUNGS: Diminished breath sounds bilat. No wheezes. No intercostal retractions. HEART: Regular rate and rhythm. No murmur. ABDOMEN: Soft. Bowel sounds are present. No masses. No tenderness. EXTREMITIES: No pedal edema. No calf tenderness. Dorsalis pedis +2 bilaterally. NEUROLOGICAL: Patient is awake, alert and oriented x3. Cranial nerves 2 through 12 are grossly intact. ASSESSMENT AND PLAN 1 Acute hypoxic respiratory failure related to acute multifocal pneumonia, ruled out possibility of aspiration, acute RSV pneumonia. Continue oxygen therapy currently at 5 L nasal cannula, continue Solu-Medecreased to 40 mg every 8 hours, DuoNeb treatments, Mucinex, patient is not currently on antibiotics 2 Hypoventilation, low lung volumes, patient would benefit from BiPAP support at bedtime 3 Elevated d-dimer, CT angiogram of the chest showed no evidence of pulmonary embolism 4 Previous history of GERD/reflux. Continue Protonix 40 mg daily. 5 Stage III chronic kidney disease. Avoid nephrotoxic agents. 6 Diabetes mellitus type 2 uncontrolled with hyperglycemia secondary to steroids. Levemir discontinued, continue NovoLog scale 7 Hypertension. Continue verapamil 120 mg daily. 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 11. DVT prophylaxis. Heparin subcu. 12. COVID-19 testing negative. Patient has been hospitalized during a pandemic. DISCHARGE PLAN Home with [facility], possible home oxygen need for chronic hypoxic respiratory failure. Impression and plan of care have been directed as dictated by the signing ph ysician. Lizzy Sands nurse practitioner acting as scribe for signing physician. Objective - Vital Signs Vital signs: Vital Signs Temp 98.0 F 11/19/21 11:04 Pulse 80 11/19/21 11:04 Resp 19 11/19/21 11:04 BP 144/98 11/19/21 11:04 Pulse Ox 93 L 11/19/21 11:04 Intake & Output 11/18/21 11/19/21 11/19/21 18:59 06:59 18:59 Intake Total 4200 240 Balance 4200 240 Weight 77.111 kg Intake: Oral 4200 240 Other: Voiding Method Toilet Toilet Toilet # Voids 3 - Labs CBC & Chem 7: 11/18/21 06:40 11/18/21 06:40 Labs: Abnormal Lab Results - Last 24 Hours (Table) 0111/18/21 11/18/21 Range/Units 11:29 15:59 20:42 POC Glucose (mg/dL) 226 H 111 H 170 H (75-99) mg/dL 11/19/21 11/19/21 Range/Units 07:04 07:20 POC Glucose (mg/dL) 56 L 51 L (75-99) mg/dL
[2021-11-19 16:57] LABS: Glucose,Whole Blood 172 mg/dL (75-99)
--- NOTE | 2021-11-19 17:08 | P.PN ---
Subjective Progress Note Date: 11/19/21 Principal diagnosis: Shortness of breath On 11/18/2021 patient seen in follow-up on medical surgical floor. She is resting comfortably, she is currently on 7 L of oxygen pulse ox is 100%, FiO2 has been dropped down to 6 L. Breathing comfortably, she states she feels like she is improving. Her cough has improved, no complaints of chest discomfort, no hemoptysis, she continues on Zosyn IV Solu-Medrol, and nebulized bronchodilators, her pro-calcitonin level was negative, she was found to be positive for RSV. Her COVID-19 antibiotics were also positive and patient isn't nonvaccinated adult suggesting that patient had recent history of COVID 19 pneumonia. Legionella urine antigen was negative. Patient denies any swallowing issues, she passed her swallow evaluation, she has been wearing BiPAP support as needed. All cultures have been negative, procalcitonin level was negative at 0.06. Generally patient appears to be swallowing, with swelling in her upper extremities left arm greater than right related to recent history of IV infiltration, and there is 1+ pitting edema in her bilateral lower extremities. on 11/19/2021 patient seen in follow-up on medical surgical floor, she is improving, breathing much more comfortably, currently patient is down to 5 L and pulse ox is 93%, over last 48 hours we were able to cut down from 8 L down to 5 L. She is maintaining stable O2 saturations, she continues on Lasix 40 mg daily, she is diuresing, generalized edema is improving. She also continues on prednisone 40 mg daily, she is on heparin subcu for DVT prophylaxis,she is doing well. This had no acute events overnight, lung sounds reveal diffuse crackles at bilateral bases, no complaints of chest discomfort, overall breathing much more comfortably. Objective - Vital Signs Vital signs: Vital Signs Temp 97.9 F 11/19/21 14:00 Pulse 78 11/19/21 14:00 Resp 19 11/19/21 14:00 BP 128/69 11/19/21 14:00 Pulse Ox 94 L 11/19/21 14:00 Intake & Output 11/18/21 11/19/21 11/19/21 18:59 06:59 18:59 Intake Total 4200 240 Balance 4200 240 Weight 77.111 kg Intake: Oral 4200 240 Other: Voiding Method Toilet Toilet Toilet # Voids 3 - Exam GENERAL EXAM: Alert, very pleasant, 66-year-old white female on 5 L of oxygen the pulse ox 94% comfortable in no apparent distress. HEAD: Normocephalic/atraumatic. EYES: Normal reaction of pupils, equal size. Conjunctiva pink, sclera white. NOSE: Clear with pink turbinates. THROAT: No erythema or exudates. NECK: No masses, no JVD, no thyroid enlargement, no adenopathy. CHEST: No chest wall deformity. Symmetrical expansion. LUNGS: Equal air entry with mesh breath sounds and bilateral crackles CVS: Regular rate and rhythm, normal S1 and S2, no gallops, no murmurs, no rubs ABDOMEN: Soft, nontender. No hepatosplenomegaly, normal bowel sounds, no guarding or rigidity. EXTREMITIES: No clubbing, plus generalized edema left arm greater than right, no cyanosis, 2+ pulses and upper and lower extremities. MUSCULOSKELETAL: Muscle strength and tone normal. SPINE: No scoliosis or deformity SKIN: No rashes CENTRAL NERVOUS SYSTEM: Alert and oriented -3. No focal deficits, tone is normal in all 4 extremities. PSYCHIATRIC: Alert and oriented -3. Appropriate affect. Intact judgment and insight. - Labs CBC & Chem 7: 11/18/21 06:40 11/18/21 06:40 Labs: Abnormal Lab Results - Last 24 Hours (Table) 11/18/21 11/19/21 11/19/21 Range/Units 20:42 07:04 07:20 POC Glucose (mg/dL) 170 H 56 L 51 L (75-99) mg/dL 11/19/21 11/19/21 Range/Units 11:33 16:56 POC Glucose (mg/dL) 65 L 172 H (75-99) mg/dL Assessment and Plan Plan: Assessment: #1. Acute hypoxic respiratory failure related to acute multifocal pneumonia, aspiration has been ruled out,. COVID-19 PCR was negative, influenza A and B were negative. However COVID-19 antibiotic test was positive suggesting recent history of COVID-19 infection. Patient is a non-vaccinated adult. RSV was positive #2. Hypoventilation, low lung volumes, paralyzed right hemidiaphragm, patient has been on intermittent BiPAP support. Patient may eventually need surgical evaluation for possible diaphragmatic plication. She may end up going home on oxygen or positive pressure ventilation device #3. Elevated d-dimer, CT angiogram of the chest showed no evidence of pulmonary embolism #4. Previous history of GERD/reflux #5. Stage III chronic kidney disease #6. Diabetes mellitus type 2 #7. Hypertension #8. Previous history of DVT #9. 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 Osteoarthritis Plan: Breathing is improving minimal cough, no chest pain, FiO2 is improving and is down to 5 L Continue weaning FiO2 to maintain O2 sat saturation is at or above 90% continue IV Lasix for another 24 hours Continue prednisone We'll continue with inhaled bronchodilators Continue using BiPAP support at bedtime increase activity as tolerated Today's chest x-ray has been noted showing low lung volumes, atelectasis versus pneumonia, right hemidiaphragmatic paralysis Clinically patient is improving If continues to do well and maintains stable O2 saturations on less than 5 L of oxygen we may consider discharge in the next 48 hours Will likely discharge patient home on home oxygen We'll discuss possibility of hemidiaphragmatic surgical plication on an outpatient basis as the patient recovers from this current episode of pneumonia No need for home BiPAP device I performed a history & physical examination of the patient and discussed their management with my nurse practitioner, Eliza Leary. I reviewed the nurse practitioner's note and agree with the documented findings and plan of care. Lung sounds are positive for diminished breath sounds throughout the lung rodríguez. The findings and the impression was discussed with the patient. I attest to the documentation by the nurse practitioner. Time with Patient: Less than 30
[2021-11-19] MEDS: HYDROcodone/APAP 10-325MG 1 EACH TAB PO PRN (17:24)
[2021-11-19 20:22] LABS: Glucose,Whole Blood 169 mg/dL (75-99)
[2021-11-19] MEDS: clonazePAM 0.5 MG TAB PO SCH (21:18)
--- NOTE | 2021-11-19 23:49 | PN ---
PROGRESS NOTE DATE OF SERVICE: 11/19/2021 REASON FOR FOLLOWUP: MRSA pneumonia. INTERVAL HISTORY: Patient is afebrile. The patient is breathing more comfortably. Denies having any chest pain. No nausea. No cough. No sputum production. No abdominal pain. No diarrhea. PHYSICAL EXAMINATION: Blood pressure 149/90 with a pulse of 94, temperature 98.5. She is 91% on 5 L nasal cannula. General description is an elderly female lying in bed in no distress. Respiratory system: Unlabored breathing, coarse breath sounds bilaterally, no wheeze. Heart S1, S2. Regular rate and rhythm. Abdomen soft, no tenderness. LABS: Repeat x-ray showing atelectasis versus pneumonia. No CBC was done today. DIAGNOSTIC IMPRESSION AND PLAN: Patient with acute RSV infection in this patient clinically no evidence of any secondary bacterial pneumonia. Continue current supportive treatment and we will monitor the patient closely off antibiotics. Continue supportive care. MMODL / IJN: [id number] /
[2021-11-20] MEDS: ALBUTEROL NEBULIZED 2.5 MG/3 ML INHALATION SCH ×6 (03:35→23:57)
[2021-11-20 07:23] LABS: Glucose,Whole Blood 95 mg/dL (75-99)
[2021-11-20] MEDS: INSULIN ASPART (NovoLOG) 100 UNIT/ML VIAL SQ SCH ×4 (07:49→20:02)
[2021-11-20] MEDS: HEPARIN SODIUM,PORCINE/PF 5,000 UNIT/0.5 ML SYRINGE SQ SCH ×2 (08:57→20:02)
[2021-11-20] MEDS: guaiFENesin 600 MG TABLET.ER PO SCH ×2 (08:58→20:02)
[2021-11-20] MEDS: FERROUS SULFATE 325 MG TAB PO SCH (08:58)
[2021-11-20] MEDS: VERAPAMIL SR 120 MG TABLET.ER PO SCH (08:58)
[2021-11-20] MEDS: DULoxetine HCL 30 MG CAPSULE.DR PO SCH ×2 (08:58→20:02)
[2021-11-20] MEDS: CYCLOBENZAPRINE 10 MG TAB PO SCH ×2 (08:58→20:02)
[2021-11-20] MEDS: buPROPion SR 150 MG TABLET.ER PO SCH ×2 (08:58→20:02)
[2021-11-20] MEDS: PANTOPRAZOLE 40 MG TABLET PO SCH (08:58)
[2021-11-20] MEDS: PILOCARPINE 5 MG TAB PO SCH ×3 (08:58→20:02)
[2021-11-20] MEDS: ASPIRIN 81 MG PO SCH (08:58)
[2021-11-20] MEDS: FUROSEMIDE 10 MG/ML 4 ML VIAL IV SCH (08:58)
[2021-11-20] MEDS: predniSONE 20 MG TAB PO SCH (08:58)
[2021-11-20] MEDS: CITALOPRAM HYDROBROMIDE 20 MG TAB PO SCH (08:58)
[2021-11-20] MEDS: TOPIRAMATE 25 MG TAB PO SCH ×2 (08:59→20:02)
[2021-11-20] MEDS: TIOTROPIUM 2.5 MCG INHALER INHALATION SCH (09:21)
[2021-11-20 09:31] LABS: African American GFR (CKD) 60.2 (60.0-200.0); Anion Gap 13.7 mmol/L (10.00-18.00); BUN/Creat Ratio 20.27 Ratio (12.00-20.00); Blood Urea Nitrogen 22.3 mg/dL (9.0-27.0); Calcium 8.4 mg/dL (8.7-10.3); Carbon Dioxide 24.3 mmol/L (20.0-27.5); Non-African American GFR(CKD) 51.9 (60.0-200.0); Potassium 3.3 mmol/L (3.5-5.5)
[2021-11-20 12:10] LABS: Glucose,Whole Blood 173 mg/dL (75-99)
--- NOTE | 2021-11-20 14:43 | P.PN ---
Subjective Progress Note Date: 11/20/21 Principal diagnosis: Shortness of breath On 11/18/2021 patient seen in follow-up on medical surgical floor. She is resting comfortably, she is currently on 7 L of oxygen pulse ox is 100%, FiO2 has been dropped down to 6 L. Breathing comfortably, she states she feels like she is improving. Her cough has improved, no complaints of chest discomfort, no hemoptysis, she continues on Zosyn IV Solu-Medrol, and nebulized bronchodilators, her pro-calcitonin level was negative, she was found to be positive for RSV. Her COVID-19 antibiotics were also positive and patient isn't nonvaccinated adult suggesting that patient had recent history of COVID 19 pneumonia. Legionella urine antigen was negative. Patient denies any swallowing issues, she passed her swallow evaluation, she has been wearing BiPAP support as needed. All cultures have been negative, procalcitonin level was negative at 0.06. Generally patient appears to be swallowing, with swelling in her upper extremities left arm greater than right related to recent history of IV infiltration, and there is 1+ pitting edema in her bilateral lower extremities. on 11/19/2021 patient seen in follow-up on medical surgical floor, she is improving, breathing much more comfortably, currently patient is down to 5 L and pulse ox is 93%, over last 48 hours we were able to cut down from 8 L down to 5 L. She is maintaining stable O2 saturations, she continues on Lasix 40 mg daily, she is diuresing, generalized edema is improving. She also continues on prednisone 40 mg daily, she is on heparin subcu for DVT prophylaxis,she is doing well. This had no acute events overnight, lung sounds reveal diffuse crackles at bilateral bases, no complaints of chest discomfort, overall breathing much more comfortably. On 11/20/2021 patient seen in follow-up on medical surgical floor. She is awake and alert, in no acute distress, she is currently on 5 L of oxygen pulse ox 92- 94%, it was dropped down to 4 L, patient's breathing comfortably, she has been on daily dose of IV Lasix, her breathing and lower extremity edema are improving. She is up in the recliner currently, breathing comfortably, she has had no fever or chills, no couplets of chest discomfort, no cough. No abdominal pain, no diarrhea, patient had RSV infection this admission without evidence of any secondary bacterial pneumonia, antibiotics have been discontinued. Doing well. Has not required BiPAP support at night, FiO2 is being weaned down, and is currently down to 4 L. Objective - Vital Signs Vital signs: Vital Signs Temp 97.6 F 11/20/21 08:00 Pulse 99 11/20/21 08:00 Resp 18 11/20/21 08:00 BP 132/84 11/20/21 08:00 Pulse Ox 94 L 11/20/21 08:00 Intake & Output 11/19/21 11/20/21 11/20/21 18:59 06:59 18:59 Intake Total 400 240 Balance 400 240 Intake: Oral 400 240 Other: Voiding Method Toilet Toilet # Voids 3 - Exam GENERAL EXAM: Alert, very pleasant, 66-year-old white female on 5 L of oxygen the pulse ox 94% comfortable in no apparent distress. HEAD: Normocephalic/atraumatic. EYES: Normal reaction of pupils, equal size. Conjunctiva pink, sclera white. NOSE: Clear with pink turbinates. THROAT: No erythema or exudates. NECK: No masses, no JVD, no thyroid enlargement, no adenopathy. CHEST: No chest wall deformity. Symmetrical expansion. LUNGS: Equal air entry with mesh breath sounds and bilateral crackles CVS: Regular rate and rhythm, normal S1 and S2, no gallops, no murmurs, no rubs ABDOMEN: Soft, nontender. No hepatosplenomegaly, normal bowel sounds, no guardi ng or rigidity. EXTREMITIES: No clubbing, plus generalized edema left arm greater than right, no cyanosis, 2+ pulses and upper and lower extremities. MUSCULOSKELETAL: Muscle strength and tone normal. SPINE: No scoliosis or deformity SKIN: No rashes CENTRAL NERVOUS SYSTEM: Alert and oriented -3. No focal deficits, tone is normal in all 4 extremities. PSYCHIATRIC: Alert and oriented -3. Appropriate affect. Intact judgment and insight. - Labs CBC & Chem 7: 11/18/21 06:40 11/20/21 05:32 Labs: Abnormal Lab Results - Last 24 Hours (Table) 11/19/21 11/19/21 11/20/21 Range/Units 16:56 20:21 05:32 Potassium 3.3 L (3.5-5.5) mmol/L Est GFR (CKD-EPI)NonAf 51.9 L (60.0-200.0) BUN/Creatinine Ratio 20.27 H (12.00-20.00) Ratio POC Glucose (mg/dL) 172 H 169 H (75-99) mg/dL Calcium 8.4 L (8.7-10.3) mg/dL 11/20/21 Range/Units 12:08 Potassium (3.5-5.5) mmol/L Est GFR (CKD-EPI)NonAf (60.0-200.0) BUN/Creatinine Ratio (12.00-20.00) Ratio POC Glucose (mg/dL) 173 H (75-99) mg/dL Calcium (8.7-10.3) mg/dL Assessment and Plan Plan: Assessment: #1. Acute hypoxic respiratory failure related to acute multifocal pneumonia, aspiration has been ruled out,. COVID-19 PCR was negative, influenza A and B were negative. However COVID-19 antibiotic test was positive suggesting recent history of COVID-19 infection. Patient is a non-vaccinated adult. RSV was positive #2. Hypoventilation, low lung volumes, paralyzed right hemidiaphragm, patient has been on intermittent BiPAP support. Patient may eventually need surgical evaluation for possible diaphragmatic plication. She may end up going home on oxygen or positive pressure ventilation device #3. Elevated d-dimer, CT angiogram of the chest showed no evidence of pulmonary embolism #4. Previous history of GERD/reflux #5. Stage III chronic kidney disease #6. Diabetes mellitus type 2 #7. Hypertension #8. Previous history of DVT #9. 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 Osteoarthritis Plan: Clinically patient continues to improve Her breathing quite comfortably No cough, no chest pain, no fever or chills Antibiotics have been discontinued IV steroids have been transitioned to oral prednisone Oxygen has been dropped down to 4 L Has not required BiPAP support at night Vital signs have been stable Discontinue IV Lasix patient has been sufficiently diuresed She is being considered for possible rehab placement after discharge From pulmonary perspective she can be considered for discharge She will likely need supplemental oxygen upon discharge She will need to follow-up with Dr. Jones in the office next week Upon further improvement and recovery from her current hospitalization, possibility of hemidiaphragmatic surgical plication will be discussed on an outpatient basis No need for home BiPAP device I performed a history & physical examination of the patient and discussed their management with my nurse practitioner, Eliza Leary. I reviewed the nurse practitioner's note and agree with the documented findings and plan of care. Lung sounds are positive for diminished breath sounds throughout the lung rodríguez. The findings and the impression was discussed with the patient. I attest to the documentation by the nurse practitioner. Time with Patient: Less than 30
--- NOTE | 2021-11-20 14:49 | P.PN ---
Subjective Progress Note Date: 11/20/21 HISTORY OF PRESENT ILLNESS Patient is a 65-year-old female patient of Dr. Ugarte with diabetes mellitus type 2, prior DVT, hypertension, COPD 3, tardive dyskinesia, recent cervical stenosis with decompression September 2021 who presented with increasing shortness of breath for 7 days. She underwent an extensive evaluation. COVID- 19 PCR was negative, antibodies were positive however patient has been fully vaccinated. RSV came back positive. She did undergo a CT angiogram of the chest due to elevated d-dimer which was negative for pulmonary embolism but demonstrated extensive bilateral infiltrate and atelectasis. She was started on bronchodilators and Solu-Medrol. She underwent a modified barium swallow which demonstrated no signs of aspiration. Pulmonary was consulted and recommended continuing with steroids as well as antibiotics. She underwent a sniff test on 11/14 which confirmed right diaphragmatic paralysis. Patient currently on BiPAP at night and 8 L high flow nasal cannula during the daytime. 11/17/2021: Patient feels as if her breathing is improving gradually. She is currently on 7 L nasal cannula. 11/18: Patient remains on 7 L nasal cannula pulse ox 97% afebrile, heart rate 97, respiratory rate 30, blood pressure 167/89. Repeat blood work reveals WBC 13.4, hemoglobin 0.9, platelet count 354. Potassium 3.2 otherwise electrolytes and renal function normal. Blood sugars are running between 186 and 226. Blood culture showing no growth 2 specimens. Covid 19 PCR negative, influenza A and B are negative, RSV positive. Legionella negative. Repeat chest x-ray performed yesterday reveals bilateral lung infiltrates. Right lower lobe infiltrate is worsening. There may be some improvement of the left upper lung field infiltrate. Patient is followed by pulmonary medicine. Patient is followed by pulmonary medicine and infectious disease. Patient states that her breathing status is improved. Potassium will be replaced and Solu-Medrol dec reased to 40 mg every 8 hours. Patient does not have home oxygen therapy. She does live at home with her son plans to return home. Anticipate possible discharge tomorrow. 11/19: Repeat chest x-ray reveals atelectasis versus pneumonia, possible diaphragmatic paralysis. Patient is followed by infectious disease and pulmonary medicine. Dr. lCark spoke with patient's son and he would like patient to be on BiPAP which will be arranged. Patient is continued on prednisone 40 mg daily, Lasix 40 mg IV daily, albuterol nebulizer treatments. She has been afebrile, heart rate 80, blood pressure 144/98, pulse ox 93% on 5 L nasal cannula. Patient had a low blood sugar this morning of 56 breakfast. Levemir will be discontinued and patient continued on NovoLog scale and Solu- Medrol was discontinued. 11/20: Patient is seen today on the [facility] floor. She is on 5 L nasal cannula with pulse ox of 92-94%. She has been afebrile, heart rate 99, blood pressure 132/84. Repeat blood work reveals potassium of 3.3 otherwise electrolytes are normal, creatinine 1.1. Patient is followed by Dr. hanna no clinical evidence of secondary bacterial pneumonia and patient has been off antibiotics. Pulmonary is recommending possible hemidiaphragmatic surgical pilation on outpatient basis. Pulmonary driven no need for BiPAP device. She is to follow-up with Dr. denis in the office. We are planning for discharge tomorrow and place it is planning to return home with assistance of her son and home care. REVIEW OF SYSTEMS Constitutional: No fever, no chills, no night sweats. No weight change. No wea kness, fatigue or lethargy. No daytime sleepiness. EENT: No headache. No blurred vision or double vision, no loss of vision. No loss of Hearing, no ringing in the ears, no dizziness. No nasal drainage or congestion. No epistaxis. No sore throat. Lungs: Reports shortness of breathimproved, reports cough, no sputum production. No wheezing. Cardiovascular: No chest pain, no lower extremity edema. No palpitations. No paroxysmal nocturnal dyspnea. No orthopnea. No lightheadedness or dizziness. No syncopal episodes. Abdominal: No abdominal pain. No nausea, vomiting. No diarrhea. No c onstipation. No bloody or tarry stools. No loss of appetite. Genitourinary: No dysuria, increased frequency, urgency. No urinary retention. Musculoskeletal: No myalgias. No muscle weakness, no gait dysfunction, no frequent falls. No back pain. No neck pain. Integumentary: No wounds, no lesions. No rash or pruritus. No unusual bruising. No change in hair or nails. Neurologic: No aphasia. No facial droop. No change in mentation. No head injury. No headache. No paralysis. No paresthesia. Psychiatric: No depression. No anxiety. No mood swings. Endocrine: Noted abnormal blood sugars. No weight change. No excessive sweating or thirst. No cold intolerance. PHYSICAL EXAMINATION Gen: This is a 66-year-old female, resting in bed and appears to be comfortable and in no acute distress. HEENT: Head is atraumatic, normocephalic. Pupils equal, round. Sclerae is anicteric. NECK: Supple. No JVD. No lymphadenopathy. No thyromegaly. LUNGS: Diminished breath sounds bilat. No wheezes. No intercostal retractions. HEART: Regular rate and rhythm. No murmur. ABDOMEN: Soft. Bowel sounds are present. No masses. No tenderness. EXTREMITIES: No pedal edema. No calf tenderness. Dorsalis pedis +2 bilaterally. NEUROLOGICAL: Patient is awake, alert and oriented x3. Cranial nerves 2 through 12 are grossly intact. ASSESSMENT AND PLAN 1 Acute hypoxic respiratory failure related to acute multifocal pneumonia, ruled out possibility of aspiration, acute RSV pneumonia. Continue oxygen currently at 5 L nasal cannula, continue Solu-Medrol changed to oral prednisone, DuoNeb treatments, Mucinex, patient is not currently on antibiotics 2 Hypoventilation, low lung volumes, patient would benefit from BiPAP support at bedtime 3 Elevated d-dimer, CT angiogram of the chest showed no evidence of pulmonary embolism 4 Previous history of GERD/reflux. Continue Protonix 40 mg daily. 5 Stage III chronic kidney disease. Avoid nephrotoxic agents. 6 Diabetes mellitus type 2 uncontrolled with hyperglycemia secondary to steroids. Levemir discontinued, continue NovoLog scale 7 Hypertension. Continue verapamil 120 mg daily. 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 11. DVT prophylaxis. Heparin subcu. 12. COVID-19 testing negative. Patient has been hospitalized during a pandemic. DISCHARGE PLAN Home with [facility] on , possible home oxygen need for chronic hypoxic respiratory failure. Impression and plan of care have been directed as dictated by the signing physician. Lizzy Sands nurse practitioner acting as scribe for signing physician. Objective - Vital Signs Vital signs: Vital Signs Temp 97.6 F 11/20/21 08:00 Pulse 99 11/20/21 08:00 Resp 18 11/20/21 08:00 BP 132/84 11/20/21 08:00 Pulse Ox 94 L 11/20/21 08:00 Intake & Output 11/19/21 11/20/21 11/20/21 18:59 06:59 18:59 Intake Total 400 240 Balance 400 240 Intake: Oral 400 240 Other: Voiding Method Toilet Toilet # Voids 3 - Labs CBC & Chem 7: 11/18/21 06:40 11/20/21 05:32 Labs: Abnormal Lab Results - Last 24 Hours (Table) 11/19/21 11/19/21 11/19/21 Range/Units 11:33 16:56 20:21 Potassium (3.5-5.5) mmol/L Est GFR (CKD-EPI)NonAf (60.0-200.0) BUN/Creatinine Ratio (12.00-20.00) Ratio POC Glucose (mg/dL) 65 L 172 H 169 H (75-99) mg/dL Calcium (8.7-10.3) mg/dL 11/20/21 Range/Units 05:32 Potassium 3.3 L (3.5-5.5) mmol/L Est GFR (CKD-EPI)NonAf 51.9 L (60.0-200.0) BUN/Creatinine Ratio 20.27 H (12.00-20.00) Ratio POC Glucose (mg/dL) (75-99) mg/dL Calcium 8.4 L (8.7-10.3) mg/dL
[2021-11-20 17:00] LABS: Glucose,Whole Blood 123 mg/dL (75-99)
[2021-11-20 19:54] LABS: Glucose,Whole Blood 183 mg/dL (75-99)
[2021-11-20] MEDS: clonazePAM 0.5 MG TAB PO SCH (20:02)
--- NOTE | 2021-11-20 23:25 | PN ---
PROGRESS NOTE DATE OF SERVICE: 11/20/2021 REASON FOR FOLLOWUP: Acute RSV infection. INTERVAL HISTORY: Patient is afebrile. The patient is breathing comfortably. She is on 5 L nasal cannula. Denies any chest pain. No worsening cough or sputum production. No abdominal pain. No diarrhea. PHYSICAL EXAMINATION: Blood pressure 147/87, pulse of 101, temperature 98.3. She is 98% on 5 L nasal cannula. General description is an elderly female in the bed in no distress. Respiratory system: Unlabored breathing, decreased intensity in breath sounds. No wheeze. Heart S1, S2. Regular rate and rhythm. Abdomen soft, no tenderness. LABS: Creatinine is 1.1. Urine culture negative. DIAGNOSTIC IMPRESSION AND PLAN: Patient with acute respiratory failure secondary to acute RSV infection in this patient who has slow clinical improvement. Patient to continue with the current supportive treatment and no need for systematic antibiotic therapy. MMODL / IJN: [id number] /
[2021-11-21] MEDS: ALBUTEROL NEBULIZED 2.5 MG/3 ML INHALATION SCH ×5 (04:15→20:59)
[2021-11-21 07:14] LABS: Glucose,Whole Blood 116 mg/dL (75-99)
[2021-11-21] MEDS: INSULIN ASPART (NovoLOG) 100 UNIT/ML VIAL SQ SCH ×4 (07:30→20:16)
[2021-11-21] MEDS: CYCLOBENZAPRINE 10 MG TAB PO SCH ×2 (07:45→20:10)
[2021-11-21] MEDS: VERAPAMIL SR 120 MG TABLET.ER PO SCH (07:45)
[2021-11-21] MEDS: CITALOPRAM HYDROBROMIDE 20 MG TAB PO SCH (07:45)
[2021-11-21] MEDS: FERROUS SULFATE 325 MG TAB PO SCH (07:45)
[2021-11-21] MEDS: PANTOPRAZOLE 40 MG TABLET PO SCH (07:45)
[2021-11-21] MEDS: ASPIRIN 81 MG PO SCH (07:45)
[2021-11-21] MEDS: PILOCARPINE 5 MG TAB PO SCH ×3 (07:46→20:11)
[2021-11-21] MEDS: buPROPion SR 150 MG TABLET.ER PO SCH ×2 (07:46→20:11)
[2021-11-21] MEDS: TOPIRAMATE 25 MG TAB PO SCH ×2 (07:46→20:11)
[2021-11-21] MEDS: HEPARIN SODIUM,PORCINE/PF 5,000 UNIT/0.5 ML SYRINGE SQ SCH ×2 (07:46→20:10)
[2021-11-21] MEDS: predniSONE 20 MG TAB PO SCH (07:46)
[2021-11-21] MEDS: DULoxetine HCL 30 MG CAPSULE.DR PO SCH ×2 (07:46→20:10)
[2021-11-21] MEDS: guaiFENesin 600 MG TABLET.ER PO SCH ×2 (07:46→20:11)
[2021-11-21] MEDS: TIOTROPIUM 2.5 MCG INHALER INHALATION SCH (08:46)
--- NOTE | 2021-11-21 09:00 | XR ---
EXAMINATION TYPE: XR chest 1V portable DATE OF EXAM: 11/21/2021 COMPARISON: Chest x-ray 11/19/2021 HISTORY: Covid infection, abnormal chest x-ray TECHNIQUE: Single frontal view of the chest is obtained. FINDINGS: Patient is rotated. Postop changes are noted to the cervical thoracic spine, right shoulde r. Right hemidiaphragm remains elevated. No evident pneumothorax or pleural effusion. Cardiac mediast inal silhouette is stable. Patchy basilar density is noted, there may be some improvement in aeration in the left upper lobe. IMPRESSION: There is some improvement in aeration.
--- NOTE | 2021-11-21 09:52 | P.DS ---
Providers Date of admission: 11/11/21 23:47 Expected date of discharge: 11/22/21 Attending physician: Lesa Burdick MD Consults: 11/11/21 23:48 Consult Physician Routine Consulting Provider: Roddy Lopez Consult Reason/Comments: pneumonia, hypoxic respiratory failure, copd exacerbation Do you want consulting provider notified?: Yes 11/11/21 23:49 Consult Physician Routine Consulting Provider: nAkita Friend Consult Reason/Comments: pneumonia, possible covid (negative swab) Do you want consulting provider notified?: Yes 11/12/21 18:19 Consult Physician Routine Consulting Provider: Rick Harper Consult Reason/Comments: severe coughing spells Do you want consulting provider notified?: Yes, Notify in am Primary care physician: Tasneem Penaloza [facility] Course: HISTORY OF PRESENT ILLNESS Patient is a 65-year-old female patient of Dr. Ugarte with diabetes mellitus type 2, prior DVT, hypertension, COPD 3, tardive dyskinesia, recent cervical stenosis with decompression September 2021 who presented with increasing shortness of breath for 7 days. She underwent an extensive evaluation. COVID- 19 PCR was negative, antibodies were positive however patient has been fully vaccinated. RSV came back positive. She did undergo a CT angiogram of the chest due to elevated d-dimer which was negative for pulmonary embolism but demonstrated extensive bilateral infiltrate and atelectasis. She was started on bronchodilators and Solu-Medrol. She underwent a modified barium swallow which demonstrated no signs of aspiration. Pulmonary was consulted and recommended continuing with steroids as well as antibiotics. She underwent a sniff test on 11/14 which confirmed right diaphragmatic paralysis. Patient currently on BiPAP at night and 8 L high flow nasal cannula during the daytime. 11/17/2021: Patient feels as if her breathing is improving gradually. She is currently on 7 L nasal cannula. 11/18: Patient remains on 7 L nasal cannula pulse ox 97% afebrile, heart rate 97, respiratory rate 30, blood pressure 167/89. Repeat blood work reveals WBC 13.4, hemoglobin 0.9, platelet count 354. Potassium 3.2 otherwise electrolytes and renal function normal. Blood sugars are running between 186 and 226. Blood culture showing no growth 2 specimens. Covid 19 PCR negative, influenza A and B are negative, RSV positive. Legionella negative. Repeat chest x-ray performed yesterday reveals bilateral lung infiltrates. Right lower lobe infiltrate is worsening. There may be some improvement of the left upper lung field infiltrate. Patient is followed by pulmonary medicine. Patient is followed by pulmonary medicine and infectious disease. Patient states that her breathing status is improved. Potassium will be replaced and Solu-Medrol d ecreased to 40 mg every 8 hours. Patient does not have home oxygen therapy. She does live at home with her son plans to return home. Anticipate possible discharge tomorrow. 11/19: Repeat chest x-ray reveals atelectasis versus pneumonia, possible diaphragmatic paralysis. Patient is followed by infectious disease and pulmonary medicine. Dr. Clark spoke with patient's son and he would like patien t to be on BiPAP which will be arranged. Patient is continued on prednisone 40 mg daily, Lasix 40 mg IV daily, albuterol nebulizer treatments. She has been afebrile, heart rate 80, blood pressure 144/98, pulse ox 93% on 5 L nasal cannula. Patient had a low blood sugar this morning of 56 breakfast. Levemir will be discontinued and patient continued on NovoLog scale and Solu-Medrol was discontinued. 11/20: Patient is seen today on the MedSurg floor. She is on 5 L nasal cannula with pulse ox of 92-94%. She has been afebrile, heart rate 99, blood pressure 132/84. Repeat blood work reveals potassium of 3.3 otherwise electrolytes are normal, creatinine 1.1. Patient is followed by Dr. hanna no clinical evidence of secondary bacterial pneumonia and patient has been off antibiotics. Pulmonary is recommending possible hemidiaphragmatic surgical pilation on outpatient basis. Pulmonary driven no need for BiPAP device. She is to follow-up with Dr. White in the office. We are planning for discharge tomorrow and place it is planning to return home with assistance of her son and home care. 11/21: Pulse ox is 90-96% on 4 L nasal cannula. Patient has been afebrile, heart rate 89, blood pressure 135/85. Blood sugars are running between 116 and 183. Repeat chest x-ray reveals some improvement in aeration. Dr. Friend has recommended no antibiotics. Patient has been cleared for discharge from pulmonary medicine. manager wealth management has made arrangements for home oxygen therapy. Patient's son is not ready for patient to come home today and discharge will be delayed until tomorrow. 11/22: Patient has been afebrile, heart rate 80s, blood pressure 114/76, pulse ox 92-94 % on 4 L nasal cannula. Capillary blood glucose running between 87 and 177. Patient has been seen by pelvic medicine and cleared for discharge. Patient will be discharged home today in stable condition. DISCHARGE DIAGNOSES 1 Acute hypoxic respiratory failure related to acute multifocal pneumonia, ruled out possibility of aspiration, acute RSV pneumonia. 2 Hypoventilation, low lung volumes 3 Elevated d-dimer, CT angiogram of the chest showed no evidence of pulmonary embolism 4 Previous history of GERD/reflux. 5 Stage III chronic kidney disease. 6 Diabetes mellitus type 2 uncontrolled with hyperglycemia secondary to steroids. 7 Hypertension. 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 Osteoarthritis, generalized. 11. COVID-19 testing negative. Patient has been hospitalized during a pandemic. 12. Chronic hypoxic respiratory failure requiring home oxygen therapy DISCHARGE PLAN Home with [facility]. Greater than 35 minutes was utilized and coordinating patient's discharge. Impression and plan of care have been directed as dictated by the signing physician. Lizzy Sands nurse practitioner acting as scribe for signing physician. Patient Condition at Discharge: Stable Plan - Discharge Summary Discharge Rx Participant: No New Discharge Prescriptions: New Benzonatate [Tessalon Perles] 100 mg PO TID PRN #30 cap PRN Reason: Cough predniSONE 0 mg PO DIRECTED #18 tab Continue Topiramate [Topamax] 25 mg PO BID Ferrous Sulfate [Iron (65 MG Elemental)] 325 mg PO DAILY buPROPion HCL [Wellbutrin SR] 150 mg PO BID Aspirin 81 mg PO DAILY DULoxetine HCL [Cymbalta] 30 mg PO BID Terrazyme 1 cap PO HS Xeo Adriel 1 cap PO DAILY Pb Assist 1 cap PO TID Sandro Max 1 cap PO BID@0900,1200 PRN PRN Reason: ENERGY Microplex Vmz 1 cap PO DAILY guaiFENesin-DM 600/30MG [Mucinex Dm] 1 tab PO BID Pilocarpine [Salagen] 5 - 10 mg PO TID Cyclobenzaprine [Flexeril] 10 mg PO BID Albuterol Nebulized [Ventolin Nebulized] 2.5 mg INHALATION RT-QID PRN PRN Reason: Shortness Of Breath clonazePAM [KlonoPIN] 0.5 mg PO HS Esomeprazole Magnesium [NexIUM] 20 mg PO DAILY Citalopram Hydrobromide [CeleXA] 40 mg PO DAILY Methylphenidate HCl 20 mg PO BID #60 tab Deep Blue Polyphenol Blend 1 cap PO BID@0900,1200 Copaiba 1 cap PO DAILY@1200 Vitamin D And K With Sea-Iodine 1 tab PO DAILY Alpha Crs 1 cap PO DAILY Mouthkote Solution Aerosol/Tumtum 2 spray PO Q4H PRN PRN Reason: Dry Mouth HYDROcodone/APAP 10-325MG [Martinez 10-325] 1 tab PO Q4H PRN PRN Reason: Pain Fluticasone Nasal Tumtum [Flonase Nasal Tumtum] 1 - 2 spray EA NOSTRIL DAILY PRN PRN Reason: Allergy Symptoms Verapamil HCl [Verapamil ER] 120 mg PO DAILY Discontinued predniSONE [Deltasone] See Taper PO DIRECTED Cefuroxime [Ceftin] 250 mg PO BID Discharge Medication List Ferrous Sulfate [Iron (65 MG Elemental)] 325 mg PO DAILY 01/08/18 [History] Topiramate [Topamax] 25 mg PO BID 01/08/18 [History] buPROPion HCL [Wellbutrin SR] 150 mg PO BID 01/08/18 [History] Aspirin 81 mg PO DAILY 09/23/21 [History] DULoxetine HCL [Cymbalta] 30 mg PO BID 09/23/21 [History] Albuterol Nebulized [Ventolin Nebulized] 2.5 mg INHALATION RT-QID PRN 11/11/21 [History] Alpha Crs 1 cap PO DAILY 11/11/21 [History] Citalopram Hydrobromide [CeleXA] 40 mg PO DAILY 11/11/21 [History] Copaiba 1 cap PO DAILY@1200 11/11/21 [History] Cyclobenzaprine [Flexeril] 10 mg PO BID 11/11/21 [History] Deep Blue Polyphenol Blend 1 cap PO BID@0900,1200 11/11/21 [History] Esomeprazole Magnesium [NexIUM] 20 mg PO DAILY 11/11/21 [History] Fluticasone Nasal Tumtum [Flonase Nasal Tumtum] 1 - 2 spray EA NOSTRIL DAILY PRN 11/11/21 [History] HYDROcodone/APAP 10-325MG [Martinez 10-325] 1 tab PO Q4H PRN 11/11/21 [History] Microplex Vmz 1 cap PO DAILY 11/11/21 [History] Sandro Max 1 cap PO BID@0900,1200 PRN 11/11/21 [History] Mouthkote Solution Aerosol/Tumtum 2 spray PO Q4H PRN 11/11/21 [History] Pb Assist 1 cap PO TID 11/11/21 [History] Pilocarpine [Salagen] 5 - 10 mg PO TID 11/11/21 [History] Terrazyme 1 cap PO HS 11/11/21 [History] Verapamil HCl [Verapamil ER] 120 mg PO DAILY 11/11/21 [History] Vitamin D And K With Sea-Iodine 1 tab PO DAILY 11/11/21 [History] Xeo Adriel 1 cap PO DAILY 11/11/21 [History] clonazePAM [KlonoPIN] 0.5 mg PO HS 11/11/21 [History] guaiFENesin-DM 600/30MG [Mucinex Dm] 1 tab PO BID 11/11/21 [History] Benzonatate [Tessalon Perles] 100 mg PO TID PRN #30 cap 11/21/21 [Rx] Methylphenidate HCl 20 mg PO BID #60 tab 11/21/21 [Rx] predniSONE 0 mg PO DIRECTED #18 tab 11/21/21 [Rx] Follow up Appointment(s)/Referral(s): Tasneem Penaloza MD [Primary Care Provider] - 11/29/21 11:30 am (Manjula from Dr. Ugarte office says ninfa and hopes you're feeling better!) [place] [NON-STAFF] - As Needed [facility] [NON-STAFF] - As Needed (oxygen) Martinez White DO [Doctor of Osteopathic Medicine] - 12/13/21 2:30 pm Patient Instructions/Handouts: Respiratory Syncytial Virus (DC), Pneumonia (DC) Discharge Disposition: HOME WITH HOME HEALTH SERVICES
[2021-11-21 11:57] LABS: Glucose,Whole Blood 267 mg/dL (75-99)
--- NOTE | 2021-11-21 13:26 | P.PN ---
Subjective Progress Note Date: 11/21/21 HISTORY OF PRESENT ILLNESS Patient is a 65-year-old female patient of Dr. Ugarte with diabetes mellitus type 2, prior DVT, hypertension, COPD 3, tardive dyskinesia, recent cervical stenosis with decompression September 2021 who presented with increasing shortness of breath for 7 days. She underwent an extensive evaluation. COVID- 19 PCR was negative, antibodies were positive however patient has been fully vaccinated. RSV came back positive. She did undergo a CT angiogram of the chest due to elevated d-dimer which was negative for pulmonary embolism but demonstrated extensive bilateral infiltrate and atelectasis. She was started on bronchodilators and Solu-Medrol. She underwent a modified barium swallow which demonstrated no signs of aspiration. Pulmonary was consulted and recommended continuing with steroids as well as antibiotics. She underwent a sniff test on 11/14 which confirmed right diaphragmatic paralysis. Patient currently on BiPAP at night and 8 L high flow nasal cannula during the daytime. 11/17/2021: Patient feels as if her breathing is improving gradually. She is currently on 7 L nasal cannula. 11/18: Patient remains on 7 L nasal cannula pulse ox 97% afebrile, heart rate 97, respiratory rate 30, blood pressure 167/89. Repeat blood work reveals WBC 13.4, hemoglobin 0.9, platelet count 354. Potassium 3.2 otherwise electrolytes and renal function normal. Blood sugars are running between 186 and 226. Blood culture showing no growth 2 specimens. Covid 19 PCR negative, influenza A and B are negative, RSV positive. Legionella negative. Repeat chest x-ray performed yesterday reveals bilateral lung infiltrates. Right lower lobe infiltrate is worsening. There may be some improvement of the left upper lung field infiltrate. Patient is followed by pulmonary medicine. Patient is followed by pulmonary medicine and infectious disease. Patient states that her breathing status is improved. Potassium will be replaced and Solu-Medrol dec reased to 40 mg every 8 hours. Patient does not have home oxygen therapy. She does live at home with her son plans to return home. Anticipate possible discharge tomorrow. 11/19: Repeat chest x-ray reveals atelectasis versus pneumonia, possible diaphragmatic paralysis. Patient is followed by infectious disease and pulmonary medicine. Dr. Clark spoke with patient's son and he would like patient to be on BiPAP which will be arranged. Patient is continued on prednisone 40 mg daily, Lasix 40 mg IV daily, albuterol nebulizer treatments. She has been afebrile, heart rate 80, blood pressure 144/98, pulse ox 93% on 5 L nasal cannula. Patient had a low blood sugar this morning of 56 breakfast. Levemir will be discontinued and patient continued on NovoLog scale and Solu- Medrol was discontinued. 11/20: Patient is seen today on the [facility] floor. She is on 5 L nasal cannula with pulse ox of 92-94%. She has been afebrile, heart rate 99, blood pressure 132/84. Repeat blood work reveals potassium of 3.3 otherwise electrolytes are normal, creatinine 1.1. Patient is followed by Dr. hanna no clinical evidence of secondary bacterial pneumonia and patient has been off antibiotics. Pulmonary is recommending possible hemidiaphragmatic surgical pilation on outpatient basis. Pulmonary driven no need for BiPAP device. She is to follow-up with Dr. denis in the office. We are planning for discharge tomorrow and place it is planning to return home with assistance of her son and home care. 11/21: Pulse ox is 90-96% on 4 L nasal cannula. Patient has been afebrile, heart rate 89, blood pressure 135/85. Blood sugars are running between 116 and 183. Repeat chest x-ray reveals some improvement in aeration. Dr. Friend has recommended no antibiotics. Patient has been cleared for discharge from pulmonary medicine. grounds maintenance manager has made arrangements for home oxygen therapy. Patient's son is not ready for patient to come home today and discharge will be delayed until tomorrow. REVIEW OF SYSTEMS Constitutional: No fever, no chills, no night sweats. No weight change. No weakness, fatigue or lethargy. No daytime sleepiness. EENT: No headache. No blurred vision or double vision, no loss of vision. No loss of Hearing, no ringing in the ears, no dizziness. No nasal drainage or congestion. No epistaxis. No sore throat. Lungs: Reports shortness of breathimproved, reports rare cough, no sputum production. No wheezing. Cardiovascular: No chest pain, no lower extremity edema. No palpitations. No paroxysmal nocturnal dyspnea. No orthopnea. No lightheadedness or dizziness. No syncopal episodes. Abdominal: No abdominal pain. No nausea, vomiting. No diarrhea. No cons tipation. No bloody or tarry stools. No loss of appetite. Genitourinary: No dysuria, increased frequency, urgency. No urinary retention. Musculoskeletal: No myalgias. No muscle weakness, no gait dysfunction, no frequent falls. No back pain. No neck pain. Integumentary: No wounds, no lesions. No rash or pruritus. No unusual bruising. No change in hair or nails. Neurologic: No aphasia. No facial droop. No change in mentation. No head injury. No headache. No paralysis. No paresthesia. Psychiatric: No depression. No anxiety. No mood swings. Endocrine: Noted abnormal blood sugars. No weight change. No excessive sweating or thirst. No cold intolerance. PHYSICAL EXAMINATION Gen: This is a 66-year-old female, resting in recliner and appears to be comfortable and in no acute distress. HEENT: Head is atraumatic, normocephalic. Pupils equal, round. Sclerae is anicteric. NECK: Supple. No JVD. No lymphadenopathy. No thyromegaly. LUNGS: Diminished breath sounds bilat. No wheezes. No intercostal retractions. HEART: Regular rate and rhythm. No murmur. ABDOMEN: Soft. Bowel sounds are present. No masses. No tenderness. EXTREMITIES: No pedal edema. No calf tenderness. Dorsalis pedis +2 bilaterally. NEUROLOGICAL: Patient is awake, alert and oriented x3. Cranial nerves 2 through 12 are grossly intact. ASSESSMENT AND PLAN 1 Acute hypoxic respiratory failure related to acute multifocal pneumonia, ruled out possibility of aspiration, acute RSV pneumonia. Continue oxygen therapy currently at 5 L nasal cannula, continue oral prednisone, DuoNeb treatments, Mucinex, patient is not currently on antibiotics 2 Hypoventilation, low lung volumes, patient would benefit from BiPAP support at bedtime 3 Elevated d-dimer, CT angiogram of the chest showed no evidence of pulmonary embolism 4 Previous history of GERD/reflux. Continue Protonix 40 mg daily. 5 Stage III chronic kidney disease. Avoid nephrotoxic agents. 6 Diabetes mellitus type 2 uncontrolled with hyperglycemia secondary to steroids. Levemir discontinued, continue NovoLog scale 7 Hypertension. Continue verapamil 120 mg daily. 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 11. DVT prophylaxis. Heparin subcu. 12. Chronic hypoxic respiratory failure requiring home oxygen therapy. 13. COVID-19 testing negative. Patient has been hospitalized during a pandemic. DISCHARGE PLAN Home with [facility] on Thursday. Impression and plan of care have been directed as dictated by the signing p kathleen. Lizzy Sands nurse practitioner acting as scribe for signing physician. Objective - Vital Signs Vital signs: Vital Signs Temp 98.1 F 11/21/21 09:03 Pulse 89 11/21/21 09:03 Resp 14 11/21/21 09:03 BP 135/85 11/21/21 09:03 Pulse Ox 96 11/21/21 09:03 Intake & Output 11/20/21 11/21/21 11/21/21 18:59 06:59 18:59 Other: # Voids 5 0 - Labs CBC & Chem 7: 11/18/21 06:40 11/20/21 05:32 Labs: Abnormal Lab Results - Last 24 Hours (Table) 11/20/21 11/20/21 11/21/21 Range/Units 16:59 19:53 07:09 POC Glucose (mg/dL) 123 H 183 H 116 H (75-99) mg/dL 11/21/21 Range/Units 11:56 POC Glucose (mg/dL) 267 H (75-99) mg/dL
--- NOTE | 2021-11-21 15:33 | P.PN ---
Subjective Progress Note Date: 11/21/21 Principal diagnosis: Shortness of breath On 11/18/2021 patient seen in follow-up on medical surgical floor. She is resting comfortably, she is currently on 7 L of oxygen pulse ox is 100%, FiO2 has been dropped down to 6 L. Breathing comfortably, she states she feels like she is improving. Her cough has improved, no complaints of chest discomfort, no hemoptysis, she continues on Zosyn IV Solu-Medrol, and nebulized bronchodilators, her pro-calcitonin level was negative, she was found to be positive for RSV. Her COVID-19 antibiotics were also positive and patient isn't nonvaccinated adult suggesting that patient had recent history of COVID 19 pneumonia. Legionella urine antigen was negative. Patient denies any swallowing issues, she passed her swallow evaluation, she has been wearing BiPAP support as needed. All cultures have been negative, procalcitonin level was negative at 0.06. Generally patient appears to be swallowing, with swelling in her upper extremities left arm greater than right related to recent history of IV infiltration, and there is 1+ pitting edema in her bilateral lower extremities. on 11/19/2021 patient seen in follow-up on medical surgical floor, she is improving, breathing much more comfortably, currently patient is down to 5 L and pulse ox is 93%, over last 48 hours we were able to cut down from 8 L down to 5 L. She is maintaining stable O2 saturations, she continues on Lasix 40 mg daily, she is diuresing, generalized edema is improving. She also continues on prednisone 40 mg daily, she is on heparin subcu for DVT prophylaxis,she is doing well. This had no acute events overnight, lung sounds reveal diffuse crackles at bilateral bases, no complaints of chest discomfort, overall breathing much more comfortably. On 11/20/2021 patient seen in follow-up on medical surgical floor. She is awake and alert, in no acute distress, she is currently on 5 L of oxygen pulse ox 92- 94%, it was dropped down to 4 L, patient's breathing comfortably, she has been on daily dose of IV Lasix, her breathing and lower extremity edema are improving. She is up in the recliner currently, breathing comfortably, she has had no fever or chills, no couplets of chest discomfort, no cough. No abdominal pain, no diarrhea, patient had RSV infection this admission without evidence of any secondary bacterial pneumonia, antibiotics have been discontinued. Doing well. Has not required BiPAP support at night, FiO2 is being weaned down, and is currently down to 4 L. On 11/21/2021 patient seen in follow-up on medical surgical floor. Patient is breathing much more comfortably today, she is sitting up in the recliner, she has been getting up and ambulating in the room, tolerating activity well, she is currently on 4 L of oxygen pulse ox is 93-96%, lung sounds are clear to auscultation, lower extremity and generalized edema has significantly improved. Has not required BiPAP for last few nights, mentation is appropriate, she is awake and alert, oriented 3, no new labs today. Microbiology has been reviewed, blood cultures have shown no growth. Patient has been transitioned to oral prednisone and she remains on 40 mg daily, she is on Spiriva, she is on Tessalon Perles, he is on GI and DVT prophylaxis. Doing well. Today's chest x- ray shows some improvement in aeration. Objective - Vital Signs Vital signs: Vital Signs Temp 98.1 F 11/21/21 09:03 Pulse 89 11/21/21 09:03 Resp 14 11/21/21 09:03 BP 135/85 11/21/21 09:03 Pulse Ox 96 11/21/21 09:03 Intake & Output 11/20/21 11/21/21 11/21/21 18:59 06:59 18:59 Intake Total 240 Balance 240 Intake: Oral 240 Other: # Voids 5 0 - Exam GENERAL EXAM: Alert, very pleasant, 66-year-old white female on 4 L of oxygen the pulse ox 96% comfortable in no apparent distress. HEAD: Normocephalic/atraumatic. EYES: Normal reaction of pupils, equal size. Conjunctiva pink, sclera white. NOSE: Clear with pink turbinates. THROAT: No erythema or exudates. NECK: No masses, no JVD, no thyroid enlargement, no adenopathy. CHEST: No chest wall deformity. Symmetrical expansion. LUNGS: Equal air entry with mesh breath sounds and bilateral crackles CVS: Regular rate and rhythm, normal S1 and S2, no gallops, no murmurs, no rubs ABDOMEN: Soft, nontender. No hepatosplenomegaly, normal bowel sounds, no guarding or rigidity. EXTREMITIES: No clubbing, plus generalized edema left arm greater than right, no cyanosis, 2+ pulses and upper and lower extremities. MUSCULOSKELETAL: Muscle strength and tone normal. SPINE: No scoliosis or deformity SKIN: No rashes CENTRAL NERVOUS SYSTEM: Alert and oriented -3. No focal deficits, tone is normal in all 4 extremities. PSYCHIATRIC: Alert and oriented -3. Appropriate affect. Intact judgment and insight. - Labs CBC & Chem 7: 11/18/21 06:40 11/20/21 05:32 Labs: Abnormal Lab Results - Last 24 Hours (Table) 11/20/21 11/20/21 11/21/21 Range/Units 16:59 19:53 07:09 POC Glucose (mg/dL) 123 H 183 H 116 H (75-99) mg/dL 11/21/21 Range/Units 11:56 POC Glucose (mg/dL) 267 H (75-99) mg/dL Assessment and Plan Plan: Assessment: #1. Acute hypoxic respiratory failure related to acute multifocal pneumonia, aspiration has been ruled out,. COVID-19 PCR was negative, influenza A and B were negative. However COVID-19 antibiotic test was positive suggesting recent history of COVID-19 infection. Patient is a non-vaccinated adult. RSV was posi tive. Hypoxia is improving, patient is currently down to 4 L of oxygen, breathing comfortably, maintaining O2 saturations above 92% #2. Hypoventilation, low lung volumes, paralyzed right hemidiaphragm, patient has been on intermittent BiPAP support. Patient may eventually need surgical evaluation for possible diaphragmatic plication. She may end up going home on oxygen or positive pressure ventilation device #3. Elevated d-dimer, CT angiogram of the chest showed no evidence of pulmonary embolism #4. Previous history of GERD/reflux #5. Stage III chronic kidney disease #6. Diabetes mellitus type 2 #7. Hypertension #8. Previous history of DVT #9. 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 Osteoarthritis Plan: No acute events overnight Clinically patient continues to improve No cough, no chest pain, no fever or chills Antibiotics have been discontinued Continue oral prednisone Continue weaning FiO2 Currently down to 4 L Continue inhaled bronchodilators Lasix have been discontinued For pulmonary perspective patient has remained stable, continues to improve and can be considered for discharge home She will need to follow-up with Dr. Jones in the office next week Upon further improvement and recovery from her current hospitalization, possibility of hemidiaphragmatic surgical plication will be discussed on an outpatient basis No need for home BiPAP device I performed a history & physical examination of the patient and discussed their management with my nurse practitioner, Eliza Leary. I reviewed the nurse practitioner's note and agree with the documented findings and plan of care. Lung sounds are positive for diminished breath sounds throughout the lung rodríguez. The findings and the impression was discussed with the patient. I attest to the documentation by the nurse practitioner. Time with Patient: Less than 30
[2021-11-21 16:46] LABS: Glucose,Whole Blood 140 mg/dL (75-99)
[2021-11-21] MEDS: clonazePAM 0.5 MG TAB PO SCH (20:11)
[2021-11-21 20:13] LABS: Glucose,Whole Blood 144 mg/dL (75-99)
--- NOTE | 2021-11-22 00:06 | PN ---
PROGRESS NOTE DATE OF SERVICE: 11/21/2021 REASON FOR FOLLOWUP: Acute RSV pneumonia. INTERVAL HISTORY: The patient is afebrile. The patient is breathing comfortably. The patient denies having any chest pain. No worsening cough or sputum production. No abdominal pain. No diarrhea. Patient cut down to 4 L nasal cannula. PHYSICAL EXAMINATION: Blood pressure is 154/84 with a pulse of 90, temperature 98. She is 91% on 4 L nasal cannula. General description is an elderly female lying in bed in no distress. Respiratory system: Unlabored breathing, decreased breath sounds at the base, no wheeze. Heart S1, S2. Regular rate and rhythm. Abdomen soft, no tenderness. LABS: No new labs have been obtained today. DIAGNOSTIC IMPRESSION AND PLAN: Patient with acute respiratory failure secondary to acute RSV pneumonia in this patient who had overall slow clinical improvement. Chest x-ray has shown improvement as well. Continue the current supportive treatment. No need for systemic antibiotic therapy. Will monitor clinical course closely. MMJUSTINEL / JONNYN: [id number] /
[2021-11-22] MEDS: ALBUTEROL NEBULIZED 2.5 MG/3 ML INHALATION SCH ×4 (00:45→12:09)
[2021-11-22 02:17] VITALS: PULSE 85
[2021-11-22 07:11] LABS: Glucose,Whole Blood 87 mg/dL (75-99)
[2021-11-22 07:44] VITALS: RESP 16
[2021-11-22] MEDS: INSULIN ASPART (NovoLOG) 100 UNIT/ML VIAL SQ SCH ×2 (07:48→12:20)
[2021-11-22] MEDS: TIOTROPIUM 2.5 MCG INHALER INHALATION SCH (08:29)
[2021-11-22] MEDS: HEPARIN SODIUM,PORCINE/PF 5,000 UNIT/0.5 ML SYRINGE SQ SCH (08:49)
[2021-11-22] MEDS: CYCLOBENZAPRINE 10 MG TAB PO SCH (08:49)
[2021-11-22] MEDS: ASPIRIN 81 MG PO SCH (08:49)
[2021-11-22] MEDS: guaiFENesin 600 MG TABLET.ER PO SCH (08:49)
[2021-11-22] MEDS: predniSONE 20 MG TAB PO SCH (08:49)
[2021-11-22] MEDS: FERROUS SULFATE 325 MG TAB PO SCH (08:49)
[2021-11-22] MEDS: CITALOPRAM HYDROBROMIDE 20 MG TAB PO SCH (08:49)
[2021-11-22] MEDS: PANTOPRAZOLE 40 MG TABLET PO SCH (08:50)
[2021-11-22] MEDS: VERAPAMIL SR 120 MG TABLET.ER PO SCH (08:50)
[2021-11-22] MEDS: PILOCARPINE 5 MG TAB PO SCH (08:50)
[2021-11-22] MEDS: buPROPion SR 150 MG TABLET.ER PO SCH (08:50)
[2021-11-22] MEDS: TOPIRAMATE 25 MG TAB PO SCH (08:50)
[2021-11-22] MEDS: DULoxetine HCL 30 MG CAPSULE.DR PO SCH (08:50)
[2021-11-22 11:39] LABS: Glucose,Whole Blood 177 mg/dL (75-99)
--- NOTE | 2021-11-22 14:34 | P.PN ---
Subjective Progress Note Date: 11/22/21 Principal diagnosis: Shortness of breath On 11/18/2021 patient seen in follow-up on medical surgical floor. She is resting comfortably, she is currently on 7 L of oxygen pulse ox is 100%, FiO2 has been dropped down to 6 L. Breathing comfortably, she states she feels like she is improving. Her cough has improved, no complaints of chest discomfort, no hemoptysis, she continues on Zosyn IV Solu-Medrol, and nebulized bronchodilators, her pro-calcitonin level was negative, she was found to be positive for RSV. Her COVID-19 antibiotics were also positive and patient isn't nonvaccinated adult suggesting that patient had recent history of COVID 19 pneumonia. Legionella urine antigen was negative. Patient denies any swallowing issues, she passed her swallow evaluation, she has been wearing BiPAP support as needed. All cultures have been negative, procalcitonin level was negative at 0.06. Generally patient appears to be swallowing, with swelling in her upper extremities left arm greater than right related to recent history of IV infiltration, and there is 1+ pitting edema in her bilateral lower extremities. on 11/19/2021 patient seen in follow-up on medical surgical floor, she is improving, breathing much more comfortably, currently patient is down to 5 L and pulse ox is 93%, over last 48 hours we were able to cut down from 8 L down to 5 L. She is maintaining stable O2 saturations, she continues on Lasix 40 mg daily, she is diuresing, generalized edema is improving. She also continues on prednisone 40 mg daily, she is on heparin subcu for DVT prophylaxis,she is doing well. This had no acute events overnight, lung sounds reveal diffuse crackles at bilateral bases, no complaints of chest discomfort, overall breathing much more comfortably. On 11/20/2021 patient seen in follow-up on medical surgical floor. She is awake and alert, in no acute distress, she is currently on 5 L of oxygen pulse ox 92- 94%, it was dropped down to 4 L, patient's breathing comfortably, she has been on daily dose of IV Lasix, her breathing and lower extremity edema are improving. She is up in the recliner currently, breathing comfortably, she has had no fever or chills, no couplets of chest discomfort, no cough. No abdominal pain, no diarrhea, patient had RSV infection this admission without evidence of any secondary bacterial pneumonia, antibiotics have been discontinued. Doing well. Has not required BiPAP support at night, FiO2 is being weaned down, and is currently down to 4 L. On 11/21/2021 patient seen in follow-up on medical surgical floor. Patient is breathing much more comfortably today, she is sitting up in the recliner, she has been getting up and ambulating in the room, tolerating activity well, she is currently on 4 L of oxygen pulse ox is 93-96%, lung sounds are clear to auscultation, lower extremity and generalized edema has significantly improved. Has not required BiPAP for last few nights, mentation is appropriate, she is awake and alert, oriented 3, no new labs today. Microbiology has been reviewed, blood cultures have shown no growth. Patient has been transitioned to oral prednisone and she remains on 40 mg daily, she is on Spiriva, she is on Tessalon Perles, he is on GI and DVT prophylaxis. Doing well. Today's chest x- ray shows some improvement in aeration. on 11/22/2021 patient seen in follow-up on medical surgical floor. She is currently on 4 L of oxygen pulse ox is 92-94%, she is breathing comfortably, aparna ng sounds are clear, no cough, no chest pain, no fever or chills, she is on prednisone 40 mg daily, patient has been diuresed, diuretics have been discontinued, she currently remains on Tessalon Perles, and nebulized treatments, improving, discharge planning is in progress for discharge home today. Objective - Vital Signs Vital signs: Vital Signs Temp 98.5 F 11/22/21 07:43 Pulse 85 11/22/21 07:43 Resp 16 11/22/21 07:43 BP 143/81 11/22/21 07:43 Pulse Ox 92 L 11/22/21 07:43 Intake & Output 11/21/21 11/22/21 11/22/21 18:59 06:59 18:59 Intake Total 476 Balance 476 Intake: Oral 476 Other: Voiding Method Toilet # Voids 1 # Bowel Movements 1 - Exam GENERAL EXAM: Alert, very pleasant, 66-year-old white female on 4 L of oxygen the pulse ox 96% comfortable in no apparent distress. HEAD: Normocephalic/atraumatic. EYES: Normal reaction of pupils, equal size. Conjunctiva pink, sclera white. NOSE: Clear with pink turbinates. THROAT: No erythema or exudates. NECK: No masses, no JVD, no thyroid enlargement, no adenopathy. CHEST: No chest wall deformity. Symmetrical expansion. LUNGS: Equal air entry with mesh breath sounds and bilateral crackles CVS: Regular rate and rhythm, normal S1 and S2, no gallops, no murmurs, no rubs ABDOMEN: Soft, nontender. No hepatosplenomegaly, normal bowel sounds, no guarding or rigidity. EXTREMITIES: No clubbing, plus generalized edema left arm greater than right, no cyanosis, 2+ pulses and upper and lower extremities. MUSCULOSKELETAL: Muscle strength and tone normal. SPINE: No scoliosis or deformity SKIN: No rashes CENTRAL NERVOUS SYSTEM: Alert and oriented -3. No focal deficits, tone is normal in all 4 extremities. PSYCHIATRIC: Alert and oriented -3. Appropriate affect. Intact judgment and insight. - Labs CBC & Chem 7: 11/18/21 06:40 11/20/21 05:32 Labs: Abnormal Lab Results - Last 24 Hours (Table) 11/21/21 11/21/21 11/22/21 Range/Units 16:45 20:12 11:38 POC Glucose (mg/dL) 140 H 144 H 177 H (75-99) mg/dL Assessment and Plan Plan: Assessment: #1. Acute hypoxic respiratory failure related to acute multifocal pneumonia, aspiration has been ruled out,. COVID-19 PCR was negative, influenza A and B were negative. However COVID-19 antibiotic test was positive suggesting recent history of COVID-19 infection. Patient is a non-vaccinated adult. RSV was positive. Hypoxia is improving, patient is currently down to 4 L of oxygen, breathing comfortably, maintaining O2 saturations above 92% #2. Hypoventilation, low lung volumes, paralyzed right hemidiaphragm, patient has been on intermittent BiPAP support. Patient may eventually need surgical evaluation for possible diaphragmatic plication. She may end up going home on oxygen or positive pressure ventilation device #3. Elevated d-dimer, CT angiogram of the chest showed no evidence of pulmonary embolism #4. Previous history of GERD/reflux #5. Stage III chronic kidney disease #6. Diabetes mellitus type 2 #7. Hypertension #8. Previous history of DVT #9. 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 Osteoarthritis Plan: Stable overnight Breathing comfortably No cough, no chest pain, no fever Discharge planning is in progress for discharge home today Home oxygen has been arranged She will need to follow-up with Dr. Jones in the office next week Upon further improvement and recovery from her current hospitalization, possibility of hemidiaphragmatic surgical plication will be discussed on an outpatient basis No need for home BiPAP device I performed a history & physical examination of the patient and discussed their management with my nurse practitioner, Eliza Leary. I reviewed the nurse practitioner's note and agree with the documented findings and plan of care. Lung sounds are positive for diminished breath sounds throughout the lung rodríguez. The findings and the impression was discussed with the patient. I attest to the documentation by the nurse practitioner. Time with Patient: Less than 30
[2021-11-22 14:36] VITALS: BP 114/76; TEMP 98.1
--- NOTE | 2021-11-22 17:49 | PN ---
PROGRESS NOTE DATE OF SERVICE: 11/22/2021 REASON FOR FOLLOW UP: Acute RSV infection. INTERVAL HISTORY: The patient is afebrile. She was seen on rounds. The patient has been afebrile. She has been breathing more comfortably, down to 4 L nasal cannula. No chest pain. Minimal cough. No abdominal pain or diarrhea. PHYSICAL EXAMINATION: Blood pressure 114/66, pulse 86, temperature 98.1. She is 94% on 4 L nasal cannula. General description is an elderly female up in the bed in no distress. Respiratory system: Unlabored breathing, decreased intensity of breath sounds, no wheeze. Heart S1, S2. Regular rate and rhythm. Abdomen soft, no tenderness. LABS: No new labs have been obtained today. DIAGNOSTIC IMPRESSION AND PLAN: The patient with acute RSV pneumonia in this patient who has shown overall clinical improvement with no evidence of any secondary bacterial pneumonia. Continue supportive treatment and no need for antibiotic on discharge. MMODL / IJN: [id number] /
== END 2021-11-22 14:56 | disposition home health service (06) | DRG 193 ==
LOC: EC 20:23 → 4SSUR 23:47
PROVIDERS: ADMIT Internal Medicine; ATTEND Internal Medicine
PROC: 5A09357 Assistance with Respiratory Ventilation, Less than 24 Consecutive Hours, Continuous Positive Airway Pressure (ICD-10-PCS; principal; 2021-11-16)
DX: J12.1 Respiratory syncytial virus pneumonia (principal); J96.21 Acute and chronic respiratory failure with hypoxia; J44.1 Chronic obstructive pulmonary disease with (acute) exacerbation; M47.12 Other spondylosis with myelopathy, cervical region; N17.9 Acute kidney failure, unspecified; J44.0 Chronic obstructive pulmonary disease with (acute) lower respiratory infection; I12.9 Hypertensive chronic kidney disease with stage 1 through stage 4 chronic kidney disease, or unspecified chronic kidney disease; K21.9 Gastro-esophageal reflux disease without esophagitis; M15.9 Polyosteoarthritis, unspecified; M48.02 Spinal stenosis, cervical region; N18.30 Chronic kidney disease, stage 3 unspecified; Z20.822 Contact with and (suspected) exposure to COVID-19; D69.6 Thrombocytopenia, unspecified; E11.22 Type 2 diabetes mellitus with diabetic chronic kidney disease; E11.65 Type 2 diabetes mellitus with hyperglycemia; F32.A Depression, unspecified; F41.9 Anxiety disorder, unspecified; F90.9 Attention-deficit hyperactivity disorder, unspecified type; J98.6 Disorders of diaphragm; T38.0X5A Adverse effect of glucocorticoids and synthetic analogues, initial encounter; Z96.611 Presence of right artificial shoulder joint; Z96.653 Presence of artificial knee joint, bilateral; Z79.82 Long term (current) use of aspirin; Z79.899 Other long term (current) drug therapy; Z86.16 Personal history of COVID-19; Z86.718 Personal history of other venous thrombosis and embolism; Z87.01 Personal history of pneumonia (recurrent); Z98.42 Cataract extraction status, left eye; Z98.41 Cataract extraction status, right eye; Z90.49 Acquired absence of other specified parts of digestive tract; Z98.890 Other specified postprocedural states; Z88.5 Allergy status to narcotic agent; Z88.8 Allergy status to other drugs, medicaments and biological substances; Z80.9 Family history of malignant neoplasm, unspecified
CPT/HCPCS: 36415; 71045; 71046; 71275; 76000; 80048; 80053; 82728; 83605; 83615; 83735; 83880; 84100; 84145; 84484; 85025; 85027; 85379; 85610; 85730; 86140; 86769; 87040; 87449; 87502; 87634; 87635; 93005; 94640; 94660; 94760; 96365; 96372; 96375; 99285

== ENCOUNTER → 2022-03-13 | Outpatient (CLI) | payer MEDICARE, OTHER ==
--- NOTE | 2022-03-13 17:27 | CONS ---
CONSULTATION DATE OF SERVICE: 03/13/2022 This 66-year-old lady has been evaluated in [facility] for possible obstructive sleep apnea-hypopnea syndrome. HISTORY OF PRESENT ILLNESS/SLEEP-WAKE EVALUATION: About 15 years ago the patient had a sleep study in another institution. According to the patient, she was positive for obstructive sleep apnea, but at that time insurance did not cover treatment. At present her sleep schedule on weekdays is from 9 p.m. to 5:30 a.m. and on weekends from 10 p.m. until 11 a.m. She does have problems with falling asleep, although no TV in bedroom. She usually sleeps on the back position. She has a positive history of sleeptalking and awakenings from sleep 4 times with 2 episodes of nocturia. She may feel sleepiness during the day, but may take one nap. [place] Sleepiness Scale is 9, which is borderline. PAST MEDICAL HISTORY: Positive for bilateral pneumonia, laryngitis, laryngospasm, partial paralysis of diaphragm, acid reflux. PAST SURGICAL HISTORY: Bilateral knee replacement, right shoulder replacement, left shoulder partial replacement, cervical fusion. MEDICATIONS: Budesonide, bupropion, albuterol, cyclobenzaprine, methylphenidate, duloxetine, clonazepam. FAMILY HISTORY: Hypertension, asthma. REVIEW OF SYSTEMS: Multiple awakenings from sleep with nocturia, some tiredness and sleepiness during the day. No fevers. No double vision. No recent chest pain. No shortness of breath. No abdominal pain. No bleeding episodes. No blood in the urine. No seizure episodes. PHYSICAL EXAMINATION: GENERAL: Pleasant lady without distress. VITAL SIGNS: BP 136/89, HR 94, RR 16, height 5 feet 3 inches, weight 149, body mass index 26.3, temperature 97.1, oxygen saturation at room air 97%. HEENT: PERRLA, EOMI, evaluation of oropharynx showed tongue protrudes midline. Low position of soft palate; Mallampati III to IV. NECK: Supple, no JVD. Thyroid is not palpable. Neck measures 14 inches in circumference. LUNGS: Clear to percussion and to auscultation. Good air exchange. No wheezing or rhonchi. HEART: S1, S2 regular. No murmurs, gallops, or rubs. ABDOMEN: Soft and nontender. Bowel sounds are present. No organomegaly appreciated. EXTREMITIES: No clubbing or cyanosis. RELOCATION COUNSELOR: Awake, alert, and oriented X3. Cranial nerves 2 to 7 intact. There is no fasciculation or atrophy. Patient has difficulties walking. IMPRESSION: 1. Multiple awakenings from sleep, extremely low position of soft palate, Mallampati III to IV, history of obstructive sleep apnea in the past; possible obstructive sleep apnea-hypopnea syndrome. 2. History of hypertension. 3. Status post bilateral pneumonia. 4. History of laryngitis and laryngospasm. 5. History of partial paralysis of diaphragm. 6. Acid reflux. 7. Status post bilateral knee replacement. 8. Status post right shoulder replacement. 9. Status post partial left shoulder replacement. 10.Status post cervical spinal fusion. PLAN: 1. Polysomnography for evaluation of patient's breathing during sleep. 2. Following plan after reviewing results of polysomnogram. 3. Sleep hygiene with regular time in bed for at least 7-1/2 hours. 4. No driving if feeling any sleepiness. Thank you very much for referring this patient for consultation. Sincerely, Jose Day MD, PhD, FAASM Diplomat of [place] [employer] Sleep Medicine Board of [place] [employer] Officer [facility] MMODL / IJN: [id number] /
== END | disposition home or self-care (01) ==
LOC: SLEEP 14:22
PROVIDERS: ATTEND Internal Medicine
DX: G47.33 Obstructive sleep apnea (adult) (pediatric) (principal); K21.9 Gastro-esophageal reflux disease without esophagitis; Z96.653 Presence of artificial knee joint, bilateral; Z96.611 Presence of right artificial shoulder joint
CPT/HCPCS: 99211

== ENCOUNTER → 2022-03-17 | Outpatient (CLI) | payer MEDICARE, OTHER ==
--- NOTE | 2022-03-17 10:58 | MR ---
EXAMINATION TYPE: MR brain wo/w con DATE OF EXAM: 03/17/2022 COMPARISON: None HISTORY: Dizziness, memory loss TECHNIQUE: Multiplanar, multisequence images of the brain and brainstem is performed without and with IV contras t, utilizing 6.5 mL intravenous Gadavist . FINDINGS: Diffusion weighted images demonstrate no evidence of a recent infarct or other diffusion ab normality. There is a generalized mild to moderate degenerative change. There is confluent and focal areas of ab normal signal involving the periventricular white matter most typical of remote white matter ischemia . Orbits are symmetric. Changes of chronic sinusitis and mastoiditis. Faint abnormal signal involving t he matthew suggestive of tiny areas remote ischemia. No midline shift or mass effect. There is a 3 mm nodular prominence of the right MCA bifurcation high ly suggestive of aneurysm.. IMPRESSION: 1. Degenerative and nonspecific white matter changes most typical of remote ischemia. 2. 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 Recommend [facility] [place] [facility] [place]. 3. Changes of chronic sinusitis and mastoiditis.
== END | disposition home or self-care (01) ==
LOC: RADMRIMAIN 09:28
PROVIDERS: ATTEND Family Medicine
DX: R41.3 Other amnesia (principal)
CPT/HCPCS: 70553; A9585

== ENCOUNTER 2022-04-27 08:44 | Emergency (ER) | payer OTHER ==
[2022-04-27 08:54] VITALS: RESP 16; TEMP 98.3
[2022-04-27] MEDS ORDERED: methylPREDNISolone SOD SUCCI 125 MG/2 ML VIAL IV STA (09:02)
[2022-04-27] MEDS ORDERED: ONDANSETRON 4 MG/2 ML VIAL IVP STA (09:02)
[2022-04-27] MEDS ORDERED: MORPHINE SULFATE 4 MG/ML SYRINGE IVP STA (09:03)
[2022-04-27] MEDS ORDERED: DIAZEPAM 5 MG/ML 2 ML INJ IVP STA (09:38)
--- NOTE | 2022-04-27 09:46 | ED ---
General Adult HPI - General Chief complaint: Neck Pain/Injury Stated complaint: Pain Time Seen by Provider: 04/27/22 08:58 Source: patient, RN notes reviewed Mode of arrival: wheelchair Limitations: no limitations - History of Present Illness Initial comments: 66-year-old female presents emergency Department chief complaint of chronic pain. Patient has chronic head and neck pain. She is scheduled for nerve block on Thursday. Patient had prior Surgery in which most her symptoms started after her surgery, no new Injury. Patient denies any trauma no fevers or chills no chest pain or shortness breath no focal weakness. Patient states that she may moved too quickly causing increase in symptoms. She also was noted to have a take her scalp which was removed by family member. He states there is negative redness from the site. - Related Data Home Medications Medication Instructions Recorded Confirmed Ferrous Sulfate [Iron (65 MG 325 mg PO DAILY 01/08/18 11/11/21 Elemental)] Topiramate [Topamax] 25 mg PO BID 01/08/18 11/11/21 buPROPion HCL [Wellbutrin SR] 150 mg PO BID 01/08/18 11/11/21 Aspirin 81 mg PO DAILY 09/23/21 11/11/21 DULoxetine HCL [Cymbalta] 30 mg PO BID 09/23/21 11/11/21 Albuterol Nebulized [Ventolin 2.5 mg INHALATION RT-QID PRN 11/11/21 11/11/21 Nebulized] Alpha Crs 1 cap PO DAILY 11/11/21 11/11/21 Citalopram Hydrobromide [CeleXA] 40 mg PO DAILY 11/11/21 11/11/21 Copaiba 1 cap PO DAILY@1200 11/11/21 11/11/21 Cyclobenzaprine [Flexeril] 10 mg PO BID 11/11/21 11/11/21 Deep Blue Polyphenol Blend 1 cap PO BID@0900,1200 11/11/21 11/11/21 Esomeprazole Magnesium [NexIUM] 20 mg PO DAILY 11/11/21 11/11/21 Fluticasone Nasal [place] [Flonase 1 - 2 spray EA NOSTRIL DAILY PRN 11/11/21 11/11/21 Nasal [place]] HYDROcodone/APAP 10-325MG [[place] 1 tab PO Q4H PRN 11/11/21 11/11/21 10-325] Microplex Vmz 1 cap PO DAILY 11/11/21 11/11/21 Sandro Max 1 cap PO BID@0900,1200 PRN 11/11/21 11/11/21 Mouthkote Solution Aerosol/[place] 2 spray PO Q4H PRN 11/11/21 11/11/21 Pb Assist 1 cap PO TID 11/11/21 11/11/21 Pilocarpine [[place]] 5 - 10 mg PO TID 11/11/21 11/11/21 Terrazyme 1 cap PO HS 11/11/21 11/11/21 Verapamil HCl [Verapamil ER] 120 mg PO DAILY 11/11/21 11/11/21 Vitamin D And K With Sea-Iodine 1 tab PO DAILY 11/11/21 11/11/21 Xeo Adriel 1 cap PO DAILY 11/11/21 11/11/21 clonazePAM [KlonoPIN] 0.5 mg PO HS 11/11/21 11/11/21 guaiFENesin-DM 600/30MG [Mucinex 1 tab PO BID 11/11/21 11/11/21 Dm] Previous Rx's Medication Instructions Recorded Benzonatate [Tessalon Perles] 100 mg PO TID PRN #30 cap 11/21/21 Methylphenidate HCl 20 mg PO BID #60 tab 11/21/21 predniSONE 0 mg PO DIRECTED #18 tab 11/21/21 Doxycycline [Vibramycin] 100 mg PO BID #20 capsule 04/27/22 Allergies Allergy/AdvReac Type Severity Reaction Status Date / Time cobalt Allergy Rash/Hives Verified 04/27/22 08:51 hydromorphone Allergy Unknown Verified 04/27/22 08:51 nickel Allergy Rash/Hives Verified 04/27/22 08:51 Review of Systems ROS Statement: Those systems with pertinent positive or pertinent negative responses have been documented in the HPI. ROS Other: All systems not noted in ROS Statement are negative. Past Medical History Past Medical History: Diabetes Mellitus, Deep Vein Thrombosis (DVT), Hypertension, Renal Disease Additional Past Medical History / Comment(s): diet controlled diabetes. stage 3 kidney disease. frequent headaches stephanie. @[facility]. tardive dyskinesia History of Any Multi-Drug Resistant Organisms: None Reported Past Surgical History: Cholecystectomy, Hernia Repair, Joint Replacement, Tubal Ligation Additional Past Surgical History / Comment(s): harry knees replaced. right shoulder replaced. left shoulder surg. harry. cataract removal Past Anesthesia/Blood Transfusion Reactions: Previous Problems w/ Anesthesia Additional Past Anesthesia/Blood Transfusion Reaction / Comment(s): AFTER PT'S KNEE REPLACEMENT AT [facility], SHE HAD POST OP BRONCHOSPASMS AND STRIDOR Past Psychological History: ADD/ADHD, Anxiety, Depression Smoking Status: Never smoker Past Alcohol Use History: Occasional Past Drug Use History: None Reported - Past Family History Father Family Medical History: Cancer Brother(s) Additional Family Medical History / Comment(s): ANEURYSM General Exam Limitations: no limitations General appearance: alert, in no apparent distress Head exam: Present: atraumatic, normocephalic. Absent: normal inspection (Posterior, scalp swelling and mild erythema) Eye exam: Present: normal appearance, PERRL, EOMI. Absent: scleral icterus, conjunctival injection, periorbital swelling ENT exam: Present: normal exam, mucous membranes moist Neck exam: Present: normal inspection, tenderness (Right cervical paraspinal no vertebral), full ROM. Absent: meningismus, lymphadenopathy Respiratory exam: Present: normal lung sounds bilaterally. Absent: respiratory distress, wheezes, rales, rhonchi, stridor Cardiovascular Exam: Present: regular rate, normal rhythm, normal heart sounds. Absent: systolic murmur, diastolic murmur, rubs, gallop, clicks Extremities exam: Present: normal inspection, full ROM, normal capillary refill. Absent: tenderness, pedal edema, joint swelling, calf tenderness Back exam: Present: normal inspection, full ROM. Absent: tenderness, paraspinal tenderness, vertebral tenderness Course Vital Signs 04/27/22 04/27/22 08:51 09:44 Temperature 98.3 F Pulse Rate 92 86 Respiratory 16 16 Rate Blood Pressure 117/78 128/87 O2 Sat by Pulse 96 93 L Oximetry Medical Decision Making - Medical Decision Making Patient had acute exacerbation of chronic back pain. She is neurologically intact. Patient does have area tick bite with mild swelling patient placed on doxycycline. She is scheduled for her injection occipital block. Return parameters discussed. Disposition Clinical Impression: Neck pain, Tick bite Disposition: HOME SELF-CARE Condition: Stable Instructions (If sedation given, give patient instructions): Tick Bite (ED), Chronic Neck Pain (DC) Additional Instructions: Please return to the Emergency Department if symptoms worsen or any other concerns. Prescriptions: Doxycycline [Vibramycin] 100 mg PO BID #20 capsule Is patient prescribed a controlled substance at d/c from ED?: No Referrals: Tasneem Penaloza MD [Primary Care Provider] - 1-2 days Time of Disposition: 10:15
[2022-04-27 10:38] VITALS: BP 132/82; PULSE 81
== END 2022-04-27 10:38 | disposition home or self-care (01) ==
LOC: EC 08:44
DX: S00.06XA Insect bite (nonvenomous) of scalp, initial encounter (principal); M54.2 Cervicalgia; E11.22 Type 2 diabetes mellitus with diabetic chronic kidney disease; I12.0 Hypertensive chronic kidney disease with stage 5 chronic kidney disease or end stage renal disease; N18.30 Chronic kidney disease, stage 3 unspecified; Z91.09 Other allergy status, other than to drugs and biological substances; Z88.6 Allergy status to analgesic agent; Z79.899 Other long term (current) drug therapy; Z79.51 Long term (current) use of inhaled steroids; Z79.82 Long term (current) use of aspirin; W57.XXXA Bitten or stung by nonvenomous insect and other nonvenomous arthropods, initial encounter
CPT/HCPCS: 99283; 96374; 96375; J2270; J2930; J3360; J2405

== ENCOUNTER → 2023-07-09 | Outpatient (CLI) | payer OTHER ==
--- NOTE | 2023-07-09 12:42 | P.PN ---
Subjective DATE: 07/09/2023 FOLLOW UP VISIT. Patient returned to sleep center for follow-up visit. I so patient more than 1 year ago, at that time it was recommended to proceed with the sleep study, but 4 different reason including, being in the hospital sleep study was not done. The patient continued to have significant symptoms of excessive daytime sleepiness with Lynn Sleepiness Scale 18 today. She has multiple awakenings from sleep. . MEDICATIONS:1. Albuterol 2. Duloxetine 3. Return in 10 mg twice a day 4. Lisinopril 10 mg once a day 5. Diazepam 2 mg daily at bedtime 6. Pregabalin 7. Esomeprazole During physical exam: GENERAL: A pleasant patient without any distress on wheelchair. VITAL SIGNS: BP 134/83, HR 77, RR 18, weight 158.8, temperature 98.3, oxygen saturation at room air 95. HEENT: PERRLA, EOMI. NECK: Supple. No JVD. LUNGS: Clear to percussion and to auscultation. Good air exchange. No wheezing or rhonchi. HEART: S1, S2 regular. ABDOMEN: Soft and nontender. EXTREMITIES: No clubbing or cyanosis. RECREATION FACILITIES SUPERVISOR: Awake, alert, and oriented x3. No focal deficit. Impressions: 1. Multiple awakenings from sleep, extremely low position of soft palate, history of obstructive sleep apnea in the past. Possible obstructive sleep apnea hypopnea syndrome 2. Extremely high sleepiness with Lynn Sleepiness Scale 18 while patient is on Ritalin twice a day dictated necessity to include narcolepsy and differential diagnosis. 3. Hypertension. 4. History of partial paralysis of diaphragm. 5. Acid reflux. 6. Status post bilateral knee replacement. 7. Status post right shoulder replacement. 8. Status post partial left shoulder replacement. 9. Status post cervical spinal fusion. 10 [] Plan: 1. Polysomnography for ablation of patient breathing during the sleep. If sleep study will be negative for obstructive sleep apnea hypopnea syndrome multiple sleep latency test. No Ritalin during multiple sleep latency test 2. Sleep hygiene with regular time in bed for at least 8 hours. 3. Daytime naps permitted 4. Precautions related to driving. No driving if feel any sleepiness. Patient is aware about civil and criminal liability for unsafe driving, promised to follow recommendations. 5. Follow up visit after sleep study to discuss results of the test and recommendations. Thank you very much for allowing me to participate in the management of your patient. Jose Day MD, PhD, FAASM. Diplomat of [place] [employer], Sleep Medicine Board by [place] [employer] Operations Manager of [facility] [place]
== END ==
LOC: 3 N SLEEP 11:57
PROVIDERS: ATTEND Internal Medicine
DX: G47.33 Obstructive sleep apnea (adult) (pediatric) (principal); I10 Essential (primary) hypertension; G82.20 Paraplegia, unspecified; G47.419 Narcolepsy without cataplexy; K21.9 Gastro-esophageal reflux disease without esophagitis; Z79.899 Other long term (current) drug therapy; Z96.611 Presence of right artificial shoulder joint; Z96.612 Presence of left artificial shoulder joint; Z96.653 Presence of artificial knee joint, bilateral; Z98.1 Arthrodesis status; Z88.5 Allergy status to narcotic agent; Z91.048 Other nonmedicinal substance allergy status; Z79.82 Long term (current) use of aspirin
CPT/HCPCS: 99212